=== PATIENT | female | born 1995 | race Caucasian/White ===

== ENCOUNTER 2016-08-26 17:29 | Emergency (ER) | payer OTHER ==
[2016-08-26 17:47] VITALS: BP 133/82; PULSE 113; RESP 18; TEMP 97.9
--- NOTE | 2016-08-26 18:01 | ED ---
General Adult HPI - General Chief complaint: Dental/Oral Stated complaint: tooth pain Time Seen by Provider: 08/26/16 17:38 Source: patient, RN notes reviewed Mode of arrival: EMS Limitations: no limitations - History of Present Illness Initial comments: This is a 21-year-old female presents with right sided dental pain 1 day. Patient states she had teeth extracted yesterday. Patient states her dentist gave her 6 pain pills and told her to alternate the pain medicine with Motrin. Patient states she has been doing this but she is still having pain. Patient states she called her dentist but was not able to get in for follow-up today. Patient denies any fever/chills, vomiting/diarrhea. Patient states the areas where her teeth were pulled were mildly bleeding and this made her a little bit nauseous. Patient is requesting pain pills. Patient denies any recent shortness breath, chest pain, abdominal pain, back pain, numbness, tingling, hematuria, headache, or visual changes, or any other complaints. - Related Data Home Medications Medication Instructions Recorded Confirmed Ibuprofen [Motrin] 400 mg PO Q6HR PRN 08/26/16 08/26/16 Penicillin V Potassium [Pen Vee K] 500 mg PO BID 08/26/16 08/26/16 Previous Rx's Medication Instructions Recorded Albuterol Inhaler [Ventolin Hfa 2 puff INHALATION RT-QID PRN #1 07/21/16 Inhaler] puff FLUoxetine HCL [PROzac] 60 mg PO DAILY #90 cap 07/21/16 Allergies Allergy/AdvReac Type Severity Reaction Status Date / Time Latex, Natural Rubber Allergy Rash/Hives Verified 08/26/16 17:48 venom-honey bee Allergy Swelling Verified 08/26/16 17:48 [bee venom (honey bee)] acetaminophen AdvReac Nausea & Verified 08/26/16 17:48 [From Tylenol-Codeine #3] Vomiting codeine AdvReac Nausea & Verified 08/26/16 17:48 [From Tylenol-Codeine #3] Vomiting Review of Systems ROS Statement: Those systems with pertinent positive or pertinent negative responses have been documented in the HPI. ROS Other: All systems not noted in ROS Statement are negative. Past Medical History Past Medical History: Asthma, Seizure Disorder Additional Past Medical History / Comment(s): HX: Recent injury to R ankle with ecchymosis and edema and pain, chronic back pain related to herniated disc , chronic migraines, endometriosis, multiple fractures, meningitis as child; ovarian cysts, alchol abuse, prescription drug abuse, heroin abuse in past. History of Any Multi-Drug Resistant Organisms: None Reported Past Surgical History: Section, Cholecystectomy, Ear Surgery, Orthopedic Surgery Additional Past Surgical History / Comment(s): ORIF right wrist, myringotomy with tubes as . Past Anesthesia/Blood Transfusion Reactions: No Reported Reaction Past Psychological History: Anxiety, Bipolar, Depression, Panic Disorder Additional Psychological History / Comment(s): Pt states she is staying with friends. 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 Pt has had several stays at [place] and admissions to [facility] mental health unit. She is suppose to go into [place] on 06/12/16. Pt denied suicidal thoughts or plans related to this incident that brought her to [facility] ER. Pt's mother is concerned that pt has recently been talking of not wanting to live any longer. Pt denies this however. Smoking Status: Current every day smoker Past Alcohol Use History: Abuse, Daily, Heavy Additional Past Alcohol Use History / Comment(s): Pt abuses alcohol and was last known to have drank 2 weeks ago. Pt has hx of heroin use and states she used heroin last nite and had been warned that "it was a strong kind." She also has hx of prescription drug abuse, benzo's, klonopin, xanax and marijuana use. Past Drug Use History: Heroin, Prescription Drug Abuse Additional Drug Use History / Comment(s): See addition past alcohol use section. - Past Family History Brother(s) Additional Family Medical History / Comment(s): Patient has 1 brother that is 20 years of age with no major medical problems. Patient has 1 son 3-1/2 years old with no major medical problems. Father Additional Family Medical History / Comment(s): Father is alive at age 54 with history of substance abuse, Schizophrenic, Bipolar Disorder Mother Additional Family Medical History / Comment(s): Mother is alive at age 47 with history of Arthritis. General Exam - General Exam Comments Initial Comments: General: The patient is awake and alert, in no distress, and does not appear acutely ill. Eye: Pupils are equal, round and reactive to light, extra-ocular movements are intact. No nystagmus. There is normal conjunctiva bilaterally. No signs of icterus. Ears: TMs pink and pearly with intact cone light bilaterally. Some mild scarring of TMs from past tympanostomy tubes bilaterally. Nose: Nasal turbinates pink and moist bilaterally. Mouth and throat: Patient has multiple missing teeth to the lower right gumline and multiple areas of tooth decay. No external facial swelling. There are healing areas where teeth~#27-28 were recently removed, but a fracture of tooth #27 remains. No sign of abscess or purulent drainage. There are moist mucous membranes and no oral lesions. Neck: The neck is supple, there is no tenderness or JVD. Cardiovascular: There is a regular rate and rhythm. No murmur, rub or gallop is appreciated. Respiratory: Lungs are clear to auscultation, respirations are non-labored, breath sounds are equal. No wheezes, stridor, rales, or rhonchi. Musculoskeletal: Normal ROM, no tenderness. Strength 5/5. Sensation intact. Radial pulses equal bilaterally 2+. Neurological: A&O x 3. CN II-XII intact, There are no obvious motor or sensory deficits. Coordination appears grossly intact. Speech is normal. Skin: Skin is warm and dry and no rashes or lesions are noted. Psychiatric: Cooperative, appropriate mood & affect, normal judgment. Limitations: no limitations Course Vital Signs 08/26/16 17:45 Temperature 97.9 F Pulse Rate 113 H Respiratory 18 Rate Blood Pressure 133/82 O2 Sat by Pulse 96 Oximetry Medical Decision Making - Medical Decision Making This is a 18-year-old female presents with pain after tooth extraction that happened yesterday. On physical exam patient is afebrile in the EC. Patient has multiple missing teeth to the lower right gumline and multiple areas of tooth decay. No external facial swelling. There are healing areas where teeth~# 27-28 were recently removed, but a fracture of tooth #27 remains. No sign of abscess or purulent drainage. There are moist mucous membranes and no oral lesions. Discussed with patient to continue the pain regimen her dentist recommended. Discussed continuation of Motrin. Patient was offered Motrin in the EC before discharge but patient refused. Discussed warm compresses to the area. Discussed return parameters. Discussed close follow-up with her dentist. Discussed that patient should follow up with PCP in one to 2 days or return to the EC for any worsening symptoms or for any further concerns. Patient was receptive to this plan and patient will be discharged home. I discussed his case with attending physician Dr. Saul who agrees the plan as stated above. Disposition Clinical Impression: History of tooth extraction, Pain, dental Disposition: HOME SELF-CARE Condition: Good Instructions: Toothache (ED) Additional Instructions: Please continue pain medication prescribed by her dentist and use Motrin. Please use warm compresses to the area. Please follow-up with dentist as soon as possible.[facility] dental plan: [address] [facility] [place] [address], . [employer]: Have to pay $50 for x-rays and the rest is covered. [phone]. Please follow-up with family doctor in the next 2 days of symptoms have not improved. Please return to emergency room if the symptoms increase or worsen or for any other concerns. Referrals: None,Stated [Primary Care Provider] - 1-2 days Time of Disposition: 17:59
== END 2016-08-26 18:06 | disposition home or self-care (01) ==
LOC: EC 17:29
DX: K08.89 Other specified disorders of teeth and supporting structures (principal); Z98.818 Other dental procedure status; F31.9 Bipolar disorder, unspecified; F41.0 Panic disorder [episodic paroxysmal anxiety]; F10.10 Alcohol abuse, uncomplicated; Z79.899 Other long term (current) drug therapy; Z91.040 Latex allergy status; F17.200 Nicotine dependence, unspecified, uncomplicated
CPT/HCPCS: 99283

== ENCOUNTER 2016-09-17 11:55 | Emergency (ER) | payer OTHER ==
[2016-09-17 12:00] VITALS: BP 143/82; PULSE 120; RESP 18; TEMP 97.2
[2016-09-17] MEDS ORDERED: HYDROcodone/APAP 5-325MG 1 EACH TAB PO STA (12:20)
--- NOTE | 2016-09-17 12:24 | ED ---
General Adult HPI - General Chief complaint: Dental/Oral Stated complaint: oral pain Time Seen by Provider: 09/17/16 12:06 Source: patient, RN notes reviewed, old records reviewed Mode of arrival: ambulatory Limitations: no limitations - History of Present Illness Initial comments: 21-year-old female presenting for dental pain. Patient states that she has had recurrent issues with cavities. She did have 2 of her right lower teeth pulled about 2 weeks ago. Since that time she's had persistent pain in this area. She states she did have some purulent drainage from the area several days ago. However, she has not had any purulent drainage in the past 2 days. She did finish a course of penicillin about 2 days ago. She denies any fevers or chills. She does state that she's been using Orajel and Motrin and Tylenol without significant relief. She denies any other complaints at this time. She does continue smoke cigarettes. She is not followed up with her dentist since the tooth extraction. - Related Data Home Medications Medication Instructions Recorded Confirmed Ibuprofen [Motrin] 400 mg PO Q6HR PRN 08/26/16 08/26/16 Penicillin V Potassium [Pen Vee K] 500 mg PO BID 08/26/16 08/26/16 Previous Rx's Medication Instructions Recorded Albuterol Inhaler [Ventolin Hfa 2 puff INHALATION RT-QID PRN #1 07/21/16 Inhaler] puff FLUoxetine HCL [PROzac] 60 mg PO DAILY #90 cap 07/21/16 HYDROcodone/APAP 5-325MG [[place] 1 tab PO Q6HR PRN #10 tab 09/17/16 5-325] Allergies Allergy/AdvReac Type Severity Reaction Status Date / Time Latex, Natural Rubber Allergy Rash/Hives Verified 09/17/16 12:00 venom-honey bee Allergy Swelling Verified 09/17/16 12:00 [bee venom (honey bee)] acetaminophen AdvReac Nausea & Verified 09/17/16 12:00 [From Tylenol-Codeine #3] Vomiting codeine AdvReac Nausea & Verified 09/17/16 12:00 [From Tylenol-Codeine #3] Vomiting Review of Systems ROS Statement: Those systems with pertinent positive or pertinent negative responses have been documented in the HPI. ROS Other: All systems not noted in ROS Statement are negative. Past Medical History Past Medical History: Asthma, Seizure Disorder Additional Past Medical History / Comment(s): HX: Recent injury to R ankle with ecchymosis and edema and pain, chronic back pain related to herniated disc , chronic migraines, endometriosis, multiple fractures, meningitis as child; ovarian cysts, alchol abuse, prescription drug abuse, heroin abuse in past. History of Any Multi-Drug Resistant Organisms: None Reported Past Surgical History: Section, Cholecystectomy, Ear Surgery, Orthopedic Surgery Additional Past Surgical History / Comment(s): ORIF right wrist, myringotomy with tubes as infant. Past Anesthesia/Blood Transfusion Reactions: No Reported Reaction Past Psychological History: Anxiety, Bipolar, Depression, Panic Disorder Additional Psychological History / Comment(s): Pt states she is staying with friends. 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 Pt has had several stays at [place] and admissions to [facility] mental health unit. She is suppose to go into [place] on 06/12/16. Pt denied suicidal thoughts or plans related to this incident that brought her to [facility] ER. Pt's mother is concerned that pt has recently been talking of not wanting to live any longer. Pt denies this however. Smoking Status: Current every day smoker Past Alcohol Use History: Abuse, Daily, Heavy Additional Past Alcohol Use History / Comment(s): Pt abuses alcohol and was last known to have drank 2 weeks ago. Pt has hx of heroin use and states she used heroin last nite and had been warned that "it was a strong kind." She also has hx of prescription drug abuse, benzo's, klonopin, xanax and marijuana use. Past Drug Use History: Heroin, Prescription Drug Abuse Additional Drug Use History / Comment(s): See addition past alcohol use section. - Past Family History Brother(s) Additional Family Medical History / Comment(s): Patient has 1 brother that is 20 years of age with no major medical problems. Patient has 1 son 3-1/2 years old with no major medical problems. Father Additional Family Medical History / Comment(s): Father is alive at age 54 with history of substance abuse, Schizophrenic, Bipolar Disorder Mother Additional Family Medical History / Comment(s): Mother is alive at age 47 with history of Arthritis. General Exam - General Exam Comments Initial Comments: General: Awake and Alert. No acute distress. Does not appear acutely ill. Eyes: NEO, EOM intact. No nystagmus. No scleral icterus. Multiple dental caries. Teeth 27 and 28 in the right lower jaw are missing. Good overlying gum appears uninfected and well healing. She has mild tenderness over this area. There is no purulent drainage or evidence of abscess. There is no posterior pharyngeal edema or erythema. There is no tonsillar edema. HENT: Atraumatic, normocephalic. Mucous membranes moist. Trachea midline. Neck: The neck is supple, there is no tenderness or JVD. Cardiovascular: Regular rate and rhythm. No murmur, rub, or gallop is appreciated. Distal pulses intact. Respiratory: Lungs are clear to auscultation bilaterally. No wheezes, rales, rhonchi. No respiratory distress. Gastrointestinal: Soft, Nontender. No rebound or guarding. Non-distended. No masses or organomegaly noted. No CVA tenderness. Musculoskeletal: No tenderness. Normal ROM. No gross deformity. No strength deficits. Neurological: A&Ox3. CN II-XII grossly intact, There are no obvious motor or sensory deficits. Coordination appears grossly intact. Speech is normal. Skin: Skin is warm and dry and no rashes or lesions are noted. Psychiatric: Cooperative, appropriate mood & affect, normal judgment. Limitations: no limitations Course Vital Signs 09/17/16 11:56 Temperature 97.2 F L Pulse Rate 120 H Respiratory 18 Rate Blood Pressure 143/82 O2 Sat by Pulse 99 Oximetry Medical Decision Making - Medical Decision Making 21-year-old female presenting for dental pain. Patient with recent tooth extraction. Area of tooth extraction is the area of pain she complains about. There does not appear to be any active infection or abscess in this area. The tissue appears to be healing well. There is no purulent drainage. No evidence of mandibular swelling. I do not recommend additional antibiotic therapy at this time. Was written for pain medication. Discussed close follow-up with dentist for further evaluation need for possible antibiotics. Discussed concerning signs symptoms for immediate return to the ED. Recommend over-the- counter treatments with Orajel and Tylenol and Motrin as needed. Patient is agreeable with plan and discharge home. Disposition Clinical Impression: Pain, dental Disposition: HOME SELF-CARE Condition: Stable Instructions: Toothache (ED) Additional Instructions: Please call follow-up with your dentist as soon as possible. Prescriptions: HYDROcodone/APAP 5-325MG [[place] 5-325] 1 tab PO Q6HR PRN #10 tab PRN Reason: Pain Referrals: None,Stated [Primary Care Provider] - 1-2 days Macario Castillo MD [REFERRING] - 1-2 days Time of Disposition: 12:24
== END 2016-09-17 12:31 | disposition home or self-care (01) ==
LOC: EC 11:55
DX: K02.9 Dental caries, unspecified (principal); F11.90 Opioid use, unspecified, uncomplicated; F31.9 Bipolar disorder, unspecified; F41.9 Anxiety disorder, unspecified; F41.0 Panic disorder [episodic paroxysmal anxiety]; F17.210 Nicotine dependence, cigarettes, uncomplicated; Z91.040 Latex allergy status; Z91.030 Bee allergy status; Z88.5 Allergy status to narcotic agent; Z88.6 Allergy status to analgesic agent
CPT/HCPCS: 99282

== ENCOUNTER 2016-10-02 03:50 | Emergency (ER) | payer OTHER ==
--- NOTE | 2016-10-02 04:20 | ED ---
General Adult HPI - General Source: patient, RN notes reviewed, old records reviewed Mode of arrival: ambulatory Limitations: no limitations <Aime Nascimento - Last Filed: 10/02/16 04:32> <Randell Saul - Last Filed: 10/02/16 10:04> - General Chief complaint: Psychiatric Symptoms Stated complaint: Mental Health Time Seen by Provider: 10/02/16 04:13 - History of Present Illness Initial comments: This is a 21-year-old female here for evaluation of psychiatric disease, psychiatric evaluation. Patient going through multiple stressors in her life, sutures out medication, feels like she's lost and has no return. Patient with recent drugs, admits to recent heroin use (Aime Nascimento) - Related Data Home Medications Medication Instructions Recorded Confirmed FLUoxetine HCL [PROzac] 60 mg PO DAILY 10/02/16 10/02/16 lamoTRIgine [LaMICtal] 200 mg PO DAILY 10/02/16 10/02/16 Allergies Allergy/AdvReac Type Severity Reaction Status Date / Time Latex, Natural Rubber Allergy Rash/Hives Verified 10/02/16 04:02 venom-honey bee Allergy Swelling Verified 10/02/16 04:02 [bee venom (honey bee)] acetaminophen AdvReac Nausea & Verified 10/02/16 04:02 [From Tylenol-Codeine #3] Vomiting codeine AdvReac Nausea & Verified 10/02/16 04:02 [From Tylenol-Codeine #3] Vomiting Review of Systems ROS Other: All systems not noted in ROS Statement are negative. <Aime Nascimento - Last Filed: 10/02/16 04:32> ROS Other: All systems not noted in ROS Statement are negative. <Randell Saul - Last Filed: 10/02/16 10:04> ROS Statement: Those systems with pertinent positive or pertinent negative responses have been documented in the HPI. Past Medical History Past Medical History: Asthma, Seizure Disorder Additional Past Medical History / Comment(s): HX: Recent injury to R ankle with ecchymosis and edema and pain, chronic back pain related to herniated disc , chronic migraines, endometriosis, multiple fractures, meningitis as child; ovarian cysts, alchol abuse, prescription drug abuse, heroin abuse in past. History of Any Multi-Drug Resistant Organisms: None Reported Past Surgical History: Section, Cholecystectomy, Ear Surgery, Orthopedic Surgery Additional Past Surgical History / Comment(s): ORIF right wrist, myringotomy with tubes as infant. Past Anesthesia/Blood Transfusion Reactions: No Reported Reaction Past Psychological History: Anxiety, Bipolar, Depression, Panic Disorder Additional Psychological History / Comment(s): Pt states she is staying with friends. 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 Pt has had several stays at [place] and admissions to [facility] mental health unit. She is suppose to go into [place] on 06/12/16. Pt denied suicidal thoughts or plans related to this incident that brought her to [facility] ER. Pt's mother is concerned that pt has recently been talking of not wanting to live any longer. Pt denies this however. Smoking Status: Current every day smoker Past Alcohol Use History: Occasional Additional Past Alcohol Use History / Comment(s): Pt abuses alcohol and was last known to have drank 2 weeks ago. Pt has hx of heroin use and states she used heroin last nite and had been warned that "it was a strong kind." She also has hx of prescription drug abuse, benzo's, klonopin, xanax and marijuana use. Past Drug Use History: Heroin, Marijuana, Opiates, Prescription Drug Abuse Additional Drug Use History / Comment(s): See addition past alcohol use section. - Past Family History Brother(s) Additional Family Medical History / Comment(s): Patient has 1 brother that is 20 years of age with no major medical problems. Patient has 1 son 3-1/2 years old with no major medical problems. Father Additional Family Medical History / Comment(s): Father is alive at age 54 with history of substance abuse, Schizophrenic, Bipolar Disorder Mother Additional Family Medical History / Comment(s): Mother is alive at age 47 with history of Arthritis. <Aime Nascimento - Last Filed: 10/02/16 04:32> General Exam Limitations: no limitations General appearance: alert, in no apparent distress, anxious Head exam: Present: atraumatic, normocephalic, normal inspection Eye exam: Present: normal appearance, PERRL, EOMI. Absent: scleral icterus, conjunctival injection, periorbital swelling ENT exam: Present: normal exam, mucous membranes moist Neck exam: Present: normal inspection. Absent: tenderness, meningismus, lymphadenopathy Respiratory exam: Present: normal lung sounds bilaterally. Absent: respiratory distress, wheezes, rales, rhonchi, stridor Cardiovascular Exam: Present: normal rhythm, tachycardia, normal heart sounds. Absent: systolic murmur, diastolic murmur, rubs, gallop, clicks GI/Abdominal exam: Present: soft, normal bowel sounds. Absent: distended, tenderness, guarding, rebound, rigid Extremities exam: Present: normal inspection, full ROM, normal capillary refill. Absent: tenderness, pedal edema, joint swelling, calf tenderness Back exam: Present: normal inspection Neurological exam: Present: alert, oriented X3, CN II-XII intact Psychiatric exam: Present: normal affect, normal mood Skin exam: Present: warm, dry, intact, normal color. Absent: rash <Aime Nascimento - Last Filed: 10/02/16 04:32> Course <Aime Nascimento - Last Filed: 10/02/16 04:32> <Randell Saul - Last Filed: 10/02/16 10:04> Vital Signs 10/02/16 03:55 Temperature 97.8 F Pulse Rate 126 H Respiratory 18 Rate Blood Pressure 116/72 O2 Sat by Pulse 97 Oximetry - Reevaluation(s) Reevaluation #1: 10/02/16 04:33 Patient's medically psychiatric evaluation 10/02/16 04:33 (Aime Nascimento) 10/02/16 10:03 Patient reevaluated by myself, Dr. Saul. Patient admits to feeling depressed with suicidal thoughts. Patient did attempt to cut her wrist recently. Patient has not been on medications recently. Patient has anger without specific homicidal thoughts. No hallucinations. Patient was seen by mental health services who does plan to either transfer or admit. Positive clinical certificate completed. (Randell Saul) Disposition <Aime Nascimento - Last Filed: 10/02/16 04:32> <Randell Saul - Last Filed: 10/02/16 10:04> Clinical Impression: Suicidal ideation, Depression Disposition: TRANSFER TO PSYCH HOSP/UNIT
[2016-10-02] MEDS ORDERED: clonazePAM 1 MG TAB PO STA (05:23)
[2016-10-02] MEDS: LORazepam 1 MG TAB PO STA ×2 (10:18→13:22)
[2016-10-02 10:49] LABS: Basophils % (A) 1 %; CH 30.3; CHCM 34.4; Eosinophils # (A) 0.5 k/uL (0-0.7); Eosinophils % (A) 7 %; HCT 38.9 % (34.0-46.0); HDW 2.76; Luc # (Auto) 0.26; Luc % (Auto) 4; Lymphocytes % (A) 46 %; MCH 29.5 pg (25.0-35.0); MCHC 33.4 g/dL (31.0-37.0); MCV 88.5 fL (80.0-100.0); Mean Platelet Volume 7.2; Monocytes # (A) 0.3 k/uL (0-1.0); Monocytes % (A) 5 %; Neutrophils # (A) 2.4 k/uL (1.3-7.7); Neutrophils % (A) 37 %; RBC 4.39 m/uL (3.80-5.40); RDW 13.3 % (11.5-15.5); WBC 6.4 k/uL (3.8-10.6); WBC (Perox) 6.72
[2016-10-02 10:58] LABS: ALT 53 U/L (9-52); AST 35 U/L (14-36); Alkaline Phosphatase 59 U/L (38-126); Anion Gap 12 mmol/L; Blood Urea Nitrogen 7 mg/dL (7-17); Calcium 9.6 mg/dL (8.4-10.2); Carbon Dioxide 26 mmol/L (22-30); Chloride 102 mmol/L (98-107); Glucose 102 mg/dL (74-99); Non-African American GFR(MDRD) >60 (>60 ml/min/1.73 sqM); Potassium 3.4 mmol/L (3.5-5.1); Sodium 140 mmol/L (137-145); Total Bilirubin 0.7 mg/dL (0.2-1.3); Total Protein 7.7 g/dL (6.3-8.2)
[2016-10-02] MEDS ORDERED: LORazepam 1 MG TAB PO STA (12:58)
[2016-10-02] MEDS ORDERED: ZIPRASIDONE 20 MG VIAL IM PRN (13:50)
[2016-10-02 15:37] VITALS: BP 103/57; PULSE 85; RESP 16; TEMP 96.8
== END 2016-10-02 15:35 ==
LOC: EC 03:50
DX: F31.9 Bipolar disorder, unspecified (principal); G40.909 Epilepsy, unspecified, not intractable, without status epilepticus; F41.0 Panic disorder [episodic paroxysmal anxiety]; Z81.8 Family history of other mental and behavioral disorders; F17.200 Nicotine dependence, unspecified, uncomplicated; Z79.899 Other long term (current) drug therapy; Z91.040 Latex allergy status; Z88.6 Allergy status to analgesic agent; Z91.030 Bee allergy status
CPT/HCPCS: 82075; 36415; 93005; 80053; 85025; 81025; 80306; 99285; 96372; J3486

== ENCOUNTER 2016-10-11 18:24 | Emergency (ER) | payer OTHER ==
[2016-10-11] MEDS ORDERED: KETOROLAC 30 MG/ML 1 ML VIAL IVP STA (20:10)
--- NOTE | 2016-10-11 20:14 | ED ---
Abdominal Pain HPI - General Chief Complaint: Abdominal Pain Stated Complaint: Severe menstrual Pain h/o endometriosis Time Seen by Provider: 10/11/16 19:59 Source: patient, RN notes reviewed Mode of arrival: ambulatory Limitations: no limitations - History of Present Illness Initial Comments: Patient is a 21-year-old female with chief complaint of lower pelvic pain for approximately one day. Patient reports that she is currently on her period. Patient reports that she has history of endometriosis and ovarian cyst. Patient states that the pain is a sharp stabbing pain in nature and radiates towards her back. She states that she's taken a lot of Motrin however does not help with the pain. She denies any other associated symptoms. She states that she feels a little nauseated. She denies any upper abdominal pain, dysuria or hematuria.Patient denies any recent fever, chills, shortness of breath, chest pain, back pain, numbness or tingling, dysuria or hematuria, constipation or diarrhea, headaches or visual changes, or any other current symptoms - Related Data Home Medications Medication Instructions Recorded Confirmed Albuterol Inhaler [Ventolin Hfa 1 - 2 puff INHALATION RT-Q6H PRN 10/11/16 Inhaler] Ibuprofen [Motrin] 800 mg PO TID PRN 10/11/16 10/11/16 OXcarbazepine [Trileptal] 300 mg PO BID 10/11/16 10/11/16 Paliperidone [Invega] 3 mg PO HS 10/11/16 10/11/16 Previous Rx's Medication Instructions Recorded Ciprofloxacin HCl [Cipro] 250 mg PO Q12HR #6 tablet 10/11/16 Allergies Allergy/AdvReac Type Severity Reaction Status Date / Time Latex, Natural Rubber Allergy Rash/Hives Verified 10/11/16 20:15 venom-honey bee Allergy Swelling Verified 10/11/16 20:15 [bee venom (honey bee)] Review of Systems ROS Statement: Those systems with pertinent positive or pertinent negative responses have been documented in the HPI. ROS Other: All systems not noted in ROS Statement are negative. Past Medical History Past Medical History: Asthma, Seizure Disorder Additional Past Medical History / Comment(s): HX: Recent injury to R ankle with ecchymosis and edema and pain, chronic back pain related to herniated disc , chronic migraines, endometriosis, multiple fractures, meningitis as child; ovarian cysts, alchol abuse, prescription drug abuse, heroin abuse in past. History of Any Multi-Drug Resistant Organisms: None Reported Past Surgical History: Section, Cholecystectomy, Ear Surgery, Orthopedic Surgery Additional Past Surgical History / Comment(s): ORIF right wrist, myringotomy with tubes as . Past Anesthesia/Blood Transfusion Reactions: No Reported Reaction Past Psychological History: Anxiety, Bipolar, Depression, Panic Disorder Additional Psychological History / Comment(s): Pt states she is staying with friends. 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 Pt has had several stays at [facility] and admissions to [facility] mental health unit. She is suppose to go into [facility] on 06/12/16. Pt denied suicidal thoughts or plans related to this incident that brought her to [facility] ER. Pt's mother is concerned that pt has recently been talking of not wanting to live any longer. Pt denies this however. Smoking Status: Current every day smoker Past Alcohol Use History: Occasional Additional Past Alcohol Use History / Comment(s): Pt abuses alcohol and was last known to have drank 2 weeks ago. Pt has hx of heroin use and states she used heroin last nite and had been warned that "it was a strong kind." She also has hx of prescription drug abuse, benzo's, klonopin, xanax and marijuana use. Past Drug Use History: Heroin, Marijuana, Opiates, Prescription Drug Abuse Additional Drug Use History / Comment(s): See addition past alcohol use section. - Past Family History Brother(s) Additional Family Medical History / Comment(s): Patient has 1 brother that is 20 years of age with no major medical problems. Patient has 1 son 3-1/2 years old with no major medical problems. Father Additional Family Medical History / Comment(s): Father is alive at age 54 with history of substance abuse, Schizophrenic, Bipolar Disorder Mother Additional Family Medical History / Comment(s): Mother is alive at age 47 with history of Arthritis. General Exam - General Exam Comments Initial Comments: Patient is a well-appearing 21-year-old female. Patient does not appear to be in any acute distress. Limitations: no limitations General appearance: alert, in no apparent distress Head exam: Present: atraumatic, normocephalic, normal inspection Eye exam: Present: normal appearance, PERRL, EOMI. Absent: scleral icterus, conjunctival injection, periorbital swelling ENT exam: Present: normal exam, mucous membranes moist Neck exam: Present: normal inspection. Absent: tenderness, meningismus, lymphadenopathy Respiratory exam: Present: normal lung sounds bilaterally. Absent: respiratory distress, wheezes, rales, rhonchi, stridor Cardiovascular Exam: Present: regular rate, normal rhythm, normal heart sounds. Absent: systolic murmur, diastolic murmur, rubs, gallop, clicks GI/Abdominal exam: Present: soft, normal bowel sounds. Absent: distended, tenderness, guarding, rebound, rigid External exam: Present: normal external exam. Absent: erythema, swelling Speculum exam: Present: normal speculum exam, vaginal bleeding (Scant vaginal bleeding. No evidence of clots. This would be consistent with normal menstruation.). Absent: erythema, vaginal discharge, cervical discharge, foreign body Extremities exam: Present: normal inspection, full ROM, normal capillary refill. Absent: tenderness, pedal edema, joint swelling, calf tenderness Back exam: Present: normal inspection Neurological exam: Present: alert, oriented X3, CN II-XII intact Psychiatric exam: Present: normal affect, normal mood Skin exam: Present: warm, dry, intact, normal color. Absent: rash Course Vital Signs 10/11/16 18:27 Temperature 97.8 F Pulse Rate 114 H Respiratory 20 Rate Blood Pressure 120/85 O2 Sat by Pulse 99 Oximetry Medical Decision Making - Medical Decision Making Patient is a 21-year-old [employer] chief complaint of lower abdominal pain for approximately 1 day. She still denies any changes in bowel movements or urination. Patient reports that she does have a history of ovarian cysts. Patient was given IV Toradol and over mother morphine. Patient reports that she 's can still continued to complain of pain. Transvaginal ultrasound was reviewed and no evidence of ovarian torsion or free fluid within the pelvis. No evidence of cysts. Patient's urine did show slight urinary tract infection with water leukocyte Estrace and 32 white blood cells. Patient is currently on her menstrual period. Urine culture will be obtained. Patient be started on Cipro and given initial dose the emergency room. Return parameters were discussed. I advised patient to follow-up with her primary care provider. Patient was continuing to complain about needing pain medications. Patient does have a history of opiate disorder and multiple heroin overdoses where she is been seen in the emergency room. I will not prescribe the patient any narcotic pain medications. I advised Motrin Tylenol should be sufficient for pain. It is ambulating around the room and eating. She doesn't appear to be in any acute distress. - Lab Data Result diagrams: 10/11/16 20:25 10/11/16 20:25 Lab Results 10/11/16 10/11/16 10/11/16 Range/Units 20:25 20:25 20:55 WBC 9.4 (3.8-10.6) k/uL RBC 4.10 (3.80-5.40) m/uL Hgb 12.3 (11.4-16.0) gm/dL Hct 37.1 (34.0-46.0) % MCV 90.5 (80.0-100.0) fL MCH 29.9 (25.0-35.0) pg MCHC 33.1 (31.0-37.0) g/dL RDW 13.2 (11.5-15.5) % Plt Count 227 (150-450) k/uL Neutrophils % 56 % Lymphocytes % 32 % Monocytes % 6 % Eosinophils % 3 % Basophils % 1 % Neutrophils # 5.3 (1.3-7.7) k/uL Lymphocytes # 3.0 (1.0-4.8) k/uL Monocytes # 0.5 (0-1.0) k/uL Eosinophils # 0.3 (0-0.7) k/uL Basophils # 0.1 (0-0.2) k/uL Sodium 141 (137-145) mmol/L Potassium 4.1 (3.5-5.1) mmol/L Chloride 100 (98-107) mmol/L Carbon Dioxide 30 (22-30) mmol/L Anion Gap 11 mmol/L BUN 13 (7-17) mg/dL Creatinine 0.73 (0.52-1.04) mg/dL Est GFR (MDRD) Af Amer >60 (>60 ml/min/1.73 sqM) Est GFR (MDRD) Non-Af >60 (>60 ml/min/1.73 sqM) Glucose 93 (74-99) mg/dL Calcium 9.7 (8.4-10.2) mg/dL Urine Color Urine Appearance (Clear) Urine pH (5.0-8.0) Ur Specific [place] (1.001-1.035) Urine Protein (Negative) Urine Glucose (UA) (Negative) Urine Ketones (Negative) Urine Blood (Negative) Urine Nitrate (Negative) Urine Bilirubin (Negative) Urine Urobilinogen (<2.0) mg/dL Ur Leukocyte Esterase (Negative) Urine RBC (0-5) /hpf Urine WBC (0-5) /hpf Ur Squamous Epith Cells (0-4) /hpf Amorphous Sediment (None) /hpf Urine Mucus (None) /hpf Urine HCG, Qual Not Detected (Not Detectd) Trichomonas Ag (Rapid) (Negative) 10/11/16 10/11/16 Range/Units 20:55 20:55 WBC (3.8-10.6) k/uL RBC (3.80-5.40) m/uL Hgb (11.4-16.0) gm/dL Hct (34.0-46.0) % MCV (80.0-100.0) fL MCH (25.0-35.0) pg MCHC (31.0-37.0) g/dL RDW (11.5-15.5) % Plt Count (150-450) k/uL Neutrophils % % Lymphocytes % % Monocytes % % Eosinophils % % Basophils % % Neutrophils # (1.3-7.7) k/uL Lymphocytes # (1.0-4.8) k/uL Monocytes # (0-1.0) k/uL Eosinophils # (0-0.7) k/uL Basophils # (0-0.2) k/uL Sodium (137-145) mmol/L Potassium (3.5-5.1) mmol/L Chloride (98-107) mmol/L Carbon Dioxide (22-30) mmol/L Anion Gap mmol/L BUN (7-17) mg/dL Creatinine (0.52-1.04) mg/dL Est GFR (MDRD) Af Amer (>60 ml/min/1.73 sqM) Est GFR (MDRD) Non-Af (>60 ml/min/1.73 sqM) Glucose (74-99) mg/dL Calcium (8.4-10.2) mg/dL Urine Color Yellow Urine Appearance Cloudy H (Clear) Urine pH 6.5 (5.0-8.0) Ur Specific [place] 1.018 (1.001-1.035) Urine Protein Trace H (Negative) Urine Glucose (UA) Negative (Negative) Urine Ketones Negative (Negative) Urine Blood Moderate H (Negative) Urine Nitrate Negative (Negative) Urine Bilirubin Negative (Negative) Urine Urobilinogen <2.0 (<2.0) mg/dL Ur Leukocyte Esterase Moderate H (Negative) Urine RBC 28 H (0-5) /hpf Urine WBC 20 H (0-5) /hpf Ur Squamous Epith Cells 7 H (0-4) /hpf Amorphous Sediment Rare H (None) /hpf Urine Mucus Rare H (None) /hpf Urine HCG, Qual (Not Detectd) Trichomonas Ag (Rapid) Negative (Negative) - Radiology Data Radiology results: report reviewed The uterus is with a normal limits. No evidence of ovarian torsion. No evidence of free fluid within the cul-de-sac. Disposition Clinical Impression: Menstrual cramps, Urinary tract infection Disposition: HOME SELF-CARE Condition: Good Instructions: Urinary Tract Infection in Women (ED) Additional Instructions: Patient is to rest, increase fluids and to take prescriptions as instructed. Follow-up with primary care provider within the next 1-2 days. Return the emergency room if any alarming signs or symptoms occur. Prescriptions: Ciprofloxacin HCl [Cipro] 250 mg PO Q12HR #6 tablet Referrals: Macario Castillo MD [REFERRING] - 1-2 days Time of Disposition: 22:08
[2016-10-11 20:36] LABS: Basophils # (A) 0.1 k/uL (0-0.2); Basophils % (A) 1 %; CH 30.2; CHCM 33.5; Eosinophils # (A) 0.3 k/uL (0-0.7); Eosinophils % (A) 3 %; HCT 37.1 % (34.0-46.0); HDW 2.31; HGB 12.3 gm/dL (11.4-16.0); Luc # (Auto) 0.25; Luc % (Auto) 3; Lymphocytes % (A) 32 %; MCH 29.9 pg (25.0-35.0); MCHC 33.1 g/dL (31.0-37.0); MCV 90.5 fL (80.0-100.0); Monocytes # (A) 0.5 k/uL (0-1.0); Monocytes % (A) 6 %; Neutrophils # (A) 5.3 k/uL (1.3-7.7); Neutrophils % (A) 56 %; RDW 13.2 % (11.5-15.5); WBC 9.4 k/uL (3.8-10.6)
[2016-10-11] MEDS ORDERED: ACETAMINOPHEN IV (For NPO) 1,000 MG in EMPTY BAG 1 BAG IVPB STA (20:43)
[2016-10-11] MEDS ORDERED: MORPHINE SULFATE 2 MG/ML SYRINGE IVP ONE (20:44)
[2016-10-11 20:45] LABS: Anion Gap 11 mmol/L; Blood Urea Nitrogen 13 mg/dL (7-17); Calcium 9.7 mg/dL (8.4-10.2); Carbon Dioxide 30 mmol/L (22-30); Chloride 100 mmol/L (98-107); Glucose 93 mg/dL (74-99); Non-African American GFR(MDRD) >60 (>60 ml/min/1.73 sqM); Potassium 4.1 mmol/L (3.5-5.1); Sodium 141 mmol/L (137-145)
[2016-10-11 21:09] LABS: Amorphous Sediment,Urine Rare /hpf; Appearance,Urine Cloudy (Clear); Bilirubin,Urine Negative (Negative); Glucose,Urine (UA) Negative (Negative); Ketones,Urine Negative (Negative); Leukocyte Esterase,Urine Moderate (Negative); Mucus,Urine Rare /hpf; Nitrite,Urine Negative (Negative); PH, Urine 6.5 (5.0-8.0); Particle Count 10249; Protein,Urine Trace (Negative); RBC,Urine 28 /hpf (0-5); Specific Gravity,Urine 1.018 (1.001-1.035); Squamous Epithelial Cell,Urine 7 /hpf (0-4); UA Billing (MACRO vs. MICRO) MICRO; Urobilinogen,Urine <2.0 mg/dL (<2.0); WBC,Urine 20 /hpf (0-5)
--- NOTE | 2016-10-11 21:56 | US ---
EXAMINATION TYPE: US transvaginal DATE OF EXAM: 10/11/2016 9:34 PM COMPARISON: NONE CLINICAL HISTORY: Pain. History of TECHNIQUE: Transvaginal (TV) Date of LMP: 10/11/2016 EXAM MEASUREMENTS: Uterus: 7.3 x 3.2 x 4.6 cm Endometrial Stripe: 0.6 cm Right Ovary: 3.5 x 1.8 x 1.4 cm Left Ovary: 2.4 x 1.3 x 1.4 cm TECHNOLOGIST IMPRESSION: 1. Uterus: Anteverted wnl 2. Endometrium: wnl 3. Right Ovary: wnl 4. Left Ovary: wnl Spectral, color and waveform doppler imaging shows good arterial and venous flow within the ovaries ; there is no evidence for ovarian torsion. 5. Bilateral Adnexa: wnl 6. Posterior cul-de-sac: wnl IMPRESSION: There is no evidence of ovarian torsion. There is normal arterial waveform in the ovarian arteries on the color Doppler images. Normal transvaginal pelvic ultrasound exam.
[2016-10-11] MEDS ORDERED: CIPROFLOXACIN HCL 250 MG TAB PO STA (22:11)
[2016-10-11] MEDS ORDERED: CIPROFLOXACIN HCL 500 MG TAB PO STA (22:19)
[2016-10-11 22:26] VITALS: BP 109/64; PULSE 98; RESP 16; TEMP 97.6
== END 2016-10-11 22:26 | disposition home or self-care (01) ==
LOC: EC 18:24
DX: N39.0 Urinary tract infection, site not specified (principal); N94.6 Dysmenorrhea, unspecified; G40.909 Epilepsy, unspecified, not intractable, without status epilepticus; F31.9 Bipolar disorder, unspecified; F41.0 Panic disorder [episodic paroxysmal anxiety]; F17.200 Nicotine dependence, unspecified, uncomplicated; F19.10 Other psychoactive substance abuse, uncomplicated; Z91.040 Latex allergy status; Z87.42 Personal history of other diseases of the female genital tract
CPT/HCPCS: 36415; 80048; 87591; 87491; 85025; 81001; 81025; 87808; 87070; 87086; 87077; 87186; 93975; 76830; 99284; 96374; 96375 ×2; J1885; J2270; J0131; 87205

== ENCOUNTER 2016-10-16 13:46 | Emergency (ER) | payer OTHER ==
[2016-10-16 14:01] VITALS: BP 125/71; PULSE 108; RESP 18; TEMP 97.5
--- NOTE | 2016-10-16 14:13 | ED ---
General Adult HPI - General Chief complaint: Dental/Oral Stated complaint: Dental Pain Time Seen by Provider: 10/16/16 13:58 Source: patient, RN notes reviewed Mode of arrival: ambulatory Limitations: no limitations - History of Present Illness Initial comments: Patient is a 21-year-old female who presents emergency room today with a chief complaint of increased dental pain. Does admit to poor dental hygiene due to history of methadone use. She states she was on this for several years after she became addicted to medications after wrist surgery. Patient denies any other complaints or associated symptoms. Patient denies any recent fever, chills, shortness of breath, chest pain, back pain, abdominal pain, nausea or vomiting, numbness or tingling, dysuria or hematuria, constipation or diarrhea, headaches or visual changes, or any other complaints. - Related Data Home Medications Medication Instructions Recorded Confirmed Albuterol Inhaler [Ventolin Hfa 1 - 2 puff INHALATION RT-Q6H PRN 10/11/16 Inhaler] Ibuprofen [Motrin] 800 mg PO TID PRN 10/11/16 10/11/16 OXcarbazepine [Trileptal] 300 mg PO BID 10/11/16 10/11/16 Paliperidone [Invega] 3 mg PO HS 10/11/16 10/11/16 Previous Rx's Medication Instructions Recorded Ciprofloxacin HCl [Cipro] 250 mg PO Q12HR #6 tablet 10/11/16 Acetaminophen-Codeine 300-30mg 1 each PO Q6H PRN #5 tablet 10/16/16 [Tylenol #3] Penicillin V Potassium [Pen Vee K] 500 mg PO QID 10 Days 10/16/16 Allergies Allergy/AdvReac Type Severity Reaction Status Date / Time Latex, Natural Rubber Allergy Rash/Hives Verified 10/11/16 20:15 venom-honey bee Allergy Swelling Verified 10/11/16 20:15 [bee venom (honey bee)] Review of Systems ROS Statement: Those systems with pertinent positive or pertinent negative responses have been documented in the HPI. ROS Other: All systems not noted in ROS Statement are negative. Past Medical History Past Medical History: Asthma, Seizure Disorder Additional Past Medical History / Comment(s): HX: Recent injury to R ankle with ecchymosis and edema and pain, chronic back pain related to herniated disc , chronic migraines, endometriosis, multiple fractures, meningitis as child; ovarian cysts, alchol abuse, prescription drug abuse, heroin abuse in past. History of Any Multi-Drug Resistant Organisms: None Reported Past Surgical History: Section, Cholecystectomy, Ear Surgery, Orthopedic Surgery Additional Past Surgical History / Comment(s): ORIF right wrist, myringotomy with tubes as . Past Anesthesia/Blood Transfusion Reactions: No Reported Reaction Past Psychological History: Anxiety, Bipolar, Depression, Panic Disorder Additional Psychological History / Comment(s): Pt states she is staying with friends. 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 Pt has had several stays at [facility] and admissions to [facility] mental health unit. She is suppose to go into [facility] on 06/12/16. Pt denied suicidal thoughts or plans related to this incident that brought her to [facility] ER. Pt's mother is concerned that pt has recently been talking of not wanting to live any longer. Pt denies this however. Smoking Status: Current every day smoker Past Alcohol Use History: Occasional Additional Past Alcohol Use History / Comment(s): Pt abuses alcohol and was last known to have drank 2 weeks ago. Pt has hx of heroin use and states she used heroin last nite and had been warned that "it was a strong kind." She also has hx of prescription drug abuse, benzo's, klonopin, xanax and marijuana use. Past Drug Use History: Heroin, Marijuana, Opiates, Prescription Drug Abuse Additional Drug Use History / Comment(s): See addition past alcohol use section. - Past Family History Brother(s) Additional Family Medical History / Comment(s): Patient has 1 brother that is 20 years of age with no major medical problems. Patient has 1 son 3-1/2 years old with no major medical problems. Father Additional Family Medical History / Comment(s): Father is alive at age 54 with history of substance abuse, Schizophrenic, Bipolar Disorder Mother Additional Family Medical History / Comment(s): Mother is alive at age 47 with history of Arthritis. General Exam - General Exam Comments Initial Comments: General: The patient is awake and alert, in no distress, and does not appear acutely ill. Eye: Pupils are equal, round and reactive to light, extra-ocular movements are intact. No nystagmus. There is normal conjunctiva bilaterally. No signs of icterus. Ears, nose, mouth and throat: There are moist mucous membranes and no oral lesions. Poor dental hygiene with multiple missing teeth. Tender of the gumline over tooth #23. Neck: The neck is supple, there is no tenderness or JVD. Cardiovascular: There is a regular rate and rhythm. No murmur, rub or gallop is appreciated. Respiratory: Lungs are clear to auscultation, respirations are non-labored, breath sounds are equal. No wheezes, stridor, rales, or rhonchi. Musculoskeletal: Normal ROM, no tenderness. Strength 5/5. Sensation intact. Pulses equal bilaterally 2+. Neurological: A&O x 3. CN II-XII intact, There are no obvious motor or sensory deficits. Coordination appears grossly intact. Speech is normal. Skin: Skin is warm and dry and no rashes or lesions are noted. Psychiatric: Cooperative, appropriate mood & affect, normal judgment. Limitations: no limitations Course Vital Signs 10/16/16 13:58 Temperature 97.5 F L Pulse Rate 108 H Respiratory 18 Rate Blood Pressure 125/71 O2 Sat by Pulse 98 Oximetry Medical Decision Making - Medical Decision Making Patient requests narcotics here in emergency room. Patient advised that she was follow-up with dentist and oral surgeon. Given a short prescription of 5 tabs of Tylenol with codeine. Patient will be started on antibiotics of penicillin. Disposition Clinical Impression: Dental implant pain Disposition: HOME SELF-CARE Condition: Good Instructions: Dental Abscess (ED) Additional Instructions: Please follow-up with the oral surgeon as discussed. Please use antibiotic as prescribed. Prescriptions: Acetaminophen-Codeine 300-30mg [Tylenol #3] 1 each PO Q6H PRN #5 tablet PRN Reason: Pain Penicillin V Potassium [Pen Vee K] 500 mg PO QID 10 Days Time of Disposition: 14:11
== END 2016-10-16 14:21 | disposition home or self-care (01) ==
LOC: EC 13:46
DX: M27.69 Other endosseous dental implant failure (principal); Z91.030 Bee allergy status; Z91.040 Latex allergy status; M27.62 Post-osseointegration biological failure of dental implant; Z79.899 Other long term (current) drug therapy; G40.909 Epilepsy, unspecified, not intractable, without status epilepticus; F17.200 Nicotine dependence, unspecified, uncomplicated
CPT/HCPCS: 99282

== ENCOUNTER 2016-10-29 15:56 | Emergency (ER) | payer OTHER ==
[2016-10-29 16:01] VITALS: BP 112/63; PULSE 115; RESP 20; TEMP 97
--- NOTE | 2016-10-29 16:27 | ED ---
General Adult HPI - General Chief complaint: Recheck/Abnormal Lab/Rx Stated complaint: psych med refill Time Seen by Provider: 10/29/16 16:03 Source: patient, RN notes reviewed Mode of arrival: ambulatory Limitations: no limitations - History of Present Illness Initial comments: Patient is a 21-year-old female with chief complaint of needing a medication refill for her psychiatric medications. Patient reports that she has a history of anxiety and bipolar disorder. Patient reports that she takes Trileptal and clonazepam and gabapentin for seizures. Patient reports that she is been prescribed new medications from her psychiatrist. She reports that she was recently [facility] and medications of change. Patient reports that she has had a history of anxiety and is frequently in the emergency department and admitted to [facility] for anxiety. Patient states that she' s been off her medications for approximately 1 day. She does report that she has been taking her medications regularly. - Related Data Home Medications Medication Instructions Recorded Confirmed Albuterol Inhaler [Ventolin Hfa 1 - 2 puff INHALATION RT-Q6H PRN 10/11/16 Inhaler] OXcarbazepine [Trileptal] 300 mg PO BID 10/11/16 10/29/16 Paliperidone [Invega] 3 mg PO HS 10/11/16 10/29/16 Previous Rx's Medication Instructions Recorded Gabapentin [Neurontin] 300 mg PO TID #15 cap 10/29/16 OXcarbazepine [Trileptal] 300 mg PO BID #14 tablet 10/29/16 clonazePAM [KlonoPIN] 0.5 mg PO BID #10 tablet 10/29/16 Allergies Allergy/AdvReac Type Severity Reaction Status Date / Time Latex, Natural Rubber Allergy Rash/Hives Verified 10/29/16 16:01 venom-honey bee Allergy Swelling Verified 10/11/16 20:15 [bee venom (honey bee)] Review of Systems ROS Statement: Those systems with pertinent positive or pertinent negative responses have been documented in the HPI. ROS Other: All systems not noted in ROS Statement are negative. Past Medical History Past Medical History: Asthma, Seizure Disorder Additional Past Medical History / Comment(s): HX: Recent injury to R ankle with ecchymosis and edema and pain, chronic back pain related to herniated disc , chronic migraines, endometriosis, multiple fractures, meningitis as child; ovarian cysts, alchol abuse, prescription drug abuse, heroin abuse in past. History of Any Multi-Drug Resistant Organisms: None Reported Past Surgical History: Section, Cholecystectomy, Ear Surgery, Orthopedic Surgery Additional Past Surgical History / Comment(s): ORIF right wrist, myringotomy with tubes as . Past Anesthesia/Blood Transfusion Reactions: No Reported Reaction Past Psychological History: Anxiety, Bipolar, Depression, Panic Disorder Additional Psychological History / Comment(s): Pt states she is staying with friends. 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 Pt has had several stays at [facility] and admissions to [facility] mental health unit. She is suppose to go into [facility] on 06/12/16. Pt denied suicidal thoughts or plans related to this incident that brought her to [facility] ER. Pt's mother is concerned that pt has recently been talking of not wanting to live any longer. Pt denies this however. Smoking Status: Current every day smoker Past Alcohol Use History: Occasional Additional Past Alcohol Use History / Comment(s): Pt abuses alcohol and was last known to have drank 2 weeks ago. Pt has hx of heroin use and states she used heroin last nite and had been warned that "it was a strong kind." She also has hx of prescription drug abuse, benzo's, klonopin, xanax and marijuana use. Past Drug Use History: Heroin, Marijuana, Opiates, Prescription Drug Abuse Additional Drug Use History / Comment(s): See addition past alcohol use section. - Past Family History Brother(s) Additional Family Medical History / Comment(s): Patient has 1 brother that is 20 years of age with no major medical problems. Patient has 1 son 3-1/2 years old with no major medical problems. Father Additional Family Medical History / Comment(s): Father is alive at age 54 with history of substance abuse, Schizophrenic, Bipolar Disorder Mother Additional Family Medical History / Comment(s): Mother is alive at age 47 with history of Arthritis. General Exam - General Exam Comments Initial Comments: Well-appearing 21-year-old female. Patient does not appear in any acute distress. Limitations: no limitations General appearance: alert, in no apparent distress Head exam: Present: atraumatic, normocephalic, normal inspection Eye exam: Present: normal appearance ENT exam: Present: normal exam, mucous membranes moist Neck exam: Present: normal inspection. Absent: tenderness, meningismus, lymphadenopathy Respiratory exam: Present: normal lung sounds bilaterally. Absent: respiratory distress, wheezes, rales, rhonchi, stridor Cardiovascular Exam: Present: regular rate, normal rhythm, normal heart sounds. Absent: systolic murmur, diastolic murmur, rubs, gallop, clicks GI/Abdominal exam: Present: soft, normal bowel sounds. Absent: distended, tenderness, guarding, rebound, rigid Extremities exam: Present: normal inspection, full ROM, normal capillary refill. Absent: tenderness, pedal edema, joint swelling, calf tenderness Back exam: Present: normal inspection, full ROM Neurological exam: Present: alert, oriented X3, CN II-XII intact Psychiatric exam: Present: normal affect, normal mood. Absent: depressed, agitated, anxious, flat affect, manic, homicidal ideation, suicidal ideation Skin exam: Present: warm, dry, intact, normal color. Absent: rash Course Vital Signs 10/29/16 15:58 Temperature 97.0 F L Pulse Rate 115 H Respiratory 20 Rate Blood Pressure 112/63 O2 Sat by Pulse 99 Oximetry Medical Decision Making - Medical Decision Making Patient is a 18-year-old female with a chief complaint of needing medication refill. She reports that she takes Trileptal, gabapentin, and clonazepam. Patient does have a significant history of multiple overdoses area did patient reports that she does have an appointment on the . Patient will be given a refill up until her next appointment on the . Patient agrees that she needs to take medication as prescribed. Patient understands the treatment plan will comply. Disposition Clinical Impression: Encounter for medication refill Disposition: HOME SELF-CARE Condition: Good Instructions: Medicine Refill (ED) Additional Instructions: Patient denies that she is follow-up with her psychiatrist on November 03. Return to emergency department if any alarming signs or symptoms occur. Prescriptions: Gabapentin [Neurontin] 300 mg PO TID #15 cap OXcarbazepine [Trileptal] 300 mg PO BID #14 tablet clonazePAM [KlonoPIN] 0.5 mg PO BID #10 tablet Referrals: Qian Mitchell MD [STAFF PHYSICIAN] - 1-2 days Time of Disposition: 16:43
== END 2016-10-29 16:48 | disposition home or self-care (01) ==
LOC: EC 15:56
DX: Z76.0 Encounter for issue of repeat prescription (principal); G40.909 Epilepsy, unspecified, not intractable, without status epilepticus; F31.9 Bipolar disorder, unspecified; F41.0 Panic disorder [episodic paroxysmal anxiety]; F41.9 Anxiety disorder, unspecified; F17.200 Nicotine dependence, unspecified, uncomplicated; Z79.899 Other long term (current) drug therapy; Z91.040 Latex allergy status; Z91.030 Bee allergy status
CPT/HCPCS: 99281

== ENCOUNTER 2016-11-18 17:07 | Emergency (ER) | payer OTHER ==
[2016-11-18 17:29] VITALS: BP 125/75; PULSE 132; RESP 28; TEMP 98.1
[2016-11-18] MEDS ORDERED: LORazepam 1 MG TAB PO STA (17:51)
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
== END 2016-11-18 18:24 | disposition home or self-care (01) ==
LOC: EC 17:07
DX: F41.0 Panic disorder [episodic paroxysmal anxiety] (principal); F41.9 Anxiety disorder, unspecified; T50.906A Underdosing of unspecified drugs, medicaments and biological substances, initial encounter; Z91.128 Patient's intentional underdosing of medication regimen for other reason; F32.9 Major depressive disorder, single episode, unspecified; G40.909 Epilepsy, unspecified, not intractable, without status epilepticus; F11.90 Opioid use, unspecified, uncomplicated; F12.90 Cannabis use, unspecified, uncomplicated; Z79.899 Other long term (current) drug therapy; Z91.040 Latex allergy status; Z91.030 Bee allergy status; F17.200 Nicotine dependence, unspecified, uncomplicated
CPT/HCPCS: 99283

== ENCOUNTER 2016-12-06 15:55 | Emergency (ER) | payer OTHER ==
[2016-12-06 16:15] VITALS: BP 138/92; PULSE 118; RESP 18; TEMP 98.3
--- NOTE | 2016-12-06 16:24 | ED ---
General Adult HPI - General Chief complaint: Dental/Oral Stated complaint: Dental Pain Time Seen by Provider: 12/06/16 16:16 Source: patient, RN notes reviewed Mode of arrival: ambulatory Limitations: no limitations - History of Present Illness Initial comments: Patient 21-year-old female who presents emergency room today with a chief complaint of dental pain. Patient does admit that she's had pain on and off over the last several weeks. Does admit that she does have an appointment with her dentist later this week. Patient states been having increased pain to the upper right side of her teeth. Patient states this is been ongoing for some time. Denies any other complaints. States that she has been using ibuprofen at home. States she came for pain medication. Patient denies any other complaints. Denies any drainage or discharge. Patient denies any recent fever, chills, shortness of breath, chest pain, back pain, abdominal pain, nausea or vomiting, numbness or tingling, dysuria or hematuria, constipation or diarrhea, headaches or visual changes, or any other complaints. - Related Data Home Medications Medication Instructions Recorded Confirmed Albuterol Inhaler [Ventolin Hfa 1 - 2 puff INHALATION RT-Q6H PRN 10/11/16 Inhaler] Acetaminophen Tab [Tylenol Tab] 1,000 mg PO Q6HR PRN 11/18/16 11/18/16 FLUoxetine HCL [PROzac] 20 mg PO DAILY 11/18/16 11/18/16 Gabapentin [Neurontin] 400 mg PO TID 11/18/16 11/18/16 Previous Rx's Medication Instructions Recorded OXcarbazepine [Trileptal] 300 mg PO BID #14 tablet 10/29/16 clonazePAM [KlonoPIN] 0.5 mg PO BID #10 tablet 10/29/16 Allergies Allergy/AdvReac Type Severity Reaction Status Date / Time Latex, Natural Rubber Allergy Rash/Hives Verified 11/18/16 17:43 venom-honey bee Allergy Swelling Verified 11/18/16 17:43 [bee venom (honey bee)] Review of Systems ROS Statement: Those systems with pertinent positive or pertinent negative responses have been documented in the HPI. ROS Other: All systems not noted in ROS Statement are negative. Past Medical History Past Medical History: Asthma, Seizure Disorder Additional Past Medical History / Comment(s): HX: Recent injury to R ankle with ecchymosis and edema and pain, chronic back pain related to herniated disc , chronic migraines, endometriosis, multiple fractures, meningitis as child; ovarian cysts, alchol abuse, prescription drug abuse, heroin abuse in past. History of Any Multi-Drug Resistant Organisms: None Reported Past Surgical History: Section, Cholecystectomy, Ear Surgery, Orthopedic Surgery Additional Past Surgical History / Comment(s): ORIF right wrist, myringotomy with tubes as . Past Anesthesia/Blood Transfusion Reactions: No Reported Reaction Past Psychological History: Anxiety, Bipolar, Depression, Panic Disorder Additional Psychological History / Comment(s): Pt states she is staying with friends. 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 Pt has had several stays at [facility] and admissions to [facility] mental health unit. She is suppose to go into [facility] on 06/12/16. Pt denied suicidal thoughts or plans related to this incident that brought her to [facility] ER. Pt's mother is concerned that pt has recently been talking of not wanting to live any longer. Pt denies this however. Smoking Status: Current every day smoker Past Alcohol Use History: Occasional Additional Past Alcohol Use History / Comment(s): Pt abuses alcohol and was last known to have drank 2 weeks ago. Pt has hx of heroin use and states she used heroin last nite and had been warned that "it was a strong kind." She also has hx of prescription drug abuse, benzo's, klonopin, xanax and marijuana use. Past Drug Use History: Heroin, Marijuana, Opiates, Prescription Drug Abuse Additional Drug Use History / Comment(s): See addition past alcohol use section. - Past Family History Brother(s) Additional Family Medical History / Comment(s): Patient has 1 brother that is 20 years of age with no major medical problems. Patient has 1 son 3-1/2 years old with no major medical problems. Father Additional Family Medical History / Comment(s): Father is alive at age 54 with history of substance abuse, Schizophrenic, Bipolar Disorder Mother Additional Family Medical History / Comment(s): Mother is alive at age 47 with history of Arthritis. General Exam - General Exam Comments Initial Comments: General: The patient is awake and alert, in no distress, and does not appear acutely ill. Eye: Pupils are equal, round and reactive to light, extra-ocular movements are intact. No nystagmus. There is normal conjunctiva bilaterally. No signs of icterus. Ears, nose, mouth and throat: There are moist mucous membranes and no oral lesions. Tender over the gumline of tooth #2 through 4. No sign of abscess. Uvula midline. Patient swallows without difficulty. Neck: The neck is supple, there is no tenderness or JVD. Musculoskeletal: Normal ROM, no tenderness. Strength 5/5. Sensation intact. Pulses equal bilaterally 2+. Neurological: A&O x 3. CN II-XII intact, There are no obvious motor or sensory deficits. Coordination appears grossly intact. Speech is normal. Skin: Skin is warm and dry and no rashes or lesions are noted. Limitations: no limitations Course Vital Signs 12/06/16 16:12 Temperature 98.3 F Pulse Rate 118 H Respiratory 18 Rate Blood Pressure 138/92 O2 Sat by Pulse 97 Oximetry Medical Decision Making - Medical Decision Making During examination before was able to complete entire exam patient was asking for narcotic pain medication. I did repeat with patient that we would not fill any narcotics today. A recent [facility] report was reviewed showing the patient did receive 24 tabs of Tylenol 3 on November 27. Discussed with patient that we could not fill another prescription of narcotics here. Did discuss about antibiotics. Patient states she does not think antibiotics will help her. She repeatedly asked for narcotic medication and when told that we would not provided she left prior to discharge. Disposition Clinical Impression: Pain, dental Disposition: HOME SELF-CARE Condition: Stable Instructions: Toothache (ED) Time of Disposition: 16:24
== END 2016-12-06 16:25 | disposition home or self-care (01) ==
LOC: EC 15:55
DX: K08.89 Other specified disorders of teeth and supporting structures (principal); G40.909 Epilepsy, unspecified, not intractable, without status epilepticus; F31.9 Bipolar disorder, unspecified; F41.0 Panic disorder [episodic paroxysmal anxiety]; F17.200 Nicotine dependence, unspecified, uncomplicated; Z79.899 Other long term (current) drug therapy; Z91.030 Bee allergy status; Z91.040 Latex allergy status
CPT/HCPCS: 99282

== ENCOUNTER 2016-12-30 19:38 | Emergency (ER) | payer OTHER ==
[2016-12-30 19:58] VITALS: BP 119/86; PULSE 147; RESP 28; TEMP 97.1
[2016-12-30] MEDS ORDERED: LORazepam 1 MG TAB PO STA (20:19)
--- NOTE | 2016-12-30 20:24 | ED ---
General Adult HPI - General Chief complaint: Anxiety Stated complaint: Dental Pain/Anxiety Time Seen by Provider: 12/30/16 20:12 Source: patient, RN notes reviewed Mode of arrival: ambulatory Limitations: no limitations - History of Present Illness Initial comments: 20-year-old female presents to the emergency 5 chief complaint of right-sided dental pain. She's had this on and off for the last 2 years. She currently trying to get into a dentist. Patient states she's been taking Motrin Tylenol. Patient states she's been using Orajel. Patient states she hasn't been on antibiotics in a very long time and she does not have a dentist appointment for another week or so. Patient states she was concerned due to her continued symptoms so she thought that she should be evaluated.Patient denies any recent fever, chills, shortness of breath, chest pain, back pain, abdominal pain, nausea vomiting, numbness or tingling, dysuria or hematuria, constipation or diarrhea, headaches or visual changes, or any other current symptoms. - Related Data Home Medications Medication Instructions Recorded Confirmed Albuterol Inhaler [Ventolin Hfa 1 - 2 puff INHALATION RT-Q6H PRN 10/11/16 Inhaler] Previous Rx's Medication Instructions Recorded Ibuprofen [Motrin] 600 mg PO Q6HR PRN #20 tab 12/30/16 Penicillin V Potassium [Pen Vee K] 500 mg PO TID #40 tab 12/30/16 Allergies Allergy/AdvReac Type Severity Reaction Status Date / Time Latex, Natural Rubber Allergy Rash/Hives Verified 12/30/16 20:14 venom-honey bee Allergy Swelling Verified 12/30/16 20:14 [bee venom (honey bee)] Review of Systems ROS Statement: Those systems with pertinent positive or pertinent negative responses have been documented in the HPI. ROS Other: All systems not noted in ROS Statement are negative. Past Medical History Past Medical History: Asthma, Seizure Disorder Additional Past Medical History / Comment(s): HX: Recent injury to R ankle with ecchymosis and edema and pain, chronic back pain related to herniated disc , chronic migraines, endometriosis, multiple fractures, meningitis as child; ovarian cysts, alchol abuse, prescription drug abuse, heroin abuse in past. History of Any Multi-Drug Resistant Organisms: None Reported Past Surgical History: Section, Cholecystectomy, Ear Surgery, Orthopedic Surgery Additional Past Surgical History / Comment(s): ORIF right wrist, myringotomy with tubes as infant. Past Anesthesia/Blood Transfusion Reactions: No Reported Reaction Past Psychological History: Anxiety, Bipolar, Depression, Panic Disorder Additional Psychological History / Comment(s): Pt states she is staying with friends. 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 Pt has had several stays at [facility] and admissions to [facility] mental health unit. She is suppose to go into [facility] on 06/12/16. Pt denied suicidal thoughts or plans related to this incident that brought her to [facility] ER. Pt's mother is concerned that pt has recently been talking of not wanting to live any longer. Pt denies this however. Smoking Status: Current every day smoker Past Alcohol Use History: Occasional Additional Past Alcohol Use History / Comment(s): Pt abuses alcohol and was last known to have drank 2 weeks ago. Pt has hx of heroin use and states she used heroin last nite and had been warned that "it was a strong kind." She also has hx of prescription drug abuse, benzo's, klonopin, xanax and marijuana use. Past Drug Use History: Heroin, Marijuana, Opiates, Prescription Drug Abuse Additional Drug Use History / Comment(s): See addition past alcohol use section. - Past Family History Brother(s) Additional Family Medical History / Comment(s): Patient has 1 brother that is 20 years of age with no major medical problems. Patient has 1 son 3-1/2 years old with no major medical problems. Father Additional Family Medical History / Comment(s): Father is alive at age 54 with history of substance abuse, Schizophrenic, Bipolar Disorder Mother Additional Family Medical History / Comment(s): Mother is alive at age 47 with history of Arthritis. General Exam Limitations: no limitations General appearance: alert, anxious Head exam: Present: atraumatic, normocephalic, normal inspection Expanded Ear exam: Present: normal external inspection Mouth exam: Present: normal external inspection Teeth exam: Present: other (dental tenderness the right upper gum) Respiratory exam: Present: normal lung sounds bilaterally. Absent: respiratory distress, wheezes, rales, rhonchi, stridor Cardiovascular Exam: Present: regular rate, normal rhythm, normal heart sounds. Absent: systolic murmur, diastolic murmur, rubs, gallop, clicks Neurological exam: Present: alert, oriented X3 Psychiatric exam: Present: normal affect, normal mood Skin exam: Present: warm, dry, intact, normal color. Absent: rash Course Vital Signs 12/30/16 19:55 Temperature 97.1 F L Pulse Rate 147 H Respiratory 28 H Rate Blood Pressure 119/86 O2 Sat by Pulse 100 Oximetry Medical Decision Making - Medical Decision Making 21-year-old female presents for right-sided dental pain and anxiety. Family to give her Ativan. We will start hernia advised to Motrin for pain. We discussed follow-up and return parameters. We discussed follow-up with a psychiatrist. We discussed all the patient's questions. She states she understood and she is in agreement. She'll be discharged. Disposition Clinical Impression: Anxiety, Pain, dental Disposition: HOME SELF-CARE Condition: Stable Instructions: Toothache (ED) Additional Instructions: Please use medication as discussed. Please follow up with family doctor if symptoms have not improved over the next two days. Please return to the emergency room if your symptoms increase or worsen or for any other concerns. Prescriptions: Ibuprofen [Motrin] 600 mg PO Q6HR PRN #20 tab PRN Reason: Pain Penicillin V Potassium [Pen Vee K] 500 mg PO TID #40 tab Referrals: None,Stated [Primary Care Provider] - 1-2 days Qian Mitchell MD [STAFF PHYSICIAN] - 1-2 days Time of Disposition: 20:23
== END 2016-12-30 20:41 | disposition home or self-care (01) ==
LOC: EC 19:38
DX: F41.9 Anxiety disorder, unspecified (principal); K08.89 Other specified disorders of teeth and supporting structures; F17.200 Nicotine dependence, unspecified, uncomplicated; Z91.030 Bee allergy status; Z91.040 Latex allergy status
CPT/HCPCS: 99283

== ENCOUNTER 2017-01-17 11:27 | Emergency (ER) | payer OTHER ==
[2017-01-17 11:44] VITALS: BP 142/91; PULSE 121; RESP 18; TEMP 98
--- NOTE | 2017-01-17 12:11 | ED ---
ENT HPI - General Chief complaint: Dental/Oral Stated complaint: tooth pain Time Seen by Provider: 01/17/17 11:55 Source: patient, RN notes reviewed, old records reviewed Mode of arrival: ambulatory Limitations: no limitations - History of Present Illness Initial comments: This is a 21-year-old female presents emergency Department with chief complaint of right sided upper and lower dental pain. Patient reports that she spoke to have her number for removed on February 24. Patient reports that she's been taking a lot of Motrin help with the pain however does not working. She also received 12 [place] fives 5 days ago but it is not helping as well. Patient is adamant that she wants stronger pain medication. Patient states that she's had no fever or chills. No pain with opening or closing her mouth. Patient states that she has severe anxiety which makes her pain worse. Patient was that she's been using Orajel as well. He reports that when she was eating breakfast today she had a run out of the restaurant because the pain was so bad.Patient denies any recent fever, chills, shortness of breath, chest pain, back pain, abdominal pain, nausea vomiting, numbness or tingling, dysuria or hematuria, constipation or diarrhea, headaches or visual changes, or any other current symptoms - Related Data Home Medications Medication Instructions Recorded Confirmed Albuterol Inhaler [Ventolin Hfa 1 - 2 puff INHALATION RT-Q6H PRN 10/11/16 Inhaler] Previous Rx's Medication Instructions Recorded Ibuprofen [Motrin] 600 mg PO Q6HR PRN #20 tab 12/30/16 Penicillin V Potassium [Pen Vee K] 500 mg PO TID #40 tab 12/30/16 HYDROcodone/APAP 5-325MG [[place] 1 tab PO Q6HR PRN #12 tab 01/17/17 5-325] Allergies Allergy/AdvReac Type Severity Reaction Status Date / Time Latex, Natural Rubber Allergy Rash/Hives Verified 01/17/17 11:44 venom-honey bee Allergy Swelling Verified 01/17/17 11:44 [bee venom (honey bee)] Review of Systems ROS Statement: Those systems with pertinent positive or pertinent negative responses have been documented in the HPI. ROS Other: All systems not noted in ROS Statement are negative. Past Medical History Past Medical History: Asthma, Seizure Disorder Additional Past Medical History / Comment(s): HX: Recent injury to R ankle with ecchymosis and edema and pain, chronic back pain related to herniated disc , chronic migraines, endometriosis, multiple fractures, meningitis as child; ovarian cysts, alchol abuse, prescription drug abuse, heroin abuse in past. History of Any Multi-Drug Resistant Organisms: None Reported Past Surgical History: Section, Cholecystectomy, Ear Surgery, Orthopedic Surgery Additional Past Surgical History / Comment(s): ORIF right wrist, myringotomy with tubes as . Past Anesthesia/Blood Transfusion Reactions: No Reported Reaction Past Psychological History: Anxiety, Bipolar, Depression, Panic Disorder Additional Psychological History / Comment(s): Pt states she is staying with friends. 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 Pt has had several stays at [facility] and admissions to [facility] mental health unit. She is suppose to go into [facility] on 06/12/16. Pt denied suicidal thoughts or plans related to this incident that brought her to [facility] ER. Pt's mother is concerned that pt has recently been talking of not wanting to live any longer. Pt denies this however. Smoking Status: Current every day smoker Past Alcohol Use History: Occasional Additional Past Alcohol Use History / Comment(s): Pt abuses alcohol and was last known to have drank 2 weeks ago. Pt has hx of heroin use and states she used heroin last nite and had been warned that "it was a strong kind." She also has hx of prescription drug abuse, benzo's, klonopin, xanax and marijuana use. Past Drug Use History: Heroin, Marijuana, Opiates, Prescription Drug Abuse Additional Drug Use History / Comment(s): See addition past alcohol use section. - Past Family History Brother(s) Additional Family Medical History / Comment(s): Patient has 1 brother that is 20 years of age with no major medical problems. Patient has 1 son 3-1/2 years old with no major medical problems. Father Additional Family Medical History / Comment(s): Father is alive at age 54 with history of substance abuse, Schizophrenic, Bipolar Disorder Mother Additional Family Medical History / Comment(s): Mother is alive at age 47 with history of Arthritis. General Exam - General Exam Comments Initial Comments: Anxious appearing 21-year-old female. No acute distress. Limitations: no limitations General appearance: alert, in no apparent distress Head exam: Present: atraumatic, normocephalic, normal inspection Eye exam: Present: normal appearance, PERRL, EOMI. Absent: scleral icterus, conjunctival injection, periorbital swelling ENT exam: Present: normal exam, mucous membranes moist, other (Patient has poor dentition. Patient is missing tooth #28 through 31. Patient has evidence of chipped tooth #4 and missing 6, 5, 3 and 2.) Neck exam: Present: normal inspection. Absent: tenderness, meningismus, lymphadenopathy Respiratory exam: Present: normal lung sounds bilaterally. Absent: respiratory distress, wheezes, rales, rhonchi, stridor Cardiovascular Exam: Present: regular rate, normal rhythm, normal heart sounds. Absent: systolic murmur, diastolic murmur, rubs, gallop, clicks GI/Abdominal exam: Present: soft, normal bowel sounds. Absent: distended, tenderness, guarding, rebound, rigid Extremities exam: Present: normal inspection, full ROM, normal capillary refill. Absent: tenderness, pedal edema, joint swelling, calf tenderness Back exam: Present: normal inspection Neurological exam: Present: alert, oriented X3, CN II-XII intact Psychiatric exam: Present: normal affect, normal mood Skin exam: Present: warm, dry, intact, normal color. Absent: rash Course Vital Signs 01/17/17 11:40 Temperature 98.0 F Pulse Rate 121 H Respiratory 18 Rate Blood Pressure 142/91 O2 Sat by Pulse 98 Oximetry Medical Decision Making - Medical Decision Making Was is a 21-year-old female presents emergency room chief complaint dental pain. Patient reports that she's had the past 2 years. She does report that she's having tooth #4 removed by an oral surgeon on February 24. She reports that she's not been able to handle the pain. She's been taking a lot of Motrin and it is not helped much. Patient did receive #12 [place] 5 days ago. She reports that that did not touch the pain. She is requesting a stronger dose. I discussed with patient I will not write anything more than a [place] 5 for her tooth pain. Patient is agrees that she will take the prescription. Discussed that she could take 2 if she needed to. Patient is already on antibiotics. Discussed close follow-up with oral surgeon and primary care provider. Return parameters were discussed. Disposition Clinical Impression: Pain, dental Disposition: HOME SELF-CARE Condition: Good Instructions: Toothache (ED) Additional Instructions: [facility] [address] [place] [address] [phone] (existing clients only) For new clients: [phone] 1st consult: $50 (includes Xrays) Usually 30% less then private dentist for visits after. [employer] [facility] [employer] Have to pay $50 for Xrays anmd rest is covered. [phone] Prescriptions: HYDROcodone/APAP 5-325MG [[place] 5-325] 1 tab PO Q6HR PRN #12 tab PRN Reason: Pain Referrals: Qian Mitchell MD [STAFF PHYSICIAN] - 1-2 days Time of Disposition: 12:10
== END 2017-01-17 12:18 | disposition home or self-care (01) ==
LOC: EC 11:27
DX: K08.109 Complete loss of teeth, unspecified cause, unspecified class (principal); K08.89 Other specified disorders of teeth and supporting structures; F17.200 Nicotine dependence, unspecified, uncomplicated; Z91.030 Bee allergy status; Z91.040 Latex allergy status; Z98.890 Other specified postprocedural states
CPT/HCPCS: 99283

== ENCOUNTER 2017-01-24 21:55 | Inpatient (IN) | payer MEDICAID, OTHER ==
--- NOTE | 2017-01-24 22:19 | ED ---
Psych HPI - General Chief Complaint: Psychiatric Symptoms Stated Complaint: Mental Health Time Seen by Provider: 01/24/17 22:03 Source: patient Mode of arrival: ambulatory - History of Present Illness Initial Comments: This patient is a 21-year-old woman who presents to be evaluated for anxiety, depression and feeling like she may harm her self. Patient states that her anxiety is so bad it is driving her to feel like this. She has been out of her medications for approximately one month though she does occasionally by Xanax from the street. Complaint: suicidal ideation, feels depressed -: days(s) Associated Psychiatric Symptoms: depression, suicidal ideation History of same: Yes Quality: getting worse Improves With: none Worsens With: none Context: not taking psychiatric medications Associated Symptoms: denies other symptoms - Related Data Home Medications Medication Instructions Recorded Confirmed Albuterol Inhaler [Ventolin Hfa 2 puff INHALATION RT-QID PRN 10/11/16 02/05/17 Inhaler] Previous Rx's Medication Instructions Recorded FLUoxetine HCL [PROzac] 20 mg PO DAILY #30 cap 02/08/17 Gabapentin [Neurontin] 200 mg PO TID #24 cap 02/08/17 Nicotine 14Mg/24Hr Patch [Habitrol] 1 patch TRANSDERM DAILY #12 patch 02/08/17 lamoTRIgine [LaMICtal] 25 mg PO DAILY #30 tab 02/08/17 Allergies Allergy/AdvReac Type Severity Reaction Status Date / Time Latex, Natural Rubber Allergy Rash/Hives Verified 02/05/17 11:49 venom-honey bee Allergy Swelling Verified 02/05/17 11:49 [bee venom (honey bee)] Review of Systems ROS Statement: Those systems with pertinent positive or pertinent negative responses have been documented in the HPI. ROS Other: All systems not noted in ROS Statement are negative. Constitutional: Denies: fever, chills Respiratory: Denies: cough, dyspnea Cardiovascular: Reports: palpitations. Denies: chest pain, syncope Gastrointestinal: Denies: abdominal pain, vomiting, diarrhea Musculoskeletal: Denies: back pain Skin: Denies: rash Neurological: Denies: headache, weakness, numbness Psychiatric: Reports: anxiety, depression, suicidal thoughts. Denies: auditory hallucinations, visual hallucinations, homicidal thoughts Past Medical History Past Medical History: Asthma, Seizure Disorder Additional Past Medical History / Comment(s): HX: Recent injury to R ankle with ecchymosis and edema and pain, chronic back pain related to herniated disc , chronic migraines, endometriosis, multiple fractures, meningitis as child; ovarian cysts, alchol abuse, prescription drug abuse, heroin abuse in past. History of Any Multi-Drug Resistant Organisms: None Reported Past Surgical History: Section, Cholecystectomy, Ear Surgery, Orthopedic Surgery Additional Past Surgical History / Comment(s): ORIF right wrist, myringotomy with tubes as infant. Past Anesthesia/Blood Transfusion Reactions: No Reported Reaction Past Psychological History: Anxiety, Bipolar, Depression, Panic Disorder Additional Psychological History / Comment(s): Pt states she is staying with friends. 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 Pt has had several stays at [facility] and admissions to [facility] mental health unit. She is suppose to go into [facility] on 06/12/16. Pt denied suicidal thoughts or plans related to this incident that brought her to [facility] ER. Pt's mother is concerned that pt has recently been talking of not wanting to live any longer. Pt denies this however. Smoking Status: Current every day smoker Past Alcohol Use History: Occasional Additional Past Alcohol Use History / Comment(s): Pt abuses alcohol and was last known to have drank 2 weeks ago. Pt has hx of heroin use and states she used heroin last nite and had been warned that "it was a strong kind." She also has hx of prescription drug abuse, benzo's, klonopin, xanax and marijuana use. Past Drug Use History: Heroin, Marijuana, Opiates, Prescription Drug Abuse Additional Drug Use History / Comment(s): See addition past alcohol use section. - Past Family History Brother(s) Additional Family Medical History / Comment(s): Patient has 1 brother that is 20 years of age with no major medical problems. Patient has 1 son 3-1/2 years old with no major medical problems. Father Additional Family Medical History / Comment(s): Father is alive at age 54 with history of substance abuse, Schizophrenic, Bipolar Disorder Mother Additional Family Medical History / Comment(s): Mother is alive at age 47 with history of Arthritis. General Exam Limitations: no limitations General appearance: alert, in no apparent distress, anxious Head exam: Present: atraumatic, normocephalic Eye exam: Present: normal appearance. Absent: scleral icterus, conjunctival injection ENT exam: Present: normal oropharynx Neck exam: Present: normal inspection, full ROM Respiratory exam: Present: normal lung sounds bilaterally. Absent: respiratory distress, wheezes, rales, rhonchi, stridor Cardiovascular Exam: Present: regular rate, normal rhythm, normal heart sounds. Absent: systolic murmur, diastolic murmur, rubs, gallop GI/Abdominal exam: Present: soft. Absent: tenderness, guarding, rebound Extremities exam: Absent: pedal edema, calf tenderness Back exam: Present: normal inspection. Absent: CVA tenderness (R), CVA tenderness (L) Neurological exam: Present: alert Psychiatric exam: Present: anxious, suicidal ideation. Absent: flat affect, manic, homicidal ideation Skin exam: Present: warm, dry, intact, normal color. Absent: rash Course Vital Signs 01/24/17 01/24/17 21:58 22:33 Temperature 98.1 F Pulse Rate 104 H 97 Respiratory 20 16 Rate Blood Pressure 108/63 108/57 O2 Sat by Pulse 98 96 Oximetry Medical Decision Making - Lab Data Result diagrams: 01/25/17 08:12 01/25/17 08:12 Lab Results 01/24/17 01/24/17 01/24/17 Range/Units 22:10 22:10 22:32 WBC (3.8-10.6) k/uL RBC (3.80-5.40) m/uL Hgb (11.4-16.0) gm/dL Hct (34.0-46.0) % MCV (80.0-100.0) fL MCH (25.0-35.0) pg MCHC (31.0-37.0) g/dL RDW (11.5-15.5) % Plt Count (150-450) k/uL Neutrophils % % Lymphocytes % % Monocytes % % Eosinophils % % Basophils % % Neutrophils # (1.3-7.7) k/uL Lymphocytes # (1.0-4.8) k/uL Monocytes # (0-1.0) k/uL Eosinophils # (0-0.7) k/uL Basophils # (0-0.2) k/uL Sodium 139 (137-145) mmol/L Potassium 3.6 (3.5-5.1) mmol/L Chloride 104 (98-107) mmol/L Carbon Dioxide 23 (22-30) mmol/L Anion Gap 12 mmol/L BUN 6 L (7-17) mg/dL Creatinine 0.61 (0.52-1.04) mg/dL Est GFR (MDRD) Af Amer >60 (>60 ml/min/1.73 sqM) Est GFR (MDRD) Non-Af >60 (>60 ml/min/1.73 sqM) Glucose 88 (74-99) mg/dL Calcium 9.2 (8.4-10.2) mg/dL Magnesium 1.8 (1.6-2.3) mg/dL Urine HCG, Qual Not Detected (Not Detectd) Urine Opiates Screen Detected H (NotDetected) Ur Oxycodone Screen Not Detected (NotDetected) Urine Methadone Screen Not Detected (NotDetected) Ur Propoxyphene Screen Not Detected (NotDetected) Ur Barbiturates Screen Not Detected (NotDetected) U Tricyclic Antidepress Not Detected (NotDetected) Ur Phencyclidine Scrn Not Detected (NotDetected) Ur Amphetamines Screen Detected H (NotDetected) U Methamphetamines Scrn Detected H (NotDetected) U Benzodiazepines Scrn Detected H (NotDetected) Urine Cocaine Screen Detected H (NotDetected) U Marijuana (THC) Screen Detected H (NotDetected) 01/24/17 Range/Units 22:32 WBC 5.0 (3.8-10.6) k/uL RBC 4.15 (3.80-5.40) m/uL Hgb 12.3 (11.4-16.0) gm/dL Hct 35.7 (34.0-46.0) % MCV 86.1 (80.0-100.0) fL MCH 29.7 (25.0-35.0) pg MCHC 34.5 (31.0-37.0) g/dL RDW 12.9 (11.5-15.5) % Plt Count 234 (150-450) k/uL Neutrophils % 48 % Lymphocytes % 40 % Monocytes % 3 % Eosinophils % 4 % Basophils % 0 % Neutrophils # 2.4 (1.3-7.7) k/uL Lymphocytes # 2.0 (1.0-4.8) k/uL Monocytes # 0.2 (0-1.0) k/uL Eosinophils # 0.2 (0-0.7) k/uL Basophils # 0.0 (0-0.2) k/uL Sodium (137-145) mmol/L Potassium (3.5-5.1) mmol/L Chloride (98-107) mmol/L Carbon Dioxide (22-30) mmol/L Anion Gap mmol/L BUN (7-17) mg/dL Creatinine (0.52-1.04) mg/dL Est GFR (MDRD) Af Amer (>60 ml/min/1.73 sqM) Est GFR (MDRD) Non-Af (>60 ml/min/1.73 sqM) Glucose (74-99) mg/dL Calcium (8.4-10.2) mg/dL Magnesium (1.6-2.3) mg/dL Urine HCG, Qual (Not Detectd) Urine Opiates Screen (NotDetected) Ur Oxycodone Screen (NotDetected) Urine Methadone Screen (NotDetected) Ur Propoxyphene Screen (NotDetected) Ur Barbiturates Screen (NotDetected) U Tricyclic Antidepress (NotDetected) Ur Phencyclidine Scrn (NotDetected) Ur Amphetamines Screen (NotDetected) U Methamphetamines Scrn (NotDetected) U Benzodiazepines Scrn (NotDetected) Urine Cocaine Screen (NotDetected) U Marijuana (THC) Screen (NotDetected) - EKG Data -: EKG Interpreted by Pr EKG shows normal: sinus rhythm, axis (Normal), intervals (The RI and QRS are normal the QTC is 500 ms, being prolonged), QRS complexes (Normal), ST-T waves ( Normal) Rate: normal (Rate 96 bpm) Disposition Clinical Impression: Mood disorder Disposition: HOME SELF-CARE Condition: Stable
[2017-01-24] MEDS ORDERED: ACETAMINOPHEN TAB 325 MG TAB PO STA (22:46)
[2017-01-24] MEDS ORDERED: IBUPROFEN 600 MG TAB PO STA (22:50)
[2017-01-24 22:54] LABS: Basophils % (A) 0 %; CH 29.5; CHCM 34.4; Eosinophils # (A) 0.2 k/uL (0-0.7); Eosinophils % (A) 4 %; HCT 35.7 % (34.0-46.0); HDW 2.64; HGB 12.3 gm/dL (11.4-16.0); Luc # (Auto) 0.16; Luc % (Auto) 3; Lymphocytes % (A) 40 %; MCH 29.7 pg (25.0-35.0); MCHC 34.5 g/dL (31.0-37.0); MCV 86.1 fL (80.0-100.0); Mean Platelet Volume 7.2; Monocytes # (A) 0.2 k/uL (0-1.0); Monocytes % (A) 3 %; Neutrophils # (A) 2.4 k/uL (1.3-7.7); Neutrophils % (A) 48 %; RBC 4.15 m/uL (3.80-5.40); RDW 12.9 % (11.5-15.5); WBC (Perox) 5.44
[2017-01-24 23:06] LABS: Anion Gap 12 mmol/L; Blood Urea Nitrogen 6 mg/dL (7-17); Calcium 9.2 mg/dL (8.4-10.2); Carbon Dioxide 23 mmol/L (22-30); Chloride 104 mmol/L (98-107); Glucose 88 mg/dL (74-99); Magnesium 1.8 mg/dL (1.6-2.3); Non-African American GFR(MDRD) >60 (>60 ml/min/1.73 sqM); Potassium 3.6 mmol/L (3.5-5.1); Sodium 139 mmol/L (137-145)
[2017-01-25] MEDS ORDERED: MAGNESIUM HYDROXIDE 2,400 MG/10 ML CUP PO PRN (05:28)
[2017-01-25] MEDS ORDERED: MAG HYDROX/AL HYDROX/SIMETH 30 ML CUP PO PRN (05:28)
[2017-01-25 08:51] LABS: Basophils % (A) 1 %; CH 29.9; CHCM 33.8; Eosinophils # (A) 0.4 k/uL (0-0.7); Eosinophils % (A) 6 %; HDW 2.57; HGB 13.3 gm/dL (11.4-16.0); Luc # (Auto) 0.14; Luc % (Auto) 3; Lymphocytes # (A) 2.4 k/uL (1.0-4.8); Lymphocytes % (A) 42 %; MCH 29.6 pg (25.0-35.0); MCHC 33.3 g/dL (31.0-37.0); MCV 88.7 fL (80.0-100.0); Mean Platelet Volume 6.8; Monocytes # (A) 0.3 k/uL (0-1.0); Monocytes % (A) 5 %; Neutrophils # (A) 2.6 k/uL (1.3-7.7); Neutrophils % (A) 45 %; RBC 4.51 m/uL (3.80-5.40); RDW 13.1 % (11.5-15.5); WBC 5.8 k/uL (3.8-10.6); WBC (Perox) 6.21
[2017-01-25 09:56] LABS: ALT 42 U/L (9-52); AST 36 U/L (14-36); Alkaline Phosphatase 62 U/L (38-126); Anion Gap 9 mmol/L; Blood Urea Nitrogen 9 mg/dL (7-17); Calcium 9.7 mg/dL (8.4-10.2); Carbon Dioxide 26 mmol/L (22-30); Chloride 106 mmol/L (98-107); Glucose 87 mg/dL (74-99); Non-African American GFR(MDRD) >60 (>60 ml/min/1.73 sqM); Sodium 141 mmol/L (137-145); Total Bilirubin 0.6 mg/dL (0.2-1.3); Total Protein 7.4 g/dL (6.3-8.2)
[2017-01-25] MEDS: NICOTINE 14MG/24HR PATCH TRANSDERM SCH (10:05)
[2017-01-25] MEDS ORDERED: WATER FOR INJECTION, STERILE 10 ML IV ONE ×2 (10:10→19:40)
[2017-01-25] MEDS ORDERED: LOPERAMIDE 2 MG CAP PO PRN (10:25)
[2017-01-25] MEDS ORDERED: ONDANSETRON 4 MG TAB PO PRN (10:25)
[2017-01-25] MEDS: ZIPRASIDONE 20 MG VIAL IM PRN ×2 (10:39→19:46)
[2017-01-25] MEDS: GABAPENTIN 400 MG CAP PO SCH ×3 (10:53→20:56)
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
--- NOTE | 2017-01-25 14:30 | P.MDCNMH ---
History of Present Illness H&P Date: 01/25/17 Chief Complaint: depression with suicidal ideation. this 21-year-old female with a previous medical history significant for asthma, depression, opiate drugs as well as heroine abuse,the patient presented to the emergency room reporting she had acute suicidal ideation. The patient continues to struggle with opiate use disorder amongst using several other illicit drugs and alcohol. She has previously been diagnosed with a bipolar disorder anxiety symptoms rule out PTSD. The patient has a history of presenting to this mental health unit numerous times. She has been treated at inpatient chemical dependency centers numerous times as well. She has not been following up with outpatient mental health services. patient stated that she is feeling quite dizzy at this point in time she is experiencing withdrawal symptoms and she is asking to have Ativan ordered for her as soon as possible. She has already seen Dr. Soto earlier and her treatment regimen was formulated. Review of Systems Constitutional: Reports fatigue, Reports lethargy, Reports weakness, Reports weight loss, Denies chills, Denies chronic headaches Eyes: denies blurred vision, denies bulging eye, denies decreased vision, denies diplopia, denies discharge Ears: deny: decreased hearing Ears, nose, mouth and throat: Denies dysphagia, Denies neck lump, Denies sore throat Cardiovascular: Reports chest pain, Denies dyspnea on exertion, Denies high blood pressure, Denies irregular heart beat, Denies paroxysmal nocturnal dyspnea , Denies rapid heart beat, Denies shortness of breath, Denies syncope Respiratory: Denies congestion, Denies cough with sputum, Denies home oxygen, Denies sleep apnea, Denies snoring, Denies wheezing Gastrointestinal: Reports abdominal pain, Reports diarrhea, Reports nausea, Reports vomiting, Denies coffee ground emesis, Denies heartburn, Denies hematemesis, Denies hematochezia, Denies melena Genitourinary: Denies dysuria, Denies hematuria Menstruation: Reports period normal Musculoskeletal: Denies myalgias Musculoskeletal: absent: ankle pain, ankle stiffness, ankle swelling, elbow pain , elbow stiffness, elbow swelling, foot pain, foot stiffness, foot swelling, hand pain, hand stiffness, hand swelling, hip pain, hip stiffness, hip swelling , knee pain, knee stiffness, knee swelling, shoulder pain, shoulder stiffness, shoulder swelling, wrist pain, wrist stiffness, wrist swelling Integumentary: Denies pruritus, Denies rash Neurological: Denies numbness, Denies weakness Psychiatric: Reports anxiety, Reports depression, Reports sleep disturbances, Reports suicidal ideation Endocrine: Denies fatigue, Denies weight change Past Medical History Past Medical History: Asthma, Seizure Disorder Additional Past Medical History / Comment(s): HX: Recent injury to R ankle with ecchymosis and edema and pain, chronic back pain related to herniated disc , chronic migraines, endometriosis, multiple fractures, meningitis as child; ovarian cysts, alchol abuse, prescription drug abuse, heroin abuse in past. History of Any Multi-Drug Resistant Organisms: None Reported Past Surgical History: Section, Cholecystectomy, Ear Surgery, Orthopedic Surgery Additional Past Surgical History / Comment(s): ORIF right wrist, myringotomy with tubes as . Past Anesthesia/Blood Transfusion Reactions: No Reported Reaction Past Psychological History: Anxiety, Bipolar, Depression, Panic Disorder Additional Psychological History / Comment(s): Pt states she is staying with friends. Mother is at the bedside and states that patient was staying with her department chair and with friends until yesterday, pt took handful of xanax and mother told her she could no longer stay with her. Pt has had several stays at [facility] and admissions to [facility] mental health unit. She is suppose to go into [facility] on 06/12/16. Pt denied suicidal thoughts or plans related to this incident that brought her to [facility] ER. Pt's mother is concerned that pt has recently been talking of not wanting to live any longer. Pt denies this however. Smoking Status: Current every day smoker Past Alcohol Use History: Occasional Additional Past Alcohol Use History / Comment(s): Pt abuses alcohol and was last known to have drank 2 weeks ago. Pt has hx of heroin use and states she used heroin last nite and had been warned that "it was a strong kind." She also has hx of prescription drug abuse, benzo's, klonopin, xanax and marijuana use. Past Drug Use History: Heroin, Marijuana, Opiates, Prescription Drug Abuse Additional Drug Use History / Comment(s): See addition past alcohol use section. - Past Family History Brother(s) Additional Family Medical History / Comment(s): Patient has 1 brother that is 20 years of age with no major medical problems. Patient has 1 son 3-1/2 years old with no major medical problems. Father Additional Family Medical History / Comment(s): Father is alive at age 54 with history of substance abuse, Schizophrenic, Bipolar Disorder Mother Additional Family Medical History / Comment(s): Mother is alive at age 47 with history of Arthritis. Medications and Allergies Home Medications Medication Instructions Recorded Confirmed Type Albuterol Inhaler [Ventolin Hfa 2 puff INHALATION RT-QID PRN 10/11/16 01/25/17 History Inhaler] Paliperidone IM [Invega Sustenna] 156 mg IM Q28D 01/24/17 01/25/17 History Allergies Allergy/AdvReac Type Severity Reaction Status Date / Time Latex, Natural Rubber Allergy Rash/Hives Verified 01/25/17 05:33 venom-honey bee Allergy Swelling Verified 01/25/17 05:33 [bee venom (honey bee)] Physical Exam Vitals: Vital Signs Temp Pulse Resp BP Pulse Ox 01/25/17 03:27 97.6 F 74 18 101/53 98 01/24/17 22:33 97 16 108/57 96 01/24/17 21:58 98.1 F 104 H 20 108/63 98 Intake and Output 01/24/17 01/25/17 01/25/17 22:59 06:59 14:59 Other: Weight 63.503 kg - Constitutional General appearance: mild distress, thin - EENT Eyes: anicteric sclerae, EOMI, PERRLA, no ptosis, no scleral icterus, normal appearance ENT: hearing grossly normal, normal oropharynx, no thrush, no tonsillar exudates Ears: bilateral: normal - Neck Neck: no lymphadenopathy, normal ROM, no rigidity, no stridor, no thyromegaly Carotids: bilateral: upstroke normal Thyroid: bilateral: normal size - Respiratory Respiratory: bilateral: diminished, negative: dullness, rales, rhonchi, wheezing , prolonged expiration, prolonged inspiration - Cardiovascular Rhythm: regular Heart sounds: normal: S1, S2 Abnormal Heart Sounds: no systolic murmur, no S3 Gallop, no S4 Gallop, no click - Gastrointestinal General gastrointestinal: normal bowel sounds, soft, no splenomegaly, no ventral hernia - Integumentary Integumentary: normal, normal turgor - Neurologic Neurologic: CNII-XII intact - Musculoskeletal Musculoskeletal: generalized weakness, strength equal bilaterally - Psychiatric Psychiatric: A&O x's 3, no appropriate affect, no intact judgment & insight Cranial Nerve Examination - Cranial Nerves Cranial Nerve I- Olfactory: Intact Cranial Nerve II- Optic: Intact Cranial Nerve III- Oculomotor: Intact Cranial Nerve IV- Trochlear: Intact Cranial Nerve V- Trigeminal: Intact Cranial Nerve - Abducens: Intact Cranial Nerve VII- Facial: Intact Cranial Nerve VIII- Auditory: Intact Cranial Nerve IX- Glossopharyngeal: Intact Cranial Nerve X- Vagus: Intact Cranial Nerve XI- Accessory: Intact Cranial Nerve XII- Hypoglossal: Intact Results CBC & Chem 7: 01/25/17 08:12 01/25/17 08:12 Labs: Abnormal Lab Results - Last 24 Hours (Table) 01/24/17 01/24/17 Range/Units 22:10 22:32 BUN 6 L (7-17) mg/dL Urine Opiates Screen Detected H (NotDetected) Ur Amphetamines Screen Detected H (NotDetected) U Methamphetamines Scrn Detected H (NotDetected) U Benzodiazepines Scrn Detected H (NotDetected) Urine Cocaine Screen Detected H (NotDetected) U Marijuana (THC) Screen Detected H (NotDetected) Assessment and Plan Plan: assessment and plan: 1. bipolar disorder depressed type with suicidal ideation. Patient was admitted to the mental health unit she will be started on Geodon 40 mg I'm twice every day, she was also started on gabapentin 400 mg orally 2 times every day, patient will be placed on Ativan 1 mg orally every 8 hours as needed for agitation as well as withdrawal. 2. psychosocial dysfunction similar to polysubstance abuse. Continue patient on Ativan 1 mg orally 3 times every day as needed, continue patient on Zofran 4 mg orally every 6 hours as needed as well as loperamide 2 mg orally 4 times every day as needed for diarrhea. 3. chronic tobacco use and dependence. The patient was counseled about smoking cessation and increased risk of CAD, CVA, and malignancy patient was started already on nicotine patch. 4. thank you for the consult we will follow with you.
[2017-01-25] MEDS: LORazepam 1 MG TAB PO PRN ×2 (14:39→16:31)
[2017-01-25] MEDS ORDERED: ZIPRASIDONE 20 MG VIAL IM ONE (19:40)
[2017-01-26] MEDS: NICOTINE 14MG/24HR PATCH TRANSDERM SCH (08:25)
[2017-01-26] MEDS: GABAPENTIN 400 MG CAP PO SCH ×3 (08:25→21:29)
[2017-01-26] MEDS: LORazepam 1 MG TAB PO PRN ×2 (08:25→16:00)
[2017-01-26] MEDS: ACETAMINOPHEN TAB 325 MG TAB PO PRN (11:54)
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
--- NOTE | 2017-01-26 12:41 | P.PN ---
Progress Note - Text INTERVERAL HISTORY: Patient was admitted after she relapsed on opiates and amphetamines methamphetamines history of benzo use. She has been demanding of benzodiazepines, rude and disrespectful to staff. Today she approached me asking if I was Dr. Menjivar, she complemented me on my scarf, very pleasant wishing to speak with me. She reports that she only came in because she relapsed on opiates and was disappointed in herself. She states she was not suicidal even though she told them if they did not admit her she would kill herself, she laughs stating no that wasn't true. Today she is requesting to be discharged, she says that she has gone through her withdrawal and that she would be better off at home with her father who is strict family members and friends were supportive. She signed an AMA request. We reviewed what would happen if she was discharged on an AMA and that I recommended that she stay at least a days that we could possibly set up outpatient appointments for her and be able to give her a few days of medication until those appointments are in effect. She thought for a few seconds and stated know she wanted to leave today. I inform staff that I did not feel she could be petitioned and certified. In that she will be released today. Approximately 30 minutes later she came to my door knocking, she stated that she spoke to her father who said that he didn't think it was a good idea that she was leaving AMA, and that she should stay for another day so that she can get appointments and discharge medications. I complemented her on making a reasonable decision. She will revoke the AMA request. MENTAL STATUS EXAM: Patient was pleasant cooperative, good eye contact, well groomed. Speech was normal volume rate and production, coherent logical and goal directed. No SUKHDEV no FOI no delusions no ideas of reference or paranoid ideation. Mood euthymic, affect full range normal intensity. No suicidal ideation. Opiate withdrawal R/O Mood disorder versus personality disorder, cluster B History of bipolar disorder, by record PLAN: Continue inpatient psychiatric admission, for safety purposes and treatment of opiate withdrawal, mood disorder, personality disorder. Patient is encouraged to attend the groups. No change in medication
[2017-01-26] MEDS: FLUoxetine HCL 20 MG CAP PO SCH (15:55)
[2017-01-26 16:08] VITALS: RESP 18
[2017-01-26] MEDS ORDERED: hydrOXYzine PAMOATE 25 MG CAP PO PRN (16:44)
[2017-01-26] MEDS ORDERED: WATER FOR INJECTION, STERILE 10 ML IV ONE (21:33)
[2017-01-26] MEDS ORDERED: ZIPRASIDONE 20 MG VIAL IM ONE (21:33)
[2017-01-26] MEDS: ZIPRASIDONE 20 MG VIAL IM PRN (21:35)
[2017-01-27 06:40] VITALS: BP 110/68; PULSE 78; TEMP 98.3
[2017-01-27] MEDS ORDERED: ALBUTEROL INHALER 60 PUFF/8 GM INHALER INHALATION PRN (06:42)
[2017-01-27] MEDS: ACETAMINOPHEN TAB 325 MG TAB PO PRN (06:43)
[2017-01-27] MEDS: LORazepam 1 MG TAB PO PRN (06:43)
[2017-01-27] MEDS: FLUoxetine HCL 20 MG CAP PO SCH (08:30)
[2017-01-27] MEDS: NICOTINE 14MG/24HR PATCH TRANSDERM SCH (08:30)
[2017-01-27] MEDS: GABAPENTIN 400 MG CAP PO SCH (08:30)
--- NOTE | 2017-01-27 08:45 | P.DS ---
Providers Date of admission: 01/25/17 03:14 Expected date of discharge: 01/27/17 Attending physician: Michi Soto Consults: 01/25/17 05:28 Consult Physician Routine Consulting Provider: Higinio Cary Reason/Comments: MEDICAL MANAGEMENT Do you want consulting provider notified?: Yes, Notify in am Primary care physician: Stated None - Discharge Diagnosis(es) (1) Bipolar disorder Current Visit: Yes Status: Acute Priority: High (2) Opiate dependence Current Visit: Yes Status: Acute Priority: High (3) Moderate benzodiazepine use disorder Current Visit: Yes Status: Acute Priority: Medium (4) Alcohol use disorder Current Visit: Yes Status: Acute Priority: Low Hospital Course: Brief summary of admission note: The patient's is a 21-year-old single female who was admitted to the mental health unit through the emergency room for reported suicidal ideation. The patient had presented to the emergency room with opiate withdrawal symptoms she reported feeling hopeless and suicidal. She presented to the hospital demanding benzodiazepines. She has a history of using heroin Xanax alcohol intermittently marijuana and her urine drug screen also contained amphetamines and cocaine. Her drug of choice is opiate medication. She is well known to the psychiatric service. For full details please refer to the psychiatric evaluation dated 01/25/2017. Summary of hospital course: The patient was admitted to the mental health unit she presented voluntarily. On the day of the evaluation she was initially quite agitated and yelling. She was able to tolerate a brief interview and we decided to restart the Prozac and Neurontin. She was given Geodon IM to calm her agitation area basically she stated she wanted any medication to help with the opiate withdrawal. We did prescribe symptomatic measures. Her blood pressure usually runs low she was not able to tolerate Catapres area we prescribe Zofran and Imodium. During the course of the hospitalization distraught was started to try to treat anxiety symptoms. The patient is not motivated for inpatient chemical dependency treatment but states she is hoping to follow up with community mental health and get into the Suboxone program. She did voice a willingness to at least start the naltrexone today to help reduce cravings. Staff report that the patient did well yesterday with no agitated behavior she required no use of Geodon. The patient states today she is doing well and would like to be discharged. Yesterday she had signed an AMA form and then rescinded it. It appears she was going to be discharged yesterday but that was postponed until today for further evaluation. Vital signs reviewed they are normal yesterday and today. We did have to initiate the CIWA protocol and Ativan was provided as necessary to prevent withdrawal from benzodiazepines/alcohol. She reports that she had a visit from her father last evening that went well. She plans to reside with him still upon discharge. Mental status exam: The patient is an alert female she is dressed in her own clothing hygiene grooming are good. Eye contact is appropriate speech is fluent and spontaneous nonpressured. She reports that her mood is "much better" her affect is euthymic and is congruent to reported mood. She is cooperative throughout the session. She denies having any hopelessness thinking she denies having any suicidal or homicidal ideation intent or plan. She reports no auditory or visual hallucinations she reports no specific delusions. There is no evidence of psychosis at this time. She does not appear to be hypomanic or manic. Thought process is linear and goal-directed area she demonstrates no tangential thinking loose associations or flight of ideas. She demonstrates no verbal or physical aggressiveness. She demonstrates no psychomotor agitation and no psychomotor slowing. There is no physical evidence of withdrawal symptoms including tremor. Insight and judgment have been chronically limited in terms of her use of substances but in general it is grossly intact. She is oriented to person place and date. Impressions 1. Bipolar disorder unspecified, rule out bipolar 1 disorder, opiate use disorder, benzodiazepine use disorder, alcohol use disorder, rule out history of PTSD, rule out JARED. 2. Psychosocial dysfunction due to ongoing substance use Plan: The patient will be discharged mental health unit today. She is requesting to be discharged. She does not require continued psychiatric hospitalization on an involuntary basis. Her mood has improved her behavior has improved over the last 2 days. We will continue Prozac 20 mg daily, Neurontin 400 mg 3 times daily, Vistaril 25 mg up to 3 times daily as needed. She is amenable to having us start naltrexone 50 mg daily. We discussed she would likely benefit further from inpatient chemical dependency treatment but she defers that treatment option. She plans on addressing her substance use issues with her outpatient care she is hoping with [facility]. She is hoping to enroll in the Suboxone program. Social work will verify her outpatient mental health appointment. We discussed that continued use of alcohol or any illicit substance elevates her safety risk and she is instructed to abstain from all substance use other than prescribed medication. There is no imminent safety risk she is appropriate for transition to outpatient care as she is requesting discharge and does not require continued treatment on an involuntary basis. Patient Condition at Discharge: Stable Plan - Discharge Summary New Discharge Prescriptions: New FLUoxetine HCL [PROzac] 20 mg PO DAILY #30 cap Gabapentin [Neurontin] 400 mg PO TID #45 cap hydrOXYzine PAMOATE [Vistaril] 25 mg PO TID PRN #30 cap PRN Reason: Anxiety Naltrexone HCl [Revia] 50 mg PO DAILY #30 tablet Nicotine 14Mg/24Hr Patch [Habitrol] 1 patch TRANSDERM DAILY #12 patch Continue Albuterol Inhaler [Ventolin Hfa Inhaler] 2 puff INHALATION RT-QID PRN PRN Reason: Shortness Of Breath Discontinued Paliperidone IM [Invega Sustenna] 156 mg IM Q28D Discharge Medication List Albuterol Inhaler [Ventolin Hfa Inhaler] 2 puff INHALATION RT-QID PRN 10/11/16 [ History] FLUoxetine HCL [PROzac] 20 mg PO DAILY #30 cap 01/27/17 [Rx] Gabapentin [Neurontin] 400 mg PO TID #45 cap 01/27/17 [Rx] Naltrexone HCl [Revia] 50 mg PO DAILY #30 tablet 01/27/17 [Rx] Nicotine 14Mg/24Hr Patch [Habitrol] 1 patch TRANSDERM DAILY #12 patch 01/27/17 [ Rx] hydrOXYzine PAMOATE [Vistaril] 25 mg PO TID PRN #30 cap 01/27/17 [Rx] Follow up Appointment(s)/Referral(s): [facility] [Outside] - 02/01/17 9:00 am (02/01/2017 @ 0900 with Garrett Grande 02/09/2017 @ 17:[address] Catherine ) None,Stated [Primary Care Provider] - 1-2 days
== END 2017-01-27 10:26 | disposition home or self-care (01) | DRG 885 ==
LOC: EC 21:55 → 3MHU 01-25 03:14
PROVIDERS: ADMIT Psychiatry & Neurology Psychiatry; ATTEND Psychiatry & Neurology Psychiatry
DX: F31.9 Bipolar disorder, unspecified (principal); R45.851 Suicidal ideations; F13.20 Sedative, hypnotic or anxiolytic dependence, uncomplicated; F14.20 Cocaine dependence, uncomplicated; F11.23 Opioid dependence with withdrawal; G40.909 Epilepsy, unspecified, not intractable, without status epilepticus; F17.200 Nicotine dependence, unspecified, uncomplicated; F41.0 Panic disorder [episodic paroxysmal anxiety]; F43.10 Post-traumatic stress disorder, unspecified; J45.909 Unspecified asthma, uncomplicated; G43.909 Migraine, unspecified, not intractable, without status migrainosus; G89.29 Other chronic pain; M54.9 Dorsalgia, unspecified; F10.10 Alcohol abuse, uncomplicated; F41.9 Anxiety disorder, unspecified; F60.9 Personality disorder, unspecified; Z91.040 Latex allergy status
CPT/HCPCS: 36415; 80048; 80053; 80306; 81025; 82075; 83735; 84443; 85025; 93005; 99285

== ENCOUNTER 2017-02-02 01:36 | Emergency (ER) | payer OTHER ==
[2017-02-02 01:44] VITALS: BP 112/74; PULSE 106; RESP 22; TEMP 97.8
[2017-02-02] MEDS ORDERED: clonazePAM 0.5 MG TAB PO STA (02:44)
--- NOTE | 2017-02-02 02:45 | ED ---
Anxiety HPI - General Chief Complaint: Anxiety Stated Complaint: anxiety Time Seen by Provider: 02/02/17 01:57 Source: patient, RN notes reviewed, old records reviewed Mode of arrival: ambulatory - History of Present Illness Initial Comments: 21-year-old female presenting to the emergency Department chief complaint of anxiety and distress after her boyfriend overdosed and today. Patient reports that she, her boyfriend and other friends were using IV drugs. Patient reports that her boyfriend was not responsive therefore she called EMS. Patient was pronounced . Patient states that since then she has been inconsolable and has been seeing images of her boyfriend. Patient states that she does not want to seek psychiatric care she would just like the images to be removed from her memory. Patient denies any suicidal ideation. Patient denies any homicidal ideation. Patient is refusing to see psychiatric nurse, but is also denying suicidal ideation. - Related Data Home Medications: Home Medications Medication Instructions Recorded Confirmed Albuterol Inhaler [Ventolin Hfa 2 puff INHALATION RT-QID PRN 10/11/16 01/25/17 Inhaler] Previous Rx's Medication Instructions Recorded FLUoxetine HCL [PROzac] 20 mg PO DAILY #30 cap 01/27/17 Gabapentin [Neurontin] 400 mg PO TID #45 cap 01/27/17 Naltrexone HCl [Revia] 50 mg PO DAILY #30 tablet 01/27/17 Nicotine 14Mg/24Hr Patch [Habitrol] 1 patch TRANSDERM DAILY #12 patch 01/27/17 hydrOXYzine PAMOATE [Vistaril] 25 mg PO TID PRN #30 cap 01/27/17 Allergies/Adverse Reactions: Allergies Allergy/AdvReac Type Severity Reaction Status Date / Time Latex, Natural Rubber Allergy Rash/Hives Verified 02/02/17 01:43 venom-honey bee Allergy Swelling Verified 02/02/17 01:43 [bee venom (honey bee)] Review of Systems ROS Statement: Those systems with pertinent positive or pertinent negative responses have been documented in the HPI. ROS Other: All systems not noted in ROS Statement are negative. Past Medical History Past Medical History: Asthma, Seizure Disorder Additional Past Medical History / Comment(s): HX: Recent injury to R ankle with ecchymosis and edema and pain, chronic back pain related to herniated disc , chronic migraines, endometriosis, multiple fractures, meningitis as child; ovarian cysts, alchol abuse, prescription drug abuse, heroin abuse in past. History of Any Multi-Drug Resistant Organisms: None Reported Past Surgical History: Section, Cholecystectomy, Ear Surgery, Orthopedic Surgery Additional Past Surgical History / Comment(s): ORIF right wrist, myringotomy with tubes as infant. Past Anesthesia/Blood Transfusion Reactions: No Reported Reaction Past Psychological History: Anxiety, Bipolar, Depression, Panic Disorder Additional Psychological History / Comment(s): Pt states she is staying with friends. 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 Pt has had several stays at [facility] and admissions to [facility] mental health unit. She is suppose to go into [facility] on 06/12/16. Pt denied suicidal thoughts or plans related to this incident that brought her to [facility] ER. Pt's mother is concerned that pt has recently been talking of not wanting to live any longer. Pt denies this however. Smoking Status: Current every day smoker Past Alcohol Use History: Occasional Additional Past Alcohol Use History / Comment(s): Pt abuses alcohol and was last known to have drank 2 weeks ago. Pt has hx of heroin use and states she used heroin last nite and had been warned that "it was a strong kind." She also has hx of prescription drug abuse, benzo's, klonopin, xanax and marijuana use. Past Drug Use History: Heroin, Marijuana, Opiates, Prescription Drug Abuse Additional Drug Use History / Comment(s): See addition past alcohol use section. - Past Family History Brother(s) Additional Family Medical History / Comment(s): Patient has 1 brother that is 20 years of age with no major medical problems. Patient has 1 son 3-1/2 years old with no major medical problems. Father Additional Family Medical History / Comment(s): Father is alive at age 54 with history of substance abuse, Schizophrenic, Bipolar Disorder Mother Additional Family Medical History / Comment(s): Mother is alive at age 47 with history of Arthritis. General Exam Limitations: no limitations General appearance: alert, in no apparent distress, anxious, other (crying) Head exam: Present: atraumatic, normocephalic, normal inspection Eye exam: Present: normal appearance, PERRL, EOMI. Absent: scleral icterus, conjunctival injection, periorbital swelling ENT exam: Present: normal exam, mucous membranes moist Neck exam: Present: normal inspection. Absent: tenderness, meningismus, lymphadenopathy Respiratory exam: Present: normal lung sounds bilaterally. Absent: respiratory distress, wheezes, rales, rhonchi, stridor Cardiovascular Exam: Present: regular rate, normal rhythm, normal heart sounds. Absent: systolic murmur, diastolic murmur, rubs, gallop, clicks GI/Abdominal exam: Present: soft, normal bowel sounds. Absent: distended, tenderness, guarding, rebound, rigid Extremities exam: Present: normal inspection, full ROM, normal capillary refill. Absent: tenderness, pedal edema, joint swelling, calf tenderness Back exam: Present: normal inspection Neurological exam: Present: alert, oriented X3, CN II-XII intact Psychiatric exam: Present: normal affect, normal mood Skin exam: Present: warm, dry, intact, normal color. Absent: rash Course Vital Signs 02/02/17 01:41 Temperature 97.8 F Pulse Rate 106 H Respiratory 22 Rate Blood Pressure 112/74 O2 Sat by Pulse 96 Oximetry Medical Decision Making - Medical Decision Making 21-year-old female presenting to the emergency Department chief complaint of anxiety and distress after her boyfriend overdosed and today. Patient reports that she, her boyfriend and other friends were using IV drugs. Patient reports that her boyfriend was not responsive therefore she called EMS. Patient was pronounced . Patient states that since then she has been inconsolable and has been seeing images of her boyfriend. Patient states that she does not want to seek psychiatric care she would just like the images to be removed from her memory. Patient denies any suicidal ideation. Patient denies any homicidal ideation. Patient is refusing to see psychiatric nurse, but is also denying suicidal ideation. Patient was given .5 of clonidine. Patient adamently denies suicidal thoughts, states that she plans to follow up tomorrow with [facility]. Patient agrees to a safety contract. Patient was offered numerous times to see Psychiatric services. She refuses and states she wants to leave. Disposition Clinical Impression: Anxiety, Emotional depression Disposition: HOME SELF-CARE Condition: Good Instructions: Generalized Anxiety Disorder (ED) Additional Instructions: Follow up with [facility] and counselors tomorrow. Return to the emergency department if any alarming signs or symptoms occur. Referrals: None,Stated [Primary Care Provider] - 1-2 days Time of Disposition: 02:45
== END 2017-02-02 03:13 | disposition home or self-care (01) ==
LOC: EC 01:36
DX: F32.9 Major depressive disorder, single episode, unspecified (principal); F41.9 Anxiety disorder, unspecified; F17.200 Nicotine dependence, unspecified, uncomplicated; Z91.040 Latex allergy status; Z91.030 Bee allergy status
CPT/HCPCS: 99283

== ENCOUNTER 2017-02-02 16:21 | Inpatient (IN) | payer OTHER ==
--- NOTE | 2017-02-02 16:42 | ED ---
General Adult HPI - General Chief complaint: Overdose Stated complaint: OVERDOSE Time Seen by Provider: 02/02/17 16:24 Source: EMS, RN notes reviewed - History of Present Illness Initial comments: 21-year-old female with a history of polysubstance abuse presenting after an intentional overdose and suicide attempt. EMS was called to the patient's house and she was found next to an empty bottle of pills. EMS believes that she took a whole bottle of Vistaril pills. They states she was awake and mostly alert upon arrival. No meds given en route. They're uncertain if she took any other medications at this time. Patient does have a known history of substance abuse including heroin abuse. Per review of records, pt was seen yesterday for evaluation for anxiety, secondary to the of her significant other and refused treatment at that time. He yesterday per records after overdosing on heroin. The patient is very somnolent on initial exam and unable to provide any additional history at this time. She is breathing spontaneously, and does react to painful stimuli. - Related Data Home Medications Medication Instructions Recorded Confirmed Albuterol Inhaler [Ventolin Hfa 2 puff INHALATION RT-QID PRN 10/11/16 02/02/17 Inhaler] Previous Rx's Medication Instructions Recorded FLUoxetine HCL [PROzac] 20 mg PO DAILY #30 cap 01/27/17 Gabapentin [Neurontin] 400 mg PO TID #45 cap 01/27/17 Naltrexone HCl [Revia] 50 mg PO DAILY #30 tablet 01/27/17 Nicotine 14Mg/24Hr Patch [Habitrol] 1 patch TRANSDERM DAILY #12 patch 01/27/17 hydrOXYzine PAMOATE [Vistaril] 25 mg PO TID PRN #30 cap 01/27/17 Allergies Allergy/AdvReac Type Severity Reaction Status Date / Time Latex, Natural Rubber Allergy Rash/Hives Verified 02/02/17 01:43 venom-honey bee Allergy Swelling Verified 02/02/17 01:43 [bee venom (honey bee)] Review of Systems ROS Statement: Those systems with pertinent positive or pertinent negative responses have been documented in the HPI. ROS Other: All systems not noted in ROS Statement are negative. Limitations: ROS unobtainable due to patients medical condition Past Medical History Past Medical History: Asthma, Seizure Disorder Additional Past Medical History / Comment(s): HX: Recent injury to R ankle with ecchymosis and edema and pain, chronic back pain related to herniated disc , chronic migraines, endometriosis, multiple fractures, meningitis as child; ovarian cysts, alchol abuse, prescription drug abuse, heroin abuse in past. History of Any Multi-Drug Resistant Organisms: None Reported Past Surgical History: Section, Cholecystectomy, Ear Surgery, Orthopedic Surgery Additional Past Surgical History / Comment(s): ORIF right wrist, myringotomy with tubes as infant. Past Anesthesia/Blood Transfusion Reactions: No Reported Reaction Past Psychological History: Anxiety, Bipolar, Depression, Panic Disorder Additional Psychological History / Comment(s): Pt states she is staying with friends. 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 Pt has had several stays at [facility] and admissions to [facility] mental health unit. She is suppose to go into [facility] on 06/12/16. Pt denied suicidal thoughts or plans related to this incident that brought her to [facility] ER. Pt's mother is concerned that pt has recently been talking of not wanting to live any longer. Pt denies this however. Smoking Status: Current every day smoker Past Alcohol Use History: Occasional Additional Past Alcohol Use History / Comment(s): Pt abuses alcohol and was last known to have drank 2 weeks ago. Pt has hx of heroin use and states she used heroin last nite and had been warned that "it was a strong kind." She also has hx of prescription drug abuse, benzo's, klonopin, xanax and marijuana use. Past Drug Use History: Heroin, Marijuana, Opiates, Prescription Drug Abuse Additional Drug Use History / Comment(s): See addition past alcohol use section. - Past Family History Brother(s) Additional Family Medical History / Comment(s): Patient has 1 brother that is 20 years of age with no major medical problems. Patient has 1 son 3-1/2 years old with no major medical problems. Father Additional Family Medical History / Comment(s): Father is alive at age 54 with history of substance abuse, Schizophrenic, Bipolar Disorder Mother Additional Family Medical History / Comment(s): Mother is alive at age 47 with history of Arthritis. General Exam - General Exam Comments Initial Comments: General: The patient well-nourished, appears stated age. Patient is very somnolent, but appears agitated with any painful stimuli. Eyes: NEO, pupils 3mm B/L. No scleral icterus. HENT: Atraumatic, normocephalic. Mucous membranes dry. Vomitus around mouth. Neck: The neck is supple, no JVD. Cardiovascular: Regular rhythm, tachycardic. No murmur, rub, or gallop is appreciated. Distal pulses intact, 2+ radial and DP B/L. Respiratory: Lungs clear to auscultation B/L. There are mild rhonchi on the right. Pt with bradypnea. Gastrointestinal: Soft, Nontender. No rebound or guarding. Non-distended. Musculoskeletal: Normal ROM. No gross deformity. No strength deficits. Neurological: Somnolent. Does not follow commands. Moves all extremities. GCS is 9 (2+2+5) Skin: Skin is warm and dry. Multiple puncture lesions noted to B/L antecubital areas. Psychiatric: Unable to assess secondary to condition Course Vital Signs 02/02/17 02/02/17 17:03 18:36 Temperature 97.0 F L Pulse Rate 111 H 103 H Respiratory 14 12 Rate Blood Pressure 130/60 O2 Sat by Pulse 95 100 Oximetry Procedures - Intubation Time Out Performed: Yes Sedative: Etomidate Mg Given: 20 Paralytic: Rocuronium Mg Given: 50 Laryngoscope: Birch Size: 3 ET Tube Size: 7.5 ET Tube Uncuffed: No Tube Secured Depth (cm): 22 Tube Secured Location: lips Tube Placement Confirmation: visualized tube passing through cords, equal breath sounds bilaterally, confirmation by capnometry Patient Tolerated Procedure: well Intubation Complications: none Additional Comments: tube low after XR - Restraint - Face to Face Restraint Occurrence 1 Patient's Immediate Situation: Endangers self safety, Endangers staff safety Patient's Reaction to the Intervention: Combative, Restless, Resistive to care Patient's Medical & Behavioral Condition: Drowsy Need to Continue or Terminate Restraint or Seclusion: Continue Face to Face Eval of Restraint Date: 02/02/17 Face to Face Eval of Restraint Time: 16:34 Medical Decision Making - Medical Decision Making 21-year-old female seen after intentional overdose. It is believed that she took a bottle of Vistaril tablets. This is on her MAR and appears that she has 25 mg tablets at home. EMS believes ingestions was within the past hour. Given this and patient's decreased mental status plan for gastric lavage. No plan for charcoal given concern for aspiration as there is vomitus present around mouth and pt does not appear to be protecting her airway. IV fluids were started. Lab work was ordered. Patient is very combative with any stimuli on initial exam although also somnolent. She was placed in soft restraints after [id number] evaluation. I called and spoke with Dr. Martin, agrees with plan for admission. Requests consult to psychiatry. 5:13 PM Pt now hypoxic and more altered. Noted with borderline hypotention. Narcan ordered. O2 started. Will monitor closely. 5:20 PM Pt more awake and better protecting airway after narcan. Pt very agitated now. Ativan ordered. BP improved. 5:40 PM Patient continued to be very agitated, was not protecting her airway. Patient satting 100% only with nonrebreather mask, desats if removed. Ultimately decided to intubate for airway protection, which was performed emergently without complication. Pt moved from room 11 to room 20. Sedation orders placed, discussed with pharmacy for appropriate dosing. I called and spoke with Dr. Ha, agrees with plan for ICU placement. Updated on patient condition. 6:15 PM Pt reevaluated. Resting comfortably with sedation. Tolerating ventilator settings. Labwork now in process. Labwork with stable CBC. BMP with hypoK, replacement ordered. Tylenol, salicylates, alcohol negative. 7:30 PM Pt becoming more agitated, sedation increased. CXR results reviewed, ET tube to low, discussed with nursing to pull back. ABG reviewed, vent settings adjusted. Pt with room assigned in ICU, will transfer to floor. - Lab Data Result diagrams: 02/02/17 17:21 02/02/17 17:21 Lab Results 02/02/17 02/02/17 02/02/17 Range/Units 16:34 17:21 17:21 WBC 5.2 (3.8-10.6) k/uL RBC 4.04 (3.80-5.40) m/uL Hgb 12.1 (11.4-16.0) gm/dL Hct 36.4 (34.0-46.0) % MCV 90.1 (80.0-100.0) fL MCH 30.1 (25.0-35.0) pg MCHC 33.4 (31.0-37.0) g/dL RDW 13.7 (11.5-15.5) % Plt Count 218 (150-450) k/uL Neutrophils % 62 % Lymphocytes % 28 % Monocytes % 5 % Eosinophils % 1 % Basophils % 1 % Neutrophils # 3.2 (1.3-7.7) k/uL Lymphocytes # 1.4 (1.0-4.8) k/uL Monocytes # 0.3 (0-1.0) k/uL Eosinophils # 0.1 (0-0.7) k/uL Basophils # 0.0 (0-0.2) k/uL PT (9.0-12.0) sec INR (<1.1) Sodium 141 (137-145) mmol/L Potassium 2.9 L* (3.5-5.1) mmol/L Chloride 103 (98-107) mmol/L Carbon Dioxide 20 L (22-30) mmol/L Anion Gap 18 mmol/L BUN 10 (7-17) mg/dL Creatinine 0.58 (0.52-1.04) mg/dL Est GFR (MDRD) Af Amer >60 (>60 ml/min/1.73 sqM) Est GFR (MDRD) Non-Af >60 (>60 ml/min/1.73 sqM) Glucose 160 H (74-99) mg/dL Calcium 8.8 (8.4-10.2) mg/dL Magnesium 1.8 (1.6-2.3) mg/dL Total Bilirubin 0.6 (0.2-1.3) mg/dL AST 51 H (14-36) U/L ALT 57 H (9-52) U/L Alkaline Phosphatase 77 (38-126) U/L Total Protein 7.1 (6.3-8.2) g/dL Albumin 4.0 (3.5-5.0) g/dL Lipase 118 (23-300) U/L HCG, Qual Not Detected Urine Color Yellow Urine Appearance Cloudy H (Clear) Urine pH 6.0 (5.0-8.0) Ur Specific [place] 1.023 (1.001-1.035) Urine Protein 1+ H (Negative) Urine Glucose (UA) Negative (Negative) Urine Ketones 4+ H (Negative) Urine Blood Small H (Negative) Urine Nitrite Negative (Negative) Urine Bilirubin 1+ H (Negative) Urine Urobilinogen 4.0 (<2.0) mg/dL Ur Leukocyte Esterase Negative (Negative) Urine RBC 2 (0-5) /hpf Urine WBC 4 (0-5) /hpf Ur Squamous Epith Cells 1 (0-4) /hpf Urine Bacteria Rare H (None) /hpf Hyaline Casts 3 H (0-2) /lpf Urine Mucus Few H (None) /hpf Salicylates <1.0 mg/dL Urine Opiates Screen Not Detected (NotDetected) Ur Oxycodone Screen Not Detected (NotDetected) Urine Methadone Screen Not Detected (NotDetected) Ur Propoxyphene Screen Not Detected (NotDetected) Acetaminophen <10.0 ug/mL Ur Barbiturates Screen Not Detected (NotDetected) U Tricyclic Antidepress Not Detected (NotDetected) Ur Phencyclidine Scrn Not Detected (NotDetected) Ur Amphetamines Screen Detected H (NotDetected) U Methamphetamines Scrn Not Detected (NotDetected) U Benzodiazepines Scrn Detected H (NotDetected) Urine Cocaine Screen Not Detected (NotDetected) U Marijuana (THC) Screen Detected H (NotDetected) Serum Alcohol <10 mg/dL 02/02/17 Range/Units 17:21 WBC (3.8-10.6) k/uL RBC (3.80-5.40) m/uL Hgb (11.4-16.0) gm/dL Hct (34.0-46.0) % MCV (80.0-100.0) fL MCH (25.0-35.0) pg MCHC (31.0-37.0) g/dL RDW (11.5-15.5) % Plt Count (150-450) k/uL Neutrophils % % Lymphocytes % % Monocytes % % Eosinophils % % Basophils % % Neutrophils # (1.3-7.7) k/uL Lymphocytes # (1.0-4.8) k/uL Monocytes # (0-1.0) k/uL Eosinophils # (0-0.7) k/uL Basophils # (0-0.2) k/uL PT 11.5 (9.0-12.0) sec INR 1.2 (<1.1) Sodium (137-145) mmol/L Potassium (3.5-5.1) mmol/L Chloride (98-107) mmol/L Carbon Dioxide (22-30) mmol/L Anion Gap mmol/L BUN (7-17) mg/dL Creatinine (0.52-1.04) mg/dL Est GFR (MDRD) Af Amer (>60 ml/min/1.73 sqM) Est GFR (MDRD) Non-Af (>60 ml/min/1.73 sqM) Glucose (74-99) mg/dL Calcium (8.4-10.2) mg/dL Magnesium (1.6-2.3) mg/dL Total Bilirubin (0.2-1.3) mg/dL AST (14-36) U/L ALT (9-52) U/L Alkaline Phosphatase (38-126) U/L Total Protein (6.3-8.2) g/dL Albumin (3.5-5.0) g/dL Lipase (23-300) U/L HCG, Qual Urine Color Urine Appearance (Clear) Urine pH (5.0-8.0) Ur Specific [place] (1.001-1.035) Urine Protein (Negative) Urine Glucose (UA) (Negative) Urine Ketones (Negative) Urine Blood (Negative) Urine Nitrite (Negative) Urine Bilirubin (Negative) Urine Urobilinogen (<2.0) mg/dL Ur Leukocyte Esterase (Negative) Urine RBC (0-5) /hpf Urine WBC (0-5) /hpf Ur Squamous Epith Cells (0-4) /hpf Urine Bacteria (None) /hpf Hyaline Casts (0-2) /lpf Urine Mucus (None) /hpf Salicylates mg/dL Urine Opiates Screen (NotDetected) Ur Oxycodone Screen (NotDetected) Urine Methadone Screen (NotDetected) Ur Propoxyphene Screen (NotDetected) Acetaminophen ug/mL Ur Barbiturates Screen (NotDetected) U Tricyclic Antidepress (NotDetected) Ur Phencyclidine Scrn (NotDetected) Ur Amphetamines Screen (NotDetected) U Methamphetamines Scrn (NotDetected) U Benzodiazepines Scrn (NotDetected) Urine Cocaine Screen (NotDetected) U Marijuana (THC) Screen (NotDetected) Serum Alcohol mg/dL - Radiology Data Radiology results: report reviewed, image reviewed Critical Care Time Critical Care Time: Yes Total Critical Care Time: 60 Critical Care Time: 21-year-old female presenting with life threatening illness requiring critical care management time of 60 minutes after intentional Vistaril and heroin overdose. Critical care time included multiple re-evaluations, physician presence for multiple medication administrations, [id number] for restraints, intubation, charting, multiple phone calls to inpatient providers, and discussion with pharmacy. Please refer to chart for additional timeline. Disposition Clinical Impression: Intentional overdose of drug in tablet form, Suicide attempt, Respiratory failure, Agitation, Hypokalemia, Polysubstance abuse Disposition: ADMITTED IP TO THIS [facility] Condition: Undetermined Decision to Admit Reason: Admit from EC
[2017-02-02] MEDS ORDERED: NALOXONE 0.4 MG/ML 1 ML VIAL IV STA (17:14)
[2017-02-02] MEDS ORDERED: SODIUM CHLORIDE 0.9% 2,000 ML IV ONE (17:16)
[2017-02-02] MEDS ORDERED: ONDANSETRON 4 MG/2 ML VIAL IVP STA (17:16)
[2017-02-02] MEDS ORDERED: LORazepam 2 MG/ML SYRINGE IV STA (17:16)
[2017-02-02] MEDS ORDERED: MIDAZOLAM HCL 100 MG in SODIUM CHLORIDE 0.9% 80 ML IV ONE ×2 (17:49→18:15)
[2017-02-02] MEDS ORDERED: fentaNYL (PF) 2,500 MCG in SODIUM CHLORIDE 0.9% 200 ML IV SCH (17:49)
[2017-02-02] MEDS ORDERED: ETOMIDATE 2 MG/ML 10 ML VIAL IVP STA (17:55)
[2017-02-02] MEDS ORDERED: ROCURONIUM BROMIDE 10 MG/ML 10 ML VIAL IV STA (17:55)
[2017-02-02] MEDS: SODIUM CHLORIDE 0.9% 1,000 ML IV SCH (17:59)
[2017-02-02] MEDS ORDERED: NALOXONE 0.4 MG/ML 1 ML VIAL IV PRN (18:20)
[2017-02-02] MEDS ORDERED: LACTATED RINGERS 1,000 ML IV SCH (18:30)
[2017-02-02 18:34] LABS: Basophils % (A) 1 %; CH 29.6; Eosinophils # (A) 0.1 k/uL (0-0.7); Eosinophils % (A) 1 %; HCT 36.4 % (34.0-46.0); HDW 2.69; HGB 12.1 gm/dL (11.4-16.0); Luc # (Auto) 0.17; Luc % (Auto) 3; Lymphocytes # (A) 1.4 k/uL (1.0-4.8); Lymphocytes % (A) 28 %; MCH 30.1 pg (25.0-35.0); MCHC 33.4 g/dL (31.0-37.0); MCV 90.1 fL (80.0-100.0); Mean Platelet Volume 7.4; Monocytes # (A) 0.3 k/uL (0-1.0); Monocytes % (A) 5 %; Neutrophils # (A) 3.2 k/uL (1.3-7.7); Neutrophils % (A) 62 %; RBC 4.04 m/uL (3.80-5.40); RDW 13.7 % (11.5-15.5); WBC 5.2 k/uL (3.8-10.6); WBC (Perox) 5.53
[2017-02-02 18:41] LABS: INR 1.2 (<1.1); Prothrombin Time 11.5 sec (9.0-12.0)
[2017-02-02 18:42] LABS: HCG,Qualitative Serum Not Detected
[2017-02-02 18:43] LABS: ALT 57 U/L (9-52); AST 51 U/L (14-36); Acetaminophen <10.0 ug/mL; Alcohol <10 mg/dL; Alkaline Phosphatase 77 U/L (38-126); Anion Gap 18 mmol/L; Blood Urea Nitrogen 10 mg/dL (7-17); Calcium 8.8 mg/dL (8.4-10.2); Carbon Dioxide 20 mmol/L (22-30); Chloride 103 mmol/L (98-107); Glucose 160 mg/dL (74-99); Magnesium 1.8 mg/dL (1.6-2.3); Non-African American GFR(MDRD) >60 (>60 ml/min/1.73 sqM); Salicylate <1.0 mg/dL; Sodium 141 mmol/L (137-145); Total Bilirubin 0.6 mg/dL (0.2-1.3); Total Protein 7.1 g/dL (6.3-8.2)
[2017-02-02 18:55] LABS: Potassium 2.9 mmol/L (3.5-5.1)
[2017-02-02 19:15] LABS: Appearance,Urine Cloudy (Clear); Bacteria,Urine Rare /hpf; Bilirubin,Urine 1+ (Negative); Glucose,Urine (UA) Negative (Negative); Ketones,Urine 4+ (Negative); Leukocyte Esterase,Urine Negative (Negative); Mucus,Urine Few /hpf; Nitrite,Urine Negative (Negative); Particle Count 7540; Protein,Urine 1+ (Negative); RBC,Urine 2 /hpf (0-5); Specific Gravity,Urine 1.023 (1.001-1.035); Squamous Epithelial Cell,Urine 1 /hpf (0-4); UA Billing (MACRO vs. MICRO) MICRO; WBC,Urine 4 /hpf (0-5)
--- NOTE | 2017-02-02 19:17 | XR ---
EXAMINATION TYPE: XR chest 1V portable DATE OF EXAM: 02/02/2017 COMPARISON: 09/29/2015 HISTORY: Intubation and overdose. Cough. TECHNIQUE: Single frontal view of the chest is obtained. FINDINGS: Heart and mediastinum are normal. There is some patchy increased density in the left lower lobe. There is an endotracheal tube with the tip in the right mainstem bronchus. Right lung is clear . There are chest leads. There is a nasogastric tube in good position. IMPRESSION: Endotracheal tube is too low and should be pulled back 6 cm. There is some developing at electasis or infiltrate in the left lower lobe.
[2017-02-02 19:20] LABS: ABG Base Excess -3.6 mmol/L; ABG HCO3 20 mmol/L (21-25); ABG PCO2 31 mmHg (35-45); ABG PH 7.43 (7.35-7.45); ABG PO2 110 mmHg (83-108); ABG TCO2 21 mmol/L (19-24)
[2017-02-02] MEDS ORDERED: POTASSIUM CHLORIDE 10 MEQ, LIDOCAINE 2% INJ 10 MG in SODIUM CHLORIDE 0.9% 100 ML IVPB ONE (20:00)
--- NOTE | 2017-02-02 20:11 | XR ---
EXAMINATION TYPE: XR chest 1V portable DATE OF EXAM: 02/02/2017 COMPARISON: Today HISTORY: Check tube placement TECHNIQUE: Single frontal view of the chest is obtained. FINDINGS: Endotracheal tube has its tip in the right mainstem bronchus. There is some shift of heart and mediastinum to the left side and increased density over the left hemithorax consistent with sign ificant atelectasis. Nasogastric tube appears in good position. The right lung is clear. There is no heart failure. Heart size is normal. IMPRESSION: Endotracheal tube is too low and should be pulled back 6 cm. There is significant atelec tasis in the left lung related to malposition of the endotracheal tube. Normal heart.
[2017-02-02 20:14] LABS: Glucose,Whole Blood 127 mg/dL (75-99)
[2017-02-02] MEDS ORDERED: PROPOFOL 50 ML IV ONE (20:20)
[2017-02-02] MEDS ORDERED: Potassium Replacement Protocol 1 EACH MISC MISCELLANE PRN (20:31)
[2017-02-02] MEDS ORDERED: Magnesium Replacement Protocol 1 EACH MISC MISCELLANE PRN (20:32)
[2017-02-02] MEDS ORDERED: FAMOTIDINE 20 MG TAB PO SCH (21:00)
[2017-02-02] MEDS: PROPOFOL 500 MG in EMPTY BAG 1 BAG IV SCH (21:19)
[2017-02-02] MEDS: CHLORHEXIDINE GLUCONATE 15 ML CUP MUCOUS MEM SCH (21:20)
[2017-02-02] MEDS: MAGNESIUM SULFATE-D5W PMX 1 GM in DEXTROSE/WATER 1 100ML.BAG IVPB SCH ×2 (21:20→23:24)
[2017-02-02] MEDS: POTASSIUM CHLORIDE 10 MEQ, LIDOCAINE 2% INJ 10 MG in SODIUM CHLORIDE 0.9% 100 ML IV SCH ×3 (21:24→23:26)
[2017-02-02] MEDS: HYDROmorphone 1 MG/ML 1 ML SYRINGE IVP PRN (21:25)
--- NOTE | 2017-02-02 21:29 | XR ---
EXAMINATION TYPE: XR chest 1V portable DATE OF EXAM: 02/02/2017 COMPARISON: NONE HISTORY: Check tube placement TECHNIQUE: Single frontal view of the chest is obtained. FINDINGS: Endotracheal tube is in good position. There is a nasogastric tube. The left hemithorax is completely opaque. Heart is shifted to the left side. The right lung is clear. IMPRESSION: Tubing is in good position. There is evidence of complete atelectasis of the left lung t hat suggests plugging of the left mainstem bronchus. Bronchoscopy is recommended if clinically indicated.
[2017-02-02 21:37] LABS: ABG Base Excess -3.2 mmol/L; ABG HCO3 21 mmol/L (21-25); ABG PCO2 37 mmHg (35-45); ABG PH 7.38 (7.35-7.45); ABG PO2 78 mmHg (83-108); ABG TCO2 22 mmol/L (19-24)
[2017-02-02] MEDS ORDERED: NOREPINEPHRIN 4 MG-0.9% NS PMX 4 MG/250 ML ML IV SCH (22:00)
--- NOTE | 2017-02-02 23:14 | P.CNPUL ---
History of Present Illness Consult date: 02/02/17 Requesting physician: Bobby Martin Reason for consult: other (Acute respiratory failure secondary to drug overdose. ) Chief complaint: Overdose History of present illness: This is a 21-year-old female with history of polysubstance abuse, history of depression and previous suicidal attempts, patient was brought into the ER when she was noted to have mental status change with empty bottle of pills. Apparently the bottle had vistaril pills in it, patient is also known to have history of heroin abuse, and she has history of anxiety. Her boyfriend apparently yesterday from an overdose of heroin. Patient was somnolent upon arrival to the ER, and unable to provide any history. She was spontaneously breathing, and did react to painful stimuli. However as she became more agitated in the ER, and she was desaturating, patient was becoming more obtunded, she was intubated by the ER physician, placed on mechanical ventilation, and this consult was initiated. Patient was sent to the intensive care unit hemodynamically stable initially, however upon arrival to the ICU, I was notified by the nurse that her chest x-ray showed right mainstem intubation. Recommended immediate withdrawal of the endotracheal tube about 4 cm from its present position, and follow-up chest x-ray. The follow-up chest x- ray showed adequate placement of the endotracheal tube, but there was complete collapse of the left lung. Hence I came in immediately for emergent bronchoscopy and extraction of mucous plugs from the left mainstem bronchus, and I was able to clear all the airways on the left side. Right side was noted to be unremarkable. At any rate patient was dialed down on the FiO2, I increased the PEEP to 8, and recommended follow-up ABG on this patient post bronchoscopy and lavage of the left lung. Her O2 saturation was in the mid 90s on 60% FiO2 and PEEP of 8. The endotracheal tube was visually placed about to see him above the ganesh with direct visualization using the bronchoscope. Hence no need for immediate chest x-ray post bronchoscopy. Earlier, patient was placed briefly on norepinephrine, however I recommended fluid boluses and discontinuation of norepinephrine. Her mean arterial pressure was excellent upon placement of the left brachial arterial line. And I recommended cutting down on the dose of propofol. Review of Systems ROS unobtainable: due to endotracheal tube, due to mental status Past Medical History Past Medical History: Asthma, Seizure Disorder Additional Past Medical History / Comment(s): HX: Recent injury to R ankle with ecchymosis and edema and pain, chronic back pain related to herniated disc , chronic migraines, endometriosis, multiple fractures, meningitis as child; ovarian cysts, alchol abuse, prescription drug abuse, heroin abuse in past. History of Any Multi-Drug Resistant Organisms: None Reported Past Surgical History: Section, Cholecystectomy, Ear Surgery, Orthopedic Surgery Additional Past Surgical History / Comment(s): ORIF right wrist, myringotomy with tubes as . Past Anesthesia/Blood Transfusion Reactions: No Reported Reaction Past Psychological History: Anxiety, Bipolar, Depression, Panic Disorder Additional Psychological History / Comment(s): Pt states she is staying with friends. 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 Pt has had several stays at [facility] and admissions to [facility] mental health unit. She is suppose to go into [facility] on 06/12/16. Pt denied suicidal thoughts or plans related to this incident that brought her to [facility] ER. Pt's mother is concerned that pt has recently been talking of not wanting to live any longer. Pt denies this however. Smoking Status: Current every day smoker Past Alcohol Use History: Occasional Additional Past Alcohol Use History / Comment(s): Pt abuses alcohol and was last known to have drank 2 weeks ago. Pt has hx of heroin use and states she used heroin last nite and had been warned that "it was a strong kind." She also has hx of prescription drug abuse, benzo's, klonopin, xanax and marijuana use. Past Drug Use History: Heroin, Marijuana, Opiates, Prescription Drug Abuse Additional Drug Use History / Comment(s): See addition past alcohol use section. - Past Family History Brother(s) Additional Family Medical History / Comment(s): Patient has 1 brother that is 20 years of age with no major medical problems. Patient has 1 son 3-1/2 years old with no major medical problems. Father Additional Family Medical History / Comment(s): Father is alive at age 54 with history of substance abuse, Schizophrenic, Bipolar Disorder Mother Additional Family Medical History / Comment(s): Mother is alive at age 47 with history of Arthritis. Medications and Allergies Home Medications Medication Instructions Recorded Confirmed Type Albuterol Inhaler [Ventolin Hfa 2 puff INHALATION RT-QID PRN 10/11/16 02/02/17 History Inhaler] Allergies Allergy/AdvReac Type Severity Reaction Status Date / Time Latex, Natural Rubber Allergy Rash/Hives Verified 02/02/17 01:43 venom-honey bee Allergy Swelling Verified 02/02/17 01:43 [bee venom (honey bee)] Physical Exam Vitals: Vital Signs Temp Pulse Resp BP Pulse Ox 02/02/17 18:36 103 H 12 130/60 100 02/02/17 17:03 97.0 F L 111 H 14 95 Intake and Output 02/02/17 02/02/17 02/02/17 06:59 14:59 22:59 Intake Total 9.164 Balance 9.164 Intake: Intake, IV Titration 9.164 Amount Midazolam HCl 100 mg In 1.5 Sodium Chloride 0.9% 80 ml @ 2 MG/HR 2 mls/hr IV .Q24H [facility] Rx#:[id number] fentaNYL (PF) 2,500 mcg 7.664 In Sodium Chloride 0.9% 200 ml @ 2 MCG/KG/HR 11. 79 mls/hr IV .[id number] [facility] Rx#:[id number] Other: Weight 58.967 kg Patient Weight 02/03/17 06:59 Weight 58.967 kg General: The patient well-nourished, appears stated age. Patient is sedated, on mechanical ventilation responsive to deep painful stimuli by mostly withdrawal. Eyes: NEO, pupils 3mm B/L. No scleral icterus. HENT: Atraumatic, normocephalic. Mucous membranes dry. Endotracheal tube was noted to be intact, nasogastric tube was also intact. Neck: The neck is supple, no JVD. Cardiovascular: Regular rhythm, tachycardic. No murmur, rub, or gallop is appreciated. Distal pulses intact, 2+ radial and DP B/L. Respiratory: Diminished breath sounds on the left side, right side is relatively clear.. Gastrointestinal: Soft, Nontender. No rebound or guarding. Non-distended. Musculoskeletal: Normal ROM. No gross deformity. No strength deficits. Neurological: Cannot be assessed, patient is on propofol and on mechanical ventilation. Skin: Skin is warm and dry. Multiple puncture lesions noted to B/L antecubital areas. Psychiatric: Cannot be assessed Results - Laboratory Findings CBC and BMP: 02/02/17 17:21 02/02/17 17:21 ABG ABG pH 7.38 (7.35-7.45) 02/02/17 21:28 ABG pCO2 37 mmHg (35-45) 02/02/17 21:28 ABG pO2 78 mmHg (83-108) L 02/02/17 21:28 ABG O2 Saturation 95.0 % (94-97) 02/02/17 21:28 PT/INR, D-dimer PT 11.5 sec (9.0-12.0) 02/02/17 17:21 INR 1.2 (<1.1) 02/02/17 17:21 Abnormal lab findings: Abnormal Labs 02/02/17 02/02/17 02/02/17 16:34 17:21 18:57 ABG pCO2 31 L ABG pO2 110 H ABG HCO3 20 L ABG O2 Saturation 98.0 H Potassium 2.9 L* Carbon Dioxide 20 L Glucose 160 H POC Glucose (mg/dL) AST 51 H ALT 57 H Urine Appearance Cloudy H Urine Protein 1+ H Urine Ketones 4+ H Urine Blood Small H Urine Bilirubin 1+ H Urine Bacteria Rare H Hyaline Casts 3 H Urine Mucus Few H Ur Amphetamines Screen Detected H U Benzodiazepines Scrn Detected H U Marijuana (THC) Screen Detected H 02/02/17 02/02/17 20:12 21:28 ABG pCO2 ABG pO2 78 L ABG HCO3 ABG O2 Saturation Potassium Carbon Dioxide Glucose POC Glucose (mg/dL) 127 H AST ALT Urine Appearance Urine Protein Urine Ketones Urine Blood Urine Bilirubin Urine Bacteria Hyaline Casts Urine Mucus Ur Amphetamines Screen U Benzodiazepines Scrn U Marijuana (THC) Screen - Diagnostic Findings Chest x-ray: image reviewed (Multiple x-rays were reviewed, initial to x-rays showed right mainstem intubation, third x-ray showed tube above the ganesh, but there is complete collapse and opacification of the left lung.) Assessment and Plan Plan: Impression: 1 acute hypoxic respiratory failure secondary to multiple drugs overdose including heroin, marijuana, vistaril, please refer to positive drug screen on admission. 2 history of depression and suicidal attempts. 3 possible aspiration however the chest x-ray at this point is not chest just above aspiration pneumonia yet. 4 complete left lung collapse secondary to right mainstem intubation by the ER physician, requiring emergent the bronchoscopy and lavage of the left lung, suctioning of mucous plugs from the left mainstem bronchus, left upper lobe, lingula, and left lower lobe. 5 history of bronchial asthma, presently stable. 6 history of chronic migraines headaches, 7 history of prescription drug abuse. And history of heroin abuse. Recommendation: Patient will remain on mechanical ventilation for the next 24 hours, bronchoscopy and BAL of the left lung was done, endotracheal tube was placed with direct visualization about 2 cm above the ganesh, patient will be kept on mechanical ventilation, bronchodilators, empiric antibiotics for possible aspiration, GI and DVT prophylaxis, and the patient will remain on suicidal precautions, psychiatric consultation will be initiated once the patient is off mechanical ventilation. We'll continue to follow. Refer to orders on the chart. Time with Patient: Greater than 30
[2017-02-02] MEDS: HEPARIN SODIUM,PORCINE 5,000 UNIT/ML 1 ML VIAL SQ SCH (23:26)
[2017-02-02] MEDS: PIPERACILLIN-TAZOBACTAM 3.375 GM in DEXTROSE/WATER 1 50ML.BAG IVPB SCH (23:29)
[2017-02-02] MEDS: LEVALBUTEROL NEB 1.25 MG/3 ML AMP INHALATION SCH (23:49)
[2017-02-03] MEDS: HYDROmorphone 1 MG/ML 1 ML SYRINGE IVP PRN ×2 (03:19→20:15)
[2017-02-03] MEDS: LEVALBUTEROL NEB 1.25 MG/3 ML AMP INHALATION SCH ×6 (03:24→23:40)
[2017-02-03 05:06] LABS: Basophils % (A) 1 %; CH 29.3; CHCM 32.4; Eosinophils % (A) 0 %; HCT 32.9 % (34.0-46.0); HDW 2.71; HGB 10.5 gm/dL (11.4-16.0); Luc # (Auto) 0.11; Luc % (Auto) 2; Lymphocytes # (A) 0.9 k/uL (1.0-4.8); Lymphocytes % (A) 14 %; MCHC 31.9 g/dL (31.0-37.0); MCV 90.9 fL (80.0-100.0); Mean Platelet Volume 7.6; Monocytes # (A) 0.2 k/uL (0-1.0); Monocytes % (A) 3 %; Neutrophils # (A) 5.3 k/uL (1.3-7.7); Neutrophils % (A) 81 %; RBC 3.62 m/uL (3.80-5.40); RDW 13.9 % (11.5-15.5); WBC 6.5 k/uL (3.8-10.6); WBC (Perox) 6.74
[2017-02-03 05:14] LABS: ALT 52 U/L (9-52); AST 47 U/L (14-36); Alkaline Phosphatase 65 U/L (38-126); Anion Gap 9 mmol/L; Blood Urea Nitrogen 5 mg/dL (7-17); Carbon Dioxide 19 mmol/L (22-30); Chloride 115 mmol/L (98-107); Glucose 138 mg/dL (74-99); Magnesium 2.2 mg/dL (1.6-2.3); Non-African American GFR(MDRD) >60 (>60 ml/min/1.73 sqM); Potassium 3.1 mmol/L (3.5-5.1); Sodium 143 mmol/L (137-145); Total Bilirubin 0.6 mg/dL (0.2-1.3); Total Protein 5.1 g/dL (6.3-8.2)
[2017-02-03] MEDS: SODIUM CHLORIDE 0.9% 1,000 ML IV SCH ×2 (06:11→14:40)
[2017-02-03] MEDS: PROPOFOL 500 MG in EMPTY BAG 1 BAG IV SCH ×2 (06:15→09:22)
--- NOTE | 2017-02-03 06:23 | HP ---
DATE OF ADMISSION: 02/02/2017 PRESENTING COMPLAINT: Overdose. HISTORY OF PRESENTING COMPLAINT: This is a 21-year-old patient who came to the ER by EMS. Patient is currently intubated. Patient presented to the ER of intentional overdose of a suicide attempt. EMS was called to the patient's house. She was found next to an empty bottle of pills. Maybe she took a whole bottle of Vistaril. At that time, she was awake and alert. It was not sure if she took any of the medications. Patient has a known history of heroin abuse. Patient had presented to the ER the previous day. Anxiety secondary to of her significant other and at that time refused treatment and significant other did yesterday. Patient then became somnolent in the ER and apparently was throwing up and then had to be actually intubated. Patient's last chest x-ray is showing complete whiteout and Dr. Ha is coming in for an emergent bronch in the ICU. Patient currently intubated on the ventilator and on propofol. REVIEW OF SYSTEMS: Patient intubated. PAST MEDICAL HISTORY: Depression, smoker. PAST SURGICAL HISTORY: Not known. SOCIAL HISTORY: The patient has done IV heroin. ( ) smoking. No family members at the bedside. HOME MEDICATIONS: 1. Vistaril 25 mg t.i.d. p.r.n. 2. Nicotine 14 mg patch. 3. Revia 50 mg p.o. daily. 4. Neurontin 400 mg p.o. t.i.d. 5. Prozac 20 mg p.o. daily. 6. Albuterol p.r.n. On examination, temperature 97, pulse 111, respirations 14, blood pressure 130/60, pulse ox 100% on the ventilator. GENERAL APPEARANCE: Average build, lying in bed, intubated. EYES: Pupils equal. Conjunctivae normal. HENT: External appearance of nose and ears normal. Oral cavity unable to assess. Endotracheal tube in place. NECK: JVD unable to assess. Mass not palpable. RESPIRATORY: Effort normal. LUNGS: Diminished breath sounds on the left side. CARDIOVASCULAR: First and second sounds normal. No edema. ABDOMEN: Soft, nontender. Liver and spleen not palpable. LYMPHATIC: No lymph nodes palpable in the neck and axilla. PSYCHIATRY: Unable to assess. NEUROLOGICAL: Pupils are reactive. Plantars are sluggish. INVESTIGATIONS: White count 5.2, hemoglobin 12.1. Potassium 2.9. BUN and creatinine are normal. Blood gas showed pH 7.43. AST 51, ALT 57. Toxicology negative for salicylate, acetaminophen, serum alcohol . Urine drug screen positive for amphetamines, benzodiazepines, marijuana. ASSESSMENT: 1. Acute hypoxic respiratory failure could be a mucous plug or aspiration with a complete whiteout of the left side of the lung, currently on ventilator support. 2. History of IV heroin use. 3. Marijuana use positive. PLAN: Patient is currently admitted to the ICU on a propofol drip, hypoxic, on oxygen support. Dr. Ha is coming in for bronchoscopy, not sure about the positioning of the NG tube based on this will ( ) keeping ( ) that. Await further input from technical coordinator, Dr. Ha. Prognosis guarded.
[2017-02-03] MEDS: POTASSIUM CHLORIDE ORAL LIQUID 40 MEQ/30 ML CUP NG-TUBE SCH ×2 (06:25→08:10)
[2017-02-03 06:54] LABS: Glucose,Whole Blood 123 mg/dL (75-99)
--- NOTE | 2017-02-03 07:09 | PCN ---
DATE OF PROCEDURE: PROCEDURE: 1. Bronchoscopy and bronchoalveolar lavage of the left lung. 2. Lavage of the mucous plugs in the left main stem bronchus, left upper lobe, lingula, and left lower lobe. PREOPERATIVE DIAGNOSIS: Complete left lung collapse and mucous plugging secondary to right mainstem intubation when the patient presented to the ER. POSTOPERATIVE DIAGNOSIS: Complete left lung collapse and mucous plugging secondary to right mainstem intubation when the patient presented to the ER. ANESTHESIA USED: Patient was already on propofol drip prior to the procedure. DESCRIPTION OF PROCEDURE: Patient was placed in a supine position. She was already on mechanical [id number]% FiO2, and an adapter was applied to the endotracheal tube and connected to mechanical ventilation. Then the bronchoscope was advanced through the endotracheal tube down to the area of the ganesh. The tube was noted to be at that point 4 cm above the ganesh. Thorough examination was done of the distal trachea and ganesh, and it was unremarkable. Right side was examined and was completely unremarkable. No evidence of any mucous plugs noted on the right side and no purulent secretions noted on the right side. However, as we entered the left main stem bronchus, there was purulent secretions, tenacious secretions noted in the left mainstem bronchus, left upper lobe, lingula, and left lower lobe. These were suctioned easily, and I was able to clear the airways completely after lavaging different segments in different lobes on the left side. The procedure was well tolerated, and no evidence of any immediate complication. At the end of the procedure, I was able to place the endotracheal tube visually 2 cm above the ganesh. O2 saturation throughout the procedure remained in the 90s. Again, no evidence of any immediate complications.
--- NOTE | 2017-02-03 07:11 | PCN ---
DATE OF PROCEDURE: PROCEDURE: Placement of a left brachial arterial line. PREOPERATIVE DIAGNOSIS: Acute respiratory failure secondary to drug overdose and hypotension. POSTOPERATIVE DIAGNOSIS: Acute respiratory failure secondary to drug overdose and hypotension. ANESTHESIA USED: None deployed. DESCRIPTION OF PROCEDURE: The patient was placed in supine position. The left brachial area was prepared in a sterile fashion and drapes were applied. The left brachial artery was palpated, cannulated, and a guidewire was placed. A Cook's catheter was inserted over the guidewire, and the guidewire was removed. Good blood flow was noted. Line was secured using 3-0 silk sutures and there was evidence of good waveform postoperatively. Again, no evidence of any immediate complications. Procedure was well tolerated.
[2017-02-03] MEDS: BUDESONIDE 1 MG/2 ML NEBU INHALATION SCH ×2 (07:27→18:58)
--- NOTE | 2017-02-03 07:39 | XR ---
EXAMINATION TYPE: XR chest 1V DATE OF EXAM: 02/03/2017 COMPARISON: Prior chest x-ray 02/02/2017 HISTORY: Mechanical ventilation, intubated TECHNIQUE: Single frontal view of the chest is obtained. FINDINGS: Improvement in aeration in the left lung is noted. Endotracheal tube is superimposed over the tracheal air column, NG tube is in place. No pneumothorax or pleural effusion evident. Apical ple ural thickening noted on the left. Heart size is within normal limits. Pulmonary vascularity and stas are normal. There is superimposed artifact, cardiac leads, increased density present at the level of the medial aspect of the left clavicle is indeterminate. IMPRESSION: Improvement in aeration, additional PA and lateral chest x-ray follow-up is recommended when patient is stable. Residual atelectatic changes suspected within the left lung, difficult to exc lude airspace disease. Additional findings above.
[2017-02-03 07:40] VITALS: BMI 22.6
[2017-02-03] MEDS: HEPARIN SODIUM,PORCINE 5,000 UNIT/ML 1 ML VIAL SQ SCH ×2 (08:11→15:54)
[2017-02-03] MEDS: CHLORHEXIDINE GLUCONATE 15 ML CUP MUCOUS MEM SCH ×2 (08:11→22:56)
[2017-02-03] MEDS: PANTOPRAZOLE 40 MG/10 ML VIAL IV SCH (08:11)
[2017-02-03] MEDS: PIPERACILLIN-TAZOBACTAM 3.375 GM in DEXTROSE/WATER 1 50ML.BAG IVPB SCH ×2 (08:11→15:54)
--- NOTE | 2017-02-03 08:54 | CDI ---
In responding to this query, please exercise your independent professional judgment. The [facility] Coding Staff and Clinical Documentation Specialists appreciate your assistance in clarifying documentation, maintaining compliance with coding guidelines, accurately documenting patients condition and capturing severity of illness. The fact that a question is asked does not imply that any particular answer is desired or expected. Communication forms are a method of clarifying documentation and are not made part of the Legal Health Record. Thank you in advance for your clarification. Last Revision, October 2015 Joe Nava [address] [place] [address] Documentation Clarification Form Date: 02/03/2017 8:13:00 AM From: Mylene Castillo RN, CDS Admit Date: 02/02/2017 6:20:00 PM Patient Name: Mabel Reynoso Visit Number: [id number] Dr. Lucia Ha, 21 year old patent presented after intentional overdose and suicide attempt. At 1713 she became hypoxic with borderline hypotension, was given Narcan with improvement then became agitated and not protecting airway. O2 sat 100% with nonrebreather mask. Subsequently intubated per ED physician. Became hypotensive at 2150 with BP 72/50, Levophed started at 10pm. Patient history/risk factors: Polysubstance abuse, Heroin Abuse, Perscription medication abuse, Suicide attempts Clinical Indicators: HR 87 Resp 36 BP 72/50 @ 2150. Systolic BP range 80s-97 on Levophed gtt overnight Treatment: 2000 ML NS bolus, Vent protocol, Levophed gtt, NS @ 100, In your professional opinion, can you please specify the type of shock if known ? Cardiogenic Shock o Cause Hypovolemic Shock o Cause Other, please specify Unable to determine ? Please document in your progress notes and discharge summary in order to capture severity of illness and risk of mortality. Include clinical findings that support your diagnosis. FYI: Press F11 to launch patient chart. Place X here if this finding has no clinical significance, is not applicable or if you are not able to provide any additional documentation. ANGIED
[2017-02-03 09:06] LABS: ABG Base Excess -6.2 mmol/L; ABG HCO3 17 mmol/L (21-25); ABG PCO2 27 mmHg (35-45); ABG PH 7.43 (7.35-7.45); ABG PO2 373 mmHg (83-108); ABG TCO2 18 mmol/L (19-24)
[2017-02-03] MEDS: GABAPENTIN 400 MG CAP PO SCH ×3 (09:34→22:56)
[2017-02-03] MEDS: NICOTINE 14MG/24HR PATCH TRANSDERM SCH (09:34)
--- NOTE | 2017-02-03 11:32 | P.PN ---
Subjective Principal diagnosis: Acute respiratory failure, hypoxic, secondary to drug overdose. This is a 21-year-old female with history of polysubstance abuse, history of depression and previous suicidal attempts, patient was brought into the ER when she was noted to have mental status change with empty bottle of pills. Apparently the bottle had vistaril pills in it, patient is also known to have history of heroin abuse, and she has history of anxiety. Her boyfriend apparently yesterday from an overdose of heroin. Patient was somnolent upon arrival to the ER, and unable to provide any history. She was spontaneously breathing, and did react to painful stimuli. However as she became more agitated in the ER, and she was desaturating, patient was becoming more obtunded, she was intubated by the ER physician, placed on mechanical ventilation, and this consult was initiated. Patient was sent to the intensive care unit hemodynamically stable initially, however upon arrival to the ICU, I was notified by the nurse that her chest x-ray showed right mainstem intubation. Recommended immediate withdrawal of the endotracheal tube about 4 cm from its present position, and follow-up chest x-ray. The follow-up chest x- ray showed adequate placement of the endotracheal tube, but there was complete collapse of the left lung. Hence I came in immediately for emergent bronchoscopy and extraction of mucous plugs from the left mainstem bronchus, and I was able to clear all the airways on the left side. Right side was noted to be unremarkable. At any rate patient was dialed down on the FiO2, I increased the PEEP to 8, and recommended follow-up ABG on this patient post bronchoscopy and lavage of the left lung. Her O2 saturation was in the mid 90s on 60% FiO2 and PEEP of 8. The endotracheal tube was visually placed about to see him above the ganesh with direct visualization using the bronchoscope. Hence no need for immediate chest x-ray post bronchoscopy. Earlier, patient was placed briefly on norepinephrine, however I recommended fluid boluses and discontinuation of norepinephrine. Her mean arterial pressure was excellent upon placement of the left brachial arterial line. And I recommended cutting down on the dose of propofol. Patient was reevaluated today on 02/03/2017, remains on mechanical ventilation, however her FiO2 is down to 40%, PEEP is down to 5, and she has excellent the blood gases this morning. Chest x-ray showed significant improvement in the left lung, continues to have some areas of atelectasis but overall much more improved aeration of the whole left lung is noted. Endotracheal tube seems to be above the ganesh. ABG showed a pO2 of 373 pCO2 of 27 pH of 7.643. Electrolytes showed low potassium of 3.1, being corrected as per protocol. Renal profile is normal. CBC is relatively normal except for hemoglobin of 10.5. Patient was taken off propofol early this morning, and over the last hour off propofol, the patient is not showing much improvement in the neurological status, and I believe that's mostly because of her overdose on multiple meds including heroin, benzodiazepines, and marijuana. And possibly Vistaril. Hence propofol will remain on hold patient does not seem to be showing any signs of vegetations, she is being ventilated easily and we have no plans to extubate until the patient shows improvement in her overall mental status and able to wake up and follow some instructions. Family is at bedside, and I discussed her condition with all family members including mother and dad at bedside. Objective - Vital Signs Vital signs: Vital Signs Temp 98.2 F 02/03/17 08:00 Pulse 86 02/03/17 10:00 Resp 15 02/03/17 10:00 BP 103/65 02/03/17 10:00 Pulse Ox 100 02/03/17 10:00 Intake & Output 02/02/17 02/03/17 02/03/17 18:59 06:59 18:59 Intake Total 2759.164 429.466 Output Total 425 330 Balance 2334.164 99.466 Weight 60 kg 60 kg 60 kg Intake: IV 2700 200 Sodium Chloride 0.9% 1, 700 200 000 ml @ 100 mls/hr IV . Q10H [facility] Rx#:[id number] Sodium Chloride 0.9% 2, 2000 000 ml @ 999 mls/hr IV . Q2H1M [facility] Rx#:[id number] Intake, IV Titration 59.164 229.466 Amount Midazolam HCl 100 mg In 1.5 Sodium Chloride 0.9% 80 ml @ 2 MG/HR 2 mls/hr IV .Q24H [facility] Rx#:[id number] Propofol 500 mg In Empty 50 29.466 Bag 1 bag @ Titrate IV . Q0M [facility] Rx#:[id number] Sodium Chloride 0.9% 1, 200 000 ml @ 100 mls/hr IV . Q10H [facility] Rx#:[id number] fentaNYL (PF) 2,500 mcg 7.664 In Sodium Chloride 0.9% 200 ml @ 2 MCG/KG/HR 11. 79 mls/hr IV .[id number] [facility] Rx#:[id number] Output: Urine 425 330 Other: Voiding Method Indwelling Catheter Indwelling Catheter # Bowel Movements 0 0 ABP, PAP, CO, CI - Last Documented Arterial Blood Pressure 121/63 - Exam General: The patient well-nourished, appears stated age. Patient is sedated, on mechanical ventilation responsive to deep painful stimuli by mostly withdrawal. Eyes: NEO, pupils 3mm B/L. No scleral icterus. HENT: Atraumatic, normocephalic. Mucous membranes dry. Endotracheal tube was noted to be intact, nasogastric tube was also intact. Neck: The neck is supple, no JVD. Cardiovascular: Regular rhythm, tachycardic. No murmur, rub, or gallop is appreciated. Distal pulses intact, 2+ radial and DP B/L. Respiratory: Diminished breath sounds on the left side, right side is relatively clear.. Gastrointestinal: Soft, Nontender. No rebound or guarding. Non-distended. Musculoskeletal: Normal ROM. No gross deformity. No strength deficits. Neurological: Patient was just taken off propofol in the last hour, so far no significant neurological recovery is noted. We'll wait longer before we address neurological status with CT of the brain and/or neurological consultation. Skin: Skin is warm and dry. Multiple puncture lesions noted to B/L antecubital areas. Psychiatric: Cannot be assessed - Labs CBC & Chem 7: 02/03/17 04:30 02/03/17 04:30 Labs: Abnormal Lab Results - Last 24 Hours (Table) 02/02/17 02/02/17 02/02/17 Range/Units 16:34 17:21 18:57 RBC (3.80-5.40) m/uL Hgb (11.4-16.0) gm/dL Hct (34.0-46.0) % Lymphocytes # (1.0-4.8) k/uL ABG pCO2 31 L (35-45) mmHg ABG pO2 110 H (83-108) mmHg ABG HCO3 20 L (21-25) mmol/L ABG Total CO2 (19-24) mmol/L ABG O2 Saturation 98.0 H (94-97) % Potassium 2.9 L* (3.5-5.1) mmol/L Chloride (98-107) mmol/L Carbon Dioxide 20 L (22-30) mmol/L BUN (7-17) mg/dL Creatinine (0.52-1.04) mg/dL Glucose 160 H (74-99) mg/dL POC Glucose (mg/dL) (75-99) mg/dL Calcium (8.4-10.2) mg/dL AST 51 H (14-36) U/L ALT 57 H (9-52) U/L Total Protein (6.3-8.2) g/dL Albumin (3.5-5.0) g/dL Urine Appearance Cloudy H (Clear) Urine Protein 1+ H (Negative) Urine Ketones 4+ H (Negative) Urine Blood Small H (Negative) Urine Bilirubin 1+ H (Negative) Urine Bacteria Rare H (None) /hpf Hyaline Casts 3 H (0-2) /lpf Urine Mucus Few H (None) /hpf Ur Amphetamines Screen Detected H (NotDetected) U Benzodiazepines Scrn Detected H (NotDetected) U Marijuana (THC) Screen Detected H (NotDetected) 02/02/17 02/02/17 02/03/17 Range/Units 20:12 21:28 04:30 RBC 3.62 L (3.80-5.40) m/uL Hgb 10.5 L (11.4-16.0) gm/dL Hct 32.9 L (34.0-46.0) % Lymphocytes # 0.9 L (1.0-4.8) k/uL ABG pCO2 (35-45) mmHg ABG pO2 78 L (83-108) mmHg ABG HCO3 (21-25) mmol/L ABG Total CO2 (19-24) mmol/L ABG O2 Saturation (94-97) % Potassium (3.5-5.1) mmol/L Chloride (98-107) mmol/L Carbon Dioxide (22-30) mmol/L BUN (7-17) mg/dL Creatinine (0.52-1.04) mg/dL Glucose (74-99) mg/dL POC Glucose (mg/dL) 127 H (75-99) mg/dL Calcium (8.4-10.2) mg/dL AST (14-36) U/L ALT (9-52) U/L Total Protein (6.3-8.2) g/dL Albumin (3.5-5.0) g/dL Urine Appearance (Clear) Urine Protein (Negative) Urine Ketones (Negative) Urine Blood (Negative) Urine Bilirubin (Negative) Urine Bacteria (None) /hpf Hyaline Casts (0-2) /lpf Urine Mucus (None) /hpf Ur Amphetamines Screen (NotDetected) U Benzodiazepines Scrn (NotDetected) U Marijuana (THC) Screen (NotDetected) 02/03/17 02/03/17 02/03/17 Range/Units 04:30 06:41 07:53 RBC (3.80-5.40) m/uL Hgb (11.4-16.0) gm/dL Hct (34.0-46.0) % Lymphocytes # (1.0-4.8) k/uL ABG pCO2 27 L (35-45) mmHg ABG pO2 373 H (83-108) mmHg ABG HCO3 17 L (21-25) mmol/L ABG Total CO2 18 L (19-24) mmol/L ABG O2 Saturation 100.0 H (94-97) % Potassium 3.1 L (3.5-5.1) mmol/L Chloride 115 H (98-107) mmol/L Carbon Dioxide 19 L (22-30) mmol/L BUN 5 L (7-17) mg/dL Creatinine 0.50 L (0.52-1.04) mg/dL Glucose 138 H (74-99) mg/dL POC Glucose (mg/dL) 123 H (75-99) mg/dL Calcium 7.0 L (8.4-10.2) mg/dL AST 47 H (14-36) U/L ALT (9-52) U/L Total Protein 5.1 L (6.3-8.2) g/dL Albumin 2.7 L (3.5-5.0) g/dL Urine Appearance (Clear) Urine Protein (Negative) Urine Ketones (Negative) Urine Blood (Negative) Urine Bilirubin (Negative) Urine Bacteria (None) /hpf Hyaline Casts (0-2) /lpf Urine Mucus (None) /hpf Ur Amphetamines Screen (NotDetected) U Benzodiazepines Scrn (NotDetected) U Marijuana (THC) Screen (NotDetected) Microbiology - Last 24 Hours (Table) 02/02/17 23:48 Urine Culture - Preliminary Urine,Catheterized 02/02/17 18:14 Gram Stain - Preliminary Sputum Sputum Culture - Preliminary Assessment and Plan Plan: Impression: 1 acute hypoxic respiratory failure secondary to multiple drugs overdose including heroin, marijuana, vistaril, please refer to positive drug screen on admission. 2 history of depression and suicidal attempts. 3 possible aspiration however the chest x-ray at this point is not suggestive of aspiration pneumonia yet. 4 complete left lung collapse secondary to right mainstem intubation by the ER physician, requiring emergent the bronchoscopy and lavage of the left lung, suctioning of mucous plugs from the left mainstem bronchus, left upper lobe, lingula, and left lower lobe. Her left lung collapse has significantly improved after bronchoscopy, minimal atelectasis is noted today. 5 history of bronchial asthma, presently stable. 6 history of chronic migraines headaches, 7 history of prescription drug abuse. And history of heroin abuse. 8 acute hypotension, resolved, multifactorial secondary to medications/narcotics /sedatives and could also be a component of hypovolemia. In my clinical opinion , I believe it is mostly profound hypotension secondary to narcotics and sedatives. Strongly doubt hypovolemic shock and strongly doubt cardiogenic shock, strongly doubt septic shock. Recommendation: Propofol has been discontinued. We'll hold on narcotics and sedatives at this point, we'll address weaning and possibly extubation once we noticed there is some neurological recovery. At this point, the patient is not ready to be weaned and extubated, but I have a feeling that this may be done in the next few hours. Otherwise we'll have to CT brain and seek neurological consultation. Again I discussed her condition with family members at bedside and updated them on her overall clinical status. Prognosis remains guarded, I do plan to seek immediate psychiatric consultation upon extubation, and we'll continue to follow. Critical care time is 40 minutes. Time with Patient: Greater than 30
[2017-02-03 12:13] LABS: Glucose,Whole Blood 117 mg/dL (75-99)
[2017-02-03] MEDS: POTASSIUM CHLORIDE 10 MEQ, LIDOCAINE 2% INJ 10 MG in SODIUM CHLORIDE 0.9% 100 ML IV SCH ×2 (14:39→15:53)
[2017-02-03] MEDS: FLUoxetine HCL 20 MG CAP PO SCH (14:39)
--- NOTE | 2017-02-03 15:42 | P.PN ---
Progress Note - Text DATE OF SERVICE: 02/03/2017 PRESENTING COMPLAINT: Overdose INTERVAL HISTORY: This 21-year-old who had an intentional overdose/suicide attempt. Currently Maintained on mechanical ventilation FiO2 40%, PEEP of 5, blood gas values were pO2 of 373 pCO2 of 27 pH of 7.64. Patient was requiring levophed however no longer needed. Spontaneous breathing trial unable to be initiated due to patient's neurologic status, propofol currently off, patient is minimally responsive to stimuli. Family at the bedside. REVIEW OF SYSTEMS: Intubated CURRENT MEDICATIONS Zosyn, Protonix, propofol currently off. PHYSICAL EXAM: VITAL SIGNS: Temperature 98.9, pulse 88 respirations 16 blood pressure 102/63 oxygen saturation 100% on mechanical ventilation FiO2 of 40% GENERAL APPEARANCE: Lying in bed, not in distress. EYES: Pupils equal, sluggish Conjunctiva normal. NECK: JVD not raised. Mass not palpable. RESPIRATORY: Respiratory effort normal. Lungs to auscultation. CARDIOVASCULAR: First and second sounds normal. No edema. ABDOMEN: Soft. Liver and spleen not palpable. No tenderness. No mass palpable. PSYCHIATRY: Unable to assess NEUROLOGIC: Withdraws to noxious stimuli, propofol currently off. ENT: intubated, feeding tube in place. INVESTIGATIONS: Hemoglobin 10.5, potassium 3.1 BUN 5 creatinine 0.50 Accu-Cheks noted AST 47 ASSESSMENT: Acute hypoxic respiratory failure due to a mucous plug, aspiration, currently on ventilator support. History of IV heroin use. Marijuana use positive. Hypokalemia, likely hypoosmolar Hypoalbuminemia as an acute phase reactant Normocytic anemia, cause unknown. severe hypotension requiring pressors PLAN: Sedation to be held for the time being until more of a neurologic response is obtained for spontaneous breathing trial at which time patient may or may not be extubated. Patient's condition remains guarded, discussed with family at the bedside. 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 Martin
[2017-02-03] MEDS: LORazepam 2 MG/ML SYRINGE IV PRN (22:56)
[2017-02-04 00:11] LABS: Glucose,Whole Blood 88 mg/dL (75-99)
[2017-02-04] MEDS: SODIUM CHLORIDE 0.9% 1,000 ML IV SCH ×2 (00:12→08:08)
[2017-02-04] MEDS: PIPERACILLIN-TAZOBACTAM 3.375 GM in DEXTROSE/WATER 1 50ML.BAG IVPB SCH ×2 (00:12→08:10)
[2017-02-04] MEDS: HEPARIN SODIUM,PORCINE 5,000 UNIT/ML 1 ML VIAL SQ SCH ×4 (00:12→23:00)
[2017-02-04] MEDS: HYDROmorphone 1 MG/ML 1 ML SYRINGE IVP PRN ×2 (02:00→07:37)
[2017-02-04] MEDS: LEVALBUTEROL NEB 1.25 MG/3 ML AMP INHALATION SCH ×6 (03:26→23:52)
[2017-02-04] MEDS: LORazepam 2 MG/ML SYRINGE IV PRN ×2 (05:03→09:53)
[2017-02-04 05:21] LABS: Basophils % (A) 1 %; CH 29.8; CHCM 32.7; Eosinophils # (A) 0.1 k/uL (0-0.7); Eosinophils % (A) 2 %; HCT 31.1 % (34.0-46.0); HGB 9.9 gm/dL (11.4-16.0); Luc # (Auto) 0.11; Luc % (Auto) 2; Lymphocytes # (A) 1.9 k/uL (1.0-4.8); Lymphocytes % (A) 39 %; MCH 29.2 pg (25.0-35.0); MCHC 31.9 g/dL (31.0-37.0); MCV 91.5 fL (80.0-100.0); Mean Platelet Volume 8.3; Monocytes # (A) 0.2 k/uL (0-1.0); Monocytes % (A) 4 %; Neutrophils # (A) 2.6 k/uL (1.3-7.7); Neutrophils % (A) 53 %; RDW 14.3 % (11.5-15.5); WBC (Perox) 4.94
[2017-02-04 05:34] LABS: ALT 45 U/L (9-52); AST 35 U/L (14-36); Alkaline Phosphatase 59 U/L (38-126); Anion Gap 9 mmol/L; Blood Urea Nitrogen <2 mg/dL (7-17); Calcium 7.6 mg/dL (8.4-10.2); Carbon Dioxide 20 mmol/L (22-30); Chloride 114 mmol/L (98-107); Glucose 85 mg/dL (74-99); Magnesium 2.1 mg/dL (1.6-2.3); Non-African American GFR(MDRD) >60 (>60 ml/min/1.73 sqM); Phosphorous 1.5 mg/dL (2.5-4.5); Sodium 143 mmol/L (137-145); Total Bilirubin 0.3 mg/dL (0.2-1.3); Total Protein 4.7 g/dL (6.3-8.2)
[2017-02-04] MEDS ORDERED: Phosphorus Replacement Protoco 1 EACH MISC MISCELLANE PRN (05:57)
[2017-02-04 06:30] LABS: Glucose,Whole Blood 84 mg/dL (75-99)
[2017-02-04] MEDS: SODIUM PHOSPHATE 10 MMOL in SODIUM CHLORIDE 0.9% 250 ML IVPB SCH ×2 (06:35→10:05)
[2017-02-04] MEDS: POTASSIUM CHLORIDE 10 MEQ, LIDOCAINE 2% INJ 10 MG in SODIUM CHLORIDE 0.9% 100 ML IV SCH ×2 (06:35→08:07)
[2017-02-04 07:34] LABS: ABG HCO3 19 mmol/L (21-25); ABG PCO2 30 mmHg (35-45); ABG PH 7.42 (7.35-7.45); ABG PO2 189 mmHg (83-108)
[2017-02-04 07:36] LABS: ABG TCO2 20 mmol/L (19-24)
--- NOTE | 2017-02-04 08:06 | XR ---
EXAMINATION TYPE: XR chest 1V DATE OF EXAM: 02/04/2017 COMPARISON: Prior chest x-ray 02/03/2017 HISTORY: Intubated TECHNIQUE: Single frontal view of the chest is obtained. FINDINGS: Tip of the endotracheal tube is approximately 4 to 5 mm from the level of the ganesh. Lauren ent is rotated. NG tube is in place coursing into the stomach. No pneumothorax or pleural effusion. R etrocardiac density compatible with subsegmental atelectasis is noted. Heart size, pulmonary vascular ity are stable. IMPRESSION: Rotated exam. Endotracheal tube as described.
[2017-02-04] MEDS: FLUoxetine HCL 20 MG CAP PO SCH (08:07)
[2017-02-04] MEDS: PANTOPRAZOLE 40 MG/10 ML VIAL IV SCH (08:07)
[2017-02-04] MEDS: NICOTINE 14MG/24HR PATCH TRANSDERM SCH (08:07)
[2017-02-04] MEDS: GABAPENTIN 400 MG CAP PO SCH ×3 (08:08→20:44)
[2017-02-04] MEDS: CHLORHEXIDINE GLUCONATE 15 ML CUP MUCOUS MEM SCH (08:08)
--- NOTE | 2017-02-04 08:20 | PN ---
DATE OF SERVICE: 02/03/2017 PRESENTING COMPLAINT: Overdose. ATTENDING NOTE: This patient was seen and examined by me earlier today. I reviewed the note of my nurse practitioner, Ms. Davila. Reviewed additional findings below. This patient with intentional overdose of Vistaril also does IV heroin, has been intubated. Patient's IV propofol was discontinued earlier today. Remains on the ventilator. On examination, blood pressure is running in the 90s systolic. LUNGS: Decreased breath sounds. CARDIOVASCULAR: First and second sounds normal. Patient is attempting to get up in bed. INVESTIGATIONS: Hemoglobin is 10.5. Potassium 3.1. ASSESSMENT: 1. Acute hypoxic respiratory failure on ventilator support. 2. Status post bronchoscopy, removal of mucous plug. 3. IV heroin use. 4. Marijuana use, recreational. 5. Hypokalemia. 6. Hypoalbuminemia as an acute phase reactant. 7. Normocytic anemia, cause unknown. 8. Probably early withdrawal from multiple drug use. PLAN: Patient has a fair prognosis getting off the ventilator. Continue current medication and treatment plan. Earlier Dr. Ha spoke to the family.
[2017-02-04] MEDS ORDERED: LORazepam 2 MG/ML SYRINGE IV PRN (09:02)
[2017-02-04] MEDS: BUDESONIDE 1 MG/2 ML NEBU INHALATION SCH ×2 (09:22→21:13)
--- NOTE | 2017-02-04 11:33 | P.PN ---
Subjective Principal diagnosis: Acute respiratory failure, hypoxic, secondary to drug overdose. This is a 21-year-old female with history of polysubstance abuse, history of depression and previous suicidal attempts, patient was brought into the ER when she was noted to have mental status change with empty bottle of pills. Apparently the bottle had vistaril pills in it, patient is also known to have history of heroin abuse, and she has history of anxiety. Her boyfriend apparently yesterday from an overdose of heroin. Patient was somnolent upon arrival to the ER, and unable to provide any history. She was spontaneously breathing, and did react to painful stimuli. However as she became more agitated in the ER, and she was desaturating, patient was becoming more obtunded, she was intubated by the ER physician, placed on mechanical ventilation, and this consult was initiated. Patient was sent to the intensive care unit hemodynamically stable initially, however upon arrival to the ICU, I was notified by the nurse that her chest x-ray showed right mainstem intubation. Recommended immediate withdrawal of the endotracheal tube about 4 cm from its present position, and follow-up chest x-ray. The follow-up chest x- ray showed adequate placement of the endotracheal tube, but there was complete collapse of the left lung. Hence I came in immediately for emergent bronchoscopy and extraction of mucous plugs from the left mainstem bronchus, and I was able to clear all the airways on the left side. Right side was noted to be unremarkable. At any rate patient was dialed down on the FiO2, I increased the PEEP to 8, and recommended follow-up ABG on this patient post bronchoscopy and lavage of the left lung. Her O2 saturation was in the mid 90s on 60% FiO2 and PEEP of 8. The endotracheal tube was visually placed about to see him above the ganesh with direct visualization using the bronchoscope. Hence no need for immediate chest x-ray post bronchoscopy. Earlier, patient was placed briefly on norepinephrine, however I recommended fluid boluses and discontinuation of norepinephrine. Her mean arterial pressure was excellent upon placement of the left brachial arterial line. And I recommended cutting down on the dose of propofol. Patient was reevaluated today on 02/03/2017, remains on mechanical ventilation, however her FiO2 is down to 40%, PEEP is down to 5, and she has excellent the blood gases this morning. Chest x-ray showed significant improvement in the left lung, continues to have some areas of atelectasis but overall much more improved aeration of the whole left lung is noted. Endotracheal tube seems to be above the ganesh. ABG showed a pO2 of 373 pCO2 of 27 pH of 7.643. Electrolytes showed low potassium of 3.1, being corrected as per protocol. Renal profile is normal. CBC is relatively normal except for hemoglobin of 10.5. Patient was taken off propofol early this morning, and over the last hour off propofol, the patient is not showing much improvement in the neurological status, and I believe that's mostly because of her overdose on multiple meds including heroin, benzodiazepines, and marijuana. And possibly Vistaril. Hence propofol will remain on hold patient does not seem to be showing any signs of vegetations, she is being ventilated easily and we have no plans to extubate until the patient shows improvement in her overall mental status and able to wake up and follow some instructions. Family is at bedside, and I discussed her condition with all family members including mother and dad at bedside. Patient was reevaluated today on 02/04/2017, she has been off narcotics and sedatives for the last few hours, patient was noted to be arousable, cough, following instructions and neurologically appropriate. Reviewed her chest x- ray I also reviewed her labs, hence I gave her a very short trial of pressure support and CPAP, and I was available at bedside. Shortly after patient was extubated and placed on a nasal cannula. Discussed her condition with all her family members at bedside. Patient tolerated the extubation well. Labs from today showed a pO2 of 189 pCO2 of 30 pH of 7.4 to her basic metabolic profile is normal except for a potassium of 3.0 being corrected as per protocol. CBC is relatively unremarkable hemoglobin 9.9. Chest x-ray no evidence of active disease. Hence I will discontinue Zosyn altogether. I plan to have psychiatry see the patient today and possibly transferred to psychiatry in the next 24 hours. Objective - Vital Signs Vital signs: Vital Signs Temp 98.0 F 02/04/17 08:00 Pulse 88 02/04/17 09:40 Resp 16 02/04/17 08:00 BP 100/56 02/04/17 08:00 Pulse Ox 100 02/04/17 08:00 Intake & Output 02/03/17 02/04/17 02/04/17 18:59 06:59 18:59 Intake Total 6953.937 3720 250 Output Total 1160 1070 150 Balance 619.466 360 100 Weight 60 kg 59.9 kg Intake: IV 1400 1430 150 Piperacillin-Tazobactam 3 50 50 .375 gm In Dextrose/Water 1 50ml.bag @ 12.5 mls/hr IVPB Q8HR [facility] Rx#: [id number] Sodium Chloride 0.9% 1, 1400 1380 100 000 ml @ 100 mls/hr IV . Q10H [facility] Rx#:[id number] Intake, IV Titration 379.466 0 100 Amount Piperacillin-Tazobactam 3 50 .375 gm In Dextrose/Water 1 50ml.bag @ 12.5 mls/hr IVPB Q8HR [facility] Rx#: [id number] Potassium Chloride 10 meq 100 Lidocaine 2% Inj 10 mg In Sodium Chloride 0.9% 100 ml @ 100 mls/hr IV Q1HR [facility] Rx#:[id number] Potassium Chloride 10 meq 100 Lidocaine 2% Inj 10 mg In Sodium Chloride 0.9% 100 ml @ 100 mls/hr IV Q1HR [facility] Rx#:[id number] Propofol 500 mg In Empty 29.466 0 Bag 1 bag @ Titrate IV . Q0M [facility] Rx#:[id number] Sodium Chloride 0.9% 1, 200 000 ml @ 100 mls/hr IV . Q10H [facility] Rx#:[id number] Output: Urine 1160 1070 150 Other: Voiding Method Indwelling Catheter Indwelling Catheter Indwelling Catheter # Bowel Movements 0 0 ABP, PAP, CO, CI - Last Documented Arterial Blood Pressure 100/52 - Exam General: The patient well-nourished, appears stated age. Patient is sedated, on mechanical ventilation responsive and follows instructions Eyes: NEO, pupils 3mm B/L. No scleral icterus. HENT: Atraumatic, normocephalic. Mucous membranes dry. Endotracheal tube was noted to be intact, nasogastric tube was also intact. Neck: The neck is supple, no JVD. Cardiovascular: Regular rhythm, tachycardic. No murmur, rub, or gallop is appreciated. Distal pulses intact, 2+ radial and DP B/L. Respiratory: Diminished breath sounds on the left side, right side is relatively clear.. Gastrointestinal: Soft, Nontender. No rebound or guarding. Non-distended. Musculoskeletal: Normal ROM. No gross deformity. No strength deficits. Neurological: No focal neurologic deficit was noted today. Skin: Skin is warm and dry. Multiple puncture lesions noted to B/L antecubital areas. - Labs CBC & Chem 7: 02/04/17 04:45 02/04/17 04:45 Labs: Abnormal Lab Results - Last 24 Hours (Table) 02/03/17 02/04/17 02/04/17 Range/Units 12:10 04:45 04:45 RBC 3.40 L (3.80-5.40) m/uL Hgb 9.9 L (11.4-16.0) gm/dL Hct 31.1 L (34.0-46.0) % ABG pCO2 (35-45) mmHg ABG pO2 (83-108) mmHg ABG HCO3 (21-25) mmol/L ABG O2 Saturation (94-97) % Potassium 3.0 L* (3.5-5.1) mmol/L Chloride 114 H (98-107) mmol/L Carbon Dioxide 20 L (22-30) mmol/L BUN <2 L (7-17) mg/dL Creatinine 0.50 L (0.52-1.04) mg/dL POC Glucose (mg/dL) 117 H (75-99) mg/dL Calcium 7.6 L (8.4-10.2) mg/dL Phosphorus 1.5 L (2.5-4.5) mg/dL Total Protein 4.7 L (6.3-8.2) g/dL Albumin 2.4 L (3.5-5.0) g/dL 02/04/17 Range/Units 07:32 RBC (3.80-5.40) m/uL Hgb (11.4-16.0) gm/dL Hct (34.0-46.0) % ABG pCO2 30 L (35-45) mmHg ABG pO2 189 H (83-108) mmHg ABG HCO3 19 L (21-25) mmol/L ABG O2 Saturation 100.0 H (94-97) % Potassium (3.5-5.1) mmol/L Chloride (98-107) mmol/L Carbon Dioxide (22-30) mmol/L BUN (7-17) mg/dL Creatinine (0.52-1.04) mg/dL POC Glucose (mg/dL) (75-99) mg/dL Calcium (8.4-10.2) mg/dL Phosphorus (2.5-4.5) mg/dL Total Protein (6.3-8.2) g/dL Albumin (3.5-5.0) g/dL Microbiology - Last 24 Hours (Table) 02/02/17 18:14 Gram Stain - Final Sputum Sputum Culture - Final 02/02/17 23:48 Urine Culture - Preliminary Urine,Catheterized Assessment and Plan Plan: Impression: 1 acute hypoxic respiratory failure secondary to multiple drugs overdose including heroin, marijuana, vistaril, please refer to positive drug screen on admission. 2 history of depression and suicidal attempts. 3 possible aspiration however the chest x-ray at this point is not suggestive of aspiration pneumonia yet. 4 complete left lung collapse secondary to right mainstem intubation by the ER physician, requiring emergent the bronchoscopy and lavage of the left lung, suctioning of mucous plugs from the left mainstem bronchus, left upper lobe, lingula, and left lower lobe. Her left lung collapse has significantly improved after bronchoscopy, minimal atelectasis is noted today. 5 history of bronchial asthma, presently stable. 6 history of chronic migraines headaches, 7 history of prescription drug abuse. And history of heroin abuse. 8 acute hypotension, resolved, multifactorial secondary to medications/narcotics /sedatives and could also be a component of hypovolemia. In my clinical opinion , I believe it is mostly profound hypotension secondary to narcotics and sedatives. Strongly doubt hypovolemic shock and strongly doubt cardiogenic shock, strongly doubt septic shock. Recommendation: Patient was extubated while I was available at bedside. She seemed to have tolerated the extubation well, placed on nasal cannula, remained calm throughout the whole process, I plan to arrange for psychiatric consultation, discussed her condition with all her family members at bedside. We will initiate psychiatric consultation today will address the diet and she' ll be given sips of water initially, and if tolerated advanced diet accordingly. Patient will remain on suicidal precautions and will continue to follow closely. Critical care time is 32 minutes. Time with Patient: Greater than 30
[2017-02-04 12:05] LABS: Glucose,Whole Blood 84 mg/dL (75-99)
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
--- NOTE | 2017-02-04 16:01 | P.PN ---
Progress Note - Text DATE OF SERVICE: 02/04/2017 PRESENTING COMPLAINT: Overdose INTERVAL HISTORY: This 21-year-old who had an intentional overdose/suicide attempt. Currently sitting up in bed extubated, asking for ice chips and a coffee. Appears sleepy , takes her a few minutes to process information but is participatory, cooperative. Diet is being advanced slowly, patient will need medical clearance , to be transferred to the inpatient psych unit, expected later today. Plan of care discussed with family at the bedside. REVIEW OF SYSTEMS: Done for constitutional cardiovascular GI pulmonary with relevant findings as above. CURRENT MEDICATIONS Protonix, Prozac, Neurontin, Xopenex. PHYSICAL EXAM: VITAL SIGNS: Temperature 98.2, pulse 82 respiratory rate 16 blood pressure 115/ 80 oxygen saturation 100% on room air GENERAL APPEARANCE: Lying in bed, sleepy appearing. EYES: Pupils equal, Conjunctiva normal. NECK: JVD not raised. Mass not palpable. RESPIRATORY: Respiratory effort normal. Lungs scattered rhonchi to auscultation. CARDIOVASCULAR: First and second sounds normal. No edema. ABDOMEN: Soft. Liver and spleen not palpable. No tenderness. No mass palpable. PSYCHIATRY: Alert and oriented 3, mood and affect somewhat lethargic INVESTIGATIONS: Hemoglobin 9.9 platelet count 177 potassium 3.0, BUN less than 2 creatinine 0.50. Accu-Cheks noted Chest x-ray: No active disease ASSESSMENT: Acute hypoxic respiratory failure due to a mucous plug, aspiration, extubated today History of IV heroin use. Marijuana use positive, recreational Hypokalemia, likely hypoosmolar Hypoalbuminemia as an acute phase reactant Normocytic anemia, cause unknown. severe hypotension requiring pressors Probable early withdrawal for multiple drug use. PLAN: Patient was extubated today, await medical clearance for transfer to the inpatient psych unit for further treatment. Plan of care was discussed with patient and family at the bedside. Continue to follow closely IN[employer]CTOR [employer] statement: Patient was seen and examined by nurse practitioner Marnie Davila in all elements of the case discussed with attending is Dr. Martin
[2017-02-04] MEDS: ONDANSETRON 4 MG TAB PO PRN (17:27)
[2017-02-04] MEDS: POTASSIUM CHLORIDE ER 20 MEQ TAB.ER PO SCH ×2 (17:27→18:42)
[2017-02-04 22:46] VITALS: TEMP 98
--- NOTE | 2017-02-05 07:01 | CONS ---
DATE OF CONSULTATION: 02/04/2017 PURPOSE FOR CONSULTATION: Evaluate for appropriate for the psychiatric unit. HISTORY OF PRESENTING ILLNESS: The patient was admitted to ICU due to an overdose. She was found at her home unconscious. She was intubated and stabilized in the ICU. This morning she was extubated. She is felt to be stable in regards to the effects of the overdose. This consultation is limited to whether the patient is appropriate to be transferred to the psychiatric unit. I refer the reader to the prior psychiatric consultation of Dr. Menjivar for details of her psychiatric history and current situation. When I saw the patient, she was in her bed. She was just getting up with the assistance of two nurses. She was able to answer questions. She would give brief responses. She talked in a slow, measured way. There was latency in her responses. She did not say much. She was not spontaneous or interactive. She would answer with 1-or 2 word responses. She talked with a soft voice in a slow manner. She was oriented to her circumstances and the current situation. In order to get out of bed she needed assistance of two nurses who supported her by each arm. She was able to move very slowly around her bed and then out into the main area. She walked with very short steps and a shuffling gait. She needed support of nurses on both sides in order to ambulate. She was able to walk from her room to the nursing desk for a distance of about 10 to 12 feet. When she reached the nursing that she was able to take a few short steps without support of the nurses. She then returned to walked back to her room. She was cooperative. She had a quiet manner. Her affect was blunted. She seemed somewhat dazed in how she presented. It seemed to take her a short period of time to process when questions were asked before she could initiate a response. Her mood was reserved. ASSESSMENT: I will continue the diagnosis as noted by Dr. Menjivar including bipolar disorder, PTSD disorder and substance dependence with ongoing substance abuse. She has suicidal ideation with an overdose attempt. I reviewed her case with Dr. Martin. The patient did not appear to be stable in regards to her overall function. In order to be appropriate for the psychiatric unit both from a physical standpoint as well as her cognitive function. She would not benefit from care on the psychiatric unit at this time. In addition from a cognitive standpoint she would not be appropriate within the milieu or treatment setting. She will continue on the medical floor as per Dr. Martin. We will re-evaluate the patient in the morning.
[2017-02-05] MEDS: LEVALBUTEROL NEB 1.25 MG/3 ML AMP INHALATION SCH ×2 (07:12)
[2017-02-05 07:13] LABS: Basophils % (A) 0 %; CH 29.5; CHCM 33.5; Eosinophils # (A) 0.3 k/uL (0-0.7); Eosinophils % (A) 5 %; HCT 30.6 % (34.0-46.0); HDW 2.87; HGB 10.2 gm/dL (11.4-16.0); Luc # (Auto) 0.17; Luc % (Auto) 3; Lymphocytes # (A) 2.6 k/uL (1.0-4.8); Lymphocytes % (A) 44 %; MCH 29.6 pg (25.0-35.0); MCHC 33.5 g/dL (31.0-37.0); MCV 88.3 fL (80.0-100.0); Mean Platelet Volume 7.3; Monocytes # (A) 0.2 k/uL (0-1.0); Monocytes % (A) 4 %; Neutrophils # (A) 2.7 k/uL (1.3-7.7); Neutrophils % (A) 45 %; RBC 3.46 m/uL (3.80-5.40); RDW 13.8 % (11.5-15.5); WBC (Perox) 6.24
[2017-02-05] MEDS: BUDESONIDE 1 MG/2 ML NEBU INHALATION SCH (07:13)
[2017-02-05 07:53] LABS: ALT 45 U/L (9-52); AST 41 U/L (14-36); Alkaline Phosphatase 59 U/L (38-126); Anion Gap 6 mmol/L; Blood Urea Nitrogen <2 mg/dL (7-17); Calcium 8.4 mg/dL (8.4-10.2); Carbon Dioxide 25 mmol/L (22-30); Chloride 113 mmol/L (98-107); Glucose 100 mg/dL (74-99); Non-African American GFR(MDRD) >60 (>60 ml/min/1.73 sqM); Phosphorous 1.8 mg/dL (2.5-4.5); Potassium 3.7 mmol/L (3.5-5.1); Sodium 144 mmol/L (137-145); Total Bilirubin 0.4 mg/dL (0.2-1.3); Total Protein 5.2 g/dL (6.3-8.2)
--- NOTE | 2017-02-05 07:59 | XR ---
EXAMINATION TYPE: XR chest 1V DATE OF EXAM: 02/05/2017 COMPARISON: 02/04/2017 HISTORY: Mechanical ventilation TECHNIQUE: Single frontal view of the chest is obtained. FINDINGS: ET and NG tube have been removed. Improving left lower lobe infiltrate or atelectasis. No pleural effusion or pneumothorax. No overt failure. Granuloma left upper lobe noted. IMPRESSION: Improving left lower lobe atelectasis or infiltrate.
[2017-02-05 08:03] VITALS: BP 99/54; PULSE 81; RESP 18
[2017-02-05] MEDS: NICOTINE 14MG/24HR PATCH TRANSDERM SCH (08:13)
[2017-02-05] MEDS: FLUoxetine HCL 20 MG CAP PO SCH (08:14)
[2017-02-05] MEDS: HEPARIN SODIUM,PORCINE 5,000 UNIT/ML 1 ML VIAL SQ SCH (08:14)
[2017-02-05] MEDS: GABAPENTIN 400 MG CAP PO SCH (08:15)
[2017-02-05] MEDS: ONDANSETRON 4 MG TAB PO PRN (08:48)
[2017-02-05] MEDS ORDERED: PANTOPRAZOLE 40 MG TABLET PO SCH (09:00)
--- NOTE | 2017-02-05 11:23 | P.PN ---
Subjective Principal diagnosis: Acute hypoxic respiratory failure secondary to drug overdose. This is a 21-year-old female with history of polysubstance abuse, history of depression and previous suicidal attempts, patient was brought into the ER when she was noted to have mental status change with empty bottle of pills. Apparently the bottle had vistaril pills in it, patient is also known to have history of heroin abuse, and she has history of anxiety. Her boyfriend apparently yesterday from an overdose of heroin. Patient was somnolent upon arrival to the ER, and unable to provide any history. She was spontaneously breathing, and did react to painful stimuli. However as she became more agitated in the ER, and she was desaturating, patient was becoming more obtunded, she was intubated by the ER physician, placed on mechanical ventilation, and this consult was initiated. Patient was sent to the intensive care unit hemodynamically stable initially, however upon arrival to the ICU, I was notified by the nurse that her chest x-ray showed right mainstem intubation. Recommended immediate withdrawal of the endotracheal tube about 4 cm from its present position, and follow-up chest x-ray. The follow-up chest x- ray showed adequate placement of the endotracheal tube, but there was complete collapse of the left lung. Hence I came in immediately for emergent bronchoscopy and extraction of mucous plugs from the left mainstem bronchus, and I was able to clear all the airways on the left side. Right side was noted to be unremarkable. At any rate patient was dialed down on the FiO2, I increased the PEEP to 8, and recommended follow-up ABG on this patient post bronchoscopy and lavage of the left lung. Her O2 saturation was in the mid 90s on 60% FiO2 and PEEP of 8. The endotracheal tube was visually placed about to see him above the ganesh with direct visualization using the bronchoscope. Hence no need for immediate chest x-ray post bronchoscopy. Earlier, patient was placed briefly on norepinephrine, however I recommended fluid boluses and discontinuation of norepinephrine. Her mean arterial pressure was excellent upon placement of the left brachial arterial line. And I recommended cutting down on the dose of propofol. Patient was reevaluated today on 02/03/2017, remains on mechanical ventilation, however her FiO2 is down to 40%, PEEP is down to 5, and she has excellent the blood gases this morning. Chest x-ray showed significant improvement in the left lung, continues to have some areas of atelectasis but overall much more improved aeration of the whole left lung is noted. Endotracheal tube seems to be above the ganesh. ABG showed a pO2 of 373 pCO2 of 27 pH of 7.643. Electrolytes showed low potassium of 3.1, being corrected as per protocol. Renal profile is normal. CBC is relatively normal except for hemoglobin of 10.5. Patient was taken off propofol early this morning, and over the last hour off propofol, the patient is not showing much improvement in the neurological status, and I believe that's mostly because of her overdose on multiple meds including heroin, benzodiazepines, and marijuana. And possibly Vistaril. Hence propofol will remain on hold patient does not seem to be showing any signs of vegetations, she is being ventilated easily and we have no plans to extubate until the patient shows improvement in her overall mental status and able to wake up and follow some instructions. Family is at bedside, and I discussed her condition with all family members including mother and dad at bedside. Patient was reevaluated today on 02/04/2017, she has been off narcotics and sedatives for the last few hours, patient was noted to be arousable, cough, following instructions and neurologically appropriate. Reviewed her chest x- ray I also reviewed her labs, hence I gave her a very short trial of pressure support and CPAP, and I was available at bedside. Shortly after patient was extubated and placed on a nasal cannula. Discussed her condition with all her family members at bedside. Patient tolerated the extubation well. Labs from today showed a pO2 of 189 pCO2 of 30 pH of 7.4 to her basic metabolic profile is normal except for a potassium of 3.0 being corrected as per protocol. CBC is relatively unremarkable hemoglobin 9.9. Chest x-ray no evidence of active disease. Hence I will discontinue Zosyn altogether. I plan to have psychiatry see the patient today and possibly transferred to psychiatry in the next 24 hours. The patient is seen again today 02/05/2017 on the regular medical floor. She is awake and alert in no acute distress. She is oriented 3. She denies any discomfort currently. She denies any shortness of breath, cough or congestion. She is maintaining O2 saturations in the upper 90s on room air. She's been hemodynamically stable. Hemoglobin stable at 10.2. Afebrile. No leukocytosis. Sputum and urine cultures reveal no growth. Objective - Vital Signs Vital signs: Vital Signs Temp 98 F 02/04/17 22:45 Pulse 80 02/05/17 07:26 Resp 18 02/05/17 07:00 BP 99/54 02/05/17 07:00 Pulse Ox 97 02/05/17 07:16 Intake & Output 02/04/17 02/05/17 02/05/17 18:59 06:59 18:59 Intake Total 1200 Output Total 845 200 Balance 355 -200 Weight 59.9 kg 59.9 kg Intake: IV 1200 Piperacillin-Tazobactam 3 50 .375 gm In Dextrose/Water 1 50ml.bag @ 12.5 mls/hr IVPB Q8HR [facility] Rx#: [id number] Potassium Chloride 10 meq 100 Lidocaine 2% Inj 10 mg In Sodium Chloride 0.9% 100 ml @ 100 mls/hr IV Q1HR [facility] Rx#:[id number] Sodium Chloride 0.9% 1, 800 000 ml @ 100 mls/hr IV . Q10H [facility] Rx#:[id number] Sodium Phosphate 10 mmol 250 In Sodium Chloride 0.9% 250 ml @ 125 mls/hr IVPB Q2H [facility] Rx#:[id number] Output: Urine 845 200 Other: Voiding Method Toilet Toilet Toilet # Voids 1 1 1 # Bowel Movements 1 ABP, PAP, CO, CI - Last Documented Arterial Blood Pressure 104/57 - Exam GENERAL EXAM: Alert, active, comfortable in no apparent distress. HEAD: Normocephalic. EYES: Normal reaction of pupils, equal size. NOSE: Clear with pink turbinates. THROAT: No erythema or exudates. NECK: No masses, no JVD. CHEST: No chest wall deformity. LUNGS: Equal air entry with no crackles, wheeze, rhonchi or dullness. CVS: S1 and S2 normal with no audible mumurs, regular rhythm. ABDOMEN: No hepatosplenomegaly, normal bowel sounds, no guarding or rigidity. SPINE: No scoliosis or deformity SKIN: No rashes CENTRAL NERVOUS SYSTEM: No focal deficits, tone is normal in all 4 extremities. Extremities: There is no peripheral edema. No clubbing, no cyanosis. Peripheral pulses are intact. - Labs CBC & Chem 7: 02/05/17 06:40 02/05/17 06:40 Labs: Abnormal Lab Results - Last 24 Hours (Table) 02/04/17 02/05/17 02/05/17 Range/Units 15:21 06:40 06:40 RBC 3.46 L (3.80-5.40) m/uL Hgb 10.2 L (11.4-16.0) gm/dL Hct 30.6 L (34.0-46.0) % Potassium 3.4 L (3.5-5.1) mmol/L Chloride 113 H (98-107) mmol/L BUN <2 L (7-17) mg/dL Glucose 100 H (74-99) mg/dL Phosphorus 1.8 L (2.5-4.5) mg/dL AST 41 H (14-36) U/L Total Protein 5.2 L (6.3-8.2) g/dL Albumin 2.6 L (3.5-5.0) g/dL Microbiology - Last 24 Hours (Table) 02/02/17 23:48 Urine Culture - Final Urine,Catheterized 02/02/17 18:14 Gram Stain - Final Sputum Sputum Culture - Final Assessment and Plan Plan: Impression: 1 acute hypoxic respiratory failure secondary to multiple drugs overdose including heroin, marijuana, vistaril, please refer to positive drug screen on admission. 2 history of depression and suicidal attempts. 3 possible aspiration however the chest x-ray at this point is not suggestive of aspiration pneumonia yet. 4 complete left lung collapse secondary to right mainstem intubation by the ER physician, requiring emergent the bronchoscopy and lavage of the left lung, suctioning of mucous plugs from the left mainstem bronchus, left upper lobe, lingula, and left lower lobe. Her left lung collapse has significantly improved after bronchoscopy, minimal atelectasis is noted today. 5 history of bronchial asthma, presently stable. 6 history of chronic migraines headaches, 7 history of prescription drug abuse. And history of heroin abuse. 8 acute hypotension, resolved, multifactorial secondary to medications/narcotics /sedatives and could also be a component of hypovolemia. Plan: The patient was seen and evaluated by Dr. Ha. She is cleared for transfer to the psychiatric unit for further intervention in regard to her suicide attempt and depression. She can continue the bronchodilators there as needed. We will see her on an as-needed basis.
--- NOTE | 2017-02-05 21:17 | DS ---
DATE OF ADMISSION: 02/02/2017 DATE OF DISCHARGE: 02/05/2017 FINAL DIAGNOSES: 1. Acute hypoxic respiratory failure from central suppression from drug overdose. 2. Acute metabolic encephalopathy from multiple drug overdose. 3. IV heroin use. 4. Marijuana use. 5. Acute respiratory failure and ventilatory support. HOSPITAL COURSE: This patient who took an overdose of heroine, took an overdose of Vistaril after she learned that her significant dying with drugs. The patient came to the ER a very somnolent and then had to be intubated. Chest x-ray showed complete whiteout of the left side, had to have emergent bronchoscopy. Today, the patient was taken off the vent. Doing much better. By the time, evening, the patient is able to walk from the room to the nurses station with limited support. Did actually eat some food. The patient is awake and alert. Seen by psychiatry earlier to be taken down to the psych unit. On examination, LUNGS: Fair air entry. CARDIOVASCULAR: First and second sounds normal. DISCHARGE MEDICATIONS: 1. Ventolin 2 puffs q.i.d. p.r.n. 2. Prozac 20 mg a day. 3. [place] 50 mg daily. 4. Neurontin 400 mg t.i.d. 5. Nicotine patch. 6. Vistaril 25 mg t.i.d. p.r.n. DISPOSITION: The psychiatry unit under the care of the psychiatrist.
== END 2017-02-05 11:25 | disposition home or self-care (01) | DRG 917 ==
LOC: EC 16:21 → 6ICU 18:20 → 5MS5E 02-04 18:50
PROVIDERS: ADMIT Hospitalist; ATTEND Hospitalist
PROC: 5A1945Z Respiratory Ventilation, 24-96 Consecutive Hours (ICD-10-PCS; principal; 2017-02-02)
PROC: 0B978ZX Drainage of Left Main Bronchus, Via Natural or Artificial Opening Endoscopic, Diagnostic (ICD-10-PCS; 2017-02-02)
PROC: 3E1F88Z Irrigation of Respiratory Tract using Irrigating Substance, Via Natural or Artificial Opening Endoscopic (ICD-10-PCS; 2017-02-02)
PROC: 0BH17EZ Insertion of Endotracheal Airway into Trachea, Via Natural or Artificial Opening (ICD-10-PCS; 2017-02-02)
PROC: 03H833Z Insertion of Infusion Device into Left Brachial Artery, Percutaneous Approach (ICD-10-PCS; 2017-02-02)
DX: T40.1X2A Poisoning by heroin, intentional self-harm, initial encounter (principal); J96.01 Acute respiratory failure with hypoxia; G92 Toxic encephalopathy; T17.590A Other foreign object in bronchus causing asphyxiation, initial encounter; T17.890A Other foreign object in other parts of respiratory tract causing asphyxiation, initial encounter; J98.11 Atelectasis; J98.19 Other pulmonary collapse; I95.9 Hypotension, unspecified; E88.09 Other disorders of plasma-protein metabolism, not elsewhere classified; T43.592A Poisoning by other antipsychotics and neuroleptics, intentional self-harm, initial encounter; E87.6 Hypokalemia; D64.9 Anemia, unspecified; F11.10 Opioid abuse, uncomplicated; F12.10 Cannabis abuse, uncomplicated; F17.200 Nicotine dependence, unspecified, uncomplicated; F41.0 Panic disorder [episodic paroxysmal anxiety]; F43.10 Post-traumatic stress disorder, unspecified; G40.909 Epilepsy, unspecified, not intractable, without status epilepticus; J45.909 Unspecified asthma, uncomplicated; F32.9 Major depressive disorder, single episode, unspecified; G43.909 Migraine, unspecified, not intractable, without status migrainosus; G89.29 Other chronic pain; M54.9 Dorsalgia, unspecified; F10.10 Alcohol abuse, uncomplicated; F19.10 Other psychoactive substance abuse, uncomplicated; Z79.899 Other long term (current) drug therapy; Z91.040 Latex allergy status; Z91.5 Personal history of self-harm; Y92.9 Unspecified place or not applicable
CPT/HCPCS: 31500; 36415; 36600; 71010; 80053; 80306; 80320; 81001; 82805; 83520; 83605; 83690; 83735; 84100; 84132; 84703; 85025; 85610; 87070; 87086; 87205; 94002; 94003; 94640; 94760; 96361; 96365; 96368; 96375; 99152; 99283; 99291

== ENCOUNTER 2017-02-05 11:24 | Inpatient (IN) | payer MEDICAID ==
[2017-02-05] MEDS ORDERED: MAGNESIUM HYDROXIDE 2,400 MG/10 ML CUP PO PRN (13:24)
[2017-02-05] MEDS ORDERED: ACETAMINOPHEN TAB 325 MG TAB PO PRN (13:24)
[2017-02-05] MEDS ORDERED: MAG HYDROX/AL HYDROX/SIMETH 30 ML CUP PO PRN (13:24)
[2017-02-05] MEDS ORDERED: hydrOXYzine PAMOATE 25 MG CAP PO PRN (13:25)
[2017-02-05] MEDS ORDERED: ZIPRASIDONE 20 MG VIAL IM PRN (14:07)
[2017-02-05] MEDS ORDERED: OLANZapine 5 MG TAB PO STA (14:26)
[2017-02-05] MEDS: GABAPENTIN 400 MG CAP PO SCH ×2 (15:17→21:55)
[2017-02-05] MEDS ORDERED: WATER FOR INJECTION, STERILE 10 ML IV ONE (16:31)
[2017-02-05] MEDS ORDERED: ZIPRASIDONE 20 MG VIAL IM ONE (16:31)
[2017-02-05] MEDS: ZIPRASIDONE 20 MG VIAL IM PRN (16:33)
[2017-02-05] MEDS: OLANZapine 5 MG TAB PO SCH ×2 (16:39→21:55)
[2017-02-05 17:21] VITALS: BMI 22.6
--- NOTE | 2017-02-05 20:55 | HP ---
DATE OF ADMISSION: 02/05/2017 IDENTIFYING DATA: The patient is a 21-year-old female. She resides with her father. She was brought to the emergency room by EMS. CHIEF COMPLAINT: The patient was admitted due to depression with a suicide attempt by overdose. She presented to the emergency room the day before in a distraught state due to the of her boyfriend by overdose on February 01. HISTORY OF PRESENTING ILLNESS: Patient has long-term psychiatric and substance use problems. According to records, this is her 8th psychiatric hospitalization with 5 hospitalizations in this facility dating back to March 2016. I refer the reader to extensive admission notes of Dr. Soto, 05/26/2016, Dr. Basilio 06/06/2016, Dr. Hillman 07/17/[address] Soto 01/25/2017. The patient's primary psychiatric issues are as follows: Dr. Soto has followed the patient on an outpatient basis. He has documented a history of bipolar disorder, noting that she has had manic symptoms lasting 8 days followed by a "crash." She has a history of severe abuse with posttraumatic stress disorder. She has long-term substance use disorder, including heroin, marijuana, benzodiazepines and other substance use. She has acute grief issues relating to the of her boyfriend on February 01, 2017 apparently by intentional overdose. She has been inconsistent in followup care. She has been in substance use treatment programs in the past, her current situation is that she overdosed on the day of admission to the hospital. She was at home in her father's home. Her father found her lying by empty bottles of pills. According to EMS, she was awake when they arrived and in transport to the hospital and the emergency department, she was quite sedated. She ended up being intubated due to uncontrolled vomiting. She was stabilized in ICU and now transferred to the psychiatric unit. It is noted that on her urine drug screen, she is positive for amphetamines, benzodiazepines and THC. At the time of my interview with the patient, she was only able to give limited information, as she was quite tearful and disorganized in her thoughts. PSYCHIATRIC HISTORY: Well documented as above. SUBSTANCE USE HISTORY: As above. MEDICAL HISTORY: As per medical records, patient has a history of chronic back pain and endometriosis. She reports taking Neurontin for back pain. There is some question about a seizure disorder, though there is no clear documentation related to that. I refer the reader to Dr. Duffy's consultation note of 01/26/[address] Martin's admission note of 02/02/2017 for details. FAMILY AND SOCIAL HISTORY: The patient resides with her father. She has a 4-year-old son who is in the custody of her mother. MENTAL STATUS EXAM: Patient was dressed in hospital gown. Eye contact was fair. Psychomotor activity was slow. Speech was monotone and soft. She answered questions with brief responses. Her thoughts were clear. She was tearful throughout the interview and quite distressed. She did not provide much information. She stated that that she still had some confusion about recent events. It is noteworthy that when I saw her yesterday in ICU, she was slower in her responses and more limited in information she provided. At that time, she had a fairly blunted affect. She was slowed in her thoughts. Today, her thought process appears a little more appropriate and organized. Her mood is depressed. She is significantly distressed. There is no outward evidence of thought disorder. On cognitive exam, the patient was oriented x3 and alert. She did not make an effort to answer formal cognitive questions. Intellectual level was average. PHYSICAL EXAM: As per Dr. Martin. DIAGNOSTIC STUDIES: CBC is remarkable low hemoglobin of 10.2, MCV 88. Comprehensive metabolic profile includes creatinine 0.56. Total protein low at 5.2, albumin low at 2.6. Free T4 1.0, TSH 0.8. Urinalysis unremarkable. Urine drug screen positive for amphetamines, benzodiazepines and marijuana. ASSESSMENT: This 21-year-old female has long-term psychiatric and substance use issues. I refer the reader to Dr. Soto's admission note for assessment details. She currently has the addition of grief issues relating to the recent of her boyfriend. DIAGNOSES: 1. Bipolar affective disorder, mixed phase. 2. Posttraumatic stress disorder. 3. Polysubstance dependence, including heroin, marijuana, benzodiazepines and amphetamines. 4. Eating disorder by history. 5. Chronic back pain. 6. Endometriosis. RECOMMENDATIONS: Patient will be admitted for comprehensive medical, psychiatric and psychosocial evaluation. We will engage the patient in individual and group therapeutic activities. In regard to psychotropic medications, I will continue Prozac. She is on 20 mg a day. I will increase her dose to 40 mg a day. I will start the patient on Zyprexa 5 mg 3 times a day. The aim of Zyprexa and Prozac is to treat bipolar disorder in both manic and depressive phases. Also, Zyprexa may benefit the patient in regards to physiologic stress response relating to symptoms of posttraumatic stress disorder, acute grief issues as well as early substance withdrawal issues Prozac further has an indication for posttraumatic stress disorder. Her Neurontin will be discontinued for unclear indication and the risks for it complicating her medication regimen. She will be continued on naltrexone 50 mg daily relating to narcotic withdrawal. Would consider the addition of clonidine, though apparently she has utilized in the past, though has some history of hypotension, so we will monitor in that regard. We will focus on stabilization and coordinate with outpatient resources for discharge planning.
[2017-02-06 01:56] LABS: Glucose,Whole Blood 98 mg/dL (75-99)
[2017-02-06] MEDS: ONDANSETRON ODT 4 MG TAB PO PRN ×3 (03:27→22:57)
[2017-02-06] MEDS ORDERED: FLUoxetine HCL 20 MG CAP PO SCH (09:00)
[2017-02-06 09:31] LABS: Basophils % (A) 1 %; CH 29.3; CHCM 32.5; Eosinophils % (A) 0 %; HCT 35.9 % (34.0-46.0); HDW 2.77; HGB 11.7 gm/dL (11.4-16.0); Luc % (Auto) 2; Lymphocytes # (A) 1.3 k/uL (1.0-4.8); Lymphocytes % (A) 23 %; MCH 29.4 pg (25.0-35.0); MCHC 32.5 g/dL (31.0-37.0); MCV 90.4 fL (80.0-100.0); Mean Platelet Volume 7.2; Monocytes # (A) 0.1 k/uL (0-1.0); Monocytes % (A) 2 %; Neutrophils # (A) 4.2 k/uL (1.3-7.7); Neutrophils % (A) 73 %; RBC 3.97 m/uL (3.80-5.40); RDW 13.8 % (11.5-15.5); WBC 5.8 k/uL (3.8-10.6); WBC (Perox) 5.76
[2017-02-06 09:49] LABS: Anion Gap 11 mmol/L; Blood Urea Nitrogen <2 mg/dL (7-17); Carbon Dioxide 23 mmol/L (22-30); Chloride 107 mmol/L (98-107); Glucose 113 mg/dL (74-99); Non-African American GFR(MDRD) >60 (>60 ml/min/1.73 sqM); Potassium 3.9 mmol/L (3.5-5.1); Sodium 141 mmol/L (137-145)
--- NOTE | 2017-02-06 11:44 | CONS ---
DATE OF CONSULTATION: 02/05/2017 REASON FOR CONSULTATION: Medical management requested by Dr. Menjivar. This is 21-year-old patient whose significant other/boyfriend overdosed with heroin and subsequent to that the patient took a bottle of Vistaril, overdosed herself. The patient has also been doing heroin. The patient presented to the ER, became somnolent and had to be intubated. Also, the patient's chest x-ray on the left side became whiteout and emergent bronchoscopy was done with Dr. Ha. Mucous plug was removed. The patient has a history of bipolar disorder. Review of systems cannot be done. Patient ( ) some Geodon. PAST MEDICAL HISTORY: Depression, heroin use, smoker. PAST SURGICAL HISTORY: None. SOCIAL HISTORY: Patient smokes cigarettes. Lives with father. Has a 4-year-old son. Has done IV heroin. Current medications include: 1. Maalox p.r.n. 2. Ventolin HFA 2 puffs q.i.d. 3. Neurontin 400 mg t.i.d. 4. ( ) 50 mg p.o. daily. 5. Habitrol 14 mcg patch. 6. Zyprexa 5 mg t.i.d. 7. Geodon 20 mg IV b.i.d. p.r.n. Allergies: LATEX AND BEE VENUM. On examination, temperature 98.2, pulse 80, respirations 14, blood pressure 116, pulse 97% on room air. GENERAL: Small build, lying in bed. Right now somnolent after Geodon. HEENT: External appearance of nose and ears nose and normal. NECK: JVD unable to assess. ( ) palpable. RESPIRATORY: Effort normal. LUNGS: Fair air entry. CARDIOVASCULAR: First and second sounds normal. No edema. ABDOMEN: Soft, nontender. Liver and spleen not palpable. LYMPHATIC: No lymph nodes palpable in the neck. PSYCHIATRY: Unable to assess, patient somnolent. NEUROLOGICAL: Patient is noted to be moving all 4 limbs. INVESTIGATIONS: White count 6, hemoglobin 10.2. Potassium 3.7 ASSESSMENT: 1. History of IV heroin use. 2. Marijuana use. 3. Nicotine dependence. 4. Bipolar disorder, mixed type by psychiatry. 5. Amphetamine use. 6. Agitated behavior. PLAN: The patient is rather somnolent right now. Continue psychiatry medication right now. Patient is on a hefty dose of Neurontin. I will cut the dose back and see how she does with the same. Patient is getting nicotine patch.
[2017-02-06] MEDS: GABAPENTIN 100 MG CAP PO SCH ×3 (12:04→22:26)
[2017-02-06] MEDS: NALTREXONE HCL 50 MG TAB PO SCH (12:04)
[2017-02-06] MEDS: OLANZapine 5 MG TAB PO SCH ×3 (12:05→22:26)
[2017-02-06] MEDS: NICOTINE 14MG/24HR PATCH TRANSDERM SCH (12:05)
[2017-02-06] MEDS: LACTATED RINGERS 1,000 ML IV SCH ×2 (14:35→22:12)
[2017-02-07 01:31] VITALS: TEMP 98.2
--- NOTE | 2017-02-07 06:12 | PN ---
DATE OF SERVICE: 02/06/2017 CHIEF COMPLAINT: The patient was admitted due to depression with a suicide attempt by overdose. [facility] to the of her best friend by overdose on February 01. INTERVAL HISTORY: Patient has been doing fair. She has had a lot of vomiting last night and today. She mostly has been in her room. She is receiving IV fluids. She did have ups and downs in her mood yesterday. She had periods where she got distressed and angry. She did not want to take medications. She became agitated. She ended up taking a dose of her prescribed Zyprexa last p.m. She also received p.r.n. Geodon. She has been started on Zofran for GI effects. She is fairly withdrawn in her manner, mostly she is in bed. She will interact with staff when approached, though she does not really initiate much. She presents as lethargic and withdrawn. MENTAL STATUS EXAM: Patient was in her room lying down. She gave fair eye contact. Psychomotor activity was slow. Speech was monotone. She answered questions with 1 or 2 word responses. She was not spontaneous or interactive. Her affect was flat. Her mood depressed. She was moderately distressed. ASSESSMENT: I will continue the current diagnosis and treatment plan. At this point the focus is on trying to stabilize her GI issues. Dr. Martin has raised concern that she may be showing symptoms of narcotic withdrawal apparently parents have made a contact with a rehabilitation program where she could be referred for follow up substance use treatment. We will focus on stabilizing her GI issues and then re-evaluating for further treatment options.
[2017-02-07] MEDS: GABAPENTIN 100 MG CAP PO SCH ×3 (08:16→20:24)
[2017-02-07] MEDS: ONDANSETRON ODT 4 MG TAB PO PRN ×2 (09:39→19:14)
[2017-02-07] MEDS: ALBUTEROL INHALER 60 PUFF/8 GM INHALER INHALATION PRN ×2 (10:02→14:09)
[2017-02-07] MEDS ORDERED: LOPERAMIDE 2 MG CAP PO PRN (10:15)
[2017-02-07] MEDS: NICOTINE 14MG/24HR PATCH TRANSDERM SCH (10:16)
[2017-02-07] MEDS: NALTREXONE HCL 50 MG TAB PO SCH (10:17)
--- NOTE | 2017-02-07 10:21 | P.PN ---
Progress Note - Text Interval history: The patient is found in the hallway she follows me to an interview room. She was admitted to the mental health unit after an overdose with multiple medications as a suicide attempt. She required admission to the intensive care unit she was intubated for ventilatory support. She was extubated medically cleared and transferred to the mental health unit. She was seen by the [facility] psychiatrist over the weekend. The patient is well known to me for her history of substance use in the context of mood symptoms rule out bipolar disorder. The patient states that the trigger to the suicide attempt was the of her male friend, she reports that he unintentionally overdosed. The patient has had numerous admissions to the mental health unit with similar presentations. She states that her family is willing to pay for inpatient chemical dependency treatment and she is willing to go to a facility for 3 months. She reports having some ongoing opiate withdrawal symptoms. She reports needing Ativan for benzodiazepine withdrawal however her vital signs yesterday and this morning are completely normal across for different measurements. Mental status exam: The patient is a female appearing her stated age. She is dressed in her own clothing hygiene grooming fair. Eye contact appropriate speech is fluent and spontaneous nonpressured. She is cooperative today she demonstrates no agitated behavior. She reports her mood is anxious. She is reporting no acute suicidal or homicidal ideation intent or plan and she is endorsing no auditory or visual hallucinations. She demonstrates no tremor or psychomotor agitation or slowing. No verbal or physical aggressiveness demonstrated. Insight and judgment limited. She is oriented to person place and date. Affect is mostly euthymic. Plan: The Zyprexa will be discontinued the patient states that she doesn't feel good taking that medication she is concerned about the weight gain risk and feels medicated with it. We will continue the Prozac Neurontin has been restarted. We discussed initiating Lamictal as a mood stabilizer again. With this patient it has been unclear if there is a true bipolar disorder because of the ongoing heavy use of substances. We will continue to monitor the patient for safety social work will discuss discharge planning with her family. It would be our recommendation for the patient to go to inpatient chemical dependency treatment directly from this unit and [place] extended period of time.
[2017-02-07] MEDS: OLANZapine 5 MG TAB PO SCH (10:46)
[2017-02-07] MEDS: FLUoxetine HCL 20 MG CAP PO SCH (13:23)
[2017-02-07] MEDS: ZIPRASIDONE 20 MG VIAL IM PRN ×2 (14:13→23:40)
[2017-02-07] MEDS ORDERED: WATER FOR INJECTION, STERILE 10 ML IV ONE (23:39)
[2017-02-07] MEDS ORDERED: ZIPRASIDONE 20 MG VIAL IM ONE (23:39)
[2017-02-08 06:33] VITALS: BP 109/59; PULSE 52; RESP 14
[2017-02-08] MEDS: ONDANSETRON ODT 4 MG TAB PO PRN (07:59)
[2017-02-08] MEDS: ALBUTEROL INHALER 60 PUFF/8 GM INHALER INHALATION PRN (08:18)
[2017-02-08] MEDS: NICOTINE 14MG/24HR PATCH TRANSDERM SCH (08:19)
[2017-02-08] MEDS: GABAPENTIN 100 MG CAP PO SCH (08:47)
[2017-02-08] MEDS: FLUoxetine HCL 20 MG CAP PO SCH (08:47)
[2017-02-08] MEDS ORDERED: lamoTRIgine 25 MG TAB PO SCH (09:00)
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
== END 2017-02-08 11:51 | disposition home or self-care (01) | DRG 885 ==
LOC: 3MHU 11:24
PROVIDERS: ADMIT Psychiatry & Neurology Psychiatry; ATTEND Psychiatry & Neurology Psychiatry
DX: F31.60 Bipolar disorder, current episode mixed, unspecified (principal); F11.29 Opioid dependence with unspecified opioid-induced disorder; F11.23 Opioid dependence with withdrawal; F43.10 Post-traumatic stress disorder, unspecified; F17.210 Nicotine dependence, cigarettes, uncomplicated; F15.29 Other stimulant dependence with unspecified stimulant-induced disorder; F13.29 Sedative, hypnotic or anxiolytic dependence with unspecified sedative, hypnotic or anxiolytic-induced disorder; F12.29 Cannabis dependence with unspecified cannabis-induced disorder; M54.9 Dorsalgia, unspecified; R19.7 Diarrhea, unspecified; R11.0 Nausea; G89.29 Other chronic pain; N80.9 Endometriosis, unspecified; Z86.59 Personal history of other mental and behavioral disorders; Z79.899 Other long term (current) drug therapy; Z91.5 Personal history of self-harm; Z87.09 Personal history of other diseases of the respiratory system; Z91.419 Personal history of unspecified adult abuse; Z86.69 Personal history of other diseases of the nervous system and sense organs; Z91.030 Bee allergy status; Z91.040 Latex allergy status; Z91.048 Other nonmedicinal substance allergy status; Z86.79 Personal history of other diseases of the circulatory system; Z71.51 Drug abuse counseling and surveillance of drug abuser
CPT/HCPCS: 80048; 84443; 85025; 94640

== ENCOUNTER 2017-04-23 01:57 | Emergency (ER) | payer OTHER ==
[2017-04-23] MEDS ORDERED: methylPREDNISolone SOD SUCCI 125 MG/2 ML VIAL IV STA (02:09)
[2017-04-23] MEDS ORDERED: IPRATROPIUM-ALBUTEROL 3 ML NEB INHALATION STA ×2 (02:09→04:05)
[2017-04-23] MEDS ORDERED: ALBUTEROL NEBULIZED 2.5 MG/3 ML INHALATION STA (02:37)
--- NOTE | 2017-04-23 03:10 | ED ---
General Adult HPI - General Chief complaint: Chest Pain Stated complaint: SOB Time Seen by Provider: 04/23/17 01:59 Source: patient Mode of arrival: ambulatory Limitations: no limitations - History of Present Illness Initial comments: 21-year-old female patient presents to emergency department today for complaints of shortness of breath and chest tightness. Patient states that she has had symptoms for the past 2 days. Patient has a history of asthma and states she feels like she is having an asthma attack. Patient states she has been out of her rescue inhaler there for is unable to use it. Patient states she does have a dry cough as well. Denies any sputum production. She states she has also had some nasal congestion and sore throat since this started. She denies any fever, chills, dizziness, weakness, headache, vision disturbance, abdominal pain, nausea, vomiting, difficulty with urination or bowel movements. Patient does admit to smoking cigarettes. Patient denies any history of intubation. Patient denies any chance of . - Related Data Home Medications Medication Instructions Recorded Confirmed Albuterol Inhaler [Ventolin Hfa 2 puff INHALATION RT-QID PRN 10/11/16 02/05/17 Inhaler] Previous Rx's Medication Instructions Recorded FLUoxetine HCL [PROzac] 20 mg PO DAILY #30 cap 02/08/17 Gabapentin [Neurontin] 200 mg PO TID #24 cap 02/08/17 Nicotine 14Mg/24Hr Patch [Habitrol] 1 patch TRANSDERM DAILY #12 patch 02/08/17 lamoTRIgine [LaMICtal] 25 mg PO DAILY #30 tab 02/08/17 Albuterol Inhaler [Ventolin Hfa 2 puff INHALATION Q4H PRN #1 04/23/17 Inhaler] inhaler predniSONE 60 mg PO DAILY #21 tab 04/23/17 Allergies Allergy/AdvReac Type Severity Reaction Status Date / Time Latex, Natural Rubber Allergy Rash/Hives Verified 04/23/17 02:04 venom-honey bee Allergy Swelling Verified 04/23/17 02:04 [bee venom (honey bee)] Review of Systems ROS Statement: Those systems with pertinent positive or pertinent negative responses have been documented in the HPI. ROS Other: All systems not noted in ROS Statement are negative. Past Medical History Past Medical History: Asthma, Seizure Disorder Additional Past Medical History / Comment(s): HX: Recent injury to R ankle with ecchymosis and edema and pain, chronic back pain related to herniated disc , chronic migraines, endometriosis, multiple fractures, meningitis as child; ovarian cysts, alchol abuse, prescription drug abuse, heroin abuse in past. History of Any Multi-Drug Resistant Organisms: None Reported Past Surgical History: Section, Cholecystectomy, Ear Surgery, Orthopedic Surgery Additional Past Surgical History / Comment(s): ORIF right wrist, myringotomy with tubes as infant. Past Anesthesia/Blood Transfusion Reactions: No Reported Reaction Past Psychological History: Anxiety, Bipolar, Depression, Panic Disorder Smoking Status: Current every day smoker Past Alcohol Use History: Occasional Past Drug Use History: Heroin, Marijuana, Opiates, Prescription Drug Abuse - Past Family History Brother(s) Additional Family Medical History / Comment(s): Patient has 1 brother that is 20 years of age with no major medical problems. Patient has 1 son 3-1/2 years old with no major medical problems. Father Additional Family Medical History / Comment(s): Father is alive at age 54 with history of substance abuse, Schizophrenic, Bipolar Disorder Mother Additional Family Medical History / Comment(s): Mother is alive at age 47 with history of Arthritis. General Exam Limitations: no limitations General appearance: alert, in no apparent distress ENT exam: Present: normal exam, mucous membranes moist. Absent: normal oropharynx (Oropharyngeal erythema), TM's normal bilaterally Neck exam: Present: normal inspection, full ROM. Absent: tenderness, meningismus, lymphadenopathy Respiratory exam: Present: respiratory distress (Mild), wheezes (Tight wheezing throughout all posterior lung [place]). Absent: normal lung sounds bilaterally, rales, rhonchi, stridor, accessory muscle use Cardiovascular Exam: Present: normal rhythm, tachycardia, normal heart sounds. Absent: regular rate, systolic murmur, diastolic murmur, rubs, gallop, clicks GI/Abdominal exam: Present: soft, normal bowel sounds. Absent: distended, tenderness, guarding, rebound, rigid Extremities exam: Present: normal inspection, full ROM, normal capillary refill. Absent: tenderness, pedal edema, joint swelling, calf tenderness Back exam: Present: normal inspection Neurological exam: Present: alert, oriented X3, CN II-XII intact Psychiatric exam: Present: normal affect, normal mood Skin exam: Present: warm, dry, intact, normal color. Absent: rash Course Vital Signs 04/23/17 04/23/17 04/23/17 01:58 02:23 02:25 Temperature 98.5 F Pulse Rate 96 101 H 97 Respiratory 20 20 Rate Blood Pressure 115/66 115/66 O2 Sat by Pulse 92 L 99 Oximetry 04/23/17 04/23/17 04/23/17 02:35 02:40 02:52 Temperature Pulse Rate 98 99 108 H Respiratory Rate Blood Pressure O2 Sat by Pulse Oximetry 04/23/17 04/23/17 03:41 04:12 Temperature Pulse Rate 107 H 106 H Respiratory 18 Rate Blood Pressure 115/66 O2 Sat by Pulse 97 Oximetry - Reevaluation(s) Reevaluation #1: 04/23/17 03:48 Patient states she still has shortness of breath, wheezing is somewhat improved however still present throughout all [place]. Awaiting chest x-ray results. Medical Decision Making - Medical Decision Making 21-year-old female patient presents to emergency department today for complaints of shortness of breath and chest tightness. Physical exam did reveal tight wheezing in all [place] initially. Straight did reveal peribronchial cuffing, as well as by basilar atelectatic changes versus small infiltrates. Patient's is afebrile, has nonproductive cough, however has a history of asthma and her symptoms today are consistent with an asthma exacerbation. Patient did receive breathing treatments here in the emergency department, states that she is feeling a little bit better. Patient still does have some wheezing however air movement and oxygenation are much improved. Patient will be given a prescription prednisone 60mg x7 days. She'll also be given an albuterol inhaler and instructed to use every four hours. Patient instructed to follow-up with her primary care physician for recheck in 1-2 days. Instructed to return here immediately for any new, worsening, or concerning symptoms. Patient verbalizes understanding and agrees this plan. - Radiology Data Radiology results: report reviewed, image reviewed Two-view x-ray of the chest shows mild peribronchial cuffing, probable bibasilar atelectatic changes. Peripheral swishes no effusion, or pneumothorax. Heart is unremarkable no cardiomegaly. Mediastinum is unremarkable. Bones and joints are unremarkable. Impression by Dr. Drew shows mild peribronchial cuffing. Probable bibasilar atelectatic changes but infiltrates cannot be ruled out. Disposition Clinical Impression: Acute asthma exacerbation Disposition: HOME SELF-CARE Condition: Good Instructions: Asthma (ED) Additional Instructions: Use inhaler every 4 hours. Complete steroid prescription in full. Follow-up with her primary care physician for recheck in 1-2 days. Return here immediately for any new, worsening, or concerning symptoms. Prescriptions: Albuterol Inhaler [Ventolin Hfa Inhaler] 2 puff INHALATION Q4H PRN #1 inhaler PRN Reason: Wheezing/Shortness of Breath predniSONE 60 mg PO DAILY #21 tab Referrals: None,Stated [Primary Care Provider] - 1-2 days Time of Disposition: 04:09
[2017-04-23 03:42] VITALS: RESP 18
--- NOTE | 2017-04-23 04:06 | XR ---
EXAM: XR Chest, 2 Views CLINICAL HISTORY: Reason: Pain TECHNIQUE: Frontal and lateral views of the chest. COMPARISON: 02/05/2017. FINDINGS: Lungs: Mild peribronchial cuffing is seen, which may represent mild pulmonary edema versus small airways inflammatory disease. Probable bibasilar atelectatic changes, although infiltrates cannot be definitively excluded. Pleural space: No significant pleural effusion. No pneumothorax. Heart: Unremarkable. No cardiomegaly. Mediastinum: Unremarkable. Bones/joints: Unremarkable. IMPRESSION: 1. Mild peribronchial cuffing, which may represent mild pulmonary edema versus small airways inflammatory disease. 2. Probable bibasilar atelectatic changes, although infiltrates cannot be definitively excluded. Clinical correlation recommended.
[2017-04-23 04:36] VITALS: BP 128/72; PULSE 113; TEMP 97.8
== END 2017-04-23 04:36 | disposition home or self-care (01) ==
LOC: EC 01:57
DX: J45.901 Unspecified asthma with (acute) exacerbation (principal); F17.200 Nicotine dependence, unspecified, uncomplicated; Z91.040 Latex allergy status; Z91.030 Bee allergy status
CPT/HCPCS: 94640 ×2; 71020; 99285; 96374; J2930

== ENCOUNTER 2017-07-08 03:27 | Emergency (ER) | payer OTHER ==
[2017-07-08 03:35] VITALS: BP 120/62; PULSE 106; RESP 20; TEMP 98.4
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
[2017-07-08] MEDS ORDERED: HYDROmorphone 2 MG/ML 1 ML SYRINGE IM STA (03:48)
--- NOTE | 2017-07-08 05:10 | CT ---
EXAM: CT Head Without Intravenous Contrast CLINICAL HISTORY: Reason: pain, trauma TECHNIQUE: Axial computed tomography images of the head/brain without intravenous contrast. Coronal and sagittal reformats were obtained. CTDI is 60.30 mGy and DLP is 1108.40 mGy-cm. This CT exam was performed using one or more of the following dose reduction techniques: automated exposure control, adjustment of the mA and/or kV according to patient size, and/or use of iterative reconstruction technique. COMPARISON: CT head, 08/22/14 FINDINGS: Brain: No intracranial hemorrhage, mass effect, or midline shift. Ventricles: Unremarkable. No ventriculomegaly. Bones/joints: Unremarkable. No acute fracture. Sinuses: Diffuse paranasal sinus mucosal thickening. No air fluid levels. Mastoid air cells: Unremarkable as visualized. No mastoid effusion. IMPRESSION: 1. No acute intracranial abnormality. 2. Diffuse paranasal sinus disease. EXAM: CT Cervical Spine Without Intravenous Contrast CLINICAL HISTORY: Reason: pain, trauma TECHNIQUE: Axial computed tomography images of the cervical spine without intravenous contrast. Coronal and sagittal reformats were obtained. CTDI is 14.60 mGy and DLP is 246.30 mGy-cm. This CT exam was performed using one or more of the following dose reduction techniques: automated exposure control, adjustment of the mA and/or kV according to patient size, and/or use of iterative reconstruction technique. COMPARISON: CT cervical spine 08/22/14 FINDINGS: Vertebrae: Unremarkable. No acute fracture. Cervical spine is well aligned. Discs/spinal canal/neural foramina: No acute findings. No spinal canal stenosis. Soft tissues: Unremarkable. Lung apices: No acute findings. IMPRESSION: No acute fracture or malalignment.
--- NOTE | 2017-07-08 05:33 | XR ---
EXAM: XR Sacrum and Coccyx, 2 or more Views CLINICAL HISTORY: Reason: fall TECHNIQUE: Frontal and lateral views of the sacrum and coccyx. COMPARISON: No relevant prior studies available. FINDINGS: Sacrum/coccyx: Unremarkable as visualized. No acute fracture detected. Vertebrae: Visualized lumbar vertebrae are unremarkable. Soft tissues: Surgical clip projects superior to the right SI joint. IMPRESSION: No radiographic evidence of sacral or coccyx fracture.
--- NOTE | 2017-07-08 05:37 | XR ---
EXAM: XR Lumbar Spine, 2 or 3 Views CLINICAL HISTORY: Reason: Pain, trauma TECHNIQUE: Frontal and lateral views of the lumbar spine. COMPARISON: No relevant prior studies available. FINDINGS: Vertebrae: No evidence of acute fracture. Lumbar spine is well aligned. Sacrum/coccyx: No displaced acute fracture. Disc spaces: Mild degenerative changes, greatest at L4-L5 with slight disc space narrowing. Soft tissues: Cholecystectomy clips. Surgical clip projects over the right SI joint. IMPRESSION: No acute osseous abnormality of the lumbar spine.
--- NOTE | 2017-07-08 05:41 | XR ---
EXAM: XR Chest, 1 View CLINICAL HISTORY: Reason: Pain, trauma TECHNIQUE: Frontal view of the chest. COMPARISON: Chest x-ray 04-23-17 FINDINGS: Lungs: Unremarkable. No consolidation. Pleural space: No pleural effusion. No pneumothorax. Heart: Unremarkable. No cardiomegaly. Mediastinum: Unremarkable. Bones/joints: No acute abnormality on single frontal view. Upper abdomen: Cholecystectomy clips. IMPRESSION: No acute cardiopulmonary disease.
--- NOTE | 2017-07-08 05:44 | XR ---
EXAM: XR Pelvis, 1 or 2 Views CLINICAL HISTORY: Reason: Pain, trauma TECHNIQUE: Frontal view of the pelvis. COMPARISON: Pelvic radiograph 08/22/14 FINDINGS: Bones/joints: Unremarkable. No acute fracture. No dislocation. Soft tissues: Surgical clip projects over the right iliac wing. IMPRESSION: No acute fracture or dislocation.
--- NOTE | 2017-07-09 05:38 | CDI ---
Dear Aime Nascimento DO: Please do addendum injury site. Thank you, Basia Gonzales, Farm Management Supervisor. If you have any questions, please contact Scale Tester at [phone]. [facility]
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
== END 2017-07-08 06:55 | disposition home or self-care (01) ==
LOC: EC 03:27
DX: O9A.319 Physical abuse complicating pregnancy, unspecified trimester (principal); O99.89 Other specified diseases and conditions complicating pregnancy, childbirth and the puerperium; M54.2 Cervicalgia; M54.9 Dorsalgia, unspecified; G89.29 Other chronic pain; O99.330 Smoking (tobacco) complicating pregnancy, unspecified trimester; F17.200 Nicotine dependence, unspecified, uncomplicated; Z91.030 Bee allergy status; Z91.040 Latex allergy status; Z98.890 Other specified postprocedural states; Y04.2XXA Assault by strike against or bumped into by another person, initial encounter; Y92.89 Other specified places as the place of occurrence of the external cause; Z3A.00 Weeks of gestation of pregnancy not specified
CPT/HCPCS: 99284; 96372; 71010; 72100; 72170; 72220; 72125; 70450; J1170

== ENCOUNTER 2017-09-01 18:35 | Emergency (ER) | payer OTHER ==
--- NOTE | 2017-09-01 19:21 | ED ---
General Adult HPI - General Source: patient, police, EMS, RN notes reviewed, old records reviewed Mode of arrival: EMS Limitations: no limitations <Per Bill - Last Filed: 09/01/17 20:11> <Arthur Albarado - Last Filed: 09/02/17 00:54> - General Chief complaint: Altered Mental Status Stated complaint: overdose Time Seen by Provider: 09/01/17 18:44 - History of Present Illness Initial comments: Chief complaint and history of present illness a 22-year-old female brought emergency room by EMS and police. The patient was at her roll center where she has to provide a urine sample concerning use of narcotics. They called the ambulance and police because the patient was finding it very difficult to stay awake. She does have a long history of heroin abuse. Reportedly the patient is not supposed be taking any narcotics. She will provide a urine sample. She denies taking any narcotics but upon questioning stated that it may be in her urine because she was taking a pain pill for her tooth. She did not say where she got the pain pill. Patient reports she's not been able to sleep well for 3 days ago she's been depressed. The patient was in the hospital in January of last summer for an overdose after her significant other of a heroin overdose. ( Per Bill) - Related Data Home Medications Medication Instructions Recorded Confirmed No Known Home Medications [No 09/01/17 09/01/17 Known Home Medications] Allergies Allergy/AdvReac Type Severity Reaction Status Date / Time Latex, Natural Rubber Allergy Rash/Hives Verified 09/01/17 19:18 venom-honey bee Allergy Swelling Verified 09/01/17 19:18 [bee venom (honey bee)] Review of Systems ROS Other: All systems not noted in ROS Statement are negative. <Per Bill - Last Filed: 09/01/17 20:11> ROS Other: All systems not noted in ROS Statement are negative. <Arthur Albarado - Last Filed: 09/02/17 00:54> ROS Statement: Those systems with pertinent positive or pertinent negative responses have been documented in the HPI. Review of systems. The patient had to be awakened on 2 occasions during the interview. She is adamant that she has not taken any narcotics. States she's just sleepy. Urine will be checked. Narcan will be used as needed. She states she has not used heroin today. Does not answer when she last used heroin. Past medical problems depression, bipolar, narcotic abuse. So past history of alcohol abuse. Other medications include abusing benzodiazepines Klonopin, Xanax and marijuana. Problems no family include schizophrenia and bipolar disorder. (Per Bill) Past Medical History Past Medical History: Asthma, Seizure Disorder Additional Past Medical History / Comment(s): HX: Recent injury to R ankle with ecchymosis and edema and pain, chronic back pain related to herniated disc , chronic migraines, endometriosis, multiple fractures, meningitis as child; ovarian cysts, alchol abuse, prescription drug abuse, heroin abuse in past. History of Any Multi-Drug Resistant Organisms: None Reported Past Surgical History: Section, Cholecystectomy, Ear Surgery, Orthopedic Surgery Additional Past Surgical History / Comment(s): ORIF right wrist, myringotomy with tubes as . Past Anesthesia/Blood Transfusion Reactions: No Reported Reaction Past Psychological History: Anxiety, Bipolar, Depression, Panic Disorder Smoking Status: Current every day smoker Past Alcohol Use History: Occasional Past Drug Use History: Heroin, Marijuana, Opiates, Prescription Drug Abuse - Past Family History Brother(s) Additional Family Medical History / Comment(s): Patient has 1 brother that is 20 years of age with no major medical problems. Patient has 1 son 3-1/2 years old with no major medical problems. Father Additional Family Medical History / Comment(s): Father is alive at age 54 with history of substance abuse, Schizophrenic, Bipolar Disorder Mother Additional Family Medical History / Comment(s): Mother is alive at age 47 with history of Arthritis. <Per Bill - Last Filed: 09/01/17 20:11> General Exam Limitations: no limitations <Per Bill - Last Filed: 09/01/17 20:11> Course <Per Bill - Last Filed: 09/01/17 20:11> <Arthur Albarado - Last Filed: 09/02/17 00:54> Vital Signs 09/01/17 09/01/17 09/02/17 18:52 23:15 00:30 Temperature 98.9 F Pulse Rate 121 H 118 H Respiratory 16 17 Rate Blood Pressure 116/60 O2 Sat by Pulse 97 Oximetry 09/02/17 00:35 Temperature 97.5 F L Pulse Rate 87 Respiratory 17 Rate Blood Pressure 115/68 O2 Sat by Pulse 100 Oximetry - Reevaluation(s) Reevaluation #1: 09/02/17 00:52 The patient was evaluated by psychiatric service and found not to be wrist herself or have an L2 was able ably without any difficulty. She is awake alert oriented 3. Be discharged with outpatient follow-up. (Arthur Albarado) Medical Decision Making <Per Bill - Last Filed: 09/01/17 20:11> <Arthur Albarado - Last Filed: 09/02/17 00:54> - Medical Decision Making Medical decision making; patient denies doing any drugs lately. Her urine test shows positive for opiates, oxycodone, amphetamines, methamphetamines, benzodiazepines and marijuana. Urine test was negative. easily arousable. Does not want us to give her Narcan. She'll be observed. She has an IV so that if she passes out she will receive Narcan. ( Per Bill) - Lab Data Lab Results 09/01/17 09/01/17 09/01/17 Range/Units 19:22 19:30 19:30 Urine HCG, Qual Not Detected (Not Detectd) Salicylates <1.0 mg/dL Urine Opiates Screen Detected H (NotDetected) Ur Oxycodone Screen Detected H (NotDetected) Urine Methadone Screen Not Detected (NotDetected) Ur Propoxyphene Screen Not Detected (NotDetected) Acetaminophen <10.0 ug/mL Ur Barbiturates Screen Not Detected (NotDetected) U Tricyclic Antidepress Not Detected (NotDetected) Ur Phencyclidine Scrn Not Detected (NotDetected) Ur Amphetamines Screen Detected H (NotDetected) U Methamphetamines Scrn Detected H (NotDetected) U Benzodiazepines Scrn Detected H (NotDetected) Urine Cocaine Screen Not Detected (NotDetected) U Marijuana (THC) Screen Detected H (NotDetected) Disposition <Per Bill - Last Filed: 09/01/17 20:11> <Arthur Albarado - Last Filed: 09/02/17 00:54> Clinical Impression: Depression, Drug abuse Disposition: HOME SELF-CARE Condition: Good Instructions: Polysubstance Abuse (ED), Depression (ED) Additional Instructions: All up as per the psychiatric service evaluation suggestions. No more drug abuse Referrals: None,Stated [Primary Care Provider] - 1-2 days
[2017-09-01 19:39] LABS: Acetaminophen <10.0 ug/mL; Salicylate <1.0 mg/dL
[2017-09-01 20:00] LABS: Amphetamine Screen,Urine Detected (NotDetected); Barbiturate Screen,Urine Not Detected (NotDetected); Benzodiazepines Screen,Urine Detected (NotDetected); Cocaine Screen,Urine Not Detected (NotDetected); Methadone Screen, Urine Not Detected (NotDetected); Opiate Screen,Urine Detected (NotDetected); Oxycodone Screen, Urine Detected (NotDetected); Phencyclidine Screen,Urine Not Detected (NotDetected); Tricyclic Antidepressant,Urine Not Detected (NotDetected); Urn Cannabinoid Scrn Detected (NotDetected)
[2017-09-01 23:16] VITALS: RESP 17
[2017-09-02] MEDS ORDERED: ALBUTEROL NEBULIZED 2.5 MG/3 ML INHALATION STA (00:15)
[2017-09-02 00:49] VITALS: BP 115/68; PULSE 87; TEMP 97.5
== END 2017-09-02 01:10 | disposition home or self-care (01) ==
LOC: EC 18:35
DX: F32.9 Major depressive disorder, single episode, unspecified (principal); F19.10 Other psychoactive substance abuse, uncomplicated; F17.200 Nicotine dependence, unspecified, uncomplicated; Z91.040 Latex allergy status; Z91.030 Bee allergy status
CPT/HCPCS: 36415; 80306; 81025; 82075; 83520; 94640; 99285

== ENCOUNTER 2018-02-26 18:32 | Emergency (ER) | payer OTHER ==
[2018-02-26 18:57] VITALS: RESP 16
[2018-02-26] MEDS ORDERED: ONDANSETRON 4 MG/2 ML VIAL IVP STA (19:04)
[2018-02-26] MEDS ORDERED: KETOROLAC 30 MG/ML 1 ML VIAL IVP STA (19:04)
[2018-02-26] MEDS ORDERED: SODIUM CHLORIDE 0.9% 1,000 ML IV STA (19:04)
--- NOTE | 2018-02-26 19:07 | ED ---
Abdominal Pain HPI - General Chief Complaint: Abdominal Pain Stated Complaint: Abd Pain Time Seen by Provider: 02/26/18 18:58 Source: EMS, RN notes reviewed Mode of arrival: EMS Limitations: no limitations - History of Present Illness Initial Comments: This is a 22-year-old female who presents to the emergency department with chief complaint of abdominal pain. Patient states that earlier today she developed a sharp and stabbing abdominal pain in her right lower quadrant. She states that as the day progressed the pain became more severe and more frequent. She states that she was also nauseous and has been vomiting. Denies fevers or chills, constipation or diarrhea, dysuria or hematuria. Patient states she is unsure if she could possibly be . States that she has a history of cholecystectomy and section. Denies any other abdominal surgeries. - Related Data Home Medications Medication Instructions Recorded Confirmed No Known Home Medications 09/01/17 09/01/17 Allergies Allergy/AdvReac Type Severity Reaction Status Date / Time Latex, Natural Rubber Allergy Rash/Hives Verified 02/26/18 18:57 venom-honey bee Allergy Swelling Verified 02/26/18 18:57 [bee venom (honey bee)] Review of Systems ROS Statement: Those systems with pertinent positive or pertinent negative responses have been documented in the HPI. ROS Other: All systems not noted in ROS Statement are negative. Past Medical History Past Medical History: Asthma, Seizure Disorder Additional Past Medical History / Comment(s): HX: Recent injury to R ankle with ecchymosis and edema and pain, chronic back pain related to herniated disc , chronic migraines, endometriosis, multiple fractures, meningitis as child; ovarian cysts, alchol abuse, prescription drug abuse, heroin abuse in past. History of Any Multi-Drug Resistant Organisms: None Reported Past Surgical History: Section, Cholecystectomy, Ear Surgery, Orthopedic Surgery Additional Past Surgical History / Comment(s): ORIF right wrist, myringotomy with tubes as . Past Anesthesia/Blood Transfusion Reactions: No Reported Reaction Past Psychological History: Anxiety, Bipolar, Depression, Panic Disorder Smoking Status: Current every day smoker Past Alcohol Use History: Occasional Past Drug Use History: Heroin, Marijuana, Opiates, Prescription Drug Abuse - Past Family History Brother(s) Additional Family Medical History / Comment(s): Patient has 1 brother that is 20 years of age with no major medical problems. Patient has 1 son 3-1/2 years old with no major medical problems. Father Additional Family Medical History / Comment(s): Father is alive at age 54 with history of substance abuse, Schizophrenic, Bipolar Disorder Mother Additional Family Medical History / Comment(s): Mother is alive at age 47 with history of Arthritis. General Exam - General Exam Comments Initial Comments: General: Awake and alert, well-developed; in no apparent distress. Patient does appear drowsy. HEENT: Head atraumatic, normocephalic. Pupils are equal, round and reactive to light. Extraocular movements intact. Oropharynx moist without erythema or exudate. Neck: Supple. Normal ROM. Cardiovascular: Regular rate and rhythm. No murmurs, rubs or gallops. Chest symmetrical. Respiratory: Lungs clear to auscultation bilaterally. No wheezes, rales or rhonchi. Normal respiratory effort with no use of accessory muscles. Abdomen: Soft, nondistended. Tenderness on palpation of right lower quadrant with guarding. Negative Rovsing sign. Normal bowel sounds in all 4 quadrants. Musculoskeletal: Normal ROM, no tenderness bilateral upper and lower extremities. Skin: [place], warm and dry without rashes or lesions. Neurological: Alert and oriented x3. CN II-XII grossly intact. Speech is fluent and answers are appropriate. No focal neuro deficits. Limitations: no limitations (Initial vitals: temp 97.8, pulse 108, respirations 16, blood pressure 96/56, 96% on room air) Course Vital Signs 02/26/18 02/26/18 18:52 20:25 Temperature 97.8 F 98.7 F Pulse Rate 108 H 94 Respiratory 16 16 Rate Blood Pressure 96/56 90/50 O2 Sat by Pulse 96 96 Oximetry - Reevaluation(s) Reevaluation #1: 02/26/18 20:28 Patient lying comfortably in bed at this time. Will add on an ultrasound of the pelvis as patient is naphthalene still operator in the right lower quadrant. Medical Decision Making - Medical Decision Making This is a 22-year-old female who presents to the emergency department with chief complaint of right lower quadrant abdominal pain. Patient also admits to nausea but denies vomiting. No fevers or chills. CBC was within normal limits. CMP did have mildly elevated transaminases, however on review of previous laboratory studies this has been present. UA is unremarkable and contaminated with squamous epithelial cells. Urine drug screen was obtained as patient is currently on a pick-up order. Patient is positive for marijuana, cocaine, benzodiazepines, amphetamines and methamphetamines. Ultrasound of pelvis was also obtained and this revealed no acute abnormalities. Patient states that her pain has improved. Vital signs are stable and she is in no acute distress and she will be discharged home at this time. All questions answered. - Lab Data Result diagrams: 02/26/18 19:00 02/26/18 19:00 Lab Results 02/26/18 02/26/18 02/26/18 Range/Units 19:00 19:00 19:00 WBC 8.0 (3.8-10.6) k/uL RBC 3.87 (3.80-5.40) m/uL Hgb 11.7 (11.4-16.0) gm/dL Hct 34.2 (34.0-46.0) % MCV 88.4 (80.0-100.0) fL MCH 30.4 (25.0-35.0) pg MCHC 34.4 (31.0-37.0) g/dL RDW 13.3 (11.5-15.5) % Plt Count 256 (150-450) k/uL Neutrophils % 59 % Lymphocytes % 26 % Monocytes % 6 % Eosinophils % 6 % Basophils % 0 % Neutrophils # 4.7 (1.3-7.7) k/uL Lymphocytes # 2.1 (1.0-4.8) k/uL Monocytes # 0.5 (0-1.0) k/uL Eosinophils # 0.5 (0-0.7) k/uL Basophils # 0.0 (0-0.2) k/uL PT 11.3 (9.0-12.0) sec INR 1.2 H (<1.2) APTT 27.3 (22.0-30.0) sec Sodium 140 (137-145) mmol/L Potassium 3.5 (3.5-5.1) mmol/L Chloride 105 (98-107) mmol/L Carbon Dioxide 25 (22-30) mmol/L Anion Gap 10 mmol/L BUN 8 (7-17) mg/dL Creatinine 0.70 (0.52-1.04) mg/dL Est GFR (CKD-EPI)AfAm >90 (>60 ml/min/1.73 sqM) Est GFR (CKD-EPI)NonAf >90 (>60 ml/min/1.73 sqM) Glucose 112 H (74-99) mg/dL Calcium 8.7 (8.4-10.2) mg/dL Total Bilirubin 0.5 (0.2-1.3) mg/dL AST 95 H (14-36) U/L ALT 101 H (9-52) U/L Alkaline Phosphatase 52 (38-126) U/L Total Protein 6.2 L (6.3-8.2) g/dL Albumin 3.6 (3.5-5.0) g/dL Amylase <30 L (30-110) U/L Lipase 37 (23-300) U/L Urine Color Urine Appearance (Clear) Urine pH (5.0-8.0) Ur Specific [place] (1.001-1.035) Urine Protein (Negative) Urine Glucose (UA) (Negative) Urine Ketones (Negative) Urine Blood (Negative) Urine Nitrite (Negative) Urine Bilirubin (Negative) Urine Urobilinogen (<2.0) mg/dL Ur Leukocyte Esterase (Negative) Urine RBC (0-5) /hpf Urine WBC (0-5) /hpf Ur Squamous Epith Cells (0-4) /hpf Hyaline Casts (0-2) /lpf Urine Mucus (None) /hpf Urine HCG, Qual (Not Detectd) Urine Opiates Screen (NotDetected) Ur Oxycodone Screen (NotDetected) Urine Methadone Screen (NotDetected) Ur Propoxyphene Screen (NotDetected) Ur Barbiturates Screen (NotDetected) U Tricyclic Antidepress (NotDetected) Ur Phencyclidine Scrn (NotDetected) Ur Amphetamines Screen (NotDetected) U Methamphetamines Scrn (NotDetected) U Benzodiazepines Scrn (NotDetected) Urine Cocaine Screen (NotDetected) U Marijuana (THC) Screen (NotDetected) 02/26/18 02/26/18 02/26/18 Range/Units 19:45 19:45 19:45 WBC (3.8-10.6) k/uL RBC (3.80-5.40) m/uL Hgb (11.4-16.0) gm/dL Hct (34.0-46.0) % MCV (80.0-100.0) fL MCH (25.0-35.0) pg MCHC (31.0-37.0) g/dL RDW (11.5-15.5) % Plt Count (150-450) k/uL Neutrophils % % Lymphocytes % % Monocytes % % Eosinophils % % Basophils % % Neutrophils # (1.3-7.7) k/uL Lymphocytes # (1.0-4.8) k/uL Monocytes # (0-1.0) k/uL Eosinophils # (0-0.7) k/uL Basophils # (0-0.2) k/uL PT (9.0-12.0) sec INR (<1.2) APTT (22.0-30.0) sec Sodium (137-145) mmol/L Potassium (3.5-5.1) mmol/L Chloride (98-107) mmol/L Carbon Dioxide (22-30) mmol/L Anion Gap mmol/L BUN (7-17) mg/dL Creatinine (0.52-1.04) mg/dL Est GFR (CKD-EPI)AfAm (>60 ml/min/1.73 sqM) Est GFR (CKD-EPI)NonAf (>60 ml/min/1.73 sqM) Glucose (74-99) mg/dL Calcium (8.4-10.2) mg/dL Total Bilirubin (0.2-1.3) mg/dL AST (14-36) U/L ALT (9-52) U/L Alkaline Phosphatase (38-126) U/L Total Protein (6.3-8.2) g/dL Albumin (3.5-5.0) g/dL Amylase (30-110) U/L Lipase (23-300) U/L Urine Color Dark Yellow Urine Appearance Turbid H (Clear) Urine pH 5.5 (5.0-8.0) Ur Specific [place] 1.024 (1.001-1.035) Urine Protein 1+ H (Negative) Urine Glucose (UA) Negative (Negative) Urine Ketones 1+ H (Negative) Urine Blood Negative (Negative) Urine Nitrite Negative (Negative) Urine Bilirubin Negative (Negative) Urine Urobilinogen 6.0 (<2.0) mg/dL Ur Leukocyte Esterase Moderate H (Negative) Urine RBC 7 H (0-5) /hpf Urine WBC 13 H (0-5) /hpf Ur Squamous Epith Cells 67 H (0-4) /hpf Hyaline Casts 107 H (0-2) /lpf Urine Mucus Many H (None) /hpf Urine HCG, Qual Not Detected (Not Detectd) Urine Opiates Screen Not Detected (NotDetected) Ur Oxycodone Screen Not Detected (NotDetected) Urine Methadone Screen Not Detected (NotDetected) Ur Propoxyphene Screen Not Detected (NotDetected) Ur Barbiturates Screen Not Detected (NotDetected) U Tricyclic Antidepress Not Detected (NotDetected) Ur Phencyclidine Scrn Not Detected (NotDetected) Ur Amphetamines Screen Detected H (NotDetected) U Methamphetamines Scrn Detected H (NotDetected) U Benzodiazepines Scrn Detected H (NotDetected) Urine Cocaine Screen Detected H (NotDetected) U Marijuana (THC) Screen Detected H (NotDetected) - Radiology Data Radiology results: report reviewed Ultrasound abdomen APPY impression: No inflammatory changes identified in the right lower quadrant. A partially visualized structure which appears to represent a normal appendix is identified. Pelvic ultrasound impression: No sonographic evidence for ovarian torsion. Normal follicular change in both ovaries. No pelvic free fluid. Disposition Clinical Impression: Abdominal pain Disposition: HOME SELF-CARE Condition: Good Instructions: Abdominal Pain (ED) Additional Instructions: Please follow up with primary care provider within 1-2 days. Return to emergency department if symptoms should worsen or any concerns arise. Is patient prescribed a controlled substance at d/c from ED?: No Referrals: [facility] [Primary Care Provider] - 1-2 days Time of Disposition: 21:59
[2018-02-26 19:19] LABS: Basophils % (A) 0 %; Eosinophils # (A) 0.5 k/uL (0-0.7); Eosinophils % (A) 6 %; HCT 34.2 % (34.0-46.0); HGB 11.7 gm/dL (11.4-16.0); Lymphocytes # (A) 2.1 k/uL (1.0-4.8); Lymphocytes % (A) 26 %; MCH 30.4 pg (25.0-35.0); MCHC 34.4 g/dL (31.0-37.0); MCV 88.4 fL (80.0-100.0); Mean Platelet Volume 7.2; Monocytes # (A) 0.5 k/uL (0-1.0); Monocytes % (A) 6 %; Neutrophils # (A) 4.7 k/uL (1.3-7.7); Neutrophils % (A) 59 %; Platelet Count 256 k/uL (150-450); RBC 3.87 m/uL (3.80-5.40); RDW 13.3 % (11.5-15.5)
[2018-02-26 19:28] LABS: ALT 101 U/L (9-52); AST 95 U/L (14-36); Albumin 3.6 g/dL (3.5-5.0); Alkaline Phosphatase 52 U/L (38-126); Amylase <30 U/L (30-110); Anion Gap 10 mmol/L; Blood Urea Nitrogen 8 mg/dL (7-17); Calcium 8.7 mg/dL (8.4-10.2); Carbon Dioxide 25 mmol/L (22-30); Chloride 105 mmol/L (98-107); Glucose 112 mg/dL (74-99); Lipase 37 U/L (23-300); Potassium 3.5 mmol/L (3.5-5.1); Sodium 140 mmol/L (137-145); Total Bilirubin 0.5 mg/dL (0.2-1.3); Total Protein 6.2 g/dL (6.3-8.2)
[2018-02-26 19:32] LABS: INR 1.2 (<1.2); Partial Thromboplastin Time 27.3 sec (22.0-30.0); Prothrombin Time 11.3 sec (9.0-12.0)
[2018-02-26 20:00] LABS: Appearance,Urine Turbid (Clear); Bilirubin,Urine Negative (Negative); Blood,Urine Negative (Negative); Color,Urine Dark Yellow; Glucose,Urine (UA) Negative (Negative); Hyaline Casts,Urine 107 /lpf (0-2); Ketones,Urine 1+ (Negative); Leukocyte Esterase,Urine Moderate (Negative); Mucus,Urine Many /hpf; Nitrite,Urine Negative (Negative); PH, Urine 5.5 (5.0-8.0); Protein,Urine 1+ (Negative); RBC,Urine 7 /hpf (0-5); Specific Gravity,Urine 1.024 (1.001-1.035); Squamous Epithelial Cell,Urine 67 /hpf (0-4); WBC,Urine 13 /hpf (0-5)
--- NOTE | 2018-02-26 20:17 | US ---
EXAMINATION TYPE: US abdomen APPY DATE OF EXAM: 02/26/2018 COMPARISON: NONE CLINICAL HISTORY: 22-year-old female Pain. RLQ pain since this morning, getting worse. Nausea and vom iting. NO fever, NO elevated WBC TECHNIQUE: Multiple sonographic images of the right lower quadrant with graded compression. FINDINGS: APPENDIX AP Diameter (normal < 6mm): 3.7 mm Measured outer wall to outer wall. Tubular structure seen RLQ, possible appendix Is the appendix seen in its entirety from the proximal cecum to distal end: no Is the appendix compressible: yes Is there inflammatory changes or free fluid present: no IMPRESSION: No inflammatory changes identified in the right lower quadrant. A partially visualized structure whic h appears to represent a normal appendix is identified.
[2018-02-26 20:48] LABS: Amphetamine Screen,Urine Detected (NotDetected); Barbiturate Screen,Urine Not Detected (NotDetected); Benzodiazepines Screen,Urine Detected (NotDetected); Cocaine Screen,Urine Detected (NotDetected); Methadone Screen, Urine Not Detected (NotDetected); Opiate Screen,Urine Not Detected (NotDetected); Oxycodone Screen, Urine Not Detected (NotDetected); Phencyclidine Screen,Urine Not Detected (NotDetected); Tricyclic Antidepressant,Urine Not Detected (NotDetected); Urn Cannabinoid Scrn Detected (NotDetected)
--- NOTE | 2018-02-26 21:47 | US ---
EXAMINATION TYPE: US transvaginal plus Doppler DATE OF EXAM: 02/26/2018 COMPARISON: NONE CLINICAL HISTORY: 22-year-old female Pain. RLQ pain TECHNIQUE: Transvaginal (TV). Color Doppler and spectral waveform analysis of the ovarian arteries and veins. Date of LMP: 02/15/18 FINDINGS: EXAM MEASUREMENTS: Uterus: 8.0 x 3.1 x 4.6 cm Endometrial Stripe: 0.3 cm Right Ovary: 3.5 x 2.3 x 2.6 cm for a volume of 11.1 mL. Left Ovary: 4.2 x 2.5 x 2.2 cm for a volume of 11.5 mL. 1. Uterus: Anteverted Nabothian cysts. Calcification anterior fundus = 0.3cm, nonspecific. Possibl e scar anterior lower uterine segment. 2. Endometrium: appears wnl 3. Right Ovary: dominant follicle = 1.5cm. There is satisfactory arterial and venous flow. 4. Left Ovary: follicles noted. Satisfactory arterial and venous flow. 5. Bilateral Adnexa: wnl 6. Posterior cul-de-sac: wnl IMPRESSION: No sonographic evidence for ovarian torsion. Normal follicular change in both ovaries. No pelvic free fluid.
[2018-02-26 22:39] VITALS: PULSE 81
[2018-02-26 22:44] VITALS: BP 100/70; TEMP 98
== END 2018-02-26 22:43 | disposition home or self-care (01) ==
LOC: EC 18:32
DX: R10.31 Right lower quadrant pain (principal); R11.2 Nausea with vomiting, unspecified; R74.0 Nonspecific elevation of levels of transaminase and lactic acid dehydrogenase [LDH]; F17.200 Nicotine dependence, unspecified, uncomplicated; Z91.040 Latex allergy status; Z91.030 Bee allergy status; Z90.49 Acquired absence of other specified parts of digestive tract
CPT/HCPCS: 36415; 80053; 82150; 83690; 85025; 85610; 85730; 81001; 81025; 87040; 80306; 93975; 76705; 76830; 99285; 96374; 96375; 96361; J2405; J1885

== ENCOUNTER 2018-05-04 19:31 | Emergency (ER) | payer OTHER ==
[2018-05-04] MEDS ORDERED: PENICILLIN V POTASSIUM 250 MG TAB PO STA (20:05)
--- NOTE | 2018-05-04 20:08 | ED ---
ENT HPI - General Chief complaint: Dental/Oral Stated complaint: dental pain/swelling Time Seen by Provider: 05/04/18 19:51 Source: patient, RN notes reviewed Mode of arrival: ambulatory Limitations: no limitations - History of Present Illness Initial comments: This is a 23-year-old female who presents to the emergency department with chief complaint of dental pain and swelling. Patient reports having a left lower dental abscess for the past one year. She states that last night she developed dental pain and mild swelling. Patient states that when she woke up this morning left-sided facial swelling had increased. She states that she has had fevers. States that she has taken ibuprofen 600mg twice today. She requests stronger medication. Denies chest pain or shortness breath, abdominal pain, nausea or vomiting. Patient states that she does not have a dentist to follow up with. - Related Data Previous Rx's Medication Instructions Recorded Penicillin V Potassium [Pen Vee K] 500 mg PO QID 10 Days tab 05/04/18 Allergies Allergy/AdvReac Type Severity Reaction Status Date / Time Latex, Natural Rubber Allergy Rash/Hives Verified 05/04/18 19:47 venom-honey bee Allergy Swelling Verified 05/04/18 19:47 [bee venom (honey bee)] Review of Systems ROS Statement: Those systems with pertinent positive or pertinent negative responses have been documented in the HPI. ROS Other: All systems not noted in ROS Statement are negative. Past Medical History Past Medical History: Asthma, Seizure Disorder Additional Past Medical History / Comment(s): HX: Recent injury to R ankle with ecchymosis and edema and pain, chronic back pain related to herniated disc , chronic migraines, endometriosis, multiple fractures, meningitis as child; ovarian cysts, alchol abuse, prescription drug abuse, heroin abuse in past. History of Any Multi-Drug Resistant Organisms: None Reported Past Surgical History: Section, Cholecystectomy, Ear Surgery, Orthopedic Surgery Additional Past Surgical History / Comment(s): ORIF right wrist, myringotomy with tubes as . Past Anesthesia/Blood Transfusion Reactions: No Reported Reaction Past Psychological History: Anxiety, Bipolar, Depression, Panic Disorder Smoking Status: Current every day smoker Past Alcohol Use History: Occasional Past Drug Use History: Heroin, Marijuana, Opiates, Prescription Drug Abuse - Past Family History Brother(s) Additional Family Medical History / Comment(s): Patient has 1 brother that is 20 years of age with no major medical problems. Patient has 1 son 3-1/2 years old with no major medical problems. Father Additional Family Medical History / Comment(s): Father is alive at age 54 with history of substance abuse, Schizophrenic, Bipolar Disorder Mother Additional Family Medical History / Comment(s): Mother is alive at age 47 with history of Arthritis. General Exam - General Exam Comments Initial Comments: General: Awake and alert, well-developed; in no apparent distress. HEENT: Head atraumatic, normocephalic. Mild left sided facial swelling. Pupils are equal, round and reactive to light. Extraocular movements intact. Oropharynx moist without erythema or exudate. Poor dentition throughout with multiple missing teeth and dental caries. Tenderness along the left lower gumline. No abscesses or masses are palpated. Neck: Supple. Normal ROM. Cardiovascular: Regular rate and rhythm. No murmurs, rubs or gallops. Chest symmetrical. Respiratory: Lungs clear to auscultation bilaterally. No wheezes, rales or rhonchi. Normal respiratory effort with no use of accessory muscles. Musculoskeletal: Normal ROM, no tenderness bilateral upper and lower extremities. Ambulating normally. Skin: [place], warm and dry without rashes or lesions. Neurological: Alert and oriented x3. CN II-XII grossly intact. Speech is fluent and answers are appropriate. No focal neuro deficits. Psychiatric: Normal mood and affect. No overt signs of depression or anxiety noted. Limitations: no limitations Course Vital Signs 05/04/18 19:44 Temperature 98.5 F Pulse Rate 103 H Respiratory 20 Rate Blood Pressure 108/66 O2 Sat by Pulse 98 Oximetry Medical Decision Making - Medical Decision Making This is a 23-year-old female who presents to the emergency department with chief complaint of dental pain. On physical examination, patient has mild left sided facial swelling and tenderness along the left lower gumline. Multiple missing teeth and dental caries. No abscesses are noted. Patient's vital signs are stable and she is afebrile. Patient will be started on penicillin vk. Recommended following up with a dentist. She will be provided with contact information for [facility]. Patient requests stronger medication however I recommended ibuprofen. Patient will be discharged home at this time. She voices understanding. All questions answered. Disposition Clinical Impression: Dental caries, Dental abscess Disposition: HOME SELF-CARE Condition: Good Instructions: Dental Abscess (ED), Toothache (ED) Additional Instructions: Please take medications as prescribed. Please follow up with a dentist as soon as possible. May take ibuprofen 600 mg every 6 hours as needed for the next 2- 3 days. Please follow up with primary care provider within 1-2 days. Return to emergency department if symptoms should worsen or any concerns arise. Please follow up with the [facility]. [facility] [place] [address]. Phone number for new patients or for existing patients. Prescriptions: Penicillin V Potassium [Pen Vee K] 500 mg PO QID 10 Days tab Is patient prescribed a controlled substance at d/c from ED?: No Referrals: [facility] [place] carver [Primary Care Provider] - 1-2 days Time of Disposition: 20:08
[2018-05-04 20:21] VITALS: BP 110/87; PULSE 98; RESP 18; TEMP 98
== END 2018-05-04 20:20 | disposition home or self-care (01) ==
LOC: EC 19:31
DX: K04.7 Periapical abscess without sinus (principal); K02.9 Dental caries, unspecified; F17.200 Nicotine dependence, unspecified, uncomplicated; Z91.040 Latex allergy status; Z91.030 Bee allergy status
CPT/HCPCS: 99282

== ENCOUNTER 2018-05-12 13:53 | Emergency (ER) | payer OTHER ==
--- NOTE | 2018-05-12 14:57 | ED ---
General Adult HPI - General Chief complaint: Extremity Injury, Lower Stated complaint: foot pain Time Seen by Provider: 05/12/18 14:37 Source: patient, RN notes reviewed Mode of arrival: ambulatory Limitations: no limitations - History of Present Illness Initial comments: Patient's a 23-year-old female presented to the emergency room today with a chief complaint of an into the left ankle 5 days. Patient does admit that she' s currently in rehab. She states that doctor there sent her to the emergency room to have an x-ray. She denies any specific injury or trauma. Doesn't that she's had swelling down to the left foot and ankle. Does admit that pain is worse with ambulation. Patient denies any other complaints or symptoms. Patient denies any recent fever, chills, shortness of breath, chest pain, back pain, abdominal pain, nausea or vomiting, headaches or visual changes, or any other complaints. - Related Data Previous Rx's Medication Instructions Recorded Penicillin V Potassium [Pen Vee K] 500 mg PO QID 10 Days tab 05/04/18 Ibuprofen [Motrin] 600 mg PO Q6HR PRN #40 day 05/12/18 Allergies Allergy/AdvReac Type Severity Reaction Status Date / Time Latex, Natural Rubber Allergy Rash/Hives Verified 05/12/18 14:18 venom-honey bee Allergy Swelling Verified 05/12/18 14:18 [bee venom (honey bee)] Review of Systems ROS Statement: Those systems with pertinent positive or pertinent negative responses have been documented in the HPI. ROS Other: All systems not noted in ROS Statement are negative. Past Medical History Past Medical History: Asthma, Seizure Disorder Additional Past Medical History / Comment(s): HX: Recent injury to R ankle with ecchymosis and edema and pain, chronic back pain related to herniated disc , chronic migraines, endometriosis, multiple fractures, meningitis as child; ovarian cysts, alchol abuse, prescription drug abuse, heroin abuse in past. History of Any Multi-Drug Resistant Organisms: None Reported Past Surgical History: Section, Cholecystectomy, Ear Surgery, Orthopedic Surgery Additional Past Surgical History / Comment(s): ORIF right wrist, myringotomy with tubes as infant. Past Anesthesia/Blood Transfusion Reactions: No Reported Reaction Past Psychological History: Anxiety, Bipolar, Depression, Panic Disorder Smoking Status: Current every day smoker Past Alcohol Use History: Occasional Past Drug Use History: Heroin, Marijuana, Opiates, Prescription Drug Abuse - Past Family History Brother(s) Additional Family Medical History / Comment(s): Patient has 1 brother that is 20 years of age with no major medical problems. Patient has 1 son 3-1/2 years old with no major medical problems. Father Additional Family Medical History / Comment(s): Father is alive at age 54 with history of substance abuse, Schizophrenic, Bipolar Disorder Mother Additional Family Medical History / Comment(s): Mother is alive at age 47 with history of Arthritis. General Exam - General Exam Comments Initial Comments: General: The patient is awake and alert, in no distress, and does not appear acutely ill. Neck: The neck is supple, there is no tenderness or JVD. Musculoskeletal: Patient does have mild swelling down to the left ankle. Patient shows good range of motion with both plantar and dorsiflexion. Patient sensations are intact with pupils 2+. Patient does have tenderness over the distal third metatarsa. Tender in the ATFL. Neurological: A&O x 3. CN II-XII intact, There are no obvious motor or sensory deficits. Coordination appears grossly intact. Speech is normal. Skin: Skin is warm and dry and no rashes or lesions are noted. Psychiatric: Normal mood and affect. Limitations: no limitations Course Vital Signs 05/12/18 14:15 Temperature 97.8 F Pulse Rate 78 Respiratory 18 Rate Blood Pressure 99/66 O2 Sat by Pulse 98 Oximetry Medical Decision Making - Medical Decision Making X-rays reviewed does show a fracture of the third metatarsal mid shaft. Patient has been splinted in a posterior OCL short leg splint. Neurovascular rechecked and intact. Patient will given a prescription for crutches. Patient is advised to with the orthopedic doctor over the next 2 days Disposition Clinical Impression: Foot fracture Disposition: HOME SELF-CARE Condition: Good Instructions: Foot Fracture in Adults (ED) Additional Instructions: Please leave splint in place until follow-up appointment with orthopedic doctor over the next 2 days. Please return to emergency room symptoms increase or worsen or for any other concerns. Please use crutches nonweightbearing until follow-up appointment. Prescriptions: Ibuprofen [Motrin] 600 mg PO Q6HR PRN #40 day PRN Reason: Pain Is patient prescribed a controlled substance at d/c from ED?: No Referrals: None,Stated [Primary Care Provider] - 1-2 days Luis Alberto El DO [Doctor of Osteopathic Medicine] - 1-2 days Time of Disposition: 15:51
--- NOTE | 2018-05-12 15:23 | XR ---
EXAMINATION TYPE: XR ankle complete LT, XR foot complete LT DATE OF EXAM: 05/12/2018 CLINICAL HISTORY: Pain for 5 days. TECHNIQUE: Frontal, lateral and oblique images of the left ankle and foot are obtained. COMPARISON: None. FINDINGS: There is no acute fracture/dislocation evident in the left ankle. The ankle mortise appea rs within normal limits. Mild to moderate soft tissue swelling over lateral malleolus is present. Seen best on oblique view there is cortical breakthrough consistent with acute nondisplaced comminute d fracture proximal to mid diaphysis of third metatarsal. Marked flexion in the toes makes evaluation at this level suboptimal . The joint spaces in the left foot are preserved. Overlying soft tissue i s unremarkable. IMPRESSION: There is acute comminuted nondisplaced fracture proximal to mid shaft of third metatarsa l. (Initial encounter closed type post traumatic fracture)
[2018-05-12 15:59] VITALS: BP 123/56; PULSE 77; RESP 20; TEMP 98.1
== END 2018-05-12 15:59 | disposition home or self-care (01) ==
LOC: EC 13:53
DX: S92.335A Nondisplaced fracture of third metatarsal bone, left foot, initial encounter for closed fracture (principal); F17.200 Nicotine dependence, unspecified, uncomplicated; Z91.040 Latex allergy status; Z91.030 Bee allergy status; X50.1XXA Overexertion from prolonged static or awkward postures, initial encounter
CPT/HCPCS: 29515; 99283

== ENCOUNTER 2018-07-02 22:42 | Emergency (ER) | payer OTHER ==
[2018-07-02 22:45] VITALS: RESP 16; TEMP 98
[2018-07-02] MEDS ORDERED: SODIUM CHLORIDE 0.9% 1,000 ML IV STA (22:46)
[2018-07-02] MEDS ORDERED: ONDANSETRON 4 MG/2 ML VIAL IVP STA (22:46)
[2018-07-02] MEDS ORDERED: KETOROLAC 30 MG/ML 1 ML VIAL IVP STA (23:08)
[2018-07-02 23:38] LABS: Basophils % (A) 0 %; Eosinophils # (A) 0.2 k/uL (0-0.7); Eosinophils % (A) 2 %; HCT 43.1 % (34.0-46.0); HGB 13.7 gm/dL (11.4-16.0); Lymphocytes # (A) 3.5 k/uL (1.0-4.8); Lymphocytes % (A) 40 %; MCH 28.8 pg (25.0-35.0); MCHC 31.8 g/dL (31.0-37.0); MCV 90.5 fL (80.0-100.0); Mean Platelet Volume 6.7; Monocytes # (A) 0.4 k/uL (0-1.0); Monocytes % (A) 4 %; Neutrophils # (A) 4.6 k/uL (1.3-7.7); Neutrophils % (A) 51 %; Platelet Count 276 k/uL (150-450); RBC 4.76 m/uL (3.80-5.40); RDW 14.1 % (11.5-15.5); WBC 8.9 k/uL (3.8-10.6)
--- NOTE | 2018-07-02 23:38 | XR ---
EXAMINATION TYPE: XR KUB DATE OF EXAM: 07/02/2018 COMPARISON: NONE HISTORY: Abdominal pain TECHNIQUE: 2 views upright FINDINGS: There is no sign of intestinal obstruction or pneumoperitoneum. Fecal pattern is normal. Th ere are no pathologic calcifications over the kidneys. There are clips from cholecystectomy. Lung bas es are clear. IMPRESSION: Nonacute abdomen.
[2018-07-02 23:47] LABS: ALT 105 U/L (9-52); AST 79 U/L (14-36); Albumin 4.4 g/dL (3.5-5.0); Alkaline Phosphatase 68 U/L (38-126); Amylase 47 U/L (30-110); Anion Gap 9 mmol/L; Blood Urea Nitrogen 11 mg/dL (7-17); Calcium 9.9 mg/dL (8.4-10.2); Carbon Dioxide 26 mmol/L (22-30); Chloride 103 mmol/L (98-107); Glucose 125 mg/dL (74-99); Lipase 68 U/L (23-300); Potassium 3.9 mmol/L (3.5-5.1); Sodium 138 mmol/L (137-145); Total Bilirubin 0.3 mg/dL (0.2-1.3); Total Protein 7.8 g/dL (6.3-8.2)
--- NOTE | 2018-07-03 00:38 | US ---
EXAMINATION TYPE: US transvaginal DATE OF EXAM: 07/03/2018 COMPARISON: NONE CLINICAL HISTORY: Pain. Left pelvic pain, 2011 TECHNIQUE: Transvaginal (TV) Date of LMP: 06/10/18 Comparison 02/26/2018 EXAM MEASUREMENTS: Uterus: 8.5 x 3.2 x 5.5 cm Endometrial Stripe: 0.8 cm Right Ovary: 3.0 x 2.0 x 1.9 cm Left Ovary: 3.7 x 2.1 x 2.3 cm 1. Uterus: Anteverted Nabothian cysts. Calcification anterior fundus = 0.3cm 2. Endometrium: appears wnl 3. Right Ovary: follicles noted 4. Left Ovary: follicles noted Spectral, color and waveform doppler imaging shows good arterial and venous flow within the ovaries ; there is no evidence for ovarian torsion. 5. Bilateral Adnexa: wnl 6. Posterior cul-de-sac: wnl IMPRESSION: No adnexal mass or free fluid. Normal endometrium.
[2018-07-03 00:40] VITALS: BP 115/75; PULSE 106
--- NOTE | 2018-07-03 00:46 | ED ---
Abdominal Pain HPI - General Source: patient, RN notes reviewed Mode of arrival: ambulatory Limitations: no limitations <Quentin Londono - Last Filed: 07/03/18 00:57> <Barbara Johnson - Last Filed: 07/03/18 05:42> - General Chief Complaint: Abdominal Pain Stated Complaint: Abd Pain Time Seen by Provider: 07/02/18 22:46 - History of Present Illness Initial Comments: 23-year-old female presents emergency Department chief complaint left lower quadrant abdominal pain. Patient states the pain started a few hours prior arrival. She denies any nausea vomiting. She states she has had slight constipation no dysuria no hematuria. Denies any chance . Patient states her last mental cycle was 2 weeks ago and she has no current vaginal bleeding or vaginal discharge. Denies any chance of . Patient denies any back pain, flank pain. (Quentin Londono) - Related Data Home Medications Medication Instructions Recorded Confirmed Albuterol Inhaler [Ventolin Hfa 1 - 2 puff INHALATION RT-Q6H PRN 07/02/18 Inhaler] Previous Rx's Medication Instructions Recorded Ketorolac [Toradol] 10 mg PO Q8HR #15 tab 07/03/18 Allergies Allergy/AdvReac Type Severity Reaction Status Date / Time Latex, Natural Rubber Allergy Rash/Hives Verified 07/02/18 22:54 venom-honey bee Allergy Swelling Verified 07/02/18 22:54 [bee venom (honey bee)] Review of Systems ROS Other: All systems not noted in ROS Statement are negative. <Quentin Londono - Last Filed: 07/03/18 00:57> ROS Other: All systems not noted in ROS Statement are negative. <Barbara Johnson - Last Filed: 07/03/18 05:42> ROS Statement: Those systems with pertinent positive or pertinent negative responses have been documented in the HPI. Past Medical History Past Medical History: Asthma, Seizure Disorder Additional Past Medical History / Comment(s): HX: Recent injury to R ankle with ecchymosis and edema and pain, chronic back pain related to herniated disc , chronic migraines, endometriosis, multiple fractures, meningitis as child; ovarian cysts, alchol abuse, prescription drug abuse, heroin abuse in past. History of Any Multi-Drug Resistant Organisms: None Reported Past Surgical History: Section, Cholecystectomy, Ear Surgery, Orthopedic Surgery Additional Past Surgical History / Comment(s): ORIF right wrist, myringotomy with tubes as infant. Past Anesthesia/Blood Transfusion Reactions: No Reported Reaction Past Psychological History: Anxiety, Bipolar, Depression, Panic Disorder Smoking Status: Current every day smoker Past Alcohol Use History: Occasional Past Drug Use History: Heroin, Marijuana, Opiates, Prescription Drug Abuse - Past Family History Brother(s) Additional Family Medical History / Comment(s): Patient has 1 brother that is 20 years of age with no major medical problems. Patient has 1 son 3-1/2 years old with no major medical problems. Father Additional Family Medical History / Comment(s): Father is alive at age 54 with history of substance abuse, Schizophrenic, Bipolar Disorder Mother Additional Family Medical History / Comment(s): Mother is alive at age 47 with history of Arthritis. <Quentin Londono - Last Filed: 07/03/18 00:57> General Exam Limitations: no limitations General appearance: alert, in no apparent distress Head exam: Present: atraumatic, normocephalic, normal inspection Neck exam: Present: normal inspection. Absent: tenderness, meningismus, lymphadenopathy Respiratory exam: Present: normal lung sounds bilaterally. Absent: respiratory distress, wheezes, rales, rhonchi, stridor Cardiovascular Exam: Present: regular rate, normal rhythm, normal heart sounds. Absent: systolic murmur, diastolic murmur, rubs, gallop, clicks GI/Abdominal exam: Present: soft, tenderness (Mild left lower quadrant tenderness), normal bowel sounds. Absent: distended, guarding, rebound, rigid Back exam: Absent: CVA tenderness (R), CVA tenderness (L) Skin exam: Present: warm, dry, intact, normal color. Absent: rash <Quentin Londono - Last Filed: 07/03/18 00:57> Vital Signs 07/02/18 07/03/18 22:44 00:38 Temperature 98 F Pulse Rate 89 106 H Respiratory 16 16 Rate Blood Pressure 131/80 115/75 O2 Sat by Pulse 98 99 Oximetry Medical Decision Making - Lab Data Result diagrams: 07/02/18 23:07 07/02/18 23:07 <Quentin Londono - Last Filed: 07/03/18 00:57> - Lab Data Result diagrams: 07/02/18 23:07 07/02/18 23:07 <Barbara Johnson - Last Filed: 07/03/18 05:42> - Medical Decision Making 23-year-old female presents emergency department for left lower quadrant abdominal pain. Initial workup including lab work, x-ray and ultrasound. Patient had noted hematuria with no history kidney stones but pain is consistent with stone at this time. She did have improvement with Toradol. I did recommend that we perform a CAT scan to prove that there is a stone and no other cause for hematuria including renal mass. Patient declines states that she would rather go home and follow-up return parameters were discussed. (Quentin Londono) I was available for consultation in the emergency department. The history and physical exam were done by the midlevel provider. I was consulted for this patient's care. I reviewed the case with the midlevel provider and based on their presentation of the patient, I agree with the assessment, medical decision making and plan of care as documented. (Barbara Johnson) - Lab Data Lab Results 07/02/18 07/02/18 07/03/18 Range/Units 23:07 23:07 00:17 WBC 8.9 (3.8-10.6) k/uL RBC 4.76 (3.80-5.40) m/uL Hgb 13.7 (11.4-16.0) gm/dL Hct 43.1 (34.0-46.0) % MCV 90.5 (80.0-100.0) fL MCH 28.8 (25.0-35.0) pg MCHC 31.8 (31.0-37.0) g/dL RDW 14.1 (11.5-15.5) % Plt Count 276 (150-450) k/uL Neutrophils % 51 % Lymphocytes % 40 % Monocytes % 4 % Eosinophils % 2 % Basophils % 0 % Neutrophils # 4.6 (1.3-7.7) k/uL Lymphocytes # 3.5 (1.0-4.8) k/uL Monocytes # 0.4 (0-1.0) k/uL Eosinophils # 0.2 (0-0.7) k/uL Basophils # 0.0 (0-0.2) k/uL Sodium 138 (137-145) mmol/L Potassium 3.9 (3.5-5.1) mmol/L Chloride 103 (98-107) mmol/L Carbon Dioxide 26 (22-30) mmol/L Anion Gap 9 mmol/L BUN 11 (7-17) mg/dL Creatinine 0.55 (0.52-1.04) mg/dL Est GFR (CKD-EPI)AfAm >90 (>60 ml/min/1.73 sqM) Est GFR (CKD-EPI)NonAf >90 (>60 ml/min/1.73 sqM) Glucose 125 H (74-99) mg/dL Calcium 9.9 (8.4-10.2) mg/dL Total Bilirubin 0.3 (0.2-1.3) mg/dL AST 79 H (14-36) U/L ALT 105 H (9-52) U/L Alkaline Phosphatase 68 (38-126) U/L Total Protein 7.8 (6.3-8.2) g/dL Albumin 4.4 (3.5-5.0) g/dL Amylase 47 (30-110) U/L Lipase 68 (23-300) U/L Urine Color Urine Appearance (Clear) Urine pH (5.0-8.0) Ur Specific [place] (1.001-1.035) Urine Protein (Negative) Urine Glucose (UA) (Negative) Urine Ketones (Negative) Urine Blood (Negative) Urine Nitrite (Negative) Urine Bilirubin (Negative) Urine Urobilinogen (<2.0) mg/dL Ur Leukocyte Esterase (Negative) Urine RBC (0-5) /hpf Urine WBC (0-5) /hpf Ur Squamous Epith Cells (0-4) /hpf Urine Bacteria (None) /hpf Urine Mucus (None) /hpf Urine HCG, Qual Not Detected (Not Detectd) 07/03/18 Range/Units 00:17 WBC (3.8-10.6) k/uL RBC (3.80-5.40) m/uL Hgb (11.4-16.0) gm/dL Hct (34.0-46.0) % MCV (80.0-100.0) fL MCH (25.0-35.0) pg MCHC (31.0-37.0) g/dL RDW (11.5-15.5) % Plt Count (150-450) k/uL Neutrophils % % Lymphocytes % % Monocytes % % Eosinophils % % Basophils % % Neutrophils # (1.3-7.7) k/uL Lymphocytes # (1.0-4.8) k/uL Monocytes # (0-1.0) k/uL Eosinophils # (0-0.7) k/uL Basophils # (0-0.2) k/uL Sodium (137-145) mmol/L Potassium (3.5-5.1) mmol/L Chloride (98-107) mmol/L Carbon Dioxide (22-30) mmol/L Anion Gap mmol/L BUN (7-17) mg/dL Creatinine (0.52-1.04) mg/dL Est GFR (CKD-EPI)AfAm (>60 ml/min/1.73 sqM) Est GFR (CKD-EPI)NonAf (>60 ml/min/1.73 sqM) Glucose (74-99) mg/dL Calcium (8.4-10.2) mg/dL Total Bilirubin (0.2-1.3) mg/dL AST (14-36) U/L ALT (9-52) U/L Alkaline Phosphatase (38-126) U/L Total Protein (6.3-8.2) g/dL Albumin (3.5-5.0) g/dL Amylase (30-110) U/L Lipase (23-300) U/L Urine Color Yellow Urine Appearance Clear (Clear) Urine pH 6.5 (5.0-8.0) Ur Specific [place] 1.008 (1.001-1.035) Urine Protein Negative (Negative) Urine Glucose (UA) Negative (Negative) Urine Ketones Negative (Negative) Urine Blood Moderate H (Negative) Urine Nitrite Negative (Negative) Urine Bilirubin Negative (Negative) Urine Urobilinogen <2.0 (<2.0) mg/dL Ur Leukocyte Esterase Negative (Negative) Urine RBC 50 H (0-5) /hpf Urine WBC 4 (0-5) /hpf Ur Squamous Epith Cells <1 (0-4) /hpf Urine Bacteria Rare H (None) /hpf Urine Mucus Rare H (None) /hpf Urine HCG, Qual (Not Detectd) Disposition Is patient prescribed a controlled substance at d/c from ED?: No Time of Disposition: 00:59 <Dedoe,Quentin M - Last Filed: 07/03/18 00:57> <Barbara Johnson P - Last Filed: 07/03/18 05:42> Clinical Impression: Abdominal pain, Hematuria Disposition: HOME SELF-CARE Condition: Stable Instructions: Kidney Stones (ED) Additional Instructions: Please return to the Emergency Department if symptoms worsen or any other concerns. Prescriptions: Ketorolac [Toradol] 10 mg PO Q8HR #15 tab Referrals: None,Stated [Primary Care Provider] - 1-2 days Rio Gillis MD [STAFF PHYSICIAN] - 1-2 days
[2018-07-03 00:48] LABS: Appearance,Urine Clear (Clear); Bacteria,Urine Rare /hpf; Bilirubin,Urine Negative (Negative); Blood,Urine Moderate (Negative); Color,Urine Yellow; Glucose,Urine (UA) Negative (Negative); Ketones,Urine Negative (Negative); Leukocyte Esterase,Urine Negative (Negative); Mucus,Urine Rare /hpf; Nitrite,Urine Negative (Negative); PH, Urine 6.5 (5.0-8.0); Protein,Urine Negative (Negative); RBC,Urine 50 /hpf (0-5); Specific Gravity,Urine 1.008 (1.001-1.035); Squamous Epithelial Cell,Urine <1 /hpf (0-4); Urobilinogen,Urine <2.0 mg/dL (<2.0); WBC,Urine 4 /hpf (0-5)
== END 2018-07-03 01:03 | disposition home or self-care (01) ==
LOC: EC 22:42
DX: R10.32 Left lower quadrant pain (principal); R31.9 Hematuria, unspecified; K59.00 Constipation, unspecified; J45.909 Unspecified asthma, uncomplicated; F17.200 Nicotine dependence, unspecified, uncomplicated; Z90.49 Acquired absence of other specified parts of digestive tract; Z53.29 Procedure and treatment not carried out because of patient's decision for other reasons; Z91.040 Latex allergy status; Z91.030 Bee allergy status
CPT/HCPCS: 36415; 80053; 82150; 83690; 85025; 81001; 81025; 74018; 93975; 76830; 99284; 96374; 96375; 96361; J2405; J1885

== ENCOUNTER 2018-10-10 21:33 | Emergency (ER) | payer OTHER ==
[2018-10-10 22:08] LABS: Amphetamine Screen,Urine Not Detected (NotDetected); Barbiturate Screen,Urine Not Detected (NotDetected); Benzodiazepines Screen,Urine Detected (NotDetected); Cocaine Screen,Urine Not Detected (NotDetected); Methadone Screen, Urine Detected (NotDetected); Opiate Screen,Urine Detected (NotDetected); Oxycodone Screen, Urine Not Detected (NotDetected); Phencyclidine Screen,Urine Not Detected (NotDetected); Tricyclic Antidepressant,Urine Not Detected (NotDetected); Urn Cannabinoid Scrn Detected (NotDetected)
[2018-10-10] MEDS ORDERED: NICOTINE 7MG/24HR PATCH TRANSDERM STA (22:30)
[2018-10-10 22:44] VITALS: TEMP 97.4
[2018-10-10] MEDS ORDERED: NALOXONE 0.4 MG/ML 10 ML VIAL IVP STA (23:25)
[2018-10-11 02:28] VITALS: BP 97/66; PULSE 109; RESP 17
--- NOTE | 2018-10-24 07:50 | ED ---
Overdose HPI - General Chief Complaint: Overdose Stated Complaint: OD Time Seen by Provider: 10/10/18 21:43 Source: EMS Mode of arrival: EMS Limitations: altered mental status - History of Present Illness Initial Comments: This patient is a 23-year-old woman who presents after having had an accidental overdose. The patient has had issues related to opioid dependence. She recently was cleaning and then she states she used tonight. She also admits to combining Klonopin plus and opioid. Patient here is alert and is denying any suicidal intent. She does contract for safety. She did have a dose of Narcan earlier. Complaint: accidental overdose -: minutes(s) How Overdose Was Discovered: family/friend present at time Context: Accidental Overdose: wanted to get high - Related Data Home Medications Medication Instructions Recorded Confirmed Albuterol Inhaler [Ventolin Hfa 1 - 2 puff INHALATION RT-Q6H PRN 07/02/18 Inhaler] Previous Rx's Medication Instructions Recorded Ketorolac [Toradol] 10 mg PO Q8HR #15 tab 07/03/18 Allergies Allergy/AdvReac Type Severity Reaction Status Date / Time Latex, Natural Rubber Allergy Rash/Hives Verified 10/10/18 21:34 venom-honey bee Allergy Swelling Verified 10/10/18 21:34 [bee venom (honey bee)] Review of Systems ROS Statement: Those systems with pertinent positive or pertinent negative responses have been documented in the HPI. ROS Other: All systems not noted in ROS Statement are negative. Constitutional: Denies: fever, chills, weakness Respiratory: Denies: cough, dyspnea Cardiovascular: Denies: chest pain, palpitations Gastrointestinal: Denies: abdominal pain, vomiting, diarrhea Genitourinary: Denies: dysuria Musculoskeletal: Denies: back pain Skin: Denies: rash Neurological: Denies: headache, weakness, numbness Psychiatric: Denies: depression, auditory hallucinations, visual hallucinations , suicidal thoughts Past Medical History Past Medical History: Asthma, Seizure Disorder Additional Past Medical History / Comment(s): HX: Recent injury to R ankle with ecchymosis and edema and pain, chronic back pain related to herniated disc , chronic migraines, endometriosis, multiple fractures, meningitis as child; ovarian cysts, alchol abuse, prescription drug abuse, heroin abuse in past., History of Any Multi-Drug Resistant Organisms: None Reported Past Surgical History: Section, Cholecystectomy, Ear Surgery, Orthopedic Surgery Additional Past Surgical History / Comment(s): ORIF right wrist, myringotomy with tubes as infant, Past Anesthesia/Blood Transfusion Reactions: No Reported Reaction Past Psychological History: Anxiety, Bipolar, Depression, Panic Disorder Smoking Status: Current every day smoker Past Alcohol Use History: Occasional Past Drug Use History: Heroin, Marijuana, Opiates, Prescription Drug Abuse - Past Family History Brother(s) Additional Family Medical History / Comment(s): Patient has 1 brother that is 20 years of age with no major medical problems. Patient has 1 son 3-1/2 years old with no major medical problems. Father Additional Family Medical History / Comment(s): Father is alive at age 54 with history of substance abuse, Schizophrenic, Bipolar Disorder Mother Additional Family Medical History / Comment(s): Mother is alive at age 47 with history of Arthritis. General Exam Limitations: altered mental status General appearance: alert, in no apparent distress Head exam: Present: atraumatic, normocephalic Eye exam: Present: normal appearance, PERRL, EOMI. Absent: scleral icterus, conjunctival injection, nystagmus ENT exam: Present: normal oropharynx Neck exam: Present: normal inspection, full ROM Respiratory exam: Present: normal lung sounds bilaterally. Absent: respiratory distress, wheezes, rales, rhonchi, stridor Cardiovascular Exam: Present: regular rate, normal rhythm, normal heart sounds. Absent: systolic murmur, diastolic murmur, rubs, gallop GI/Abdominal exam: Present: soft. Absent: distended, tenderness, guarding Extremities exam: Present: normal inspection, normal capillary refill. Absent: pedal edema, calf tenderness Neurological exam: Present: alert, oriented X3 Psychiatric exam: Present: normal affect, normal mood. Absent: depressed, homicidal ideation, suicidal ideation Skin exam: Present: warm, dry, intact, normal color. Absent: rash Course Vital Signs 10/10/18 10/10/18 10/10/18 21:34 22:31 23:09 Temperature 97.4 F L Pulse Rate 89 99 101 H Respiratory 18 17 13 Rate Blood Pressure 117/95 119/86 112/72 O2 Sat by Pulse 99 97 96 Oximetry 10/10/18 10/10/18 10/10/18 23:22 23:29 23:34 Temperature Pulse Rate 101 H 116 H Respiratory 11 L 13 15 Rate Blood Pressure 104/70 127/91 O2 Sat by Pulse 96 100 Oximetry 10/10/18 10/11/18 10/11/18 23:49 00:04 01:09 Temperature Pulse Rate 97 102 H Respiratory 19 17 16 Rate Blood Pressure 103/66 99/64 O2 Sat by Pulse 97 97 Oximetry 10/11/18 02:26 Temperature Pulse Rate 109 H Respiratory 17 Rate Blood Pressure 97/66 O2 Sat by Pulse 95 Oximetry Medical Decision Making - Medical Decision Making Patient is 23-year-old woman who is here following axonal overdose. She is observed a number of hours and then stated that she was going AGAINST MEDICAL ADVICE. We had recommended an observation admission given that she had taken methadone and it has a long half-life. She understands that Narcan has short half-life and she may [unconscious but she states that she'll be with someone who can watch her and that she'll deftly return. - Lab Data Lab Results 10/10/18 Range/Units 21:42 Urine Opiates Screen Detected H (NotDetected) Ur Oxycodone Screen Not Detected (NotDetected) Urine Methadone Screen Detected H (NotDetected) Ur Propoxyphene Screen Not Detected (NotDetected) Ur Barbiturates Screen Not Detected (NotDetected) U Tricyclic Antidepress Not Detected (NotDetected) Ur Phencyclidine Scrn Not Detected (NotDetected) Ur Amphetamines Screen Not Detected (NotDetected) U Methamphetamines Scrn Not Detected (NotDetected) U Benzodiazepines Scrn Detected H (NotDetected) Urine Cocaine Screen Not Detected (NotDetected) U Marijuana (THC) Screen Detected H (NotDetected) Disposition Clinical Impression: Overdose Disposition: Left Against Medical Advice Condition: Serious Is patient prescribed a controlled substance at d/c from ED?: No Referrals: None,Stated [Primary Care Provider] - 1-2 days
== END 2018-10-11 03:10 | disposition left against medical advice (07) ==
LOC: EC 21:33
DX: T40.3X1A Poisoning by methadone, accidental (unintentional), initial encounter (principal); T42.4X1A Poisoning by benzodiazepines, accidental (unintentional), initial encounter; T40.2X1A Poisoning by other opioids, accidental (unintentional), initial encounter; J45.909 Unspecified asthma, uncomplicated; F17.200 Nicotine dependence, unspecified, uncomplicated; Z91.040 Latex allergy status; Z91.030 Bee allergy status
CPT/HCPCS: 80306; 99284; 96374; S4990; J2310

== ENCOUNTER 2019-01-02 11:53 | Emergency (ER) | payer OTHER ==
[2019-01-02 12:01] VITALS: BP 113/71; PULSE 123; RESP 22; TEMP 98.6
--- NOTE | 2019-01-02 12:21 | ED ---
ENT HPI - General Chief complaint: ENT Stated complaint: Vomiting, Sore throat Time Seen by Provider: 01/02/19 12:13 Source: patient, RN notes reviewed Mode of arrival: ambulatory Limitations: no limitations - History of Present Illness Initial comments: 23-year-old female presents emergency from she was sore throat 5 days. Patient states has not improved. She's had fever 102 at home. Patient states soap painful swallowing can't swallow. Patient states that she's been taken Tylenol Motrin. She also has a history of drug abuse in which she states she has been using. Patient denies any nausea and diarrhea constipation. Patient offers no other complaints. - Related Data Previous Rx's Medication Instructions Recorded Amoxicillin 500 mg PO Q8H #30 capsule 01/02/19 Allergies Allergy/AdvReac Type Severity Reaction Status Date / Time Latex, Natural Rubber Allergy Rash/Hives Verified 01/02/19 12:11 venom-honey bee Allergy Swelling Verified 01/02/19 12:11 [bee venom (honey bee)] Review of Systems ROS Statement: Those systems with pertinent positive or pertinent negative responses have been documented in the HPI. ROS Other: All systems not noted in ROS Statement are negative. Past Medical History Past Medical History: Asthma, Seizure Disorder Additional Past Medical History / Comment(s): HX: Recent injury to R ankle with ecchymosis and edema and pain, chronic back pain related to herniated disc, chronic migraines, endometriosis, multiple fractures, meningitis as child; ovarian cysts, alchol abuse, prescription drug abuse, heroin abuse in past., History of Any Multi-Drug Resistant Organisms: None Reported Past Surgical History: Section, Cholecystectomy, Ear Surgery, Orthopedic Surgery Additional Past Surgical History / Comment(s): ORIF right wrist, myringotomy with tubes as infant, Past Anesthesia/Blood Transfusion Reactions: No Reported Reaction Past Psychological History: Anxiety, Bipolar, Depression, Panic Disorder Smoking Status: Current every day smoker Past Alcohol Use History: Occasional Past Drug Use History: Heroin, Marijuana, Opiates, Prescription Drug Abuse - Past Family History Brother(s) Additional Family Medical History / Comment(s): Patient has 1 brother that is 20 years of age with no major medical problems. Patient has 1 son 3-1/2 years old with no major medical problems. Father Additional Family Medical History / Comment(s): Father is alive at age 54 with history of substance abuse, Schizophrenic, Bipolar Disorder Mother Additional Family Medical History / Comment(s): Mother is alive at age 47 with history of Arthritis. General Exam Limitations: no limitations General appearance: alert, in no apparent distress Head exam: Present: atraumatic, normocephalic, normal inspection Eye exam: Present: normal appearance, PERRL, EOMI. Absent: scleral icterus, conjunctival injection, periorbital swelling ENT exam: Present: mucous membranes moist, TM's normal bilaterally. Absent: normal exam, normal oropharynx (Erythema with exudates on posterior pharynx, swallowing secretions well) Neck exam: Present: normal inspection. Absent: tenderness, meningismus, lymphadenopathy Respiratory exam: Present: normal lung sounds bilaterally. Absent: respiratory distress, wheezes, rales, rhonchi, stridor Cardiovascular Exam: Present: regular rate (Heart rate 96 on exam), normal rhythm, normal heart sounds. Absent: systolic murmur, diastolic murmur, rubs, gallop, clicks GI/Abdominal exam: Present: soft, normal bowel sounds. Absent: distended, tenderness, guarding, rebound, rigid Course Vital Signs 01/02/19 11:59 Temperature 98.6 F Pulse Rate 123 H Respiratory 22 Rate Blood Pressure 113/71 O2 Sat by Pulse 98 Oximetry Medical Decision Making - Medical Decision Making 23-year-old female present for sore throat patient has clinical strep pharyngitis, erythema, exudates. She has moist mucous membranes no sinus dehydration she was not tachycardic on exam. Patient be discharged return parameters discussed Disposition Clinical Impression: Streptococcal sore throat Disposition: HOME SELF-CARE Condition: Stable Instructions (If sedation given, give patient instructions): Strep Throat (ED) Additional Instructions: Please return to the Emergency Department if symptoms worsen or any other concerns. Prescriptions: Amoxicillin 500 mg PO Q8H #30 capsule Is patient prescribed a controlled substance at d/c from ED?: No Referrals: None,Stated [Primary Care Provider] - 1-2 days Time of Disposition: 12:21
== END 2019-01-02 12:30 | disposition home or self-care (01) ==
LOC: EC 11:53
DX: J02.0 Streptococcal pharyngitis (principal); F19.10 Other psychoactive substance abuse, uncomplicated; F17.200 Nicotine dependence, unspecified, uncomplicated; Z91.030 Bee allergy status; Z91.040 Latex allergy status; Z81.4 Family history of other substance abuse and dependence
CPT/HCPCS: 99283

== ENCOUNTER 2019-02-14 22:58 | Observation (INO) | payer OTHER ==
[2019-02-14] MEDS ORDERED: SODIUM CHLORIDE 0.9% 1,000 ML IV STA (23:08)
[2019-02-14] MEDS ORDERED: ONDANSETRON 4 MG/2 ML VIAL IVP STA (23:24)
[2019-02-14] MEDS ORDERED: NALOXONE 0.4 MG/ML 1 ML VIAL IV STA (23:24)
--- NOTE | 2019-02-14 23:31 | ED ---
Overdose HPI - General Source: patient, family Mode of arrival: wheelchair <Barbara Johnson - Last Filed: 02/14/19 23:24> <Arthur Call - Last Filed: 02/15/19 09:27> - General Chief Complaint: Overdose Stated Complaint: Mental Health Time Seen by Provider: 02/14/19 23:08 - History of Present Illness Initial Comments: Test is a 23-year-old female is brought to the emergency department today by her friend for concern of psychiatric illness and overdose. Patient reports she's been feeling depressed thoughts of hurting herself. She states that today she took some Suboxone, is in a bar and then also ran she cannot say how much of the Ultram she took but her friend was concerned it was an overdose in an attempt to harm or self so brought her to the ER for evaluation. Patient cannot provide further history upon arrival she continuously falls asleep during conversation. (Barbara Johnson) - Related Data Home Medications Medication Instructions Recorded Confirmed Albuterol Inhaler [Ventolin Hfa 2 puff INHALATION RT-Q6H PRN 02/15/19 02/15/19 Inhaler] Allergies Allergy/AdvReac Type Severity Reaction Status Date / Time Latex, Natural Rubber Allergy Rash/Hives Verified 02/15/19 08:44 venom-honey bee Allergy Swelling Verified 02/15/19 08:44 [bee venom (honey bee)] Review of Systems Limitations: ROS unobtainable due to patients medical condition (Altered) <Barbara Johnson - Last Filed: 02/14/19 23:24> ROS Other: All systems not noted in ROS Statement are negative. <Arthur Call - Last Filed: 02/15/19 09:27> ROS Statement: Those systems with pertinent positive or pertinent negative responses have been documented in the HPI. Past Medical History Past Medical History: Asthma, Seizure Disorder Additional Past Medical History / Comment(s): HX: Recent injury to R ankle with ecchymosis and edema and pain, chronic back pain related to herniated disc, chronic migraines, endometriosis, multiple fractures, meningitis as child; ovarian cysts, alchol abuse, prescription drug abuse, heroin abuse in past., History of Any Multi-Drug Resistant Organisms: None Reported Past Surgical History: Section, Cholecystectomy, Ear Surgery, Orthopedic Surgery Additional Past Surgical History / Comment(s): ORIF right wrist, myringotomy wi th tubes as , Past Anesthesia/Blood Transfusion Reactions: No Reported Reaction Past Psychological History: Anxiety, Bipolar, Depression, Panic Disorder Smoking Status: Current every day smoker Past Alcohol Use History: Occasional Past Drug Use History: Heroin, Marijuana, Opiates, Prescription Drug Abuse - Past Family History Brother(s) Additional Family Medical History / Comment(s): Patient has 1 brother that is 20 years of age with no major medical problems. Patient has 1 son 3-1/2 years old with no major medical problems. Father Additional Family Medical History / Comment(s): Father is alive at age 54 with history of substance abuse, Schizophrenic, Bipolar Disorder Mother Additional Family Medical History / Comment(s): Mother is alive at age 47 with history of Arthritis. <Barbara Johnson P - Last Filed: 02/14/19 23:24> General Exam <Barbara Johnson - Last Filed: 02/14/19 23:24> - General Exam Comments Initial Comments: Physical Exam GENERAL: Sleeping, wakes to physical stimulation, repeatedly falls back asleep if she is not stimulated HENT: Normocephalic, Atraumatic. EYES: PERRL, EOMI Pupils 3 mm reactive bilaterally PULMONARY: Unlabored respirations. No audible rales rhonchi or wheezing was noted. CARDIOVASCULAR: Tachycardic, regular warm and well perfused extremities ABDOMEN: Soft and nontender with normal bowel sounds. SKIN: Skin is clear with no lesions or rashes and otherwise unremarkable. : Deferred NEUROLOGIC: Patient is sedated but wakes and is alert and oriented 3 MUSCULOSKELETAL: Normal extremities with adequate strength and full range of motion. No lower ex tremity swelling or edema. No calf tenderness. PSYCHIATRIC: Depressed with thoughts of harming herself or others (Barbara Johnson) Course Vital Signs 02/14/19 02/14/19 02/14/19 23:01 23:10 23:20 Temperature 97.8 F Pulse Rate 116 H 112 H 106 H Respiratory 16 12 13 Rate Blood Pressure 106/72 118/59 O2 Sat by Pulse 95 100 97 Oximetry 02/14/19 02/14/19 02/15/19 23:30 23:40 00:07 Temperature Pulse Rate 101 H 98 93 Respiratory 12 13 14 Rate Blood Pressure 113/73 105/64 91/55 O2 Sat by Pulse 100 100 99 Oximetry 02/15/19 02/15/19 02/15/19 00:30 01:00 02:29 Temperature Pulse Rate 93 92 85 Respiratory 12 12 16 Rate Blood Pressure 94/50 93/46 98/69 O2 Sat by Pulse 100 100 Oximetry 02/15/19 02/15/19 02/15/19 02:30 03:00 03:40 Temperature Pulse Rate 85 82 81 Respiratory 12 14 14 Rate Blood Pressure 98/69 96/68 99/68 O2 Sat by Pulse 97 100 100 Oximetry 02/15/19 02/15/19 02/15/19 04:10 04:50 05:00 Temperature Pulse Rate 81 86 86 Respiratory 15 12 14 Rate Blood Pressure 109/76 107/85 107/85 O2 Sat by Pulse 100 100 99 Oximetry Medical Decision Making - EKG Data -: EKG Interpreted by Tx <Barbara Johnson - Last Filed: 02/14/19 23:24> - Lab Data Result diagrams: 02/14/19 23:20 02/14/19 23:20 <Arthur Call - Last Filed: 02/15/19 09:27> - Medical Decision Making 23-year-old female status post substance overdose. Patient medically cleared by previous physician, care is signed out awaiting reevaluation and EPS evaluation. Patient is arousable, she will answer simple questions after 10 hours of ER observation. She is unable to complete a complete psychiatric evaluation and therefore will be placed in observation with psychiatry on consult. Diagnosis: Polysubstance abuse, overdose, suicidal ideation. (Arthur Call) - Lab Data Lab Results 02/14/19 02/14/19 02/14/19 Range/Units 23:20 23:20 23:45 WBC 6.8 (3.8-10.6) k/uL RBC 3.88 (3.80-5.40) m/uL Hgb 11.0 L (11.4-16.0) gm/dL Hct 34.1 (34.0-46.0) % MCV 87.9 (80.0-100.0) fL MCH 28.4 (25.0-35.0) pg MCHC 32.3 (31.0-37.0) g/dL RDW 13.9 (11.5-15.5) % Plt Count 228 (150-450) k/uL Neutrophils % 57 % Lymphocytes % 30 % Monocytes % 7 % Eosinophils % 3 % Basophils % 0 % Neutrophils # 3.9 (1.3-7.7) k/uL Lymphocytes # 2.0 (1.0-4.8) k/uL Monocytes # 0.5 (0-1.0) k/uL Eosinophils # 0.2 (0-0.7) k/uL Basophils # 0.0 (0-0.2) k/uL Sodium 140 (137-145) mmol/L Potassium 3.4 L (3.5-5.1) mmol/L Chloride 106 (98-107) mmol/L Carbon Dioxide 25 (22-30) mmol/L Anion Gap 9 mmol/L BUN 8 (7-17) mg/dL Creatinine 0.48 L (0.52-1.04) mg/dL Est GFR (CKD-EPI)AfAm >90 (>60 ml/min/1.73 sqM) Est GFR (CKD-EPI)NonAf >90 (>60 ml/min/1.73 sqM) Glucose 121 H (74-99) mg/dL Calcium 9.0 (8.4-10.2) mg/dL Total Bilirubin 0.7 (0.2-1.3) mg/dL AST 80 H (14-36) U/L ALT 115 H (9-52) U/L Alkaline Phosphatase 76 (38-126) U/L Total Protein 7.0 (6.3-8.2) g/dL Albumin 4.0 (3.5-5.0) g/dL Urine HCG, Qual (Not Detectd) Salicylates <1.0 mg/dL Urine Opiates Screen Not Detected (NotDetected) Ur Oxycodone Screen Not Detected (NotDetected) Urine Methadone Screen Not Detected (NotDetected) Ur Propoxyphene Screen Not Detected (NotDetected) Acetaminophen <10.0 ug/mL Ur Barbiturates Screen Not Detected (NotDetected) U Tricyclic Antidepress Not Detected (NotDetected) Ur Phencyclidine Scrn Not Detected (NotDetected) Ur Amphetamines Screen Detected H (NotDetected) U Methamphetamines Scrn Detected H (NotDetected) U Benzodiazepines Scrn Detected H (NotDetected) Urine Cocaine Screen Not Detected (NotDetected) U Marijuana (THC) Screen Detected H (NotDetected) Serum Alcohol <10 mg/dL 02/14/19 Range/Units 23:45 WBC (3.8-10.6) k/uL RBC (3.80-5.40) m/uL Hgb (11.4-16.0) gm/dL Hct (34.0-46.0) % MCV (80.0-100.0) fL MCH (25.0-35.0) pg MCHC (31.0-37.0) g/dL RDW (11.5-15.5) % Plt Count (150-450) k/uL Neutrophils % % Lymphocytes % % Monocytes % % Eosinophils % % Basophils % % Neutrophils # (1.3-7.7) k/uL Lymphocytes # (1.0-4.8) k/uL Monocytes # (0-1.0) k/uL Eosinophils # (0-0.7) k/uL Basophils # (0-0.2) k/uL Sodium (137-145) mmol/L Potassium (3.5-5.1) mmol/L Chloride (98-107) mmol/L Carbon Dioxide (22-30) mmol/L Anion Gap mmol/L BUN (7-17) mg/dL Creatinine (0.52-1.04) mg/dL Est GFR (CKD-EPI)AfAm (>60 ml/min/1.73 sqM) Est GFR (CKD-EPI)NonAf (>60 ml/min/1.73 sqM) Glucose (74-99) mg/dL Calcium (8.4-10.2) mg/dL Total Bilirubin (0.2-1.3) mg/dL AST (14-36) U/L ALT (9-52) U/L Alkaline Phosphatase (38-126) U/L Total Protein (6.3-8.2) g/dL Albumin (3.5-5.0) g/dL Urine HCG, Qual Not Detected (Not Detectd) Salicylates mg/dL Urine Opiates Screen (NotDetected) Ur Oxycodone Screen (NotDetected) Urine Methadone Screen (NotDetected) Ur Propoxyphene Screen (NotDetected) Acetaminophen ug/mL Ur Barbiturates Screen (NotDetected) U Tricyclic Antidepress (NotDetected) Ur Phencyclidine Scrn (NotDetected) Ur Amphetamines Screen (NotDetected) U Methamphetamines Scrn (NotDetected) U Benzodiazepines Scrn (NotDetected) Urine Cocaine Screen (NotDetected) U Marijuana (THC) Screen (NotDetected) Serum Alcohol mg/dL - EKG Data EKG Comments: EKG was obtained due to complaint of overdose, EKG obtained at 2317, rate is 110 rhythm is sinus tachycardia there is normal axis there are normal intervals, OH 164, humerus 88, QTC is 492 there are no acute ST elevations or depressions no evidence of acute ischemia or infarction or arrhythmia. (Barbara Johnson) Disposition <Barbara Johnson - Last Filed: 02/14/19 23:24> Is patient prescribed a controlled substance at d/c from ED?: No Decision to Admit Reason: Admit from EC Decision Date: 02/15/19 Decision Time: 09:27 <Arthur Call - Last Filed: 02/15/19 09:27> Clinical Impression: Suicide attempt, Depression, Suicidal ideation, Overdose Disposition: ADMITTED IP TO THIS [facility] Condition: Stable Referrals: None,Stated [Primary Care Provider] - 1-2 days
[2019-02-14 23:35] LABS: Basophils % (A) 0 %; Eosinophils # (A) 0.2 k/uL (0-0.7); Eosinophils % (A) 3 %; HCT 34.1 % (34.0-46.0); Lymphocytes % (A) 30 %; MCH 28.4 pg (25.0-35.0); MCHC 32.3 g/dL (31.0-37.0); MCV 87.9 fL (80.0-100.0); Mean Platelet Volume 6.9; Monocytes # (A) 0.5 k/uL (0-1.0); Monocytes % (A) 7 %; Neutrophils # (A) 3.9 k/uL (1.3-7.7); Neutrophils % (A) 57 %; Platelet Count 228 k/uL (150-450); RBC 3.88 m/uL (3.80-5.40); RDW 13.9 % (11.5-15.5); WBC 6.8 k/uL (3.8-10.6)
[2019-02-14 23:50] LABS: ALT 115 U/L (9-52); AST 80 U/L (14-36); Acetaminophen <10.0 ug/mL; African American GFR (CKD) >90 (>60 ml/min/1.73 sqM); Alcohol <10 mg/dL; Alkaline Phosphatase 76 U/L (38-126); Anion Gap 9 mmol/L; Blood Urea Nitrogen 8 mg/dL (7-17); Carbon Dioxide 25 mmol/L (22-30); Chloride 106 mmol/L (98-107); Glucose 121 mg/dL (74-99); Potassium 3.4 mmol/L (3.5-5.1); Salicylate <1.0 mg/dL; Sodium 140 mmol/L (137-145); Total Bilirubin 0.7 mg/dL (0.2-1.3)
[2019-02-15 00:23] LABS: Amphetamine Screen,Urine Detected (NotDetected); Barbiturate Screen,Urine Not Detected (NotDetected); Benzodiazepines Screen,Urine Detected (NotDetected); Cocaine Screen,Urine Not Detected (NotDetected); Methadone Screen, Urine Not Detected (NotDetected); Opiate Screen,Urine Not Detected (NotDetected); Oxycodone Screen, Urine Not Detected (NotDetected); Phencyclidine Screen,Urine Not Detected (NotDetected); Tricyclic Antidepressant,Urine Not Detected (NotDetected); Urn Cannabinoid Scrn Detected (NotDetected)
[2019-02-15] MEDS ORDERED: NALOXONE 0.4 MG/ML 1 ML VIAL IV PRN (09:25)
[2019-02-15] MEDS ORDERED: LORazepam 2 MG/ML INJ IV PRN (18:56)
--- NOTE | 2019-02-16 01:36 | P.HPIM ---
History of Present Illness H&P Date: 02/15/19 Chief Complaint: Acute overdose Patient is a 23-year-old female with a known history of asthma, seizure disorder, anxiety/depression and bipolar disorder and panic disorder and currently everyday smoker was brought to the ER by her boyfriend due to concern for psychiatric illness and social ideation and overdose.Patient reports she's been feeling depressed thoughts of hurting herself. She states that today she took some Suboxone, is in a bar and then also ran she cannot say how much of the Ultram she took but her friend was concerned it was an overdose in an attempt to harm or self so brought her to the ER for evaluation. Patient says that she is released from group home 2 weeks ago. She has been having suicidal thoughts and trying to hurt herself by taking medications. Patient says that she takes Suboxone but last dose was taken to weeks ago. No complaints of chest pain or shortness of breath. No nausea vomiting or abdominal pain. No diarrhea. No dysuria or hematuria. UDS is positive for amphetamines, methamphetamines, benzodiazepines and marijuana. Review of Systems Constitutional: Patient denies any fever or chills . No generalized weakness or weight loss. Abdomen: Patient denied nausea vomiting and diarrhea and abdominal pain. Cardiovascular: Patient denies any chest pain or short of breath no pa lpitations. Respiratory: patient denied any cough is from production. No shortness of breath Neurologic: Patient denied any numbness or tingling headache. Complete review of systems could not be assessed at this time. Past Medical History Past Medical History: Asthma, Seizure Disorder Additional Past Medical History / Comment(s): HX: Recent injury to R ankle with ecchymosis and edema and pain, chronic back pain related to herniated disc, chronic migraines, endometriosis, multiple fractures, meningitis as child; o varian cysts, alchol abuse, prescription drug abuse, heroin abuse in past., History of Any Multi-Drug Resistant Organisms: None Reported Past Surgical History: Section, Cholecystectomy, Ear Surgery, Orthopedic Surgery Additional Past Surgical History / Comment(s): ORIF right wrist, myringotomy with tubes as , Past Anesthesia/Blood Transfusion Reactions: No Reported Reaction Past Psychological History: Anxiety, Bipolar, Depression, Panic Disorder Additional Psychological History / Comment(s): pt states " she wants to " Smoking Status: Current every day smoker Past Alcohol Use History: Occasional Additional Past Alcohol Use History / Comment(s): Pt abuses alcohol and was last known to have drank 2 weeks ago. Pt has hx of heroin use and states she used heroin last nite and had been warned that "it was a strong kind." She also has hx of prescription drug abuse, benzo's, klonopin, xanax and marijuana use. Past Drug Use History: Heroin, Marijuana, Opiates, Prescription Drug Abuse Additional Drug Use History / Comment(s): See addition past alcohol use section. - Past Family History Brother(s) Additional Family Medical History / Comment(s): Patient has 1 brother that is 20 years of age with no major medical problems. Patient has 1 son 3-1/2 years old with no major medical problems. Father Additional Family Medical History / Comment(s): Father is alive at age 54 with history of substance abuse, Schizophrenic, Bipolar Disorder Mother Additional Family Medical History / Comment(s): Mother is alive at age 47 with history of Arthritis. Medications and Allergies Home Medications Medication Instructions Recorded Confirmed Type Albuterol Inhaler [Ventolin Hfa 2 puff INHALATION RT-Q6H PRN 02/15/19 02/15/19 History Inhaler] Allergies Allergy/AdvReac Type Severity Reaction Status Date / Time Latex, Natural Rubber Allergy Rash/Hives Verified 02/15/19 08:44 venom-honey bee Allergy Swelling Verified 02/15/19 08:44 [bee venom (honey bee)] Physical Exam Vitals: Vital Signs Temp Pulse Pulse Resp BP BP Pulse Ox 02/15/19 15:09 92 15 02/15/19 12:29 92 15 02/15/19 11:42 98 F 92 15 80/47 100 02/15/19 10:20 60 16 103/69 97 02/15/19 05:00 86 14 107/85 99 02/15/19 04:50 86 12 107/85 100 02/15/19 04:10 81 15 109/76 100 02/15/19 03:40 81 14 99/68 100 02/15/19 03:00 82 14 96/68 100 02/15/19 02:30 85 12 98/69 97 02/15/19 02:29 85 16 98/69 100 02/15/19 01:00 92 12 93/46 02/15/19 00:30 93 12 94/50 100 02/15/19 00:07 93 14 91/55 99 02/14/19 23:40 98 13 105/64 100 02/14/19 23:30 101 H 12 113/73 100 02/14/19 23:20 106 H 13 118/59 97 02/14/19 23:10 112 H 12 100 02/14/19 23:01 97.8 F 116 H 16 106/72 95 Intake and Output 02/15/19 02/15/19 02/15/19 06:59 14:59 22:59 Intake Total 480 Balance 480 Intake: Oral 480 Other: # Voids 2 2 Weight 68.039 kg PHYSICAL EXAMINATION: Patient is lying in the bed comfortably, no acute distress, awake alert and oriented.. HEENT: Normocephalic. Neck is supple. Pupils reactive. Nostrils clear. Oral cavity is moist. Ears reveal no drainage. Neck reveals no JVD, carotid bruits, or thyromegaly. CHEST EXAMINATION: Trachea is central. Symmetrical expansion. Lung norwood clear to auscultation and percussion. CARDIAC: Normal S1, S2 with no gallops. No murmurs ABDOMEN: Soft. Bowel sounds normal. No organomegaly. No abdominal bruits. Extremities: reveal no edema. No clubbing or cyanosis Neurologically awake, alert, oriented x2-3 with well-coordinated movements. No focal deficits noted Skin: No rash or skin lesions. Psychiatric: Coperative. Anxious. Musculoskeletal: No joint swelling or deformity. Normal range of motion. Results CBC & Chem 7: 02/14/19 23:20 02/14/19 23:20 Labs: Abnormal Lab Results - Last 24 Hours (Table) 02/14/19 02/14/19 02/14/19 Range/Units 23:20 23:20 23:45 Hgb 11.0 L (11.4-16.0) gm/dL Potassium 3.4 L (3.5-5.1) mmol/L Creatinine 0.48 L (0.52-1.04) mg/dL Glucose 121 H (74-99) mg/dL AST 80 H (14-36) U/L ALT 115 H (9-52) U/L Ur Amphetamines Screen Detected H (NotDetected) U Methamphetamines Scrn Detected H (NotDetected) U Benzodiazepines Scrn Detected H (NotDetected) U Marijuana (THC) Screen Detected H (NotDetected) Thrombosis Risk Factor Assmnt - DVT/VTE Prophylaxis DVT/VTE Prophylaxis: Mechanical Prophylaxis ordered Assessment and Plan Assessment: Acute drug overdose Suicidal ideation Anxiety/depression and bipolar disorder History of seizure disorder Nicotine addiction Polysubstance abuse. Was on Suboxone 2 weeks ago Chronic back pain related to herniated disc Chronic migraine headaches History of alcohol abuse and prescription drug abuse and had abuse in the past. Plan: Patient will be continued on IV hydration. Monitor closely and supportive management. Psychiatric will be consulted. Continue with bedside sitter. Ativan IV when necessary for anxiety/agitation. Further recommendations based on the clitoral course. Time with Patient: Greater than 30
[2019-02-16 04:25] VITALS: RESP 16
[2019-02-16 11:32] VITALS: BP 103/66; PULSE 94; TEMP 98.5
--- NOTE | 2019-02-17 16:53 | P.DS ---
Providers Date of admission: 02/15/19 09:25 Expected date of discharge: 02/16/19 Attending physician: Karen Baez Consults: 02/15/19 09:25 Consult Physician Routine Consulting Provider: Malgorzata Nolan Consult Reason/Comments: Polysubstance abuse, overdose, suicidal ideation Do you want consulting provider notified?: Yes Primary care physician: Stated None Hospital Course: Discharge diagnosis Acute drug overdose Suicidal ideation Anxiety/depression and bipolar disorder History of seizure disorder Nicotine addiction Polysubstance abuse. Was on Suboxone 2 weeks ago Chronic back pain related to herniated disc Chronic migraine headaches History of alcohol abuse and prescription drug abuse and had abuse in the past. Patient is a 23-year-old female with a known history of asthma, seizure disorder, anxiety/depression and bipolar disorder and panic disorder and currently everyday smoker was brought to the ER by her boyfriend due to concern for psychiatric illness and social ideation and overdose.Patient reports she's been feeling depressed thoughts of hurting herself. She states that today she took some Suboxone, is in a bar and then also ran she cannot say how much of the Ultram she took but her friend was concerned it was an overdose in an attempt to harm or self so brought her to the ER for evaluation. Patient says that she is released from custodial 2 weeks ago. She has been having suicidal thoughts and trying to hurt herself by taking medications. Patient says that she takes Suboxone but last dose was taken to weeks ago. No complaints of chest pain or shortness of breath. No nausea vomiting or abdominal pain. No diarrhea. No dysuria or hematuria. UDS is positive for amphetamines, methamphetamines, benzodiazepines and marijuana. Patient was continued on IV fluids and supportive management. Patient is currently awake alert oriented 3. Patient was seen by psychiatric and recommends inpatient psychiatric admission. Patient is otherwise medically stable to be transferred to inpatient psychiatric unit. Current medications reviewed. PHYSICAL EXAMINATION: Patient is lying in the bed comfortably, no acute distress, awake alert and oriented.. HEENT: Normocephalic. Neck is supple. Pupils reactive. Nostrils clear. Oral cavity is moist. Ears reveal no drainage. Neck reveals no JVD, carotid bruits, or thyromegaly. CHEST EXAMINATION: Trachea is central. Symmetrical expansion. Lung norwood clear to auscultation and percussion. CARDIAC: Normal S1, S2 with no gallops. No murmurs ABDOMEN: Soft. Bowel sounds normal. No organomegaly. No abdominal bruits. Extremities: reveal no edema. No clubbing or cyanosis Neurologically awake, alert, oriented x3 with well-coordinated movements. No focal deficits noted Skin: No rash or skin lesions. Psychiatric: Coperative. Nonsuicidal Musculoskeletal: No joint swelling or deformity. Normal range of motion. Discharge vitals reviewed.. Patient Condition at Discharge: Stable Plan - Discharge Summary New Discharge Prescriptions: Continue Albuterol Inhaler [Ventolin Hfa Inhaler] 2 puff INHALATION RT-Q6H PRN PRN Reason: Shortness Of Breath No Action Buprenorphine HCl/Naloxone HCl [Suboxone 8 mg-2 mg Sl Film] 1 film SL DAILY Discharge Medication List Albuterol Inhaler [Ventolin Hfa Inhaler] 2 puff INHALATION RT-Q6H PRN 02/15/19 [History] Buprenorphine HCl/Naloxone HCl [Suboxone 8 mg-2 mg Sl Film] 1 film SL DAILY 02/16/19 [History] Follow up Appointment(s)/Referral(s): None,Stated [Primary Care Provider] - 1-2 days Patient Instructions/Handouts: Depression (DC), Suicide Prevention (DC) Discharge Disposition: TRANSFER TO PSYCH HOSP/UNIT
== END 2019-02-16 17:40 ==
LOC: EC 22:58 → 3NMEDONC 02-15 09:25
PROVIDERS: ADMIT Hospitalist; ATTEND Hospitalist
DX: T50.7X2A Poisoning by analeptics and opioid receptor antagonists, intentional self-harm, initial encounter (principal); G43.909 Migraine, unspecified, not intractable, without status migrainosus; G40.909 Epilepsy, unspecified, not intractable, without status epilepticus; F31.9 Bipolar disorder, unspecified; F41.9 Anxiety disorder, unspecified; J45.909 Unspecified asthma, uncomplicated; F41.0 Panic disorder [episodic paroxysmal anxiety]; Z91.030 Bee allergy status; Z91.040 Latex allergy status; R45.851 Suicidal ideations; G89.29 Other chronic pain; F17.200 Nicotine dependence, unspecified, uncomplicated; Z86.61 Personal history of infections of the central nervous system; Z90.49 Acquired absence of other specified parts of digestive tract; Z79.899 Other long term (current) drug therapy; Z81.8 Family history of other mental and behavioral disorders
CPT/HCPCS: 96375 ×2; 96361; 96374; 99285; 36415; 93005; 80053; 85025; 81025; 80306; 83520; 80329; 80320; G0378 ×2; J2060; J2310; J2405

== ENCOUNTER 2019-02-16 13:59 | Inpatient (IN) | payer MEDICAID, OTHER ==
[2019-02-16] MEDS ORDERED: MAG HYDROX/AL HYDROX/SIMETH 30 ML CUP PO PRN (17:52)
[2019-02-16] MEDS ORDERED: MAGNESIUM HYDROXIDE 2,400 MG/10 ML CUP PO PRN (17:52)
[2019-02-16 18:50] VITALS: BMI 22.1
[2019-02-16] MEDS: LORazepam 1 MG TAB PO PRN (20:13)
[2019-02-16] MEDS: ACETAMINOPHEN TAB 325 MG TAB PO PRN (20:13)
[2019-02-16] MEDS: NICOTINE 14MG/24HR PATCH TRANSDERM SCH (20:14)
[2019-02-17] MEDS: NICOTINE 14MG/24HR PATCH TRANSDERM SCH (07:42)
[2019-02-17] MEDS: ACETAMINOPHEN TAB 325 MG TAB PO PRN ×2 (07:44→18:23)
[2019-02-17] MEDS: LORazepam 1 MG TAB PO PRN (08:51)
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
[2019-02-17] MEDS: lamoTRIgine 25 MG TAB PO SCH (09:37)
[2019-02-17] MEDS: hydrOXYzine PAMOATE 25 MG CAP PO PRN ×2 (10:32→17:10)
[2019-02-17] MEDS: LORazepam 0.5 MG TAB PO PRN (16:08)
--- NOTE | 2019-02-17 16:59 | P.MDCNMH ---
History of Present Illness H&P Date: 02/17/19 Chief Complaint: Depression with suicidal ideation Patient is a 23-year-old female with a known history of asthma, seizure disorder, anxiety/depression and bipolar disorder and panic disorder and currently everyday smoker was initially admitted to the hospital due to acute d rug overdose in an attempt to harm herself. Patient was recently released from half-way. UDS is positive for amphetamines, methamphetamines, benzodiazepines and marijuana. Patient says that she was using Suboxone before. Patient was taking the med/ surge unit and was cleared medically. Patient is currently admitted to inpatient psychiatric unit. Ad ramon. patient denied any complaints of chest pain or shortness of breath. No nausea vomiting or abdominal pain. No diarrhea. No dysuria or hematuria. No fever no chills. Patient says that she is feeling better now. No headache or dizziness or l ightheadedness. Review of Systems Constitutional: Patient denies any fever or chills . No generalized weakness or weight loss. Abdomen: Patient denied nausea vomiting and diarrhea and abdominal pain. Cardiovascular: Patient denies any chest pain or short of breath no palpitations. Respiratory: patient denied any cough is from production. No shortness of breath Neurologic: Patient denied any numbness or tingling headache. Musculoskeletal: Patient denies any complaints of joint swelling or deformity. Skin: Negative Psychiatric: Negative Endocrine: No heat or cold intolerance. No recent weight gain. Genitourinary: No dysuria or hematuria. All other 14 point ROS negative except the above Past Medical History Past Medical History: Asthma, Seizure Disorder Additional Past Medical History / Comment(s): HX: Recent injury to R ankle with ecchymosis and edema and pain, chronic back pain related to herniated disc, chronic migraines, endometriosis, multiple fractures, meningitis as child; ovarian cysts, prescription drug abuse, heroin abuse in past., History of Any Multi-Drug Resistant Organisms: None Reported Past Surgical History: Section, Cholecystectomy, Ear Surgery, Orthopedic Surgery Additional Past Surgical History / Comment(s): ORIF right wrist, myringotomy with tubes as , Past Anesthesia/Blood Transfusion Reactions: No Reported Reaction Past Psychological History: Anxiety, Bipolar, Depression, Panic Disorder, PTSD Additional Psychological History / Comment(s): pt states " she wants to " Smoking Status: Current every day smoker Past Alcohol Use History: Occasional Additional Past Alcohol Use History / Comment(s): Pt abuses alcohol and was last known to have drank 2 weeks ago. Pt has hx of heroin use and states she used heroin last nite and had been warned that "it was a strong kind." She also has hx of prescription drug abuse, benzo's, klonopin, xanax and marijuana use. Past Drug Use History: Heroin, Marijuana, Opiates, Prescription Drug Abuse Additional Drug Use History / Comment(s): See addition past alcohol use section. - Past Family History Brother(s) Additional Family Medical History / Comment(s): Patient has 1 brother that is 20 years of age with no major medical problems. Patient has 1 son 3-1/2 years old with no major medical problems. Father Additional Family Medical History / Comment(s): Father is alive at age 54 with history of substance abuse, Schizophrenic, Bipolar Disorder Mother Additional Family Medical History / Comment(s): Mother is alive at age 47 with history of Arthritis. Medications and Allergies Home Medications Medication Instructions Recorded Confirmed Type Albuterol Inhaler [Ventolin Hfa 2 puff INHALATION RT-Q6H PRN 02/15/19 02/16/19 History Inhaler] Buprenorphine HCl/Naloxone HCl 1 film SL DAILY 02/16/19 02/16/19 History [Suboxone 8 mg-2 mg Sl Film] Allergies Allergy/AdvReac Type Severity Reaction Status Date / Time Latex, Natural Rubber Allergy Rash/Hives Verified 02/16/19 19:04 venom-honey bee Allergy Swelling Verified 02/16/19 19:04 [bee venom (honey bee)] Physical Exam Vitals: Vital Signs Temp Pulse Resp BP 02/17/19 06:35 98.4 F 86 14 103/60 02/16/19 18:39 97.1 F L 102 H 16 108/82 PHYSICAL EXAMINATION: Patient is lying in the bed comfortably, no acute distress, awake alert and oriented.. HEENT: Normocephalic. Neck is supple. Pupils reactive. Nostrils clear. Oral cavity is moist. Ears reveal no drainage. Neck reveals no JVD, carotid bruits, or thyromegaly. CHEST EXAMINATION: Trachea is central. Symmetrical expansion. Lung norwood clear to auscultation and percussion. CARDIAC: Normal S1, S2 with no gallops. No murmurs ABDOMEN: Soft. Bowel sounds normal. No organomegaly. No abdominal bruits. Extremities: reveal no edema. No clubbing or cyanosis Neurologically awake, alert, oriented x3 with well-coordinated movements. No focal deficits noted Skin: No rash or skin lesions. Psychiatric: Coperative. Nonsuicidal Musculoskeletal: No joint swelling or deformity. Normal range of motion. Cranial Nerve Examination - Cranial Nerves Cranial Nerve I- Olfactory: Intact Cranial Nerve II- Optic: Intact Cranial Nerve III- Oculomotor: Intact Cranial Nerve IV- Trochlear: Intact Cranial Nerve V- Trigeminal: Intact Cranial Nerve - Abducens: Intact Cranial Nerve VII- Facial: Intact Cranial Nerve VIII- Auditory: Intact Cranial Nerve IX- Glossopharyngeal: Intact Cranial Nerve X- Vagus: Intact Cranial Nerve XI- Accessory: Intact Cranial Nerve XII- Hypoglossal: Intact Results Labs: Abnormal Lab Results - Last 24 Hours (Table) 02/17/19 Range/Units 08:52 HDL Cholesterol 34 L (40-60) mg/dL Assessment and Plan Assessment: Acute drug overdose on admission. Suicidal ideation/attempt Anxiety/depression and bipolar disorder History of seizure disorder Nicotine addiction Polysubstance abuse. Was on Suboxone 2 weeks ago Chronic back pain related to herniated disc Chronic migraine headaches History of alcohol abuse and prescription drug abuse and had abuse in the past. plan: Patient will be continued on current psychiatric medications. Monitor for opiate withdrawal symptoms. Nicotine patch has been applied. Smoking cessation has been counseled extensively. We will continue to follow and further recommendations based on the clinical course. Thank you for your consult. Time with Patient: Greater than 30
[2019-02-17] MEDS: LURASIDONE 20 MG TAB PO SCH (17:08)
[2019-02-17] MEDS: NICOTINE POLACRILEX 2 MG GUM BUCCAL PRN (17:08)
[2019-02-17] MEDS ORDERED: PRAZOSIN 1 MG CAP PO SCH (21:00)
[2019-02-17 21:07] LABS: Hemoglobin A1C 5.6 % (4.0-6.0)
[2019-02-18] MEDS: lamoTRIgine 25 MG TAB PO SCH (08:26)
[2019-02-18] MEDS: LORazepam 0.5 MG TAB PO PRN ×2 (08:27→16:10)
[2019-02-18] MEDS: NICOTINE POLACRILEX 2 MG GUM BUCCAL PRN ×3 (08:28→20:58)
[2019-02-18] MEDS: hydrOXYzine PAMOATE 25 MG CAP PO PRN ×2 (11:02→20:57)
--- NOTE | 2019-02-18 12:42 | P.PN ---
Progress Note - Text Progress Note Date: 02/18/19 Interval History: Patient is a 23-year-old female is being seen in coverage over the weekend, she states that she didn't take the prazosin last night as her blood pressure was low. She states that she had difficulty falling asleep and staying asleep. She states that she still feels depressed but is not having any suicidal thoughts. She states that she's been trying the Vistaril for her anxiety with some moderate effect. She states that she's been attending groups and activities and does like them. She reports no side effects from the medication. Mental Status: Appearance/Attitude: Patient is neatly and appropriately dressed, makes eye contact and was cooperative during the interview. Behavior: Patient did not exhibit any psychomotor agitation or retardation. Speech/Language: Patient's speech is spontaneous of normal volume and rhythm and she is coherent. Thought Process: Patient is goal-directed there is no evidence of loose association or flight of ideas Thought Content: Patient denies any auditory or visual hallucinations and no delusions or paranoid ideation or elicited. Patient states he continues to feel depressed, tired and is having difficulty falling and staying asleep. She states that she didn't have any nightmares last night and declined the prazosin because her blood pressure is been running low. Patient reports that she is eating fairly well. Suicidal/Homicidal Ideation: Patient denies any current suicidal or homicidal ideation. Sensorium/Cognition: She is alert and oriented to person, place, time and her recent and remote memory are grossly intact Mood/Affect: Patient's mood remains depressed her affect appropriate to her mood Insight/Judgment: Patient's insight and judgment are fair Assessment: Patient reports no side effects from medication, she declined prazosin last night because her blood pressure was running low and requested it be stopped. Patient states that she has difficulty falling and staying asleep and is so is feeling tired this morning. She states that she still feels depressed, but no current suicidal thoughts. Patient states that she has found the groups and activities helpful and has been attending them. Plan: Patient will continue on Latuda and Lamictal at the current doses will discontinue the prazosin and patient will continue on Vistaril as needed for anxiety. Patient will begin melatonin 3 mg at bedtime to assist with her sleep. Patient continues to require hospitalization to stabilize her mood.
[2019-02-18] MEDS: ACETAMINOPHEN TAB 325 MG TAB PO PRN ×2 (15:06→20:58)
[2019-02-18] MEDS: LURASIDONE 20 MG TAB PO SCH (17:20)
[2019-02-18] MEDS ORDERED: MELATONIN 3 MG TABLET PO SCH (21:00)
[2019-02-19] MEDS: LORazepam 0.5 MG TAB PO PRN ×3 (07:49→19:27)
[2019-02-19] MEDS: lamoTRIgine 25 MG TAB PO SCH (08:18)
[2019-02-19] MEDS: hydrOXYzine PAMOATE 25 MG CAP PO PRN ×2 (10:40→16:47)
[2019-02-19] MEDS: ACETAMINOPHEN TAB 325 MG TAB PO PRN ×2 (10:41→20:40)
[2019-02-19] MEDS: NICOTINE POLACRILEX 2 MG GUM BUCCAL PRN ×2 (10:42→15:25)
--- NOTE | 2019-02-19 13:20 | P.PN ---
Progress Note - Text Progress Note Date: 02/19/19 Interval History: Patient is a 23-year-old female being seen in [facility] [place] and she states that she continues to feel depressed, tired and unmotivated. She states that she's slept about 4 hours last night and was up and down throughout the evening. She states that the Vistaril has been somewhat beneficial for her anxiety but she will continue to use it and see how she does. She reports no current suicidal thoughts. She states that she's been attending groups and activities and enjoys them. Patient reports that she still feeling hopeless Mental Status: Appearance/Attitude: Patient is casually dressed, makes eye contact and is cooperative Behavior: Patient does not display any psychomotor agitation or retardation Speech/Language: Patient's speech is spontaneous of normal volume and rhythm and she is coherent Thought Process: Patient is goal-directed there is no evidence of loose ass ociation or flight of ideas Thought Content: Patient denies any auditory or visual hallucinations and no delusions or paranoid ideation are elicited, patient states that she continues to feel depressed, hopeless with little energy or interest to do things. Patient states that she is not sleeping well slept about 4 hours last night but it was disrupted sleep. Patient states that she has no side effects from the medication and has been eating well. She states that she still feeling anxious the Vistaril has been somewhat beneficial for this. Suicidal/Homicidal Ideation: Patient denies any current suicidal or homicidal ideation Sensorium/Cognition: Patient is alert and oriented to person, place, and time and her recent and remote memory are grossly intact Mood/Affect: Patient's mood remains depressed or affect slightly blunted Insight/Judgment: Patient's insight and judgment are fair Assessment: Patient reports that she still feels depressed is not sleeping well and still feels hopeless she is no longer having any suicidal thoughts however. She reports no crying spells. Patient states that she's been attending groups and activities and likes them and finds them helpful. Patient reports no side effects from the medication. Plan: Patient will continue on Lamictal 25 mg daily Will increase her Latuda to 40 mg at dinnertime and her melatonin to 5 mg at bedtime. Patient continues to have Vistaril 25 mg as needed for anxiety. Patient was encouraged to continue to attend groups and activities. Patient continues to require hospitalization to further stabilize her mood
[2019-02-19] MEDS: LURASIDONE 40 MG TAB PO SCH (17:53)
[2019-02-19] MEDS ORDERED: MELATONIN 5 MG TABLET PO SCH (21:00)
[2019-02-20 06:23] VITALS: RESP 14
[2019-02-20] MEDS: lamoTRIgine 25 MG TAB PO SCH (08:25)
[2019-02-20] MEDS: LORazepam 0.5 MG TAB PO PRN ×2 (08:26→15:29)
[2019-02-20] MEDS: ACETAMINOPHEN TAB 325 MG TAB PO PRN ×2 (10:24→18:51)
[2019-02-20] MEDS: NICOTINE POLACRILEX 2 MG GUM BUCCAL PRN ×3 (10:26→18:51)
[2019-02-20] MEDS: hydrOXYzine PAMOATE 25 MG CAP PO PRN ×2 (10:26→17:38)
--- NOTE | 2019-02-20 11:13 | P.PN ---
Progress Note - Text Interval history: The patient is found in group she follows me to an interview room. She is well known to the psychiatric service and I have treated her several times in the past. She states that her mood is good. She was originally seen on the medical floor for an overdose with Lyrica. She states today that it was not a suicide attempt. She does have a long-standing history of abusing numerous substances. Her most recent drug screen was positive for methamphetamine. She indicates that she was sober from opiates for an extended period of time. She has been placed back on Lamictal she's been started on Latuda. She is using melatonin for sleep and Vistaril as needed for anxiety. Staff report that she has improved in terms of her psychiatric symptoms. Discharge planning includes looking for halfway placement. Mental status exam: The patient is alert she is dressed in her own clothing hygiene grooming adequate. Speech is fluent spontaneous nonpressured. She does demonstrate some increased psychomotor activity. She frequently changes position while seated in her chair. She frequently moves her legs while seated. She reports mood is improved she is reporting no suicidal or homicidal ideation intent or plan. She is endorsing no auditory or visual hallucinations or any specific delusions. She does not appear hypomanic or manic at this time. Insight and judgment appear to be improving. She is demonstrating no verbal or physical aggressiveness. She describes some future oriented thinking. Plan: The patient appears to be clinically stabilizing we will consider discharging her tomorrow. We will continue her current psychotropic medications. Vital signs reviewed. She is encouraged to continue participating in the milieu.
[2019-02-20] MEDS: LURASIDONE 40 MG TAB PO SCH (17:37)
[2019-02-20] MEDS ORDERED: MELATONIN 3 MG TABLET PO SCH (21:00)
[2019-02-21 06:40] VITALS: BP 103/58; PULSE 78; TEMP 98.1
[2019-02-21] MEDS: LORazepam 0.5 MG TAB PO PRN (07:49)
[2019-02-21] MEDS: lamoTRIgine 25 MG TAB PO SCH (08:58)
[2019-02-21] MEDS: ACETAMINOPHEN TAB 325 MG TAB PO PRN (08:59)
[2019-02-21] MEDS: NICOTINE POLACRILEX 2 MG GUM BUCCAL PRN (09:00)
--- NOTE | 2019-02-21 09:40 | P.DS ---
Providers Date of admission: 02/16/19 17:39 Expected date of discharge: 02/21/19 Attending physician: Michi Soto Consults: 02/16/19 17:52 Consult Physician Routine Consulting Provider: Karen Baez Consult Reason/Comments: medical management Do you want consulting provider notified?: Yes Primary care physician: Stated None - Discharge Diagnosis(es) (1) Bipolar 1 disorder, depressed Current Visit: No Status: Acute Priority: High (2) Panic attacks Current Visit: Yes Status: Acute Priority: Medium (3) Opioid use disorder Current Visit: Yes Status: Acute Priority: High (4) Methamphetamine use disorder, moderate Current Visit: Yes Status: Acute Priority: Medium (5) Moderate benzodiazepine use disorder Current Visit: Yes Status: Acute Priority: Medium Patient Condition at Discharge: Stable Plan - Discharge Summary Discharge Rx Participant: No New Discharge Prescriptions: New lamoTRIgine [LaMICtal] 25 mg PO DAILY #30 tab Lurasidone [Latuda] 40 mg PO 1800 #30 tab Melatonin 6 mg PO HS #30 tablet hydrOXYzine PAMOATE [Vistaril] 25 mg PO BID #30 cap Continue Albuterol Inhaler [Ventolin Hfa Inhaler] 2 puff INHALATION RT-Q6H PRN #1 puff PRN Reason: Shortness Of Breath Discontinued Buprenorphine HCl/Naloxone HCl [Suboxone 8 mg-2 mg Sl Film] 1 film SL DAILY Discharge Medication List Albuterol Inhaler [Ventolin Hfa Inhaler] 2 puff INHALATION RT-Q6H PRN #1 puff 02/21/19 [Rx] Lurasidone [Latuda] 40 mg PO 1800 #30 tab 02/21/19 [Rx] Melatonin 6 mg PO HS #30 tablet 02/21/19 [Rx] hydrOXYzine PAMOATE [Vistaril] 25 mg PO BID #30 cap 02/21/19 [Rx] lamoTRIgine [LaMICtal] 25 mg PO DAILY #30 tab 02/21/19 [Rx] Follow up Appointment(s)/Referral(s): [facility] [Outside] - 02/27/19 11:00 am (02-27-19 @ 11:00 with Carey Schultz 03-02-10 @ 8:[address] Catherine ) Patient Instructions/Handouts: Depression (DC) Activity/Diet/Wound Care/Special Instructions: Activity and diet as tolerated. Avoid the use of street drugs and alcohol. Remove all firearms from the home. Take all medications as prescribed. Follow up with your Primary Care Physician in one to two days. When you are in need of refills on your medications please contact your medical provider and/or your outpatient psychiatrist to have this done. Please go to the scheduled outpatient appointment for aftercare. If symptoms return or become worse call the crisis line and/ or go the nearest emergency room for an evaluation.
--- NOTE | 2019-02-21 10:38 | DS ---
DISCHARGE SUMMARY DATE OF SERVICE DICTATION: 02/21/2019 REASON FOR ADMISSION: This patient is a 23-year-old single female who was admitted to the hospital after she presented to the emergency room, status post overdose with Lyrica. The patient was admitted to the medical floor for treatment. She was seen in psychiatric consultation by Dr. Shafer. Following that evaluation, it was recommended that she be admitted to the mental health unit. She has reported to Dr. Shafer that she has been feeling tired, not sleeping. Energy was low. She reported increased crying spells. She had been off of medications since early this year. She does have a history of abusing benzodiazepines, marijuana, opioids, and methamphetamine. Methamphetamine was in her urine drug screen. The patient is well known to the psychiatric service. She carries a diagnosis of bipolar disorder along with her substance use disorders. For full details, please refer to Dr. Shafer's psychiatric evaluation dated February 17, 2019. SUMMARY OF HOSPITAL COURSE: The patient was admitted to the mental health unit voluntarily. She was evaluated by Dr. Shafer. The patient was placed back on her Lamictal, started on Latuda and Vistaril was used as needed for anxiety symptoms. The patient was seen by Internal Medicine for routine history and physical exam. Social Work met the patient to complete a psychosocial assessment and for discharge planning purposes. The Latuda was titrated during the course of the hospitalization. I assumed care of the patient beginning yesterday. The patient states that her mood is significantly improved. She is reporting no suicidal or homicidal thoughts. She reports no hopeless thinking. She plans [facility] residing at a [facility]. Social Work has confirmed there that there is a bed available at [facility]. The patient does not wish to participate in inpatient chemical dependency treatment at this time. She states she will follow up with [facility] upon discharge for treatment of her primary psychiatric disorders including substance use. MENTAL STATUS EXAM: The patient is alert. She is dressed in her own clothing. Hygiene and grooming adequate. Speech is fluent, spontaneous, non pressured. She indicates her mood is good. Affect is congruent and appears euthymic. She denies having any suicidal or homicidal ideation, intent, or plan. She is reporting no auditory or visual hallucinations or any specific delusions. There is no observed evidence of psychosis. She demonstrates no tangential thinking, loose associations or flight of ideas. She does not appear hypomanic or manic. She demonstrates no verbal or physical aggressiveness. She demonstrates no involuntary repetitive movements. Insight and judgment have improved. She remains oriented to person, place, and date. IMPRESSION: Bipolar 1 disorder, most recent depressed, panic attacks, history of posttraumatic stress disorder, opioid use disorder, severe methamphetamine use disorder, severe cannabis use disorder, moderate benzodiazepine use disorder. PLAN: The patient is being discharged from mental health unit today. She plans on residing at [facility]. She will follow up with [facility] for outpatient services. She will continue on Latuda 40 mg daily, Lamictal 25 mg daily, Vistaril 25 mg up to twice daily as needed, melatonin 6 mg at bedtime as needed. She is instructed to abstain from any use of alcohol, marijuana, or any illicit drugs as these will precipitate mood symptoms and elevate her safety risk. At this time, there is no imminent safety risk. She is appropriate for transition to outpatient care. She is instructed to return to the hospital with any acute safety concerns. The patient states that she does not wish to have any nicotine patch or gum prescribed at this time as she has no intention of using it as an outpatient. MMODL / IJN: [id number] /
== END 2019-02-21 12:10 | disposition home or self-care (01) | DRG 885 ==
LOC: 3MHU 17:39
PROVIDERS: ADMIT Psychiatry & Neurology Psychiatry; ATTEND Psychiatry & Neurology Psychiatry
DX: F31.5 Bipolar disorder, current episode depressed, severe, with psychotic features (principal); F12.99 Cannabis use, unspecified with unspecified cannabis-induced disorder; F11.99 Opioid use, unspecified with unspecified opioid-induced disorder; F15.99 Other stimulant use, unspecified with unspecified stimulant-induced disorder; F41.0 Panic disorder [episodic paroxysmal anxiety]; F43.10 Post-traumatic stress disorder, unspecified; J45.909 Unspecified asthma, uncomplicated; Z62.810 Personal history of physical and sexual abuse in childhood; Z81.8 Family history of other mental and behavioral disorders; Z91.19 Patient's noncompliance with other medical treatment and regimen; Z91.410 Personal history of adult physical and sexual abuse; Z91.5 Personal history of self-harm; Z91.030 Bee allergy status; Z91.040 Latex allergy status
CPT/HCPCS: 80061; 83036; 84443

== ENCOUNTER 2019-05-20 10:22 | Emergency (ER) | payer OTHER ==
[2019-05-20 10:29] VITALS: BP 120/80; PULSE 91; RESP 18; TEMP 97.8
--- NOTE | 2019-05-20 10:40 | ED ---
ENT HPI - General Chief complaint: Dental/Oral Stated complaint: DENTAL PAIN, ABSCESS Time Seen by Provider: 05/20/19 10:31 Source: patient Mode of arrival: ambulatory Limitations: no limitations - History of Present Illness Initial comments: 24yo female presents emergency department for chief complaint of right upper dental pain. Patient states she has had previous abscess. Patient states she woke up today with dental pain was concerned is developing. Patient denies any drainage or fluctuant areas. Patient has a fever slightly below tongue or below the angle of the mandible. Patient has a fever flu like symptoms. Patient denies any difficulty breathing or swelling. Remaining review of system negative. Upon arrival patient appears well no signs of acute distress. Patient states she has overall poor dentition and needs teeth extracted. Eyes recent antibiotic use denies prenancy - Related Data Home Medications Medication Instructions Recorded Confirmed Acetaminophen Tab [Tylenol Tab] 1,000 mg PO Q6HR PRN 05/20/19 05/20/19 Methadone [Dolophine] 70 mg PO DAILY 05/20/19 05/20/19 Previous Rx's Medication Instructions Recorded Penicillin V Potassium [Pen Vee K] 500 mg PO QID 7 Days #28 tablet 05/20/19 Allergies Allergy/AdvReac Type Severity Reaction Status Date / Time Latex, Natural Rubber Allergy Rash/Hives Verified 05/20/19 10:40 venom-honey bee Allergy Swelling Verified 05/20/19 10:40 [bee venom (honey bee)] Review of Systems ROS Statement: Those systems with pertinent positive or pertinent negative responses have been documented in the HPI. ROS Other: All systems not noted in ROS Statement are negative. Past Medical History Past Medical History: Asthma, Seizure Disorder Additional Past Medical History / Comment(s): HX: Recent injury to R ankle with ecchymosis and edema and pain, chronic back pain related to herniated disc, chronic migraines, endometriosis, multiple fractures, meningitis as child; ovarian cysts, prescription drug abuse, heroin abuse in past., History of Any Multi-Drug Resistant Organisms: None Reported Past Surgical History: Section, Cholecystectomy, Ear Surgery, Orthopedic Surgery Additional Past Surgical History / Comment(s): ORIF right wrist, myringotomy with tubes as , Past Anesthesia/Blood Transfusion Reactions: No Reported Reaction Past Psychological History: Anxiety, Bipolar, Depression, Panic Disorder, PTSD Smoking Status: Current every day smoker Past Alcohol Use History: Occasional Past Drug Use History: None Reported, Heroin, Marijuana, Opiates, Prescription Drug Abuse - Past Family History Brother(s) Additional Family Medical History / Comment(s): Patient has 1 brother that is 20 years of age with no major medical problems. Patient has 1 son 3-1/2 years old with no major medical problems. Father Additional Family Medical History / Comment(s): Father is alive at age 54 with history of substance abuse, Schizophrenic, Bipolar Disorder Mother Additional Family Medical History / Comment(s): Mother is alive at age 47 with history of Arthritis. General Exam - General Exam Comments Initial Comments: General: The patient is awake and alert, in no distress, and does not appear acutely ill. Eye: Pupils are equal, round and reactive to light, extra-ocular movements are intact. No nystagmus. There is normal conjunctiva bilaterally. No signs of icterus. Ears, nose, mouth and throat: There are moist mucous membranes and no oral lesions. No swelling below the angle of the mandible. No swelling below tongue. No tenderness to palpation below the tongue. Patient is no fluctuant abscess however tooth number #3 tenderness to palpation cracked dentition. O verall poor dentition. Multiple missing teeth and caries teeth. No facial swelling Neck: The neck is supple, there is no tenderness or JVD. Cardiovascular: There is a regular rate and rhythm. No murmur, rub or gallop is appreciated. Respiratory: Lungs are clear to auscultation, respirations are non-labored, breath sounds are equal. No wheezes, stridor, rales, or rhonchi. Musculoskeletal: Normal ROM, no tenderness. Strength 5/5. Sensation intact. Pulses equal bilaterally 2+. Neurological: A&O x 3. CN II-XII intact grossly, There are no obvious motor or sensory deficits. Coordination appears grossly intact. Speech is normal. Skin: Skin is warm and dry and no rashes or lesions are noted. Psychiatric: Cooperative, appropriate mood & affect, normal judgment. Limitations: no limitations Course Vital Signs 05/20/19 10:27 Temperature 97.8 F Pulse Rate 91 Respiratory 18 Rate Blood Pressure 120/80 O2 Sat by Pulse 98 Oximetry Medical Decision Making - Medical Decision Making 24 or female presents emergency department for chief complaint of dental pain. Patient is no signs of current abscess. Patient has no systemic signs of infection. Patient is afebrile appearing nontoxic. No signs of Filipe angina or other, again process. At this time will treat patient Pen-Vee K and have her follow up with her dentist. Patient is agreeable this care plan discharge discharge appear well Disposition Clinical Impression: Pain, dental Disposition: HOME SELF-CARE Condition: Good Instructions (If sedation given, give patient instructions): Dental Abscess (ED) Additional Instructions: Please use medication as discussed. Please follow-up with dentist for tooth extraction. Please return to emergency room if the symptoms increase or worsen or for any other concerns. Prescriptions: Penicillin V Potassium [Pen Vee K] 500 mg PO QID 7 Days #28 tablet Is patient prescribed a controlled substance at d/c from ED?: No Referrals: None,Stated [Primary Care Provider] - 1-2 days Time of Disposition: 10:38
== END 2019-05-20 11:14 | disposition home or self-care (01) ==
LOC: EC 10:22
DX: K08.89 Other specified disorders of teeth and supporting structures (principal); F17.200 Nicotine dependence, unspecified, uncomplicated; Z79.899 Other long term (current) drug therapy; Z91.040 Latex allergy status; Z91.048 Other nonmedicinal substance allergy status; Z91.030 Bee allergy status
CPT/HCPCS: 99282

== ENCOUNTER 2020-07-05 07:27 | Emergency (ER) | payer MEDICAID, OTHER ==
[2020-07-05 07:37] VITALS: BP 118/76; PULSE 90; RESP 18; TEMP 97.8
[2020-07-05] MEDS ORDERED: ONDANSETRON 4 MG ODT STARTER PACK 2 TAB BTL PO STA (07:48)
--- NOTE | 2020-07-05 07:55 | ED ---
Nausea/Vomiting/Diarrhea HPI - General Chief complaint: Nausea/Vomiting/Diarrhea Stated complaint: vomiting/diarrhea/nausea Time Seen by Provider: 07/05/20 07:38 Source: patient, RN notes reviewed, old records reviewed Mode of arrival: ambulatory Limitations: no limitations - History of Present Illness Initial comments: Test is a 25-year-old female who presents to the emergency department with 3 days of diarrhea and intermittent nausea and vomiting. She reports that over the past 6 hours she's had no further vomiting and has been able to tolerate l iquids. Patient states that she called her primary care doctor to prescribe her Zofran however they were not able to do so and Patient decided come to the ER for evaluation. Patient reports that she's had no known history of sick contacts is aware of. 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 Patient reports that she has no abdominal pain at this time. Denies bloody stools or bloody emesis. Denies fever chills or coughing. - Related Data Home Medications Medication Instructions Recorded Confirmed Acetaminophen Tab [Tylenol Tab] 1,000 mg PO Q6HR PRN 05/20/19 05/20/19 Methadone [Dolophine] 70 mg PO DAILY 05/20/19 05/20/19 Previous Rx's Medication Instructions Recorded Penicillin V Potassium [Pen Vee K] 500 mg PO QID 7 Days #28 tablet 05/20/19 Ondansetron Odt [Zofran Odt] 4 mg PO Q8HR PRN #12 tab 07/05/20 Allergies Allergy/AdvReac Type Severity Reaction Status Date / Time Latex, Natural Rubber Allergy Rash/Hives Verified 07/05/20 07:37 venom-honey bee Allergy Swelling Verified 07/05/20 07:37 [bee venom (honey bee)] Review of Systems ROS Statement: Those systems with pertinent positive or pertinent negative responses have been documented in the HPI. ROS Other: All systems not noted in ROS Statement are negative. Past Medical History Past Medical History: Asthma, Seizure Disorder Additional Past Medical History / Comment(s): HX: Recent injury to R ankle with ecchymosis and edema and pain, chronic back pain related to herniated disc, chronic migraines, endometriosis, multiple fractures, meningitis as child; ovarian cysts, prescription drug abuse, heroin abuse in past., History of Any Multi-Drug Resistant Organisms: None Reported Past Surgical History: Section, Cholecystectomy, Ear Surgery, Orthopedic Surgery Additional Past Surgical History / Comment(s): ORIF right wrist, myringotomy with tubes as infant, Past Anesthesia/Blood Transfusion Reactions: No Reported Reaction Past Psychological History: Anxiety, Bipolar, Depression, Panic Disorder, PTSD Smoking Status: Current every day smoker Past Alcohol Use History: Occasional Past Drug Use History: Heroin, Marijuana, Opiates, Prescription Drug Abuse - Past Family History Brother(s) Additional Family Medical History / Comment(s): Patient has 1 brother that is 20 years of age with no major medical problems. Patient has 1 son 3-1/2 years old with no major medical problems. Father Additional Family Medical History / Comment(s): Father is alive at age 54 with history of substance abuse, Schizophrenic, Bipolar Disorder Mother Additional Family Medical History / Comment(s): Mother is alive at age 47 with history of Arthritis. General Exam - General Exam Comments Initial Comments: Pleasant 25-year-old female. Alert and oriented 3. No distress. Limitations: no limitations General appearance: alert, in no apparent distress Head exam: Present: atraumatic, normocephalic, normal inspection Eye exam: Present: normal appearance, PERRL, EOMI. Absent: scleral icterus, conjunctival injection, periorbital swelling ENT exam: Present: normal exam, mucous membranes moist Neck exam: Present: normal inspection. Absent: tenderness, meningismus, lymphadenopathy Respiratory exam: Present: normal lung sounds bilaterally. Absent: respiratory distress, wheezes, rales, rhonchi, stridor Cardiovascular Exam: Present: regular rate, normal rhythm, normal heart sounds. Absent: systolic murmur, diastolic murmur, rubs, gallop, clicks GI/Abdominal exam: Present: soft, normal bowel sounds. Absent: distended, tenderness, guarding, rebound, rigid Extremities exam: Present: normal inspection, full ROM, normal capillary refill. Absent: tenderness, pedal edema, joint swelling, calf tenderness Back exam: Present: normal inspection Neurological exam: Present: alert, oriented X3, CN II-XII intact Psychiatric exam: Present: normal affect, normal mood Skin exam: Present: warm, dry, intact, normal color. Absent: rash Course Vital Signs 07/05/20 07:34 Temperature 97.8 F Pulse Rate 90 Respiratory 18 Rate Blood Pressure 118/76 O2 Sat by Pulse 98 Oximetry Medical Decision Making - Medical Decision Making is a pleasant 25-year-old female presents with 3 days of nausea vomiting and diarrhea. She's not vomited for the past 6 hours. She denies any abdominal pain at this time. On exam her vital signs are stable. Abdomen soft and nontender. Patient's requesting prescription for Zofran and would like to try this to be discharged home. I did offer the Patient blood work IV fluids and she refused at this time. Patient will be tested for cocaine with symptoms of vomiting diarrhea on reevaluation she did report that her mother has been sick with upper respiratory congestion. I discussed the Patient needs to self quarantined until results occult testing. I discussed return parameters. Patient understands treatment plan will comply. - Lab Data Lab Results 07/05/20 07/05/20 Range/Units 07:57 07:57 Urine Color Yellow Urine Appearance Clear (Clear) Urine pH 6.0 (5.0-8.0) Ur Specific [place] 1.034 (1.001-1.035) Urine Protein Trace H (Negative) Urine Glucose (UA) Negative (Negative) Urine Ketones Negative (Negative) Urine Blood Negative (Negative) Urine Nitrite Negative (Negative) Urine Bilirubin Negative (Negative) Urine Urobilinogen <2.0 (<2.0) mg/dL Ur Leukocyte Esterase Small H (Negative) Urine RBC 5 (0-5) /hpf Urine WBC 2 (0-5) /hpf Ur Squamous Epith Cells 3 (0-4) /hpf Urine Mucus Many H (None) /hpf Urine HCG, Qual Not Detected (Not Detectd) - Radiology Data Radiology results: report reviewed Disposition Clinical Impression: Nausea & vomiting Disposition: HOME SELF-CARE Condition: Good Instructions (If sedation given, give patient instructions): Acute Nausea and Vomiting (ED) Additional Instructions: Patient advised to a take Motrin Tylenol for any fevers. Patient can use the Zofran as prescribed. Patient should self quarantine until results with Covid testing Following up with primary care doctor symptoms continue to persist or return to the ER if there is any alarming signs or symptoms that can occur. Prescriptions: Ondansetron Odt [Zofran Odt] 4 mg PO Q8HR PRN #12 tab PRN Reason: Nausea Is patient prescribed a controlled substance at d/c from ED?: No Referrals: [facility] [Primary Care Provider] - 1-2 days Time of Disposition: 07:54
[2020-07-05 08:19] LABS: Appearance,Urine Clear (Clear); Bilirubin,Urine Negative (Negative); Blood,Urine Negative (Negative); Color,Urine Yellow; Glucose,Urine (UA) Negative (Negative); Ketones,Urine Negative (Negative); Leukocyte Esterase,Urine Small (Negative); Mucus,Urine Many /hpf; Nitrite,Urine Negative (Negative); Protein,Urine Trace (Negative); RBC,Urine 5 /hpf (0-5); Specific Gravity,Urine 1.034 (1.001-1.035); Squamous Epithelial Cell,Urine 3 /hpf (0-4); Urobilinogen,Urine <2.0 mg/dL (<2.0); WBC,Urine 2 /hpf (0-5)
== END 2020-07-05 08:24 | disposition home or self-care (01) ==
LOC: EC 07:27
DX: U07.1 COVID-19 (principal); F17.200 Nicotine dependence, unspecified, uncomplicated; F11.11 Opioid abuse, in remission; F19.11 Other psychoactive substance abuse, in remission; Z91.040 Latex allergy status; Z91.030 Bee allergy status; Z79.899 Other long term (current) drug therapy
CPT/HCPCS: 81001; 81025; 99284; U0003; S0119

== ENCOUNTER → 2021-04-02 | Outpatient (CLI) | payer OTHER | END | disposition home or self-care (01) | LOC: LABWHC1 07:27 | PROVIDERS: ATTEND Psychologist Clinical | DX: F11.20 Opioid dependence, uncomplicated (principal) | CPT/HCPCS: 36415; G0480; 80358 ==

== ENCOUNTER 2021-10-08 15:57 | Emergency (ER) | payer OTHER ==
[2021-10-08 16:09] VITALS: RESP 18; TEMP 98.5
[2021-10-08] MEDS ORDERED: ACETAMINOPHEN TAB 325 MG TAB PO STA (17:21)
[2021-10-08 17:53] LABS: Basophils # (A) 0.1 k/uL (0-0.2); Basophils % (A) 1 %; Eosinophils # (A) 0.2 k/uL (0-0.7); Eosinophils % (A) 2 %; HCT 37.3 % (34.0-46.0); Lymphocytes # (A) 3.4 k/uL (1.0-4.8); Lymphocytes % (A) 31 %; MCH 29.3 pg (25.0-35.0); MCHC 32.3 g/dL (31.0-37.0); MCV 90.7 fL (80.0-100.0); Mean Platelet Volume 7.3; Monocytes # (A) 0.4 k/uL (0-1.0); Monocytes % (A) 4 %; Neutrophils # (A) 6.8 k/uL (1.3-7.7); Neutrophils % (A) 62 %; Platelet Count 340 k/uL (150-450); RBC 4.11 m/uL (3.80-5.40); RDW 14.1 % (11.5-15.5)
[2021-10-08 17:56] LABS: ALT 20 U/L (4-34); AST 26 U/L (14-36); African American GFR (CKD) >90 (>60 ml/min/1.73 sqM); Albumin 4.5 g/dL (3.5-5.0); Alkaline Phosphatase 76 U/L (38-126); Anion Gap 7 mmol/L; Blood Urea Nitrogen 11 mg/dL (7-17); Calcium 9.7 mg/dL (8.4-10.2); Carbon Dioxide 23 mmol/L (22-30); Chloride 105 mmol/L (98-107); Glucose 97 mg/dL (74-99); Non-African American GFR(CKD) >90 (>60 ml/min/1.73 sqM); Potassium 4.3 mmol/L (3.5-5.1); Sodium 135 mmol/L (137-145); Total Bilirubin 0.3 mg/dL (0.2-1.3); Total Protein 7.8 g/dL (6.3-8.2)
[2021-10-08 18:02] VITALS: BP 120/83; PULSE 72
--- NOTE | 2021-10-08 18:08 | ED ---
General Adult HPI - General Chief complaint: Seizure Stated complaint: Seizures Time Seen by Provider: 10/08/21 17:09 Source: patient, EMS Mode of arrival: EMS Limitations: no limitations - History of Present Illness Initial comments: Patient is a 26-year-old female who presents to the emergency department with a chief complaint of seizure. Patient was at [facility] for Xanax withdrawal and there was concern of seizure. Patient reports she lost consciousness and is unsure if fell or hit her head. She is not on blood thinners. Patient reports she normally takes gabapentin but that rehab facility has not let her take it since her admission on 10/01/21. Patient reports nonspecific headache and body aches that have been occurring for 1 week. She states that her head feels foggy. Patient denies fever, chills, URI symptoms, sh ortness of breath, chest pain, palpitations, dizziness, abdominal pain, nausea, vomiting, diarrhea, and dysuria. - Related Data Home Medications Medication Instructions Recorded Confirmed Acetaminophen Tab [Tylenol Tab] 1,000 mg PO Q6HR PRN 05/20/19 05/20/19 Methadone [Dolophine] 70 mg PO DAILY 05/20/19 05/20/19 Previous Rx's Medication Instructions Recorded Penicillin V Potassium [Pen Vee K] 500 mg PO QID 7 Days #28 tablet 05/20/19 Ondansetron Odt [Zofran Odt] 4 mg PO Q8HR PRN #12 tab 07/05/20 Allergies Allergy/AdvReac Type Severity Reaction Status Date / Time Latex, Natural Rubber Allergy Rash/Hives Verified 07/05/20 07:37 venom-honey bee Allergy Swelling Verified 07/05/20 07:37 [bee venom (honey bee)] Review of Systems ROS Statement: Those systems with pertinent positive or pertinent negative responses have been documented in the HPI. ROS Other: All systems not noted in ROS Statement are negative. Past Medical History Past Medical History: Asthma, Seizure Disorder Additional Past Medical History / Comment(s): HX: Recent injury to R ankle with ecchymosis and edema and pain, chronic back pain related to herniated disc, chronic migraines, endometriosis, multiple fractures, meningitis as child; ovarian cysts, prescription drug abuse, heroin abuse in past., History of Any Multi-Drug Resistant Organisms: None Reported Past Surgical History: Section, Cholecystectomy, Ear Surgery, Orthopedic Surgery Additional Past Surgical History / Comment(s): ORIF right wrist, myringotomy with tubes as , Past Anesthesia/Blood Transfusion Reactions: No Reported Reaction Past Psychological History: Anxiety, Bipolar, Depression, Panic Disorder, PTSD Smoking Status: Current every day smoker Past Alcohol Use History: Occasional Past Drug Use History: Heroin, Marijuana, Opiates, Prescription Drug Abuse - Past Family History Brother(s) Additional Family Medical History / Comment(s): Patient has 1 brother that is 20 years of age with no major medical problems. Patient has 1 son 3-1/2 years old with no major medical problems. Father Additional Family Medical History / Comment(s): Father is alive at age 54 with history of substance abuse, Schizophrenic, Bipolar Disorder Mother Additional Family Medical History / Comment(s): Mother is alive at age 47 with history of Arthritis. General Exam Limitations: no limitations General appearance: alert, in no apparent distress Head exam: Present: atraumatic, normocephalic, normal inspection Eye exam: Present: normal appearance, PERRL, EOMI. Absent: scleral icterus, conjunctival injection, periorbital swelling Neck exam: Present: normal inspection, tenderness (Posteriorly), other (C-collar in place) Respiratory exam: Present: normal lung sounds bilaterally. Absent: respiratory distress, wheezes, rales, rhonchi, stridor Cardiovascular Exam: Present: regular rate, normal rhythm, normal heart sounds. Absent: systolic murmur, diastolic murmur, rubs, gallop, clicks GI/Abdominal exam: Present: soft, normal bowel sounds. Absent: distended, tenderness, guarding, rebound, rigid Neurological exam: Present: alert, oriented X3, CN II-XII intact Psychiatric exam: Present: normal affect, normal mood Skin exam: Present: warm, dry, intact, normal color. Absent: rash Course Vital Signs 10/08/21 10/08/21 16:04 18:02 Temperature 98.5 F Pulse Rate 80 72 Respiratory 18 18 Rate Blood Pressure 132/91 120/83 O2 Sat by Pulse 98 99 Oximetry Medical Decision Making - Medical Decision Making This a 26-year-old female who presents with a chief complaint of seizure. Thorough history and examination were performed. CBC and CMP are unremarkable. Patient is negative for COVID-19 and influenza A/B. CT of the brain and C-spine without contrast reveal no acute intracranial process and no evidence of cervical spine fracture. Seizure padding was placed on the bed rales. Patient given Tylenol for headache with some relief. Case discussed with patient. Patient verbalizes understanding and agrees that she is well enough to go back to rehab. Return parameters discussed. Dr. Call is my attending. - Lab Data Result diagrams: 10/08/21 17:37 10/08/21 17:37 Lab Results 10/08/21 10/08/21 10/08/21 Range/Units 17:37 17:37 17:37 WBC 11.0 H (3.8-10.6) k/uL RBC 4.11 (3.80-5.40) m/uL Hgb 12.0 (11.4-16.0) gm/dL Hct 37.3 (34.0-46.0) % MCV 90.7 (80.0-100.0) fL MCH 29.3 (25.0-35.0) pg MCHC 32.3 (31.0-37.0) g/dL RDW 14.1 (11.5-15.5) % Plt Count 340 (150-450) k/uL MPV 7.3 Neutrophils % 62 % Lymphocytes % 31 % Monocytes % 4 % Eosinophils % 2 % Basophils % 1 % Neutrophils # 6.8 (1.3-7.7) k/uL Lymphocytes # 3.4 (1.0-4.8) k/uL Monocytes # 0.4 (0-1.0) k/uL Eosinophils # 0.2 (0-0.7) k/uL Basophils # 0.1 (0-0.2) k/uL Sodium 135 L (137-145) mmol/L Potassium 4.3 (3.5-5.1) mmol/L Chloride 105 (98-107) mmol/L Carbon Dioxide 23 (22-30) mmol/L Anion Gap 7 mmol/L BUN 11 (7-17) mg/dL Creatinine 0.75 (0.52-1.04) mg/dL Est GFR (CKD-EPI)AfAm >90 (>60 ml/min/1.73 sqM) Est GFR (CKD-EPI)NonAf >90 (>60 ml/min/1.73 sqM) Glucose 97 (74-99) mg/dL Calcium 9.7 (8.4-10.2) mg/dL Magnesium 2.1 (1.6-2.3) mg/dL Total Bilirubin 0.3 (0.2-1.3) mg/dL AST 26 (14-36) U/L ALT 20 (4-34) U/L Alkaline Phosphatase 76 (38-126) U/L Total Protein 7.8 (6.3-8.2) g/dL Albumin 4.5 (3.5-5.0) g/dL Coronavirus (PCR) (Not Detectd) Influenza Type A RNA (Not Detectd) Influenza Type B (PCR) (Not Detectd) 10/08/21 10/08/21 Range/Units 17:55 17:55 WBC (3.8-10.6) k/uL RBC (3.80-5.40) m/uL Hgb (11.4-16.0) gm/dL Hct (34.0-46.0) % MCV (80.0-100.0) fL MCH (25.0-35.0) pg MCHC (31.0-37.0) g/dL RDW (11.5-15.5) % Plt Count (150-450) k/uL MPV Neutrophils % % Lymphocytes % % Monocytes % % Eosinophils % % Basophils % % Neutrophils # (1.3-7.7) k/uL Lymphocytes # (1.0-4.8) k/uL Monocytes # (0-1.0) k/uL Eosinophils # (0-0.7) k/uL Basophils # (0-0.2) k/uL Sodium (137-145) mmol/L Potassium (3.5-5.1) mmol/L Chloride (98-107) mmol/L Carbon Dioxide (22-30) mmol/L Anion Gap mmol/L BUN (7-17) mg/dL Creatinine (0.52-1.04) mg/dL Est GFR (CKD-EPI)AfAm (>60 ml/min/1.73 sqM) Est GFR (CKD-EPI)NonAf (>60 ml/min/1.73 sqM) Glucose (74-99) mg/dL Calcium (8.4-10.2) mg/dL Magnesium (1.6-2.3) mg/dL Total Bilirubin (0.2-1.3) mg/dL AST (14-36) U/L ALT (4-34) U/L Alkaline Phosphatase (38-126) U/L Total Protein (6.3-8.2) g/dL Albumin (3.5-5.0) g/dL Coronavirus (PCR) Not Detected (Not Detectd) Influenza Type A RNA Not Detected (Not Detectd) Influenza Type B (PCR) Not Detected (Not Detectd) Disposition Clinical Impression: Seizure disorder Disposition: TRANSFER TO PSYCH HOSP/UNIT Condition: Good Instructions (If sedation given, give patient instructions): Recurrent Seizures in Adults (ED) Additional Instructions: Follow-up with primary care provider in one to 2 days. Report to the emergency department if you experience new, concerning, or worsening symptoms. Is patient prescribed a controlled substance at d/c from ED?: No Referrals: Estephania Harry MD [Primary Care Provider] - 1-2 days Time of Disposition: 20:29
--- NOTE | 2021-10-08 18:26 | CT ---
EXAMINATION TYPE: CT brain cspine wo con CT DLP: 1325.9 mGycm, Automated exposure control for dose reduction was used. DATE OF EXAM: 10/08/2021 5:47 PM COMPARISON: CT brain 07/08/2017. CLINICAL INDICATION:Female, 26 years old with history of pain; Seizure. TECHNIQUE: Brain: Multiple axial CT images of the brain were obtained without IV contrast. Cspine: Axial CT images from the skull base to the inferior aspect of T2 we obtained without intraven ous contrast. Coronal and sagittal reformatted images were also reviewed. FINDINGS: Brain: Extra-axial spaces: No abnormal extra-axial fluid collections. Ventricular system: Within normal limits Cerebral parenchyma: No acute intraparenchymal hemorrhage or mass effect. The curiel-white junction is well differentiated. Cerebellum: Unremarkable. Mass effect: No evidence of midline shift. Intracranial vasculature: unremarkable Soft tissues: Normal. Calvarium/osseous structures: No depressed skull fracture. Paranasal sinuses and mastoid air cells: Clear. Visualized orbits: Orbital contents are intact. Cervical spine: Fracture: None. Osseous structures: Unremarkable Vertebral alignment: Within normal limits. Spinal canal/Neural Foramina: No evidence of significant spinal canal narrowing. No evidence of signi ficant neural foramina narrowing. Neck soft tissues: Prevertebral soft tissues are within normal limits. Other: The airway is patent. The lung apices are clear. IMPRESSION: 1. No acute intracranial process. 2. No evidence of cervical spine fracture.
== END 2021-10-08 22:21 ==
LOC: EC 15:57
DX: R56.9 Unspecified convulsions (principal); J45.909 Unspecified asthma, uncomplicated; F41.9 Anxiety disorder, unspecified; F31.9 Bipolar disorder, unspecified; F25.9 Schizoaffective disorder, unspecified; F17.200 Nicotine dependence, unspecified, uncomplicated; F12.90 Cannabis use, unspecified, uncomplicated; Z20.822 Contact with and (suspected) exposure to COVID-19; Z91.040 Latex allergy status; Z90.49 Acquired absence of other specified parts of digestive tract
CPT/HCPCS: 36415; 70450; 72125; 80053; 83735; 85025; 87502; 87635; 99285

== ENCOUNTER 2022-02-17 06:09 | Emergency (ER) | payer OTHER ==
[2022-02-17 06:23] VITALS: BP 131/102; PULSE 121; RESP 20; TEMP 98
[2022-02-17] MEDS ORDERED: LIDOCAINE 1% INJ 10MG/ML (5 ML VIAL-PF) SQ ONE (06:26)
[2022-02-17] MEDS ORDERED: DIPH,PERTUS(ACELL)TETVAC-LF 0.5 ML VIAL IM ONE (06:26)
[2022-02-17] MEDS ORDERED: ACETAMINOPHEN TAB 325 MG TAB PO STA (06:36)
[2022-02-17] MEDS ORDERED: IBUPROFEN 600 MG TAB PO STA (06:36)
--- NOTE | 2022-02-17 06:42 | ED ---
Wound/Laceration HPI - General Chief Complaint: Wound/Laceration Stated Complaint: Right hand laceration Time Seen by Provider: 02/17/22 06:30 Source: patient, RN notes reviewed, old records reviewed Mode of arrival: ambulatory Limitations: no limitations - History of Present Illness Initial Comments: 26-year-old female presents, alert and oriented x4, tearful with complaints of lacerations to her right wrist and hand after breaking a mirror accidentally around 6:05 this morning. She denies any other injuries. She states that she is unsure if her tetanus is up-to-date. -: minutes(s) (30) Extremity Location: Right: Wrist, Hand (index finger, thumb ) Place: home Patient Tetanus UTD: No Context: accidental Associated Symptoms: none - Related Data Home Medications Medication Instructions Recorded Confirmed Acetaminophen Tab [Tylenol Tab] 1,000 mg PO Q6HR PRN 05/20/19 05/20/19 Methadone [Dolophine] 70 mg PO DAILY 05/20/19 05/20/19 Previous Rx's Medication Instructions Recorded Penicillin V Potassium [Pen Vee K] 500 mg PO QID 7 Days #28 tablet 05/20/19 Ondansetron Odt [Zofran Odt] 4 mg PO Q8HR PRN #12 tab 07/05/20 Allergies Allergy/AdvReac Type Severity Reaction Status Date / Time Latex, Natural Rubber Allergy Rash/Hives Verified 02/17/22 06:23 venom-honey bee Allergy Swelling Verified 02/17/22 06:23 [bee venom (honey bee)] Review of Systems ROS Statement: Those systems with pertinent positive or pertinent negative responses have been documented in the HPI. ROS Other: All systems not noted in ROS Statement are negative. Past Medical History Past Medical History: Asthma, Seizure Disorder Additional Past Medical History / Comment(s): HX: Recent injury to R ankle with ecchymosis and edema and pain, chronic back pain related to herniated disc, chronic migraines, endometriosis, multiple fractures, meningitis as child; ovarian cysts, prescription drug abuse, heroin abuse in past., History of Any Multi-Drug Resistant Organisms: None Reported Past Surgical History: Section, Cholecystectomy, Ear Surgery, Orthopedic Surgery Additional Past Surgical History / Comment(s): ORIF right wrist, myringotomy with tubes as , Past Anesthesia/Blood Transfusion Reactions: No Reported Reaction Past Psychological History: Anxiety, Bipolar, Depression, Panic Disorder, PTSD Smoking Status: Current every day smoker Past Alcohol Use History: Occasional Past Drug Use History: Heroin, Marijuana, Opiates, Prescription Drug Abuse - Past Family History Brother(s) Additional Family Medical History / Comment(s): Patient has 1 brother that is 20 years of age with no major medical problems. Patient has 1 son 3-1/2 years old with no major medical problems. Father Additional Family Medical History / Comment(s): Father is alive at age 54 with history of substance abuse, Schizophrenic, Bipolar Disorder Mother Additional Family Medical History / Comment(s): Mother is alive at age 47 with history of Arthritis. General Exam Limitations: no limitations General appearance: alert, in no apparent distress Head exam: Present: atraumatic, normocephalic, normal inspection Respiratory exam: Absent: respiratory distress, accessory muscle use Cardiovascular Exam: Present: tachycardia Right Elbow exam: Present: full ROM. Absent: tenderness Forearm Wrist exam: Present: full ROM. Absent: tenderness Hand Wrist exam: Present: full ROM, abrasion (Multiple abrasions to the dorsal surface of the right hand), laceration (Flap avulsion to dorsal aspect of index finger, deep abrasion to the dorsal thumb, jagged laceration to anterior wrist approx approx 4cm) Neuro motor exam: Present: wrist extension intact, thumb opposition intact, thumb IP flexion intact, thumb adduction intact Vascular: Present: normal capillary refill, radial pulse. Absent: vascular compromise Neurological exam: Present: alert, oriented X3, normal gait Psychiatric exam: Present: normal affect, normal mood, other (tearful) Skin exam: Present: warm, dry, normal color. Absent: cyanosis, diaphoretic Course Vital Signs 02/17/22 06:19 Temperature 98 F Pulse Rate 121 H Respiratory 20 Rate Blood Pressure 131/102 O2 Sat by Pulse 98 Oximetry - Reevaluation(s) Reevaluation #1: 02/17/22 07:22 Wrist laceration was anesthetized with lidocaine. While awaiting x-ray report to rule out foreign body mother arrived and became upset that the wounds were not sutured and took the patient home per nursing staff. Time: 07:22 Medical Decision Making - Medical Decision Making Wound was anesthetized and while awaiting x-ray report to rule out foreign body mother arrived taking patient out of the hospital per nursing staff. Disposition Clinical Impression: Laceration Disposition: Left Against Medical Advice Referrals: Estephania Harry MD [Primary Care Provider] - 1-2 days Decision Date: 02/17/22 Decision Time: 07:28
[2022-02-17] MEDS ORDERED: GELATIN SPONGE,ABSORB (SMALL) 1 EACH SPONGE TOPICAL STA (06:54)
[2022-02-17] MEDS ORDERED: LIDOCAINE-PRILOCAINE 2.5-2.5% CREAM 5 GM TUBE TOPICAL STA (07:19)
--- NOTE | 2022-02-17 07:58 | XR ---
EXAM: XR Right Hand Complete, 3 or More Views CLINICAL HISTORY: ITS.REASON XR Reason: injury TECHNIQUE: Frontal, lateral and oblique views of the right hand. COMPARISON: No relevant prior studies available. FINDINGS: Bones/joints: Post surgical change from prior volar plate and screw fixation of the distal right radial metaphysis. Chronic right ulnar styloid fracture deformity. No acute fracture. No dislocation. Soft tissues: Unremarkable. No radiopaque foreign body. IMPRESSION: No acute fracture or traumatic malalignment to the right hand.
--- NOTE | 2022-02-17 08:02 | XR ---
EXAM: XR Right Wrist Complete, 3 or More Views CLINICAL HISTORY: ITS.REASON XR Reason: injury TECHNIQUE: Frontal, lateral and oblique views of the right wrist. COMPARISON: No relevant prior studies available. FINDINGS: Bones/joints: Postsurgical changes with prior volar plate and screw fixation of the right distal radial metaphysis. Chronic ulnar styloid fracture deformity. No acute fracture. No dislocation. Soft tissues: Unremarkable. No radiopaque foreign body. IMPRESSION: 1. No acute fractures or traumatic malalignment to the right wrist. 2. Postsurgical changes with prior volar plate and screw fixation of the right distal radial metaphysis with no evidence of hardware complication.
== END 2022-02-17 07:45 | disposition left against medical advice (07) ==
LOC: EC 06:09
DX: S61.511A Laceration without foreign body of right wrist, initial encounter (principal); J45.909 Unspecified asthma, uncomplicated; F17.200 Nicotine dependence, unspecified, uncomplicated; Z91.030 Bee allergy status; Z91.048 Other nonmedicinal substance allergy status

== ENCOUNTER → 2024-12-11 | Outpatient (CLI) | payer OTHER ==
--- NOTE | 2024-12-11 07:41 | US ---
EXAMINATION TYPE: US abdomen limited DATE OF EXAM: 12/11/2024 COMPARISON: NONE CLINICAL INDICATION: Female, 29 years old with history of E78.1 PURE HYPERGLYCERIDEMIA R79.89 OTHER S PECIFIE; Hep C, elevated LFTs, GB resected, GERD TECHNIQUE: Grayscale and color Doppler imaging of the right upper quadrant. FINDINGS: EXAM MEASUREMENTS: Liver Length: 24.1 cm Gallbladder Wall: Surgically absent CBD: 0.4 cm, color Doppler imaging was utilized to isolate the common bile duct for measurement. Right Kidney: 10.4x3.4x5.5 cm TOLL TEST WORKER NOTES: Pancreas: Tail obscured by overlying bowel gas Liver: hepatomegaly, hepatic steatosis Gallbladder: Surgically absent CBD: wnl Right Kidney: wnl exam limited by habitus, bowel gas, and attenuation from the liver The visualized portion of the pancreas is within normal limits. The liver is enlarged with diffuse in crease echogenicity. No focal lesion identified. No surface nodularity demonstrated. Gallbladder surg ically absent. Common bile duct is within normal limits. Right kidney demonstrates no hydronephrosis, shadowing calculus or solid mass. IMPRESSION: 1. Hepatomegaly with severe diffuse fatty infiltration. No focal lesion identified. 2. Post cholecystectomy changes. [facility], , 12/11/2024 7:38 AM
== END | disposition home or self-care (01) ==
LOC: RADUSWWP 07:03
PROVIDERS: ATTEND Family Medicine
DX: E78.1 Pure hyperglyceridemia (principal); B18.2 Chronic viral hepatitis C; K21.9 Gastro-esophageal reflux disease without esophagitis; K76.0 Fatty (change of) liver, not elsewhere classified; R16.0 Hepatomegaly, not elsewhere classified; Z90.49 Acquired absence of other specified parts of digestive tract; R79.89 Other specified abnormal findings of blood chemistry
CPT/HCPCS: 76705